=== PATIENT | male | born 1940 | race Caucasian/White ===

== ENCOUNTER 2019-11-14 09:11 | Outpatient (REF) | payer MEDICARE, SELFPAY ==
[2019-11-14 09:59] LABS: Alanine Aminotransferase 51 U/L (0-40); Alkaline Phosphatase 69 U/L (39-117); Aspartate Amino Transferase 39 U/L (5-37); Bilirubin Direct 0.5 mg/dL (0.0-0.5); Bilirubin Total 0.9 mg/dL (0.0-1.0); Total Protein 6.4 g/dL (6.5-8.0)
[2019-11-15 04:41] LABS: Triiodothyronine T3 Free 3.4 pg/mL (2.3-4.2)
== END 2019-11-14 09:12 | disposition home or self-care (01) ==
LOC: HO.LABO 09:11
PROVIDERS: Visit Provider Internal Medicine Endocrinology, Diabetes & Metabolism
DX: E05.90 Thyrotoxicosis, unspecified without thyrotoxic crisis or storm (principal)
CPT/HCPCS: 36415; 80076; 84439; 84443; 84481

== ENCOUNTER → 2019-11-22 10:47 | Outpatient (BNVA) | payer MEDICARE, SELFPAY | PROVIDERS: PCP Internal Medicine; Referring Provider Internal Medicine; Visit Provider Internal Medicine Endocrinology, Diabetes & Metabolism | DX: E05.90 Thyrotoxicosis, unspecified without thyrotoxic crisis or storm (principal); Z79.899 Other long term (current) drug therapy | CPT/HCPCS: 99213 ==

== ENCOUNTER 2019-11-22 12:07 | Outpatient (REF) | payer MEDICARE, SELFPAY ==
[2019-11-22 13:22] LABS: MANUAL DIFF FLAG NO
[2019-11-22 13:27] LABS: Basophils Percent Auto 0.3 % (0-2); Hematocrit 41.3 % (42-52); Hemoglobin 14.1 g/dl (14.0-18.0); Imm Gran Abs Auto 0.21 X10*3/uL (0.00-0.03); Imm Gran Pct Auto 2.1 % (0.0-0.4); Lymphocytes Absolute Auto 0.8 X10*3/uL (1.2-4.9); Lymphocytes Percent Auto 8.5 % (20-40); Mean Corpuscular HGB Conc 34.1 g/dl (31.0-36.0); Mean Corpuscular Hemoglobin 34.2 pg (27.0-33.0); Mean Corpuscular Volume 100.2 fL (80-98); Mean Platelet Volume 11.6 fL (9.4-12.4); Monocytes Absolute Auto 0.3 X10*3/uL (0.1-1.2); Monocytes Percent Auto 3.2 % (2-11); Neutrophils Absolute Auto 8.4 X10*3/uL (2.0-8.3); Neutrophils Percent Auto 85.9 % (45-73); Platelet Count 129 X10*3/uL (160-400); Red Blood Count 4.12 X10*6/uL (4.60-5.80); Red Cell Distribution Width 13.1 % (11.0-16.0); White Blood Count 9.8 X10*3/uL (4.8-10.8)
[2019-11-22 13:58] LABS: Alanine Aminotransferase 47 U/L (0-40); Albumin Level 4.1 g/dL (3.5-5.0); Alkaline Phosphatase 63 U/L (39-117); Anion Gap 15 (12-20); Aspartate Amino Transferase 35 U/L (5-37); Bilirubin Total 0.9 mg/dL (0.0-1.0); Blood Urea Nitrogen 11 mg/dL (9-16); Calcium 9.1 mg/dL (8.4-10.2); Carbon Dioxide 28 mmol/L (22-29); Chloride 100 mmol/L (96-108); Estimated Glomerular Filt Rate > 60; Glucose Random 127 mg/dL (60-115); Potassium 4.7 mmol/l (3.3-5.1); Sodium 138 mmol/L (135-145); Total Protein 6.4 g/dL (6.5-8.0)
[2019-11-22 14:11] LABS: Free T4 (Free Thyroxine) 1.22 ng/dL (0.71-1.85); Thyroid Stimulating Hormone 1.26 mIU/mL (0.32-4.0)
[2019-11-23 11:01] LABS: Triiodothyronine T3 Total 81 ng/dL (76-181)
== END 2019-11-22 12:08 | disposition home or self-care (01) ==
LOC: HO.10HDL 12:07
PROVIDERS: Visit Provider Internal Medicine Endocrinology, Diabetes & Metabolism
DX: E05.90 Thyrotoxicosis, unspecified without thyrotoxic crisis or storm (principal)
CPT/HCPCS: 36415; 80053; 84439; 84443; 84480; 85025

== ENCOUNTER → 2019-12-31 07:45 | Outpatient (BNV) | payer MEDICARE, SELFPAY | PROVIDERS: PCP Internal Medicine; Visit Provider Internal Medicine | DX: D69.6 Thrombocytopenia, unspecified (principal) | CPT/HCPCS: 99213 ==

== ENCOUNTER → 2020-05-06 11:30 | Outpatient (BNVA) | payer MEDICARE, SELFPAY | PROVIDERS: PCP Internal Medicine; Referring Provider Internal Medicine; Visit Provider Internal Medicine Endocrinology, Diabetes & Metabolism | DX: E05.90 Thyrotoxicosis, unspecified without thyrotoxic crisis or storm (principal) | CPT/HCPCS: 99212 ==

== ENCOUNTER 2020-05-06 12:31 | Outpatient (REF) | payer MEDICARE, SELFPAY ==
[2020-05-06 14:31] LABS: Free T4 (Free Thyroxine) 1.11 ng/dL (0.71-1.85); Thyroid Stimulating Hormone 0.83 uIU/mL (0.32-4.0)
[2020-05-07 04:11] LABS: Triiodothyronine T3 Total 90 ng/dL (76-181)
== END 2020-05-06 12:32 | disposition home or self-care (01) ==
LOC: HO.10HDL 12:31
PROVIDERS: Visit Provider Internal Medicine Endocrinology, Diabetes & Metabolism
DX: E05.90 Thyrotoxicosis, unspecified without thyrotoxic crisis or storm (principal)
CPT/HCPCS: 36415; 84439; 84443; 84480

== ENCOUNTER 2020-08-07 09:59 | Outpatient (REF) | payer MEDICARE, SELFPAY ==
[2020-08-07 12:28] LABS: Free T4 (Free Thyroxine) 1.14 ng/dL (0.71-1.85); Thyroid Stimulating Hormone 2.44 uIU/mL (0.32-4.0)
[2020-08-08 08:51] LABS: Triiodothyronine T3 Total 89 ng/dL (76-181)
== END 2020-08-07 10:00 | disposition home or self-care (01) ==
LOC: HO.LAB 09:59
PROVIDERS: PCP Internal Medicine; Visit Provider Internal Medicine Endocrinology, Diabetes & Metabolism
DX: E05.90 Thyrotoxicosis, unspecified without thyrotoxic crisis or storm (principal)
CPT/HCPCS: 36415; 84439; 84443; 84480; 99212

== ENCOUNTER 2020-10-21 09:41 | Outpatient (REF) | payer MEDICARE, SELFPAY ==
--- NOTE | 2020-10-21 11:23 | MHC.AU.AEV ---
Adult Audiological Evaluation Date of Visit: 10/21/20 Pre K Lead Teacher Used: Latvian- In Person Reason for Appointment: Patient has been experiencing significant hearing difficulties. His family reports that it has been gradually progressive, but has gotten much worse over the last year. In early 2019, patient was hospitalized for one week with COVID-like symptoms. His hospitalization was before COVID testing was readily available, and it is therefore uncertain whether or not his sickness was due to COVID. His family has noticed that since then, his hearing seems worse. 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, but has not had a full audiological evaluation Ear History: Ear Deformity: None Reported Recent Ear Drainage: None Reported Recent Ear Pain: None Reported Recent Ear Infections: None Reported Ear Infections in Childhood: None Reported History of Ear Wax Buildup: None Reported Previous Ear Surgery: None Reported Bothersome Tinnitus/Ringing/Noises in Ears: None Reported Ear used on the phone: None Reported Blocked/Full Sensation in Ear(s): None Reported 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 History: No Medical History: Medical History: Hypertension, Thrombocytopenia, A-Fib, Thyroid Problems Otoscopy: Right Ear: Unremarkable Left Ear: Tympanic membrane is retracted Tympanometry: Tympanometry performed due to: To assess integrity of the middle ear system Right Ear: Normal Middle Ear System (Type A) Left Ear: Negative Middle Ear Pressure (Type C) Hearing Evaluation: Transducer(s) Used: Insert Earphones Method: Conventional Audiometry Stimuli Used: Pure Tones Right Ear: Description of Hearing: Moderate to severe sensorineural hearing loss (slight conductive component at 250-500 Hz) Left Ear: Description of Hearing: 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 Even in an optimum setting (quiet room, one-on-one), he likely still has difficulty following along in conversation. In situations when people are further away or there is background noise, he unlikely to understand most of what is being said. Trial with hearing aids is highly recommended. It is also recommended that he follow up with his PCP to discuss the negative middle ear pressure/retracted tympanic membrane in his left ear. Recommendations: Audiological re-evaluation in one year. At this time, our clinic is not able to accept the patient's insurance for hearing aid services. It is recommended that his family contact his insurance provider to discuss any potential hearing aid benefits and which local clinics are able to accept them. Diagnosis: Primary Diagnosis: H90.A32 Mixed HL, Unilateral, Left Ear, W/Restricted Contralateral Signature: Provider: Neela Hamilton, CCC-A
== END 2020-10-21 09:42 | disposition home or self-care (01) ==
LOC: HO.SH 09:41
PROVIDERS: Visit Provider Internal Medicine
DX: H90.A32 Mixed conductive and sensorineural hearing loss, unilateral, left ear with restricted hearing on the contralateral side (principal)
CPT/HCPCS: 92557; 92567

== ENCOUNTER → 2020-12-01 11:32 | Outpatient (BNVA) | payer MEDICARE, SELFPAY | PROVIDERS: PCP Internal Medicine; Visit Provider Surgery Vascular Surgery | DX: I83.11 Varicose veins of right lower extremity with inflammation (principal) | CPT/HCPCS: 99202 ==

== ENCOUNTER → 2020-12-07 09:31 | Outpatient (BNVA) | payer MEDICARE, SELFPAY | PROVIDERS: PCP Internal Medicine; Visit Provider Internal Medicine | DX: E05.90 Thyrotoxicosis, unspecified without thyrotoxic crisis or storm (principal); I48.0 Paroxysmal atrial fibrillation; I10 Essential (primary) hypertension; N40.0 Benign prostatic hyperplasia without lower urinary tract symptoms; F10.10 Alcohol abuse, uncomplicated; Z79.899 Other long term (current) drug therapy | CPT/HCPCS: 99212 ==

== ENCOUNTER 2020-12-07 10:45 | Outpatient (REF) | payer MEDICARE, SELFPAY ==
[2020-12-07 14:47] LABS: Free T4 (Free Thyroxine) 1.01 ng/dL (0.71-1.85); Thyroid Stimulating Hormone 6.17 uIU/mL (0.32-4.0)
[2020-12-08 21:51] LABS: Triiodothyronine T3 Total 109 ng/dL (76-181)
[2020-12-09 17:30] LABS: Thyroglobulin Antibodies <1 IU/mL (< or = 1); Thyroid Peroxidase Antibodies 1 IU/mL (<9)
[2020-12-11 07:37] LABS: Thyrotropin Receptor Antibody <1.00 IU/L (<=2.00)
[2020-12-13 16:07] LABS: Thyroid Stimulating Immunoglob <89 % baseline (<140)
== END 2020-12-07 10:46 | disposition home or self-care (01) ==
LOC: HO.10HDL 10:45
PROVIDERS: Visit Provider Internal Medicine
DX: E05.90 Thyrotoxicosis, unspecified without thyrotoxic crisis or storm (principal)
CPT/HCPCS: 36415; 83520; 84439; 84443; 84445; 84480; 86376; 86800

== ENCOUNTER 2020-12-30 09:51 | Outpatient (REF) | payer MEDICARE, SELFPAY ==
--- NOTE | ~2020-12-30 | US_ITS ---
EXAMINATION: US THYROID CLINICAL INFORMATION: Thyrotoxicosis, unspecified without thyrotoxic crisis or storm. COMPARISON: None TECHNIQUE: Linear transducer grayscale and color Doppler examination with attention to the region of the thyroid. FINDINGS: SIZE: Measurements of the thyroid lobes and nodules are given in sagittal, anteroposterior and transverse dimensions respectively. Right Thyroid Lobe: 4.5 x 1.9 x 1.7 cm, volume 7.6 mL. Parenchyma: The gland echotexture is homogeneous. Thyroid vascularity is normal. Left Thyroid Lobe: 4.3 x 1.8 x 1.7 cm, volume 6.9 mL. Parenchyma: The gland echotexture is homogeneous. Thyroid vascularity is normal. Isthmus: 0.5 cm in maximum AP dimension. No focal thyroid nodule is seen. There are 2 small 1 mm calcifications in the right lobe and one small 1 mm calcification in the left lobe. NODES: No lymphadenopathy is seen in the tissue surrounding the thyroid gland. US/US thyroid IMPRESSION: Small bilateral calcifications in the thyroid gland. Otherwise unremarkable exam.
== END 2020-12-30 09:52 | disposition home or self-care (01) ==
LOC: HO.US 09:51
PROVIDERS: PCP Internal Medicine; Visit Provider Internal Medicine
DX: E05.90 Thyrotoxicosis, unspecified without thyrotoxic crisis or storm (principal)
CPT/HCPCS: 76536

== ENCOUNTER → 2021-01-13 09:05 | Outpatient (REF) | payer MEDICARE, SELFPAY ==
--- NOTE | ~2021-01-13 | NM_ITS ---
EXAMINATION: THYROID UPTAKE AND SCAN CLINICAL INFORMATION: Thyrotoxicosis. COMPARISON: No previous radionuclide thyroid scan is available for comparison. Thyroid ultrasound dated 12/30/2020 is available for comparison. TECHNIQUE: Following the oral administration of 292 microcuries of I-123 sodium iodide, thyroid uptake was performed and expressed as a percentage of the administrated dose. Gamma scintillation camera images of the thyroid in the anterior and right and left anterior oblique views were obtained using a pinhole collimator following the administration of 10 mCi Tc-99m pertechnetate. FINDINGS: The uptake is 7.1% at 4 hours and 22.0% at 24 hours (Normal radioiodine uptake at 24 hours is 10% to 30%). The radioiodine uptake is normal. The radiopertechnetate thyroid scintigram demonstrates the thyroid gland to be normal in size, shape, and position. There is homogeneous distribution of activity within the the gland with no focal abnormalities noted. The trapping function appears normal. NM/NM thyroid w uptake IMPRESSION: Normal radioiodine uptake. Normal thyroid scan.
[2021-01-13 11:08] LABS: Free T4 (Free Thyroxine) 1.11 ng/dL (0.71-1.85); Thyroid Stimulating Hormone 1.85 uIU/mL (0.32-4.0)
[2021-01-15 21:56] LABS: Triiodothyronine T3 Total 123 ng/dL (76-181)
== END ==
LOC: HO.NUCMED 09:05
PROVIDERS: Visit Provider Internal Medicine
DX: E05.90 Thyrotoxicosis, unspecified without thyrotoxic crisis or storm (principal)
CPT/HCPCS: 36415; 78014; 84439; 84443; 84480; A9512; A9516

== ENCOUNTER 2021-03-05 10:33 | Outpatient (REF) | payer MEDICARE, SELFPAY ==
[2021-03-05 12:10] LABS: Free T4 (Free Thyroxine) 1.06 ng/dL (0.71-1.85); Thyroid Stimulating Hormone 1.19 uIU/mL (0.32-4.0)
[2021-03-06 14:17] LABS: Triiodothyronine T3 Total 110 ng/dL (76-181)
== END 2021-03-05 10:34 | disposition home or self-care (01) ==
LOC: HO.LAB 10:33
PROVIDERS: Visit Provider Internal Medicine
DX: E05.90 Thyrotoxicosis, unspecified without thyrotoxic crisis or storm (principal)
CPT/HCPCS: 36415; 84439; 84443; 84480

== ENCOUNTER → 2021-03-08 11:28 | Outpatient (BNVA) | payer MEDICARE, SELFPAY | PROVIDERS: PCP Internal Medicine; Visit Provider Internal Medicine | DX: E05.90 Thyrotoxicosis, unspecified without thyrotoxic crisis or storm (principal) | CPT/HCPCS: Q3014 ==

== ENCOUNTER 2021-07-19 06:26 | Outpatient (REF) | payer MEDICARE, SELFPAY ==
[2021-07-19 08:01] LABS: Alanine Aminotransferase 33 U/L (0-40); Aspartate Amino Transferase 31 U/L (5-37); Cholesterol 170 mg/dL; HDL Cholesterol 104 mg/dL; LDL Cholesterol Calculated 56 mg/dl; Triglycerides 50 mg/dL
== END 2021-07-19 06:27 | disposition home or self-care (01) ==
LOC: HO.LAB 06:26
PROVIDERS: PCP Internal Medicine; Visit Provider Internal Medicine Cardiovascular Disease
DX: E78.5 Hyperlipidemia, unspecified (principal)
CPT/HCPCS: 36415; 80061; 84450; 84460

== ENCOUNTER 2021-09-06 10:49 | Outpatient (REF) | payer MEDICARE, SELFPAY ==
[2021-09-06 12:47] LABS: Free T4 (Free Thyroxine) 1.23 ng/dL (0.71-1.85); Thyroid Stimulating Hormone 1.31 uIU/mL (0.32-4.0)
[2021-09-07 06:46] LABS: Triiodothyronine T3 Total 94 ng/dL (76-181)
== END 2021-09-06 10:50 | disposition home or self-care (01) ==
LOC: HO.LAB 10:49
PROVIDERS: PCP Internal Medicine; Visit Provider Internal Medicine
DX: E05.90 Thyrotoxicosis, unspecified without thyrotoxic crisis or storm (principal)
CPT/HCPCS: 36415; 84439; 84443; 84480

== ENCOUNTER 2022-01-14 09:17 | Outpatient (REF) | payer MEDICARE, SELFPAY ==
[2022-01-14 10:49] LABS: Free T4 (Free Thyroxine) 1.23 ng/dL (0.71-1.85); Thyroid Stimulating Hormone 1.26 uIU/mL (0.32-4.0)
[2022-01-15 17:03] LABS: Triiodothyronine T3 Total 104 ng/dL (76-181)
== END 2022-01-14 09:18 | disposition home or self-care (01) ==
LOC: HO.LAB 09:17
PROVIDERS: PCP Internal Medicine; Visit Provider Internal Medicine
DX: E05.90 Thyrotoxicosis, unspecified without thyrotoxic crisis or storm (principal)
CPT/HCPCS: 36415; 84439; 84443; 84480

== ENCOUNTER → 2022-01-20 13:15 | Outpatient (BNVA) | payer MEDICARE, SELFPAY | PROVIDERS: PCP Internal Medicine; Visit Provider Internal Medicine | DX: E05.90 Thyrotoxicosis, unspecified without thyrotoxic crisis or storm (principal); I10 Essential (primary) hypertension; I48.0 Paroxysmal atrial fibrillation | CPT/HCPCS: Q3014 ==

== ENCOUNTER 2022-02-10 09:43 | Outpatient (REF) | payer MEDICARE, SELFPAY | END 2022-02-10 09:44 | disposition home or self-care (01) | LOC: HO.SH 09:43 | PROVIDERS: Visit Provider Internal Medicine | DX: Z01.118 Encounter for examination of ears and hearing with other abnormal findings (principal); H90.A32 Mixed conductive and sensorineural hearing loss, unilateral, left ear with restricted hearing on the contralateral side | CPT/HCPCS: 92557; 92567 ==

== ENCOUNTER 2022-03-21 12:43 | Outpatient (REF) | payer MEDICARE, SELFPAY ==
[2022-03-21 16:41] LABS: Urine Cytology See Pathology rpt
== END 2022-03-21 12:44 | disposition home or self-care (01) ==
LOC: HO.LAB 12:43
PROVIDERS: PCP Internal Medicine; Visit Provider Nurse Practitioner Family
DX: N40.0 Benign prostatic hyperplasia without lower urinary tract symptoms (principal); R35.1 Nocturia
CPT/HCPCS: 51798; 88112; 99202

== ENCOUNTER → 2022-05-05 09:29 | Outpatient (BNVA) | payer MEDICARE, SELFPAY | PROVIDERS: Visit Provider Nurse Practitioner Family | DX: N40.1 Benign prostatic hyperplasia with lower urinary tract symptoms (principal); R35.1 Nocturia | CPT/HCPCS: 51798; 99212 ==

== ENCOUNTER 2022-05-06 09:18 | Outpatient (REF) | payer MEDICARE, SELFPAY ==
[2022-05-06 11:37] LABS: PSA,Total (Free>4and<10) 1.23 ng/mL (0.00-4.00)
== END 2022-05-06 09:19 | disposition home or self-care (01) ==
LOC: HO.LAB 09:18
PROVIDERS: Visit Provider Nurse Practitioner Family
DX: Z12.5 Encounter for screening for malignant neoplasm of prostate (principal); N40.0 Benign prostatic hyperplasia without lower urinary tract symptoms
CPT/HCPCS: 36415; 84153

== ENCOUNTER 2022-06-10 09:41 | Outpatient (REF) | payer MEDICARE, SELFPAY ==
--- NOTE | ~2022-06-10 | US_ITS ---
EXAMINATION: US RETROPERITONEAL COMPLETE (RENAL) CLINICAL INFORMATION: Benign prostatic hyperplasia without lower urinary tract symptoms. COMPARISON: CT abdomen and pelvis 03/26/2019. Ultrasound abdomen complete 11/01/2016. TECHNIQUE: Real-time imaging of the kidneys and bladder. FINDINGS: RIGHT KIDNEY: 10.2 x 5.9 x 4.8 cm (SAG x AP x TRV). The kidney is normal in size, contour, and echogenicity. Renal cortical thickness is normal. No calculi or focal parenchymal lesions. No hydronephrosis. LEFT KIDNEY: 12.3 x 6.0 x 5.8 cm (SAG x AP x TRV). The kidney is normal in size, contour, and echogenicity. Renal cortical thickness is normal. No calculi or focal parenchymal lesions. No hydronephrosis. BLADDER: Well distended and normal. Bilateral ureteral jets are demonstrated. Prevoid bladder volume is 168 mL. Postvoid bladder volume is 14 mL. ADDITIONAL FINDINGS: Prostate dimensions are 4.4 x 3.8 x 3.9 cm (volume 34.1 mL). US/US retroperitoneal comp IMPRESSION: 1. Unremarkable ultrasound examination the kidneys. 2. There is mild prostatomegaly.
== END 2022-06-10 09:42 | disposition home or self-care (01) ==
LOC: HO.US 09:41
PROVIDERS: Visit Provider Nurse Practitioner Family
DX: N40.0 Benign prostatic hyperplasia without lower urinary tract symptoms (principal); R35.1 Nocturia
CPT/HCPCS: 76770

== ENCOUNTER → 2022-06-16 09:52 | Outpatient (BNVA) | payer MEDICARE, SELFPAY | PROVIDERS: PCP Internal Medicine; Visit Provider Nurse Practitioner Family | DX: N40.1 Benign prostatic hyperplasia with lower urinary tract symptoms (principal); R35.1 Nocturia | CPT/HCPCS: 51798; 99212 ==

== ENCOUNTER 2022-12-19 11:50 | Outpatient (AMB) | payer MEDICARE, SELFPAY ==
--- NOTE | 2022-12-19 11:51 | A.OFFVIS_ITS ---
Intake Intake Visit Reasons: 6m/PVR Intake Note: Patient is present for follow up BPH/PVR Urology Medications: terazosin (patient daughter stated not working and patient is getting up 5-6 times a night) Blood Thinner: none PVR: 0ml's [place] Required: Yes Accompanied by: Daughter Allergies Seasonal Allergies Allergy (Intermediate, Verified 12/19/22 13:13) Itchy Eyes Medication List - Last Reconciled 12/19/22 by PATRICIA Arroyo-ANGI atorvastatin 20 mg PO BEDTIME diltiazem HCl ER (Tiadylt ER) 180 mg PO DAILY furosemide 20 mg PO DAILY loratadine-pseudoephedrine 10-240 mg ER (Claritin-D 24 Hour) 1 tab PO DAILY metoprolol tartrate 50 mg PO BID omeprazole 20 mg PO DAILY terazosin 10 mg PO BEDTIME 90 days HPI HPI Comments History of Present Illness Details Grzegorz is a pleasant Tongan-speaking 82-year-old male patient of who is accompanied by his daughter Shakira at today's office visit. He has a past medical history of constipation, alcohol abuse, GERD, paroxysmal AFib, hypertension, and hyper thyroidism. He presents to the office today for a follow up of his urinary frequency and nocturia. When asked patient reports to be doing and feeling well. In discussion with the patient today reports compliance with terazosin 10 mg at bedtime. However, he continues to report increased episodes of nocturia up to 5 times per night. He otherwise denies any bothersome urinary issues or concerns. He does report intermittent episodes of urinary frequency throughout the day however does not find this bothersome. He discusses noting increased episodes of urinary frequency when drinking beer. Discussed at length affects of alcohol on the bladder as well as overall health and well-being. Previous workup has included a retroperitoneal ultrasound and PSA. Imaging showing bilateral kidneys with no calculi, lesions, or hydr onephrosis noted. Unremarkable ultrasound examination the kidneys.There is mild prostatomegaly. Prevoid bladder volume 170ml's post void bladder volume 13.5ml's. Prostate measures 34ml's. PSA 05/05--1.2. Patient reports initially feeling improvement in urinary symptoms on increase of terazosin 10 mg daily however feels since his last office visit here approximately 6 months ago he continues with increased episodes of nocturia. In office urinalysis results reviewed with the patient is daughter today. PVR 0 mL. Discussed at length importance of limiting fluids 2-3 hours prior to bed to assist with decreasing episodes of nocturia. Discuss trial of other medications however patient declines at this time. He otherwise denies hematuria, dysuria, foul smelling urine, changes to urinary stream, flank pain, fever, and or chills. PFSH Medical History Constipation BPH (benign prostatic hyperplasia) Alcohol abuse GERD (gastroesophageal reflux disease) Paroxysmal A-fib Hypertension Hyperthyroidism Surgical History Back pain with history of spinal surgery Hx of hemorrhoids Hx of colonoscopy Family History Father No problems noted. Mother Heart disease Social History Household Members: None Housing: Apartment Are you a primary career resource technician to a significant other at home: No Do you presently have visiting nurse or other home services: No Alcohol intake: former Patient Tobacco Use Status: Never used Tobacco Advance Directives Date on File: 11/22/19 service: No Current occupational status: retired Review of Systems Eyes Reports no additional complaints ENT Reports no additional complaints Card Reports as per HPI Resp Reports no additional complaints GI Reports as per HPI Reports as per HPI Musc Reports no additional complaints Neuro Reports no additional complaints Psych Reports as per HPI Endo Reports as per HPI Surinder/Lymph Reports no additional complaints Aller/Immun Reports no additional complaints Physical Exam Const General: cooperative, healthy appearing, comfortable, no acute distress, well developed, alert and awake Orientation/consciousness: patient oriented x3 Limitations: no limitations HEENT Head: Yes normal to inspection, Yes normocephalic and Yes atraumatic Eyes General: appearance normal, both eyes and all related structures Neck Neck: Yes normal visual inspection and Yes trachea midline Chest Chest palpation & inspection: normal inspection of the chest Resp Effort & Inspection: normal respiratory effort and able to speak in complete sentences Cardio Rate: regular rate GI Inspection: Yes normal to inspection Rectal Exam - Male: Yes deferred General: Yes no CVA tenderness Back/Spine/Pelvis Back: no CVA tenderness Skin General skin exam: no rashes or lesions noted Neuro General: patient oriented x3 Extrem General: Yes normal to inspection Psych Appearance: grossly normal and well kempt Mental Status: mental status grossly normal Speech and movement: Normal speech and movement present and Clear speech present Affect: normal affect Attitude: cooperative Thought process: Normal thought process present Thought content: Normal thought content present Insight: Fair insight present (Psych) Judgement: Fair judgement present (Psych) Office Procedures Post Void Residual Post Residual Void Post Void Residual (PVR): 0 06204-[id number] Void Residual by ultrasound Results AMB Urinalysis, Automated UA Leukoctes 0 Theodore/uL Last Edit by New Body MD on 12/19/22 12:12 UA Nitrite Negative Last Edit by New Body MD on 12/19/22 12:12 UA Urobilinogen 0.2 mg/dL Last Edit by New Body MD on 12/19/22 12:12 UA Protein 0 mg/dL Last Edit by New Body MD on 12/19/22 12:12 UA pH 6.0 Last Edit by New Body MD on 12/19/22 12:12 UA Blood 0 Gelacio/uL Last Edit by New Body MD on 12/19/22 12:12 UA Specific [place] 1.005 Last Edit by New Body MD on 12/19/22 12:12 UA Ketone Negative Last Edit by New Body MD on 12/19/22 12:12 UA Bilirubin 0 mg/dL Last Edit by New Body MD on 12/19/22 12:12 UA Glucose 0 mg/dL Last Edit by New Body MD on 12/19/22 12:12 Results Reviewed Results Reviewed: Laboratory Last Values Urine pH (Auto) 6.0 12/19/22 11:53 Specific [place] (Auto) 1.005 12/19/22 11:53 Urine Protein (Auto) 0 mg/dL 12/19/22 11:53 Glucose (UA)(Auto) 0 mg/dL 12/19/22 11:53 Urine Ketones (Auto) Negative 12/19/22 11:53 Urine Blood (Auto) 0 Gelacio/uL 12/19/22 11:53 Urine Nitrite (Auto) Negative 12/19/22 11:53 Urine Bilirubin (Auto) 0 mg/dL 12/19/22 11:53 Urine Urobilinogen (Auto) 0.2 mg/dL 12/19/22 11:53 Leukocyte Esterase (Auto) 0 Theodore/uL 12/19/22 11:53 Assessment & Plan Assessment & Plan (1) Nocturia: Code(s): R35.1 - Nocturia (2) Lower urinary tract symptoms: Code(s): R39.9 - Unspecified symptoms and signs involving the genitourinary system Plan In office urinalysis results reviewed with the patient today; as noted above. PVR 0 mL. Discussed trial of other medication to assist with nocturia and intermittent episodes of urinary frequency; patient declines Continue 10 mg of terazosin at bedtime Discussed at length affects of alcohol on the bladder as well as overall health and well-being. Discussed and stressed the importance of limiting fluids 2-3 hours prior to bed to assist with decreasing episodes of nocturia. Discussed bladder triggers/irritants. Follow-up in office cystoscopy for further assessment evaluation; or sooner with any issues, concerns, and or questions. Orders: Orders AMB Urinalysis Automated Today Z13.9 - Encounter for screening, unspecified AMB Post Void Residual by ultrasound Today R35.1 - Nocturia Patient Instructions: The patient had an opportunity to ask questions regarding the treatment plan. All questions were answered. Physical exam, labs, and imaging were discussed and reviewed in detail. As well as risks, benefits, and discussion of treatment choices. No major barriers to understanding were identified. The patient expressed understanding and agreement with the above treatment plan. The patient was made aware they should contact our office by phone for worsening of their current condition, the appearance of new symptoms, or with any questions or concerns. Compliance is encouraged with any medications and follow up testing that is ordered. It is a privilege to be allowed the opportunity to participate in? your urological care.? Again, if you have any questions or concerns If you have any questions or concerns please do not hesitate to contact me. The office is [phone]. This note is constructed using voice recognition software. While every effort has been made to ensure accuracy sieve grader tender errors may have been included. Yours sincerely, KELLEE Arroyo Coding Level of Care Code Est Pt Level 3 (43123) Diagnoses Nocturia R35.1 Lower urinary tract symptoms R39.9 CPT Codes Post Residual Void - PVR CPT Code: 72800-[id number] Void Residual by ultrasound ([id number])
== END 2022-12-19 12:31 | disposition home or self-care (01) ==
LOC: HO.HUSH 11:50
PROVIDERS: PCP Internal Medicine; Visit Provider Nurse Practitioner Family
DX: R35.1 Nocturia (principal); R39.9 Unspecified symptoms and signs involving the genitourinary system; Z13.9 Encounter for screening, unspecified
CPT/HCPCS: 99213

== ENCOUNTER → 2022-12-19 11:50 | Outpatient (BNVA) | payer MEDICARE, SELFPAY | PROVIDERS: PCP Internal Medicine; Visit Provider Nurse Practitioner Family | DX: R35.1 Nocturia (principal); R39.9 Unspecified symptoms and signs involving the genitourinary system; Z79.899 Other long term (current) drug therapy | CPT/HCPCS: 51798; 81003; 99212 ==

== ENCOUNTER 2023-03-23 10:04 | Outpatient (AMB) | payer MEDICARE, SELFPAY ==
--- NOTE | 2023-03-23 10:10 | MHC.OFFVIS ---
Intake Intake Visit Reasons: 3M CYSTO(BPH) Intake Note: Patient is Present for Cystoscopy Urology Med: Terazosin Antibiotic Allergy: None Blood Thinner: None Patient is refusing Cystoscopy today. Patient is claiming that this was not dicussed at last appt. PER Morena Waters OBSTETRICAL ANESTHESIOLOGIST Last note does indicate that cystoscopy was part of his treatment plan. Patient does not want this done because it was not mentioned and that he had this done previously before at another office. Explained to patient that this has been explained to Provider and will come in to review medication that was prescribed and other treatment. Reviewed Allergies patient confirmed no allergies to medication and Antibiotics Reviewed patient confirmed that he is not taking any new medications Allergies Seasonal Allergies Allergy (Intermediate, Verified 03/23/23 10:11) Itchy Eyes HPI HPI Comments History of Present Illness Details Grzegorz is a pleasant Setswana-speaking male. He is a patient of Dr. Strange. He seen for the following urologic conditions - lower urinary tract symptoms Completed by his daughter translates Had presented today for follow-up after starting medications and plan for cystoscopy Significant improvement in nocturia and urination while stone terazosin 10 mg PVR improving Main issues that he drinks lots of water prior to going to bed and this causes nocturia Stress need to decrease fluid intake They would prefer to follow-up in 6 months Lower urinary tract symptoms Initial presentation progressive with nocturia x5 Weakness of stream Urinary hesitancy Initial therapy terazosin 10 mg Imaging - bladder ultrasound with mild prostatomegaly 35 cc, postvoid 20 cc PSA 05/05 1.2 PFSH Medical History Constipation BPH (benign prostatic hyperplasia) Alcohol abuse GERD (gastroesophageal reflux disease) Paroxysmal A-fib Hypertension Hyperthyroidism Surgical History Back pain with history of spinal surgery Hx of hemorrhoids Hx of colonoscopy Family History Father No problems noted. Mother Heart disease Social History Household Members: None Housing: Apartment Are you a primary urgent care physician to a significant other at home: No Do you presently have visiting nurse or other home services: No Alcohol intake: former Patient Tobacco Use Status: Never used Tobacco Advance Directives Date on File: 11/22/19 service: No Current occupational status: retired Review of Systems Const Denies chills and Denies fever(s) Card Reports no additional complaints and Denies syncope Resp Denies cough GI Denies abdominal pain and Denies heartburn Reports as per HPI and Denies change in libido Neuro Denies syncope Psych Denies change in libido Endo Denies change in libido Physical Exam Const General: cooperative, healthy appearing, comfortable and no acute distress Orientation/consciousness: patient oriented x3 HEENT Face and sinus: Yes normal facial exam Mouth: moist mucous membranes Neck Neck: Yes normal visual inspection, Yes full ROM and Yes trachea midline Chest Chest palpation & inspection: normal inspection of the chest Resp Effort & Inspection: normal respiratory effort, able to speak in complete sentences and no respiratory distress GI Inspection: Yes normal to inspection Back/Spine/Pelvis Cervical Spine: normal cervical lordosis Thoracic/Lumbar Spine: thoracic and lumbar spine normal to inspection Skin General skin exam: no rashes or lesions noted Neuro General: patient oriented x3, gait normal, tone normal and moves all extremities Extrem General: Yes normal to inspection and Yes capillary refill normal Office Procedures Cystoscopy Consent Discussed risk and benefit or proposed procedure with the patient. Information consent for procedure given to the patient. Discussed technical aspects, risks, benefits and alternatives in full. Addressed all of the patient's questions and concerns regarding the procedure. The patient demonstrated knowledge and understanding. They wish to proceed with this procedure. Preparation The patient was prepped in the usual manner. A internal control analyst was present and in the room. Genitalia was prepped with betadine solution in a sterile manner. Lidocaine Jelly 2% was placed into the urethra and 16Fr flexible Olympus cystoscope was inserted into the meatus after adequate lubrication. Results AMB Urinalysis, Automated UA Leukoctes 0 Theodore/uL Last Edit by BRIANDA Vitale on 03/23/23 10:27 UA Nitrite Negative Last Edit by BRIANDA Vitale on 03/23/23 10:27 UA Urobilinogen 0.2 mg/dL Last Edit by BRIANDA Vitale on 03/23/23 10:27 UA Protein 0 mg/dL Last Edit by BRIANDA Vitale on 03/23/23 10:27 UA pH 6.0 Last Edit by BRIANDA Vitale on 03/23/23 10:27 UA Blood 10 Gelacio/uL Last Edit by PRIYANK VitaleA on 03/23/23 10:27 UA Specific [place] 1.010 Last Edit by Chelle Murray RMA on 03/23/23 10:27 UA Ketone Negative Last Edit by Chelle Murray A on 03/23/23 10:27 UA Bilirubin 0 mg/dL Last Edit by Chelle Murray RMA on 03/23/23 10:27 UA Glucose 0 mg/dL Last Edit by Chelle Murray A on 03/23/23 10:27 Results Reviewed Results Reviewed: Laboratory Last Values Urine pH (Auto) 6.0 03/23/23 10:13 Specific [place] (Auto) 1.010 03/23/23 10:13 Urine Protein (Auto) 0 mg/dL 03/23/23 10:13 Glucose (UA)(Auto) 0 mg/dL 03/23/23 10:13 Urine Ketones (Auto) Negative 03/23/23 10:13 Urine Blood (Auto) 10 Gelacio/uL 03/23/23 10:13 Urine Nitrite (Auto) Negative 03/23/23 10:13 Urine Bilirubin (Auto) 0 mg/dL 03/23/23 10:13 Urine Urobilinogen (Auto) 0.2 mg/dL 03/23/23 10:13 Leukocyte Esterase (Auto) 0 Theodore/uL 03/23/23 10:13 Assessment & Plan Assessment & Plan (1) Lower urinary tract symptoms: Code(s): R39.9 - Unspecified symptoms and signs involving the genitourinary system (2) Nocturia: Code(s): R35.1 - Nocturia Plan Continue current therapy Six month follow-up nurse practitioner Orders: Orders AMB Urinalysis Automated 03/23/23 Z13.9 - Encounter for screening, unspecified AMB Cystoscopy 03/23/23 N40.0 - Benign prostatic hyperplasia without lower urinary tract symptoms Medications: New nitrofurantoin monohyd/m-cryst 100 mg 100 mg PO ONCE 1 cap 0RF N40.0 - Benign prostatic hyperplasia without lower urinary tract symptoms naproxen 500 mg PO ONCE 1 tab 0RF N40.0 - Benign prostatic hyperplasia without lower urinary tract symptoms lidocaine HCl 2% 10 mL intra-urethral ONCE 10 mL 0RF N40.0 - Benign prostatic hyperplasia without lower urinary tract symptoms Patient Instructions: Imaging studies, laboratory and physical exam results were discussed and reviewed in detail. No major barriers to patient understanding were identified. An opportunity to ask questions regarding the treatment plan was provided. All questions were answered. The patient expressed understanding and agreement with the above treatment plan. The patient is aware they should contact our office by phone for worsening of their current condition or the appearance of new urologic symptoms. Compliance is encouraged with any medications and followup testing that is ordered. It is a privilege to participate in the urologic care of your patient. If you have any questions or concerns regarding treatment for the above conditions, or other urologic issues, please do not hesitate to contact me. The office telephone contact is [phone]. This note is constructed using voice recognition software. While every effort has been made to ensure accuracy community relations officer errors may have been included. Yours sincerely, Dr Mat Gates MD, MARCE[facility] - Urology Providers of Expert, Compassionate Care for the Genitourinary System Coding Level of Care Code Est Pt Level 3 (92283) Diagnoses Lower urinary tract symptoms R39.9 Nocturia R35.1
== END 2023-03-23 11:03 | disposition home or self-care (01) ==
PROVIDERS: PCP Internal Medicine; Visit Provider Urology
DX: R39.9 Unspecified symptoms and signs involving the genitourinary system (principal); R35.1 Nocturia
CPT/HCPCS: 99213

== ENCOUNTER → 2023-03-23 10:04 | Outpatient (BNVA) | payer MEDICARE, SELFPAY | PROVIDERS: PCP Internal Medicine; Visit Provider Urology | DX: R39.9 Unspecified symptoms and signs involving the genitourinary system (principal); R35.1 Nocturia | CPT/HCPCS: 81003; 99212 ==

== ENCOUNTER 2023-05-05 10:50 | Outpatient (REF) | payer MEDICARE, SELFPAY ==
[2023-05-05 12:33] LABS: Alanine Aminotransferase 22 U/L (0-40); Albumin Level 3.4 g/dL (3.5-5.0); Alkaline Phosphatase 80 U/L (39-117); Aspartate Amino Transferase 20 U/L (5-37); Bilirubin Direct 0.2 mg/dL (0.0-0.5); Bilirubin Total 0.5 mg/dL (0.0-1.0)
== END 2023-05-05 10:51 | disposition home or self-care (01) ==
LOC: HO.HHCL 10:50
PROVIDERS: Visit Provider Internal Medicine
DX: B35.1 Tinea unguium (principal); B35.3 Tinea pedis
CPT/HCPCS: 36415; 80076

== ENCOUNTER 2023-05-31 10:31 | Outpatient (AMB) | payer MEDICARE, SELFPAY ==
--- NOTE | 2023-05-31 10:43 | A.OFFVIS_ITS ---
Vital Signs 05/31/23 10:44 05/31/23 11:29 Height 5 ft 4 in Weight 145 lb BMI 24.9 BP 107/52 L Blood Pressure Location Lt brachial Position Sitting Pulse 52 60 Pulse Source Auscultation Intake Visit Reasons: Gastroesophageal reflux disease (GERD) Intake Note: Patient new consult for GERD. Patient cc: abdominal pain/bloating on and off, gassy, acid reflex with burning sensation, and hard stool. Reinsurance Claim Analyst Required: No Accompanied by: Daughter Allergies Seasonal Allergies Allergy (Intermediate, Verified 05/31/23 10:42) Itchy Eyes Medication List - Last Reconciled 05/31/23 by Chyna Adhikari PA-C atorvastatin 20 mg PO BEDTIME diltiazem HCl ER (DILT-XR) 180 mg PO DAILY furosemide 20 mg PO DAILY loratadine-pseudoephedrine 10-240 mg ER (Claritin-D 24 Hour) 1 tab PO DAILY metoprolol tartrate 50 mg PO BID omeprazole 20 mg PO DAILY terazosin 10 mg PO BEDTIME 90 days HPI Comments Details: 82-year-old male here with his daughter interprets-, nausea and regurg-- intermittently for the past year- seems to be more often- he gets a lot of acid- omeprazole 20 mg- taken only prn-he takes on a full stomach he has epigastric discomfort -after eating-depending on what he eats- He has constipation- He has an constipation for years- he does not eat fiber- no supplements- or bowel regimen He had colonoscopy, at some point he has not recall when He is awaiting a cardiac consult for AFIB on- 07/12/23- he seen in greater than a year- 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 Mother Heart disease Social History Household Members: None Housing: Apartment Are you a primary resident care assistant to a significant other at home: No Do you presently have visiting nurse or other home services: No Alcohol intake: former Patient Tobacco Use Status: Never used Tobacco Advance Directives Date on File: 11/22/19 service: No Current occupational status: retired Review of Systems Const All systems reviewed & are unremarkable except as noted in HPI and below Card Denies chest pain, Denies chest pain at rest, Denies chest pain with activity, Denies diaphoresis, Denies syncope, Denies rapid heart rate, Denies irregular heart rhythm, Denies palpitations, Denies dyspnea and Denies dyspnea on exertion Resp Denies dyspnea and Denies dyspnea on exertion GI Reports abdominal pain, Reports bloating, Denies hematochezia, Reports constipation, Reports heartburn, Reports nausea and Denies hematemesis Neuro Denies syncope Endo Denies palpitations Physical Exam Vital Signs: Last Vital Signs Pulse 60 05/31/23 11:29 BP 107/52 L 05/31/23 10:44 BMI result Body Mass Index 24.9 Const General: cooperative, healthy appearing, comfortable and no acute distress Orientation/consciousness: patient oriented x3 Limitations: language barrier and ambulation with cane Eyes Sclerae: sclerae normal Resp Effort & Inspection: normal respiratory effort and able to speak in complete sentences Auscultation: clear to auscultation bilaterally, no rales, no rhonchi and no wheezes Cardio Other: Rate: regular rate () Rhythm: abnormal rhythm regularly irregular GI Palpation (GI): Soft to palpation and nontender Auscultation: normal bowel sounds Skin General skin exam: no rashes or lesions noted Neuro General: patient oriented x3 Extrem Other: gout Psych Appearance: grossly normal and well kempt Mental Status: mental status grossly normal Speech and movement: Normal speech and movement present Affect: normal affect Attitude: cooperative Thought process: Normal thought process present Thought content: Normal thought content present Results Reviewed Results Reviewed: US/US retroperitoneal comp IMPRESSION: 1. Unremarkable ultrasound examination the kidneys. 2. There is mild prostatomegaly. Colonoscopy- Dr. Khan- 2013- adenoma- Assessment & Plan Assessment & Plan (1) GERD (gastroesophageal reflux disease): Code(s): K21.9 - Gastro-esophageal reflux disease without esophagitis Category: Medical Plan: omeprazole-20 mg reflux precautions (2) Paroxysmal A-fib: Code(s): I48.0 - Paroxysmal atrial fibrillation Category: Medical Plan: seeing cardiology- 06/12 (3) Chronic constipation: Code(s): K59.09 - Other constipation Category: Medical Plan: bowel regimen (4) Tubular adenoma: Comment: Review of records shows call colonoscopy with polypectomy 2012-pathology reveals tubular adenoma Code(s): D36.9 - Benign neoplasm, unspecified site Category: Medical Plan: Recommend polyp surveillance colonoscopy Plan Recommend EGD and colonoscopy However will await cardiology consult-his daughter is well aware of plan Daughter will call us Update labs Bowel regimen PPI Reflux precautions Cardiology follow through Orders: Orders Complete Blood Count Auto Diff 05/31/23 I48.0 - Paroxysmal atrial fibrillation, K21.9 - Gastro-esophageal reflux disease without esophagitis Thyroid Stimulating Hormone 05/31/23 R19.8 - Other specified symptoms and signs involving the digestive system and abdomen Medications: New docusate sodium (Colace) 200 mg (2 x 100 mg) PO BEDTIME 30 days 60 caps 5RF polyethylene glycol 3350 (Miralax) 17 grams PO DAILY 30 days 510 grams 6RF Patient Instructions: Reflux-precautions do not recline 2-3 hrs after dinner ppi- empty stomach-30 min colace 200mg QHS miralax QHS HFD cbc
[2023-05-31 10:44] VITALS: BP 107/52; PULSE 52; BMI 24.9
[2023-05-31 11:29] VITALS: PULSE 60
== END 2023-05-31 11:49 | disposition home or self-care (01) ==
PROVIDERS: PCP Internal Medicine; Visit Provider Physician Assistant
DX: K21.9 Gastro-esophageal reflux disease without esophagitis (principal); I48.0 Paroxysmal atrial fibrillation; K59.09 Other constipation; D36.9 Benign neoplasm, unspecified site
CPT/HCPCS: 99204; 99214

== ENCOUNTER 2023-05-31 10:31 | Outpatient (REF) | payer MEDICARE, SELFPAY ==
[2023-05-31 12:11] LABS: MANUAL DIFF FLAG NO
[2023-05-31 13:30] LABS: Basophils Absolute Auto 0.1 X10*3/uL (0.0-0.2); Basophils Percent Auto 0.7 % (0-2); Eosinophils Absolute Auto 0.2 X10*3/uL (0.0-0.4); Eosinophils Percent Auto 2.7 % (0-4); Hematocrit 41.1 % (42.0-52.0); Hemoglobin 13.9 g/dl (14.0-18.0); Imm Gran Abs Auto 0.06 X10*3/uL (0.00-0.03); Imm Gran Pct Auto 0.8 % (0.0-0.4); Lymphocytes Absolute Auto 1.6 X10*3/uL (1.2-4.9); Mean Corpuscular HGB Conc 33.8 g/dl (31.0-36.0); Mean Corpuscular Hemoglobin 32.6 pg (27.0-33.0); Mean Corpuscular Volume 96.3 fL (80.0-98.0); Mean Platelet Volume 12.1 fL (9.4-12.4); Monocytes Percent Auto 13.6 % (2-11); Neutrophils Absolute Auto 4.4 x10*3/uL (2.0-8.3); Neutrophils Percent Auto 60.2 % (45-73); Platelet Count 124 X10*3/uL (160-400); Red Blood Count 4.27 X10*6/uL (4.60-5.80); Red Cell Distribution Width 13.1 % (11.0-16.0); White Blood Count 7.4 X10*3/uL (4.8-10.8)
[2023-05-31 14:34] LABS: Thyroid Stimulating Hormone 1.38 uIU/mL (0.32-4.0)
== END 2023-05-31 10:32 | disposition home or self-care (01) ==
LOC: HO.LAB 10:31
PROVIDERS: PCP Internal Medicine; Visit Provider Physician Assistant
DX: K21.9 Gastro-esophageal reflux disease without esophagitis (principal); I48.0 Paroxysmal atrial fibrillation; R19.8 Other specified symptoms and signs involving the digestive system and abdomen
CPT/HCPCS: 36415; 84443; 85025; 99202

== ENCOUNTER 2023-07-12 12:39 | Outpatient (AMB) | payer MEDICARE, SELFPAY ==
[2023-07-12 13:10] VITALS: BP 110/60; PULSE 54; BMI 26.1
--- NOTE | 2023-07-12 13:10 | MHC.OFFVIS ---
Vital Signs 07/12/23 13:10 Height 5 ft 4 in Weight 152 lb 1.903 oz BMI 26.1 BP 110/60 Blood Pressure Location Lt brachial Position Sitting Pulse 54 Pulse Source Monitor Intake Visit Reasons: [employer]/Dr. Christensen/Bradycardia Weight Guesser Name: [id number] Allergies Seasonal Allergies Allergy (Intermediate, Verified 06/26/23 09:42) Itchy Eyes Medication List - Last Reconciled 07/12/23 by Zachery Bean MD atorvastatin 20 mg PO BEDTIME diltiazem HCl ER (DILT-XR) 180 mg PO DAILY furosemide 20 mg PO DAILY metoprolol tartrate 25 mg PO BID omeprazole 20 mg PO DAILY terazosin 10 mg PO BEDTIME 90 days HPI Comments Details: Grzegorz has been referred for evaluation of sinus bradycardia. It seems that he used to see [facility] in the past but not recently. Per PCP notes, there is mention of atrial fibrillation that was apparently diagnosed in 2019. Around that time, it seems that he also got diagnosed with hyperthyroidism. Additionally, there is mention of thrombocytopenia. No clear history of any coronary disease myocardial infarction. Patient is here with a daughter. They state that he does not have any symptoms whatsoever. No chest pains or shortness of breath or palpitations or in fact anything along those lines. The referral was placed for bradycardia but he clearly takes metoprolol and diltiazem which could be leading to the bradycardia. Additionally, with regard to the atrial fibrillation history, not on any anticoagulation. Apparently this is by his own choice. [facility] Medical History Constipation BPH (benign prostatic hyperplasia) Alcohol abuse GERD (gastroesophageal reflux disease) Paroxysmal A-fib Hypertension Hyperthyroidism Surgical History Back pain with history of spinal surgery Hx of hemorrhoids Hx of colonoscopy Family History Father No problems noted. Mother Heart disease Social History Household Members: None Housing: Apartment Are you a primary hospice patient care secretary to a significant other at home: No Do you presently have visiting nurse or other home services: No Alcohol intake: former Patient Tobacco Use Status: Never used Tobacco Advance Directives Date on File: 11/22/19 service: No Current occupational status: retired Review of Systems Const Denies weakness ENT Denies dizziness Card Denies chest pain, Denies chest pain with activity, Denies syncope, Denies rapid heart rate, Denies pedal edema, Denies edema, Denies leg edema, Denies lightheadedness, Denies palpitations, Denies dyspnea, Denies dyspnea on exertion and Denies orthopnea Resp Denies cough, Denies dyspnea and Denies dyspnea on exertion GI Denies hematochezia and Denies change in stool character Musc Denies abnormal gait, Denies muscle cramps, Denies muscle weakness, Denies numbness, Denies radiating pain into limb and Denies tingling Neuro Denies abnormal gait, Denies dizziness, Denies syncope, Denies numbness, Denies tingling and Denies weakness Endo Denies palpitations Physical Exam Vital Signs: Last Vital Signs Pulse 54 07/12/23 13:10 BP 110/60 07/12/23 13:10 BMI result Body Mass Index 26.1 Const General: comfortable and no acute distress Orientation/consciousness: patient oriented x3 HEENT Other: Unremarkable Head: Yes normal to inspection Neck Neck: Yes normal visual inspection Chest Chest palpation & inspection: normal inspection of the chest Resp Auscultation: clear to auscultation bilaterally Cardio Palpation: normal PMI Heart sounds: S1 normal heart sound present, S2 normal heart sound present, no gallops, no murmurs and no rubs GI Palpation (GI): Soft to palpation Back/Spine/Pelvis Other: unremarkable Skin General skin exam: no rashes or lesions noted Neuro General: patient oriented x3 Extrem General: Yes normal to inspection Psych Mental Status: mental status grossly normal Office Procedures EKG Details: EKG with sinus bradycardia at 54/Min; anterolateral T inversion; normal RI and corrected QT; noticed in prior [id number], Complete Assessment & Plan Assessment & Plan (1) Paroxysmal A-fib: Code(s): I48.0 - Paroxysmal atrial fibrillation Category: Medical (2) Bradycardia: Code(s): R00.1 - Bradycardia, unspecified Category: Medical Plan Atrial fibrillation by documentation but no other information available. Apparently, refused anticoagulation. We discussed about doing a Holter but he adamantly refuses. He does not want anything else done either. We can at least review the prior documentation from Cardiology including notes, echocardiogram, stress test extra. Otherwise, no med changes for now. Discussed with daughter who came for appointment. Total time spent including review of health Center records, discussion with patient's daughter, counseling, documentation, coordination of care-45 minutes. Coding Level of Care Code New Pt Level 4 (39452) Diagnoses Paroxysmal A-fib I48.0 Bradycardia R00.1 CPT Codes EKG - CPT: 73739-Qwuxketyuivtbaclb, Complete ([id number])
== END 2023-07-12 14:06 | disposition home or self-care (01) ==
PROVIDERS: PCP Internal Medicine; Visit Provider Internal Medicine
DX: I48.0 Paroxysmal atrial fibrillation (principal); R00.1 Bradycardia, unspecified
CPT/HCPCS: 93010; 99204

== ENCOUNTER → 2023-07-12 12:39 | Outpatient (BNVA) | payer MEDICARE, SELFPAY | PROVIDERS: PCP Internal Medicine; Visit Provider Internal Medicine | DX: R00.1 Bradycardia, unspecified (principal); I48.0 Paroxysmal atrial fibrillation | CPT/HCPCS: 93005; 99202 ==

== ENCOUNTER 2023-09-22 09:28 | Outpatient (AMB) | payer MEDICARE, SELFPAY ==
--- NOTE | 2023-09-22 09:29 | A.OFFVIS_ITS ---
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 He has a past medical history of constipation, alcohol abuse, GERD, paroxysmal AFib, hypertension, and hyper thyroidism. He presents to the office today for a follow up of his urinary frequency and nocturia. In discussion with the patient today reports to be doing and feeling well. He reports compliance with 10 mg of terazosin as prescribed. He discusses feeling this has been helpful however he does continue with episodes of nocturia. During last office visit patient was undergo an office cystoscopy however declined at that time and continues to decline further workup at this time. In office urinalysis results reviewed with the patient today. PVR 29 mL. He otherwise denies any bothersome urinary issues or concerns. Previous workup has included a retroperitoneal ultrasound and PSA. Imaging showing bilateral kidneys with no calculi, lesions, or hydronephrosis noted. Unremarkable ultrasound examination the kidneys. There is mild prostatomegaly. Prevoid bladder volume 170ml's post void bladder volume 13.5ml's. Prostate measures 34ml's. PSA 05/05--1.2. Discussed at length importance of limiting fluids 2-3 hours prior to bed to assist with decreasing episodes of nocturia. Discuss trial of other medications however patient declines at this time. He otherwise denies hematuria, dysuria, foul smelling urine, changes to urinary stream, flank pain, fever, and or chills. [facility] Medical History Constipation BPH (benign prostatic hyperplasia) Alcohol abuse GERD (gastroesophageal reflux disease) Paroxysmal A-fib Hypertension Hyperthyroidism Surgical History Back pain with history of spinal surgery Hx of hemorrhoids Hx of colonoscopy Family History Father No problems noted. Mother Heart disease Social History Household Members: None Housing: Apartment Are you a primary rental boats caretaker to a significant other at home: No Do you presently have visiting nurse or other home services: No Alcohol intake: former Patient Tobacco Use Status: Never used Tobacco Advance Directives Date on File: 11/22/19 service: No Current occupational status: retired Review of Systems Eyes Reports no additional complaints ENT Reports no additional complaints Card Reports as per HPI Resp Reports no additional complaints GI Reports as per HPI Reports as per HPI Musc Reports no additional complaints Neuro Reports no additional complaints Psych Reports as per HPI Endo Reports as per HPI Surinder/Lymph Reports no additional complaints Aller/Immun Reports no additional complaints Physical Exam Const General: cooperative, healthy appearing, comfortable, no acute distress, well developed, alert and awake Orientation/consciousness: patient oriented x3 Limitations: no limitations HEENT Head: Yes normal to inspection, Yes normocephalic and Yes atraumatic Eyes General: appearance normal, both eyes and all related structures Neck Neck: Yes normal visual inspection and Yes trachea midline Chest Chest palpation & inspection: normal inspection of the chest Resp Effort & Inspection: normal respiratory effort and able to speak in complete sentences Cardio Rate: regular rate GI Inspection: Yes normal to inspection Rectal Exam - Male: Yes deferred General: Yes no CVA tenderness Back/Spine/Pelvis Back: no CVA tenderness Skin General skin exam: no rashes or lesions noted Neuro General: patient oriented x3 Extrem General: Yes normal to inspection Psych Appearance: grossly normal and well kempt Mental Status: mental status grossly normal Speech and movement: Normal speech and movement present and Clear speech present Affect: normal affect Attitude: cooperative Thought process: Normal thought process present Thought content: Normal thought content present Insight: Fair insight present (Psych) Judgement: Fair judgement present (Psych) Office Procedures Post Void Residual Post Residual Void Post Void Residual (PVR): 29 [id number] Void Residual by ultrasound Results AMB Urinalysis, Automated UA Leukoctes 0 Theodore/uL Last Edit by Miltonconchafam Tranphani on 09/22/23 09:47 UA Nitrite Last Edit by Mukesh Franco on 09/22/23 09:47 UA Urobilinogen 0.2 mg/dL Last Edit by Mukesh Franco on 09/22/23 09:47 UA Protein 0 mg/dL Last Edit by Mukesh Franco on 09/22/23 09:47 UA pH 6.0 Last Edit by Mukesh Chelseaphani on 09/22/23 09:47 UA Blood 0 Gelacio/uL Last Edit by Mukesh Chelseaphani on 09/22/23 09:47 UA Specific Acra 1.015 Last Edit by Mukesh Franco on 09/22/23 09:47 UA Ketone Last Edit by Mukesh Franco on 09/22/23 09:47 UA Bilirubin 0 mg/dL Last Edit by Mukesh Franco on 09/22/23 09:47 UA Glucose 0 mg/dL Last Edit by Mukesh Franco on 09/22/23 09:47 Results Reviewed Results Reviewed: Laboratory Last Values Urine pH (Auto) 6.0 09/22/23 09:35 Specific Acra (Auto) 1.015 09/22/23 09:35 Urine Protein (Auto) 0 mg/dL 09/22/23 09:35 Glucose (UA)(Auto) 0 mg/dL 09/22/23 09:35 Urine Blood (Auto) 0 Gelacio/uL 09/22/23 09:35 Urine Bilirubin (Auto) 0 mg/dL 09/22/23 09:35 Urine Urobilinogen (Auto) 0.2 mg/dL 09/22/23 09:35 Leukocyte Esterase (Auto) 0 Theodore/uL 09/22/23 09:35 Assessment & Plan Assessment & Plan (1) BPH (benign prostatic hyperplasia): Code(s): N40.0 - Benign prostatic hyperplasia without lower urinary tract symptoms Category: Medical (2) Nocturia: Code(s): R35.1 - Nocturia Category: Medical (3) Lower urinary tract symptoms: Code(s): R39.9 - Unspecified symptoms and signs involving the genitourinary system Category: Medical Plan In office urinalysis results reviewed with the patient today; as noted above. PVR 29 mL. Discussed trial of other medication to assist with nocturia and intermittent episodes of urinary frequency; patient declines at this time. Continue 10 mg of terazosin at bedtime; refill provided. Discussed and stressed the importance of limiting fluids 2-3 hours prior to bed to assist with decreasing episodes of nocturia. Discussed bladder triggers/irritants. Will obtain PSA in 6 months. Follow-up in 6 months with lab to be completed prior and PVR at next office visit; or sooner with any issues, concerns, and or questions. Orders: Orders AMB Urinalysis Automated Today Z13.9 - Encounter for screening, unspecified AMB Post Void Residual by ultrasound Today R39.9 - Unspecified symptoms and signs involving the genitourinary system Prostate Specific Antigen 6 Months N40.0 - Benign prostatic hyperplasia without lower urinary tract symptoms Medications: Refilled terazosin 10 mg PO BEDTIME 90 days 90 caps 2RF N13.8 - Other obstructive and reflux uropathy, N40.0 - Benign prostatic hyperplasia without lower urinary tract symptoms, N40.1 - Benign prostatic hyperplasia with lower urinary tract symptoms Patient Instructions: The patient had an opportunity to ask questions regarding the treatment plan. A ll questions were answered. Physical exam, labs, and imaging were discussed and reviewed in detail. As well as risks, benefits, and discussion of treatment choices. No major barriers to understanding were identified. The patient expressed understanding and agreement with the above treatment plan. The patient was made aware they should contact our office by phone for worsening of their current condition, the appearance of new symptoms, or with any questions or concerns. Compliance is encouraged with any medications and follow up testing that is ordered. It is a privilege to be allowed the opportunity to participate in? your urological care.? Again, if you have any questions or concerns If you have any questions or concerns please do not hesitate to contact me. The office is [phone]. This note is constructed using voice recognition software. While every effort has been made to ensure accuracy urban designer errors may have been included. Yours sincerely, KELLEE Arroyo Coding Level of Care Code Est Pt Level 3 (33330) Diagnoses BPH (benign prostatic hyperplasia) N40.0 Nocturia R35.1 Lower urinary tract symptoms R39.9 CPT Codes Post Residual Void - PVR CPT Code: 33312-Giwu Void Residual by ultrasound ([id number])
== END 2023-09-22 09:54 | disposition home or self-care (01) ==
PROVIDERS: PCP Internal Medicine; Visit Provider Nurse Practitioner Family
DX: N40.0 Benign prostatic hyperplasia without lower urinary tract symptoms (principal); R35.1 Nocturia; R39.9 Unspecified symptoms and signs involving the genitourinary system; Z13.9 Encounter for screening, unspecified
CPT/HCPCS: 99213

== ENCOUNTER → 2023-09-22 09:28 | Outpatient (BNVA) | payer MEDICARE, SELFPAY | PROVIDERS: PCP Internal Medicine; Visit Provider Nurse Practitioner Family | DX: N40.1 Benign prostatic hyperplasia with lower urinary tract symptoms (principal); R35.1 Nocturia; R35.0 Frequency of micturition | CPT/HCPCS: 51798; 81003; 99212 ==

== ENCOUNTER 2023-10-19 10:41 | Outpatient (REF) | payer MEDICARE, SELFPAY ==
--- NOTE | ~2023-10-19 | XR_ITS ---
EXAMINATION: XR KNEE, RIGHT XR KNEE, LEFT XR TIBIA-FIBULA, LEFT XR TIBIA-FIBULA, RIGHT CLINICAL INFORMATION: Worsening knee and b/l lower leg pain in bones. COMPARISON: None available. TECHNIQUE: Four views of each knee. AP and lateral views of each tibia and fibula. FINDINGS: RIGHT KNEE AND TIBIA-FIBULA: Joint spaces appear relatively well preserved. No fracture or joint effusion. Alignment is anatomic. Atherosclerotic calcifications are present in the popliteal and runoff arteries. The tibia and fibula are intact. Imaged portion of the ankle is unremarkable. No periostitis. No acute soft tissue findings. LEFT KNEE AND TIBIA-FIBULA: Joint spaces appear relatively well preserved. No fracture or joint effusion. Alignment is anatomic. Atherosclerotic calcifications are present in the popliteal and runoff arteries. The tibia and fibula are intact. Talocrural joint appears relatively well preserved. No periostitis. No acute soft tissue findings. XR/XR tibia fibula LT 2V IMPRESSION: 1. No acute osseous findings in the bilateral knees and tibias and fibulas. Joints appear relatively well preserved. 2. Atherosclerotic calcifications in the popliteal and runoff arteries. Electronically signed by: Teofilo Nair MD 11/06/2023 11:09 PM EDT
--- NOTE | ~2023-10-19 | XR_ITS ---
EXAMINATION: XR KNEE, RIGHT XR KNEE, LEFT XR TIBIA-FIBULA, LEFT XR TIBIA-FIBULA, RIGHT CLINICAL INFORMATION: Worsening knee and b/l lower leg pain in bones. COMPARISON: None available. TECHNIQUE: Four views of each knee. AP and lateral views of each tibia and fibula. FINDINGS: RIGHT KNEE AND TIBIA-FIBULA: Joint spaces appear relatively well preserved. No fracture or joint effusion. Alignment is anatomic. Atherosclerotic calcifications are present in the popliteal and runoff arteries. The tibia and fibula are intact. Imaged portion of the ankle is unremarkable. No periostitis. No acute soft tissue findings. LEFT KNEE AND TIBIA-FIBULA: Joint spaces appear relatively well preserved. No fracture or joint effusion. Alignment is anatomic. Atherosclerotic calcifications are present in the popliteal and runoff arteries. The tibia and fibula are intact. Talocrural joint appears relatively well preserved. No periostitis. No acute soft tissue findings. XR/XR knee LT 4V IMPRESSION: 1. No acute osseous findings in the bilateral knees and tibias and fibulas. Joints appear relatively well preserved. 2. Atherosclerotic calcifications in the popliteal and runoff arteries. Electronically signed by: Teofilo Nair MD 11/06/2023 11:09 PM EDT RP
--- NOTE | ~2023-10-19 | XR_ITS ---
EXAMINATION: XR KNEE, RIGHT XR KNEE, LEFT XR TIBIA-FIBULA, LEFT XR TIBIA-FIBULA, RIGHT CLINICAL INFORMATION: Worsening knee and b/l lower leg pain in bones. COMPARISON: None available. TECHNIQUE: Four views of each knee. AP and lateral views of each tibia and fibula. FINDINGS: RIGHT KNEE AND TIBIA-FIBULA: Joint spaces appear relatively well preserved. No fracture or joint effusion. Alignment is anatomic. Atherosclerotic calcifications are present in the popliteal and runoff arteries. The tibia and fibula are intact. Imaged portion of the ankle is unremarkable. No periostitis. No acute soft tissue findings. LEFT KNEE AND TIBIA-FIBULA: Joint spaces appear relatively well preserved. No fracture or joint effusion. Alignment is anatomic. Atherosclerotic calcifications are present in the popliteal and runoff arteries. The tibia and fibula are intact. Talocrural joint appears relatively well preserved. No periostitis. No acute soft tissue findings. XR/XR tibia fibula RT 2V IMPRESSION: 1. No acute osseous findings in the bilateral knees and tibias and fibulas. Joints appear relatively well preserved. 2. Atherosclerotic calcifications in the popliteal and runoff arteries. Electronically signed by: Teofilo Nair MD 11/06/2023 11:09 PM EDT
--- NOTE | ~2023-10-19 | XR_ITS ---
EXAMINATION: XR KNEE, RIGHT XR KNEE, LEFT XR TIBIA-FIBULA, LEFT XR TIBIA-FIBULA, RIGHT CLINICAL INFORMATION: Worsening knee and b/l lower leg pain in bones. COMPARISON: None available. TECHNIQUE: Four views of each knee. AP and lateral views of each tibia and fibula. FINDINGS: RIGHT KNEE AND TIBIA-FIBULA: Joint spaces appear relatively well preserved. No fracture or joint effusion. Alignment is anatomic. Atherosclerotic calcifications are present in the popliteal and runoff arteries. The tibia and fibula are intact. Imaged portion of the ankle is unremarkable. No periostitis. No acute soft tissue findings. LEFT KNEE AND TIBIA-FIBULA: Joint spaces appear relatively well preserved. No fracture or joint effusion. Alignment is anatomic. Atherosclerotic calcifications are present in the popliteal and runoff arteries. The tibia and fibula are intact. Talocrural joint appears relatively well preserved. No periostitis. No acute soft tissue findings. XR/XR knee RT 4V IMPRESSION: 1. No acute osseous findings in the bilateral knees and tibias and fibulas. Joints appear relatively well preserved. 2. Atherosclerotic calcifications in the popliteal and runoff arteries. Electronically signed by: Teofilo Nair MD 11/06/2023 11:09 PM EDT RP
== END 2023-10-19 10:42 | disposition home or self-care (01) ==
LOC: HO.HHCX 10:41
PROVIDERS: Visit Provider Family Medicine
DX: M79.604 Pain in right leg (principal); M79.605 Pain in left leg; M25.561 Pain in right knee; M25.562 Pain in left knee
CPT/HCPCS: 73564; 73590

== ENCOUNTER 2023-10-24 09:14 | Outpatient (REF) | payer MEDICARE, SELFPAY ==
[2023-10-24 11:36] LABS: Anion Gap 12 (12-20); Blood Urea Nitrogen 8 mg/dL (9-16); Calcium 9.3 mg/dL (8.4-10.2); Carbon Dioxide 29 mmol/L (22-29); Chloride 107 mmol/L (96-108); Cholesterol 128 mg/dL (<200); Estimated Glomerular Filt Rate > 60; Glucose Random 107 mg/dL (60-115); HDL Cholesterol 70 mg/dL (>40); LDL Cholesterol Calculated 48 mg/dL (<100); Potassium 4.4 mmol/L (3.3-5.1); Sodium 144 mmol/L (135-145); Triglycerides 53 mg/dL (<150)
[2023-10-24 11:54] LABS: Prostate Specific Antigen 1.25 ng/mL (<0.05-4.0)
== END 2023-10-24 09:15 | disposition home or self-care (01) ==
LOC: HO.HHCL 09:14
PROVIDERS: Nurse Practitioner Family; Visit Provider Internal Medicine
DX: R73.03 Prediabetes (principal); I10 Essential (primary) hypertension; N40.0 Benign prostatic hyperplasia without lower urinary tract symptoms; Z12.5 Encounter for screening for malignant neoplasm of prostate
CPT/HCPCS: 36415; 80048; 80061; 84153

== ENCOUNTER 2023-10-25 09:46 | Outpatient (AMB) | payer MEDICARE, SELFPAY ==
[2023-10-25 09:58] VITALS: BP 90/50; PULSE 70; BMI 25.6
--- NOTE | 2023-10-25 09:58 | MHC.OFFVIS ---
Vital Signs 10/25/23 09:58 Height 5 ft 4 in Weight 149 lb 6 oz BMI 25.6 BP 90/50 L Blood Pressure Location Rt brachial Position Sitting Pulse 70 Pulse Source Pulse Oximeter Intake Visit Reasons: 3 mth f/up s/p [facility] records Road Supervisor Of Engines Required: Yes Road Supervisor Of Engines Services: Road Supervisor Of Engines Offered & Declined Road Supervisor Of Engines Name: Shakira daughter Accompanied by: Daughter Allergies Seasonal Allergies Allergy (Intermediate, Verified 09/22/23 09:51) Itchy Eyes Medication List - Last Reconciled 10/25/23 by Zachery Bean MD amlodipine 5 mg PO DAILY apixaban (Eliquis) 5 mg PO BID atorvastatin 20 mg PO BEDTIME metoprolol tartrate 50 mg PO BID omeprazole 20 mg PO DAILY terazosin 10 mg PO BEDTIME 90 days HPI Comments Details: Grzegorz returns for follow-up. It seems that he used to see [facility] in the past but not recently. He has had atrial fibrillation for the last few years but not on anticoagulation. It seems it could be from patient preference. Otherwise, he was seen mainly regarding bradycardia. At that time, he is on both diltiazem and metoprolol. Then it seems that diltiazem was stopped by his PCP and then he developed atrial fibrillation with rapid rate. That led to hospitalization at [facility]. During that time, it seems his beta-avinash dose was increased. He was started on Eliquis. Otherwise, he states he is doing good. Family is with him during this appointment. No new concerns otherwise. [facility] Medical History Constipation BPH (benign prostatic hyperplasia) Alcohol abuse GERD (gastroesophageal reflux disease) Paroxysmal A-fib Hypertension Hyperthyroidism Surgical History Back pain with history of spinal surgery Hx of hemorrhoids Hx of colonoscopy Family History Father No problems noted. Mother Heart disease Social History Household Members: None Housing: Apartment Are you a primary senior care assistant to a significant other at home: No Do you presently have visiting nurse or other home services: No Alcohol intake: former Patient Tobacco Use Status: Never used Tobacco Advance Directives Date on File: 11/22/19 service: No Current occupational status: retired Review of Systems Const Denies chills, Denies fatigue, Denies fever(s), Denies weight gain and Denies weight loss ENT Denies dizziness Card Denies chest pain, Reports leg edema, Denies lightheadedness, Denies palpitations, Denies dyspnea on exertion, Denies orthopnea and Denies other Resp Denies cough and Denies dyspnea on exertion GI Denies hematochezia and Denies change in stool character Musc Denies abnormal gait, Denies muscle weakness, Denies numbness, Denies radiating pain into limb and Denies tingling Neuro Denies abnormal gait, Denies dizziness, Denies numbness and Denies tingling Endo Denies fatigue and Denies palpitations Physical Exam Vital Signs: Last Vital Signs Pulse 70 10/25/23 09:58 BP 90/50 L 10/25/23 09:58 BMI result Body Mass Index 25.6 Const General: comfortable and no acute distress Orientation/consciousness: patient oriented x3 HEENT Other: Unremarkable Head: Yes normal to inspection Neck Neck: Yes normal visual inspection Chest Chest palpation & inspection: normal inspection of the chest Resp Auscultation: clear to auscultation bilaterally Cardio Palpation: normal PMI Heart sounds: S1 normal heart sound present, S2 normal heart sound present, no gallops, no murmurs and no rubs GI Palpation (GI): Soft to palpation Back/Spine/Pelvis Other: unremarkable Skin General skin exam: no rashes or lesions noted Neuro General: patient oriented x3 Extrem General: Yes normal to inspection Psych Mental Status: mental status grossly normal Assessment & Plan Assessment & Plan (1) Paroxysmal A-fib: Code(s): I48.0 - Paroxysmal atrial fibrillation Category: Medical (2) Bradycardia: Code(s): R00.1 - Bradycardia, unspecified Category: Medical Plan By the EKG brought by patient's daughter, he had atrial fibrillation with rapid ventricular rate which likely prompted the [facility] admission. Will get those records. In an older echocardiogram from 2019 at [facility]-LVEF 55%. He was in atrial fibrillation during that study. Otherwise no significant findings. Overall, paroxysmal atrial fibrillation, previously not on anticoagulation but more recently started on Eliquis. Continue without changes. With regard to medications, he had bradycardia when he was on both diltiazem/metoprolol but asymptomatic. Currently, he is only on metoprolol but a slightly higher dose. May continue this without changes. In the past, but refusing Holter but today he is agreeable. We can schedule that. Will obtain the discharge summary from [facility] and any other cardiac information. Discussed with family who came for appointment. Total time spent including review of data, counseling, documentation, coordination of care-31 minutes. Orders: Orders ECG 7 day holter monitor Today I48.0 - Paroxysmal atrial fibrillation, R00.2 - Palpitations Coding Level of Care Code Est Pt Level 4 (25110) Diagnoses Paroxysmal A-fib I48.0 Bradycardia R00.1
== END 2023-10-25 10:35 | disposition home or self-care (01) ==
PROVIDERS: PCP Internal Medicine; Visit Provider Internal Medicine
DX: I48.0 Paroxysmal atrial fibrillation (principal); R00.1 Bradycardia, unspecified
CPT/HCPCS: 99214

== ENCOUNTER → 2023-10-25 09:46 | Outpatient (BNVA) | payer MEDICARE, SELFPAY | PROVIDERS: PCP Internal Medicine; Visit Provider Internal Medicine | DX: I48.0 Paroxysmal atrial fibrillation (principal); R00.1 Bradycardia, unspecified | CPT/HCPCS: 99212 ==

== ENCOUNTER 2023-11-06 11:01 | Outpatient (REF) | payer MEDICARE, SELFPAY ==
--- NOTE | ~2023-11-06 | XR_ITS ---
EXAMINATION: XR CHEST 2 VIEWS CLINICAL INFORMATION: Chronic cough. COMPARISON: Prior chest radiographs, most recently 10/08/2019. TECHNIQUE: Frontal and lateral views of the chest were obtained. FINDINGS: The heart, great vessels, pulmonary vasculature and mediastinum are normal. The lungs show no focal infiltrate, effusion or pneumothorax. There is mild elevation of the right hemidiaphragm. There is no acute osseous abnormality. There are gastroesophageal surgical brad. XR/XR chest 2V IMPRESSION: No active cardiopulmonary disease. Electronically signed by: Yordan Rehman MD 11/06/2023 04:07 PM EDT
== END 2023-11-06 11:02 | disposition home or self-care (01) ==
LOC: HO.XRAY 11:01
PROVIDERS: PCP Internal Medicine; Visit Provider Internal Medicine
DX: R05.3 Chronic cough (principal)
CPT/HCPCS: 71046

== ENCOUNTER 2023-12-19 15:20 | Outpatient (REF) | payer MEDICARE, SELFPAY ==
--- NOTE | ~2023-12-19 | XR_ITS ---
EXAMINATION: XR CHEST CLINICAL INFORMATION: Chronic cough. COMPARISON: November 06, 2023. TECHNIQUE: PA and lateral views of the chest were obtained. FINDINGS: No focal infiltrate, effusion, or pneumothorax is identified. Mild chronic interstitial fibrotic changes. The heart appears normal in size. Aorta is mildly atherosclerotic and uncoiled, suggesting hypertension. I will degenerative changes of the spine. Surgical clips project over the region of the GE junction. XR/XR chest 2V IMPRESSION: 1. No acute finding. 2. Mild chronic interstitial fibrotic changes. No acute finding. Electronically signed by: Jeff Collado MD 12/20/2023 08:13 AM EST
== END 2023-12-19 15:21 | disposition home or self-care (01) ==
LOC: HO.HHCX 15:20
PROVIDERS: Visit Provider Family Medicine
DX: R05.9 Cough, unspecified (principal)
CPT/HCPCS: 71046

== ENCOUNTER 2024-02-08 08:58 | Outpatient (AMB) | payer MEDICARE, SELFPAY ==
[2024-02-08 09:01] VITALS: BP 100/60; PULSE 73; BMI 26.3
--- NOTE | 2024-02-08 09:01 | MHC.OFFVIS ---
Vital Signs 02/08/24 09:01 Height 5 ft 4 in Weight 153 lb 0.013 oz BMI 26.3 BP 100/60 Blood Pressure Location Lt brachial Position Sitting Pulse 73 Pulse Source Monitor Intake Visit Reasons: 3mth f/up-holter Display Fabricator Required: No Display Fabricator Services: Display Fabricator Offered & Declined Display Fabricator Name: duong/daughter Accompanied by: Daughter Allergies Seasonal Allergies Allergy (Intermediate, Verified 09/22/23 09:51) Itchy Eyes Medication List - Last Reconciled 02/08/24 by Zachery Bean MD amiodarone 200 mg PO DAILY apixaban (Eliquis) 5 mg PO BID atorvastatin 20 mg PO BEDTIME diltiazem HCl CD (Cartia XT) 120 mg PO DAILY furosemide 20 mg PO DAILY terazosin 10 mg PO BEDTIME 90 days HPI Comments Details: Grzegorz returns for follow-up. It seems that he used to see [facility] in the past but not recently. Various medication changes at different times. In the past, there was bradycardia. He was on both diltiazem and metoprolol. Then diltiazem was stopped by PCP and then he developed atrial fibrillation with rapid rate. That led to hospitalization at [facility]. Then beta-avinash dose was increased. Then put on Eliquis. He was doing okay but it seems that he had another hospitalization recently with atrial fibrillation and rapid rate/CHF. Then he was put on amiodarone. Currently he is on a combination of diltiazem/amiodarone. With this regimen, he states that he is stable. No specific complaints like angina or shortness of breath or palpitations. Currently taking anticoagulation. No other specific concerns. Daughter is with him for the appointment. [facility] Medical History Constipation BPH (benign prostatic hyperplasia) Alcohol abuse GERD (gastroesophageal reflux disease) Paroxysmal A-fib Hypertension Hyperthyroidism Surgical History Back pain with history of spinal surgery Hx of hemorrhoids Hx of colonoscopy Family History Father No problems noted. Mother Heart disease Social History Household Members: None Housing: Apartment Are you a primary technical healthcare consultant to a significant other at home: No Do you presently have visiting nurse or other home services: No Alcohol intake: former Patient Tobacco Use Status: Never used Tobacco Advance Directives Date on File: 11/22/19 service: No Current occupational status: retired Review of Systems Const Denies chills, Denies fatigue, Denies fever(s), Denies frequent falls, Denies weakness, Denies weight gain and Denies weight loss ENT Denies dizziness Card Denies chest pain, Denies leg edema, Denies lightheadedness, Denies palpitations, Denies dyspnea and Denies dyspnea on exertion Resp Denies cough, Denies dyspnea and Denies dyspnea on exertion GI Denies hematochezia Musc Denies abnormal gait, Denies muscle weakness, Denies numbness, Denies radiating pain into limb and Denies tingling Neuro Denies abnormal gait, Denies dizziness, Denies frequent falls, Denies numbness, Denies tingling and Denies weakness Endo Denies fatigue and Denies palpitations Physical Exam Vital Signs: Last Vital Signs Pulse 73 02/08/24 09:01 BP 100/60 02/08/24 09:01 BMI result Body Mass Index 26.3 Const General: comfortable and no acute distress Orientation/consciousness: patient oriented x3 HEENT Other: Unremarkable Head: Yes normal to inspection Neck Neck: Yes normal visual inspection Chest Chest palpation & inspection: normal inspection of the chest Resp Auscultation: clear to auscultation bilaterally Cardio Palpation: normal PMI Heart sounds: S1 normal heart sound present, S2 normal heart sound present, no gallops, no murmurs and no rubs GI Palpation (GI): Soft to palpation Back/Spine/Pelvis Other: unremarkable Skin General skin exam: no rashes or lesions noted Neuro General: patient oriented x3 Extrem General: Yes normal to inspection Psych Mental Status: mental status grossly normal Office Procedures EKG Details: EKG with underlying sinus rhythm at 73/Min; nonspecific ST-T changes; [place] [id number], Complete Assessment & Plan Assessment & Plan (1) Paroxysmal A-fib: Code(s): I48.0 - Paroxysmal atrial fibrillation Category: Medical (2) Bradycardia: Code(s): R00.1 - Bradycardia, unspecified Category: Medical Plan [facility] records were reviewed. Essentially, recurring atrial fibrillation with rapid rate as well as issues with bradycardia. Now stable on Amiodarone. May continue this. Continue Eliquis. With regard to the question of bradycardia, he has had some bradycardia when he was on both diltiazem and metoprolol but asymptomatic. No specific concerns from that end. We can check a Holter before next appointment. It was ordered previously but he was hospitalized to [facility] and hence not performed. Otherwise, there was a concern for demand related troponin leak during a previous hospitalization and hence he is also awaiting a stress test. That can be again completed before follow-up appointments. Per [facility] records, echocardiogram-10/03/2023-normal LVEF, mild diastolic dysfunction, normal RV size/function. No significant valve findings. Discussed with daughter who came for appointment. Total time spent including review of data, counseling, documentation, coordination of care-32 minutes. Coding Level of Care Code Est Pt Level 4 (23640) Diagnoses Paroxysmal A-fib I48.0 Bradycardia R00.1 CPT Codes EKG - CPT: 35272-[id number], Complete ([id number])
== END 2024-02-08 09:31 | disposition home or self-care (01) ==
PROVIDERS: PCP Internal Medicine; Visit Provider Internal Medicine
DX: I48.0 Paroxysmal atrial fibrillation (principal); R00.1 Bradycardia, unspecified
CPT/HCPCS: 93010; 99214

== ENCOUNTER → 2024-02-08 08:58 | Outpatient (BNVA) | payer MEDICARE, SELFPAY | PROVIDERS: PCP Internal Medicine; Visit Provider Internal Medicine | DX: I48.0 Paroxysmal atrial fibrillation (principal); R00.1 Bradycardia, unspecified; Z79.01 Long term (current) use of anticoagulants | CPT/HCPCS: 93005; 99212 ==

== ENCOUNTER 2024-03-20 10:31 | Outpatient (REF) | payer MEDICARE, SELFPAY ==
--- OUTSIDE RECORDS SUMMARY | 2024-03-20 11:31 | XMS_ITS | Clinical Summary ---
Author Organization [employer] Address [address] [facility] [address] [place] [address] Care Team Providers Care Vp Marketing Name Role Phone Shawna Styles MD Primary Care Provide r Allergies No known active allergies Medications FREESTYLE LITE test stripIndications: Prediabetes Use to test blood sugar 2 times daily 100 each 12 4 04/17/19 25 Active Lancets miscIndications:P rediabetes Use to test blood sugar 2 times daily 100 each 2 4 Active Alcohol Swabs 70 % padsIndications:P rediabetes Use to test blood sugar 2 times daily 100 each 4 Active Blood Glucose Monitoring Suppl (FreeStyle Morovis Lite) w/Device kitIndications:Pr ediabetes Use to test blood sugar 2 times daily 1 kit 4 Active furosemide (Lasix) 20 MG tabletIndications :Benign hypertension TAKE 1 TABLET BY MOUTH EVERY MORNING 90 tablet 3 4 Active atorvastatin (Lipitor) 20 MG tabletIndications :Benign hypertension TAKE 1 TABLET BY MOUTH EVERY MORNING 90 tablet 3 4 Active terazosin (Hytrin) 10 MG capsule Take 1 capsule by mouth at bedtime. 4 Active Eliquis 5 MG tablet Take 1 tablet (5 mg) by mouth every 12 (twelve) hours. 180 tablet 3 4 10/19/19 25 Active Multiple Vitamin (multivitamin) tablet Take 1 tablet by mouth Once per day. OTC Active omeprazole (PriLOSEC) [address] capsuleIndication s:Gastroesophagea l reflux disease, unspecified whether esophagitis present Take 1 capsule (20 mg) by mouth if needed each day (abdominla pain/heartbu rn/GERD symptoms). Do not crush or chew. 90 capsule 4 11/06/19 Active metoprolol tartrate (Lopressor) 25 MG tabletIndications :Paroxysmal atrial fibrillation (CMS/HCC) Take 1 tablet (25 mg) by mouth 2 times daily. 60 tablet 11 4 12/19/19 Active Active Problems Problem Noted Date Diagnosed Date Multiple episodes of hypoglycemia 12/19/2023 Assessment & Plan (12/19/2023 3:03 PM EST): Pt reports episodes of hypoglycemia at home. BGL today WNL. Not on any medication. 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 -ordered CXR 12/19/23 -outside of the window of abx, and given age would be risky to give azithromycin. -ER precautions discussed. Symptomatic hypotension 12/19/2023 Assessment & Plan (12/19/2023 4:15 PM EST): Daughter repots unable to tolerate Metoprolol 50 mg bid and she has been cutting in half which he can tolerate. I wrote for decreased dose and she will let med box know. Chronic cough 11/06/2023 Primary hypertension 11/06/2023 Assessment & Plan (02/01/2024 9:45 AM EST): Medications changed as above: - Aerobic exercise to reduce BP. Initial goal of 30 min walk 3-5x/week. Increase as tolerated. - low-sodium diet (goal: <2g/day) and heart healthy diet such as DASH to reduce BP and prevent ASCVD. - Home BP monitoring 1-2 x day with goal of <140/90. - Seek immediate medical attention for chest pain, palpitations, SOB, syncope, or sudden changes in mental status. - Do not change or discontinue current prescriptions without first consulting health care provider Assessment & Plan (11/06/2023 1:10 PM EDT): I decrease his amlodipine to 2.5mg C/w rest of meds monitor BP at home and bring log Atrial fibrillation 10/19/2023 Assessment & Plan (02/01/2024 9:44 AM EST): Neville is now on: diltiazem XL 12mg daily elequis 5mg BID Amiodarone 200mg daily F/u with cardiology Assessment & Plan (12/19/2023 3:38 PM EST): Initial pulse was 120 and repeat was WNL. -Will be dropping the metoprolol back to 25 mg, as he was feeling better with the 25 mg. -ER precautions discussed. Assessment & Plan (11/06/2023 1:08 PM EDT): C/w metoprolol 50mg BID and elequis 5mg BID Continue to follow with cardiology Allergic rhinitis 04/17/2023 Bradycardia with 41-50 beats per minute 03/21/19 24 Assessment & Plan (03/21/2023 7:47 PM EST): EKG with sinus bradycardia at 44 bpm. Cut back metoprolol to 25 mg bid and fu with PCP in 4w Continue Diltiazem XR 180 mg/d for HTN, monitor HR Weakness 03/21/2023 Assessment & Plan (03/21/2023 7:45 PM EST): Most likely related to bradycardia, see above. Today it is probably exacerbated by hypoglycemia, overall poor dietary rx of IFG. Refer to Nutrition Fu with PCP. Asymptomatic microscopic hematuria 03/21/2023 Assessment & Plan (03/21/2023 7:38 PM EST): Patient has BPH, fu with PCP He doesn't have UTI sxs, anemia. Hypoglycemia 03/21/2023 Skin rash 01/26/2023 Nail abnormality 01/26/2023 Pruritus 01/26/2023 Chronic diarrhea 01/26/2023 Decreased hearing of left ear 07/25/2022 Assessment & Plan (07/25/2022 2:48 PM EDT): Hearing aid not approve by insurance, patient will try to apply for better coverage and get back to me for a new referral Seasonal allergies 06/29/2022 Venous insufficiency of both lower extremities 0 06/29/2022 Assessment & Plan (06/29/2022 10:42 AM EDT): Compression stockings to be prescribed for him Prediabetes 07/30/2018 Assessment & Plan (02/01/2024 9:45 AM EST): Today extensive discussion was done about life style modifications I advise healthy diet (low calorie) and cardiovascular exercise Assessment & Plan (01/27/2023 11:52 AM EST): Today extensive discussion was done about life style modifications I advise healthy diet (low calorie) and cardiovascular exercise Assessment & Plan (07/25/2022 2:48 PM EDT): Today extensive discussion was done about life style modifications I advise healthy diet (low calorie) and cardiovascular exercise Assessment & Plan (06/29/2022 10:42 AM EDT): Today extensive discussion was done about life style modifications I advise healthy diet (low calorie) and cardiovascular exercise Abdominal aortic aneurysm 03/08/2018 Hyperlipidemia 03/08/2018 Assessment & Plan (02/01/2024 9:46 AM EST): C/w atorvastatin 20mg daily Arthritis of knee 06/13/2017 BPH associated with nocturia 06/13/2017 Tubular adenoma of colon 01/16/2017 Impaired glucose tolerance 09/25/2012 Assessment & Plan (03/21/2023 7:44 PM EST): Patient had light breakfast this am, hasn't had lunch yet. He received a boxed juice at the visit. Currently patient with hypoglycemia that can add to feeling weak. Counseeld to have small and fractioned meals,refer to Nutrition Benign hypertension 08/22/2011 Assessment & Plan (07/26/2023 2:37 PM EDT): -BP is in the low side and HR is also is the low side for some time now, I will discontinue his diltiazem and start him instead on lisinopril 5mg daily - Aerobic exercise to reduce BP. Initial goal of 30 min walk 3-5x/week. Increase as tolerated. - low-sodium diet (goal: <2g/day) and heart healthy diet such as DASH to reduce BP and prevent ASCVD. - Home BP monitoring 1-2 x day with goal of <140/90. - Seek immediate medical attention for chest pain, palpitations, SOB, syncope, or sudden changes in mental status. - Do not change or discontinue current prescriptions without first consulting health care provider Assessment & Plan (01/27/2023 11:50 AM EST): - Aerobic exercise to reduce BP. Initial goal of 30 min walk 3-5x/week. Increase as tolerated. - low-sodium diet (goal: <2g/day) and heart healthy diet such as DASH to reduce BP and prevent ASCVD. - Home BP monitoring 1-2 x day with goal of <140/90. - Seek immediate medical attention for chest pain, palpitations, SOB, syncope, or sudden changes in mental status. - Do not change or discontinue current prescriptions without first consulting health care provider Assessment & Plan (07/25/2022 2:48 PM EDT): - Aerobic exercise to reduce BP. Initial goal of 30 min walk 3-5x/week. Increase as tolerated. - low-sodium diet (goal: <2g/day) and heart healthy diet such as DASH to reduce BP and prevent ASCVD. - Home BP monitoring 1-2 x day with goal of <140/90. - Seek immediate medical attention for chest pain, palpitations, SOB, syncope, or sudden changes in mental status. - Do not change or discontinue current prescriptions without first consulting health care provider Assessment & Plan (06/29/2022 10:42 AM EDT): - Aerobic exercise to reduce BP. Initial goal of 30 min walk 3-5x/week. Increase as tolerated. - low-sodium diet (goal: <2g/day) and heart healthy diet such as DASH to reduce BP and prevent ASCVD. - Home BP monitoring 1-2 x day with goal of <140/90. - Seek immediate medical attention for chest pain, palpitations, SOB, syncope, or sudden changes in mental status. - Do not change or discontinue current prescriptions without first consulting health care provider External hemorrhoids 08/22/2011 Gastroesophageal reflux disease 08/22/2011 Assessment & Plan (11/06/2023 1:08 PM EDT): I advise patient to avoid NSAIDs, spicy and acid food, I advise to eat at the same time every day, I advise to elevate the head of the bed and take medications as prescribe Resolved Problems Problem Noted Date Diagnosed Date Resolved Date Gastroesophageal reflux dise ase without esophagitis 04/17/2023 10/19/2023 Assessment & Plan (04/17/2023 5:04 PM EST): I advise patient to avoid NSAIDs, spicy and acid food, I advise to eat at the same time every day, I advise to elevate the head of the bed and take medications as prescribe Genital pruritus 01/26/2023 01/26/2023 Encounters Date Type Department Care Team Description 03/12/2024 Telephone [facility] [address] [place] [phone] Shawna Styles MD ER Follow-up 03/08/[address] [phone] Shawna Styles MD Nurse Triage 02/01/2024 9:00 AM EST Office Visit [address] [address] Shawna Styles MD Atrial fibrillation, unspecified type (CMS/HCC) (Primary Dx); Prediabetes; Hyperlipidemia, unspecified hyperlipidemia type; Primary hypertension; Encounter for immunization 02/01/2024 Travel 01/23/2024 Patient Outreach [facility] [address] [place] [phone] Shawna Styels MD Pre-visit Planning ([facility] screening completed on 07/26/2023) 01/04/2024 Refill [facility] [address] [place] [phone] Shawna Styles MD Essential hypertension 12/26/[address] [phone] Aiyana Ortega, RN NTTS 12/20/[address] [phone] Shawna Styles MD Results 12/19/2023 3:00 PM EST Office Visit [facility] [address] [place] [phone] MD Symptomatic hypotension (Primary Dx); Paroxysmal atrial fibrillation (CMS/HCC); Prediabetes; Pertussis-like syndrome; Cough in adult 12/19/2023 Telephone [facility] [address] [place] [phone] MD Nurse Triage 12/19/[address] [phone] Shawna Styles MD Nurse Triage from Last 3 Months Immunizations Name Administration Dates Next Due Influenza High-dose Quadriva lent Preservative Free 11/05/2021 Influenza injectable quadriv alent preservative free 04/01/2019,01/18/2018 Influenza, High Dose Seasona l, Preservative Free 02/01/2024,11/14/2016 Influenza, IIV3, injectable 11/17/2010 Influenza, Split (incl. mary grace fied surface antigen) 02/24/2012 Moderna Covid-19 Vaccine 12+ 02/04/2021,05/13/19 21,04/14/2020 Pneumococcal Conjugate PCV 13 01/08/2019 Pneumococcal Polysaccharide PPSV23 12/04/2008 TD (adult), 2 Lf tetanus tox oid, preservative free, adsorbed 11/30/2021,07/23/2001 Tdap 06/18/2010 Zoster, Recombinant 04/20/2022,02/16/2022 Zoster, live 03/25/2009 Social History Tobacco Use Types Packs/Day Years Used Date Smoking Tobacco: Former Cigarettes Passive Smoke Exposure: Past Smokeless Tobacco: Never Alcohol Use Standard Drinks/Week Comments Never 0 (1 standard drink = 0.6 oz pur e alcohol) Depression Answer Date Recorded Patient Health Questionnaire-9 Score 0 07/26/2023 Patient Health Questionnaire-9 Score 0 07/26/2023 Last PHQ-9: Questionnaire Data Not on file 0 07/26/2023 Housing Stability Answer Date Recorded What is your housing situation today? I have mitchell gallegos 07/26/[address] you li ve. Do you have problems with any of the following? None of the above 07/26/2023 Food Insecurity Answer Date Recorded Within the past 12 months, y ou worried that your food would run out before you got money to buy more: Never True 07/26/2023 Within the past 12 months,th e food you bought just didn't last and you didn't have enough money to get more: Never True 01/2024 Transportation Answer Date Recorded In the past 12 months, has l ack of transportation kept you from medical appts, meetings, work or from getting things needed for daily living? No 07/26/2023 Utilities Answer Date Recorded In the past 12 months, has t he electric, gas, oil or water company threatened to shut off services in your home? No 07/26/2023 Depression Answer Date Recorded Patient Health Questionnaire-2 Score 0 07/26/2023 Sex and Gender Information Value Date Recorded Sex Assigned at Male 12/13/2021 10:16 AM EDT Legal Sex Male 10:16 AM EDT Gender Identity Male 12/13/2021 10:16 AM EDT Sexual Orientation Straight 12/13/2021 10 :16 AM EDT Last Filed Vital Signs Vital Sign Reading Time Taken Comments Blood Pressure 120/70 02/01/2024 9:11 AM EST Pulse 73 02/01/2024 9:11 AM EST Temperature 36.3 ??C (97.3 ??F) 02/01/2024 9:11 AM ES T Respiratory Rate 18 02/01/2024 9:11 AM EST Oxygen Saturation 97% 02/01/2024 9:11 AM EST Inhaled Oxygen Concentration - - Weight 68.9 kg (151 lb 12.8 oz) 02/01/2024 9:11 AM EST Height 162.6 cm (5' 4 ) 02/01/2024 9:11 AM EST Body Mass Index 26.06 02/01/2024 9:11 AM EST Plan of Treatment Upcoming Encounters Date Type Department Care Team (Late st Contact Info) Description 05/09/2024 9:00 AM EDT Office Visit [facility] [address] [place] [address] Shawna Styles MD [address] [place] [address] Health Maintenance Due Date Last Done Comments RSV Patients and Patients Aged 60 years or older (1 - 1-dose 75+ series) 2017 COVID-19 Vaccine ( season) 2023 02/04/2021, 05/12/2020, 04/14/2020 Alcohol/Substance Use Screening 07/25/2024 07/26/2023 Depression Screening 07/25/2024 07/26/2023, 07/26/19 24 SDOH Screening 07/25/2024 07/26/2023 Diabetes: Hemoglobin A1C 01/31/2025 024, 01/26/2023, 06/29/2022, Additional history exists Tobacco Screening 01/31/2025 02/01/2024 Lipid Panel 10/23/2028 10/24/2023, 07/01/2020 DTaP/Tdap/Td Vaccines (3 - Td or Tdap) 12/01/2031 11/30/2021, 06/18/2010, 07/23/2001 Pneumococcal Vaccine: 50+ Years Completed 01/08/2019, 12/04/2008 Zoster Vaccines Completed 04/20/2022, 05/2022, 03/25/2009 Influenza Vaccine Completed 02/01/2024, , 04/01/2019, Additional history exists HIB Vaccines Aged Out No longer eligi ble based on patient's age to complete this topic HPV Vaccines Aged Out No longer eligi ble based on patient's age to complete this topic Hepatitis A Vaccines Aged Out No long er eligible based on patient's age to complete this topic Hepatitis B Vaccines Aged Out No long er eligible based on patient's age to complete this topic IPV Vaccines Aged Out No longer eligi ble based on patient's age to complete this topic Meningococcal Vaccine Aged Out No duran aga eligible based on patient's age to complete this topic RSV under 20 months Aged Out No longe r eligible based on patient's age to complete this topic Rotavirus Vaccines Aged Out No longer eligible based on patient's age to complete this topic Procedures Procedure Name Priority Date/Time Associated Diagnosis Comments POCT GLUCOSE Routine 02/01/2024 9:10 AM EST Prediabetes POCT GLYCATED HEMOGLOBIN, TOTAL Routine 02/01/2024 9:10 AM EST Prediabetes XR CHEST 2 VIEWS Routine 12/19/2023 3:20 PM EST Cough in adult POCT INFLUENZA B (ID NOW RAPID MOLECULAR) Routine 12/19/2023 2:49 PM EST Cough in adult POCT INFLUENZA A (ID NOW RAPID MOLECULAR) Routine 12/19/2023 2:49 PM EST Cough in adult POCT RAPID COVID ANTIGEN Routine 12/19/2023 2:48 PM EST Cough in adult POCT GLUCOSE Routine 12/19/2023 2:25 PM EST Prediabetes LIPID PANEL, STANDARD Routine 10/24/2023 9:20 AM EDT Prediabetes from Last 3 Months or Most Recently Relevant to Health Maintenance Results * POCT HGB A1C (02/01/2024 9:10 AM EST) Hemoglobin A1C 5.9 4.0 - 6.0 % QC Media Lot # [id number] Lot# Expiration Date [id number] Blood 02/01/2024 9:10 AM EST Shawna Zamarripa MD POINT OF CARE TEST EN TER/EDIT ORDERABLES Final Result * (ABNORMAL) POCT Glucose (02/01/2024 9:10 AM EST) Only the most recent of2 resultswithin the time period is included. Glucose Blood, POC 232(A) 60 - 200 mg/dL QC Media Lot # [id number] Lot# Expiration Date ,025 Blood Capillary blood specimen / Unknown 02/01/2024 9:10 AM EST us Shawna Zamarripa MD POINT OF CARE TEST EN TER/EDIT ORDERABLES Final Result * XR Chest 2 Views (12/19/2023 3:20 PM EST) Anatomical Region Laterality Modality Chest Radiographic Larisa ging 12/19/2023 3:20 PM EST Narrative 12/20/2023 8:16 AM EST ?[facility] ?[address] ?[place] [address] ?XRay Report ? Signed ? Patient: Grzegorz Arenas ?MR#: [id number] ?? 6 ? : 1940 ?Acct:[id number] ? Age/Sex: 83 / M ?ADM Date: 12/19/23 ? Loc: HO.HHCX ? Attending Dr: Danielle Street MD ? Ordering Physician: Danielle Street MD ?? Date of Service: 12/19/23 ?? Procedure(s): XR chest 2V ?? Accession Number(s): [id number] ? cc: Danielle Street MD ? EXAMINATION: ?? XR CHEST ? CLINICAL INFORMATION: ?? Chronic cough. ? COMPARISON: ?? November 06, 2023. ? TECHNIQUE: ?? PA and lateral views of the chest were obtained. ? FINDINGS: ?? No focal infiltrate, effusion, or pneumothorax is identified. Mild ?? chronic interstitial fibrotic changes. ? The heart appears normal in size. Aorta is mildly atherosclerotic and ?? uncoiled, suggesting hypertension. I will degenerative changes of the ?? spine. Surgical clips project over the region of the GE junction. ? XR/XR chest 2V ?? IMPRESSION: ?? 1. ??No acute finding. ?? 2. ??Mild chronic interstitial fibrotic changes. No acute finding. ? Electronically signed by: ??Jeff Collado MD ??12/20/2023 08:13 AM EST RP ? Dictated By: ?Jeff Collado ? Signed By: ?<Electronically signed by Jeff Collado in OV> ?12/20/23812 ? DD/ 1520 ? TD/TT: 12/19/23 1536 ? Building Equipment Operator: ? Procedure Note Donloriter, Image - 12/20/[address] [address] XRay Report Signed Patient: Nixon Arenas#: [id number] 6 : 3Acct:[id number] Age/Sex: 83 / MADM Date: 12/19/23 Loc: HO.HHCX Attending Dr: Danielle Street MD Ordering Physician: Danielle Street MD Date of Service: 12/19/23 Procedure(s): XR chest 2V Accession Number(s): [id number] cc: Danielle Street MD EXAMINATION: XR CHEST CLINICAL INFORMATION: Chronic cough. COMPARISON: November 06, 2023. TECHNIQUE: PA and lateral views of the chest were obtained. FINDINGS: No focal infiltrate, effusion, or pneumothorax is identified. Mild chronic interstitial fibrotic changes. The heart appears normal in size. Aorta is mildly atherosclerotic and uncoiled, suggesting hypertension. I will degenerative changes of the spine. Surgical clips project over the region of the GE junction. XR/XR chest 2V IMPRESSION: 1. No acute finding. 2. Mild chronic interstitial fibrotic changes. No acute finding. Electronically signed by: Jeff Collado MD 12/20/2023 08:13 AM EST Dictated By: Jeff Collado Signed By: <Electronically signed by Jeff Collado in OV> 12/20/23 0813 DD/ 1520 TD/TT: 12/19/23 1536 Building Equipment Operator: Danielle Street MD IMG XR PROCEDURES Edited R esult - Final * POCT Rapid Influenza B RODRIGES ID NOW (12/19/2023 2:49 PM EST) Influenza B Negative Negative, Indeterminate [facility] QC Media Lot # [id number] [facility] Lot# Expiration Date 32 [facility] Swab 12/19/2023 2:[address] MD POINT OF CARE TEST ENTER/E DIT ORDERABLES Final Result Performing Organization Address [facility]/ZIP Co de Phone Number [facility] [address] [place] [phone] * POCT Rapid Influenza A RODRIGES ID NOW (12/19/2023 2:49 PM EST) [facility] Influenza A Negative Negative, Indeterminate [facility] QC Media Lot # [id number] [facility] Lot# Expiration Date 32 [facility] Swab 12/19/2023 2:[address] MD POINT OF CARE TEST ENTER/E DIT ORDERABLES Final Result Performing Organization Address [facility] Co de Phone Number [facility] [address] [place] [phone] * POCT Rapid Covid-19 BinaxNOW (12/19/2023 2:48 PM EST) [facility] Rapid COVID Ag Negative QC Media Lot # [id number] Lot# Expiration Date 126 Swab 12/19/2023 2:[address] MD POINT OF CARE TEST ENTER/E DIT ORDERABLES Final Result * Lipid Panel, Standard (10/24/2023 9:20 AM EDT) [facility] Triglycerides 53 <150 mg/dL [facility] Comment:Desirable Triglyceri de: less than 150 mg/dLBorderline High Triglyceride 150-199 mg/dLHigh Triglyceride: 200-499 mg/dLVery High Triglyceride: greater than or equal to 5OO mg/dL Cholesterol 128 <200 mg/dL [facility] Comment:Desirable Cholestero l: less than 200 mg/dLBorderline High Cholesterol: 200-239 mg/dLHigh Cholesterol: greater than 239 mg/dL LDL Cholesterol Calculated 48 <100 mg/dL [facility] Comment:Desirable LDL: less than 100 mg/dLNear Optimal/Above Optimal LDL: 110- 129 mg/dLBorderline High LDL: 130-159 mg/dLHigh LDL: 160-189 mg/dLVery High LDL: greater than or equal to 190 mg/dL HDL Cholesterol 70 >40 mg/dL [facility] Comment:Desirable HDL: great er than 40 mg/dL Note: This HDL assay may give artificially low results in patients with liver disease. Blood Venous blood specimen / Unknown 10/24/2023 9:20 AM EDT 10/24/2023 11:03 AM EDT Shawna Zamarripa MD LAB BLOOD ORDERABLES Final Result Performing Organization Address City/State/[facility] Co de Phone Number [facility] [address] [place] [address] [phone] from Last 3 Months or Most Recently Relevant to Health Maintenance Insurance [facility] [employer] HMO * Guarantor: Grzegorz Arenas Account Type Relation to Patient Date of Phone Billing Address Personal/Family Self [address] [place] [address] Care Teams Vp Marketing Relationship Specialty Start Date End Date Shawna Styles MD [address] [place] [address] PCP - General Internal Medicine 04/12/22
--- OUTSIDE RECORDS SUMMARY | 2024-03-20 11:31 | XMS_ITS | Encounter Summary ---
Author Organization [employer] Address [address] [place] [address] Care Team Providers Care Blower Room Attendant Name Role Phone Shawna Styles MD Primary Care Provide r Reason for Visit * Reason Comments Med Refill Encounter Details Date Type Department Care Team ([facility] Contact Info) Description 10/02/2023 Refill [facility] [address] [place], [place] [phone] Shawna Styles MD [address] [place], [place] [phone] Benign hypertension Social History Tobacco Use Types Packs/Day Years Used Date Smoking Tobacco: Never Passive Smoke Exposure: Never Smokeless Tobacco: Never Alcohol Use Standard Drinks/Week [...] Orientation Straight 12/13/2021 10 :16 AM EDT documented as of this encounter Plan of Treatment Upcoming Encounters Date Type Department Care Team (Late st Contact Info) Description 05/09/2024 9:00 AM EDT Office Visit [facility] [address] [place] [phone] Shawna Styles MD [address] [place] [phone] documented as of this encounter Visit Diagnoses Diagnosis Benign hypertension Essential hypertension, benign documented in this encounter Additional Health Concerns Assessment Noted Time PHQ-9 Depression Total Score: 0 07/26/19 24 11:48 AM EDT documented as of this encounter Care Teams Blower Room Attendant Relationship Specialty Start Date End Date Shawna Styles MD [address] [place] [phone] PCP - General Internal Medicine 04/12/22 documented as of this encounter
--- OUTSIDE RECORDS SUMMARY | 2024-03-20 11:31 | XMS_ITS | Encounter Summary ---
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 Name Role Phone Shawna Styles MD Primary Care Provide r Reason for Visit * Reason Comments Chest Pain Encounter Details Date Type Department Care Team (Late st Contact Info) Description 03/08/2024 10:21 AM EST - 03/08/2024 4:06 PM EST Emergency [facility] [address] [place] [id number] Isaías Boateng MD [address] [address] Other chest pain (Primary Dx) Discharge Disposition: Home or Self Care Social History Tobacco Use Types Packs/Day Years Used Date Smoking Tobacco: Never Smokeless Tobacco: Never Alcohol Use Standard Drinks/Week Comments Never 0 (1 standard drink = 0.6 oz pur e alcohol) Interpersonal Safety Answer Date Record ed Physical Abuse 12/24/2023 Verbal Abuse 12/24/2023 Sex and Gender Information Value Date Recorded Sex Assigned at Male 12/24/2023 10:24 PM EST Gender Identity Male 12/24/2023 10:24 PM EST Sexual Orientation Straight 12/24/2023 10 :24 PM EST Job Start Date Occupation Industry Not on file Not on file Not on file documented as of this encounter Last Filed Vital Signs Vital Sign Reading Time Taken Comments Blood Pressure 132/73 03/08/2024 3:57 PM EST Pulse 61 03/08/2024 3:57 PM EST Temperature 36.8 ??C (98.2 ??F) 03/08/2024 3:57 PM ES T Respiratory Rate 17 03/08/2024 3:57 PM EST Oxygen Saturation 99% 03/08/2024 3:57 PM EST Inhaled Oxygen Concentration - - Weight 68 kg (150 lb) 03/08/2024 9:57 AM EST Height 162.6 cm (5' 4 ) 03/08/2024 9:57 AM EST Body Mass Index 25.75 03/08/2024 9:57 AM EST documented in this encounter Functional Status Functional Status Response Date of Assess ment Are you deaf or do you have serious difficulty h earing? No 12/23/2023 Are you blind or do you have serious difficulty seeing, even when wearing glasses? No 12/23/2023 Do you have serious difficul ty walking or climbing stairs? No 12/23/2023 Do you have serious difficulty dressing or bathi ng? No 12/23/2023 Because of a physical, menta l, or emotional condition, do you have serious difficulty doing errands alone such as visiting the doctor? No 12/23/2023 Cognitive Status Response Date of Assessm ent Because of a physical, menta l, or emotional condition, do you have serious difficulty concentrating, remembering, or making decisions? (5 years old or older) No 12/23/2023 documented as of this encounter Discharge Instructions * Discharge Instructions* RISHI Dias - 03/08/2024 3:40 PM EST We spoke with your outpatient finish inspector team, contact them for follow-up as soon as possible They will continue further testing Initial workup performed here in the hospital is otherwise reassuring Get plenty of rest Drink plenty clear fluids Follow-up with primary care provider Return for new or worsening symptoms Hope you feel better Thank you for coming to the [facility] Emergency Department today. Our entire team works together to provide you with the best care possible. Examination and treatment you received in the emergency department has been rendered on an EMERGENCY basis only. It is not intended to be a substitute for, or an effort to provide, complete medical care. You should follow-up with your primary care provider. Please report to your physician any new or remaining problems, because it is impossible to recognize and treat all elements of injury or illness in a single emergency department visit. If you do not have a primary care provider or require a referral, a follow-up doctor irrigation technician for the emergency department will be provided in your discharge packet. In the event that you're unable to obtain a followup appointment in a timely fashion, OR you are not getting any better, OR you are getting worse, OR you develop any symptoms of concern, please return here immediately for further evaluation. The emergency department is open 24 hours a day, 7 days aweek. Your discharge report is based on information that was available when you were in the emergency department. The x-ray readings are preliminary and will be reviewed by a radiologist in the next 24 hours. If there is a discrepancy you will be notified by phone. If you do not have a primary care provider, please contact one of the following to make arrangements to follow up. [facility] [place] Marry Isauro documented in this encounter Medications at Time of Discharge Medication Sig Dispensed Refills Start Date End Date amiodarone (PACERONE) 200 mg tablet Take 1 tablet (200 mg total) by mouth 1 (one) time each day. 90 each 01/02/2024 04/01/2024 apixaban (ELIQUIS) 5 mg tablet Take 1 tablet (5 mg total) by mouth 2 (two) times a day. atorvastatin (LIPITOR) 20 mg tablet Take 1 tablet (20 mg total) by mouth at bedtime. dilTIAZem CD (CARDIZEM CD) 120 mg 24 hr capsule Take 1 capsule (120 mg total) by mouth 1 (one) time each day. 30 each 12/28/2023 12/27/2024 furosemide (LASIX) 20 mg tablet Take 1 tablet (20 mg total) by mouth 1 (one) time each day. terazosin (HYTRIN) 10 mg capsule Take 1 capsule (10 mg total) by mouth at bedtime. documented as of this encounter Discharge Disposition Disposition Code Departure Means Destination Comment s Home or Self Care documented in this encounter Progress Notes * Diane Abraham RN - 03/08/2024 9:58 AM EST Patient comes from [facility], reports he had been experiencing chest pain and has hx of afib, was told by clinic to come to ER due to symptoms. * RISHI Dias - 03/08/2024 9:37 AM EST Images from the original note were not included. [facility] Department Encounter Note Patient Name: Grzegorz Arenas Initial Evaluation: 03/08/2024 : 1940 Patient's PCP: Shawna Zamarripa MD Emergency Provider: RISHI Dias Chief Complaint Patient presents with Chest Pain History of Present Illness HPI: Grzegorz is a pleasant 83-year-old male primarily speaks Georgian accompanied by his daughter who is bilingual and acts as formal debit agent at the family's request with a past medical history to include paroxysmal A-fib, BPH, GERD, hypertension among others presenting today for evaluation of chest pain. Reports intermittent in nature over the last almost 5 days for starting on 03/03/2024. He has had shortness of breath with exertion which was chronic in nature due to his underlying diagnosis of A-fib according to family. The pain associated with symptoms however is unusual. Family reported cough but patient has denied this. Family is noted nausea any significant weight gain or lower leg swelling. ROS: Review of Systems Constitutional: Negative for chills and fever. Respiratory: Positive for cough. Negative for shortness of breath. Cardiovascular: Positive for chest pain and palpitations. Gastrointestinal: Negative for constipation, diarrhea, nausea and vomiting. Genitourinary: Negative for frequency and urgency. Musculoskeletal: Negative for gait problem. Skin: Negative for rash. Neurological: Negative for syncope, weakness and headaches. Psychiatric/Behavioral: Negative for suicidal ideas. All other systems reviewed and are negative. Remaining ROS are as documented in HPI. Previous History Past Medical History: Past Medical History: Diagnosis Date BPH (benign prostatic hyperplasia) GERD (gastroesophageal reflux disease) Hypercholesteremia Hypertension Paroxysmal atrial fibrillation (CMS/HCC) S/P partial gastrectomy Past Surgical History: Past Surgical History: Procedure Laterality Date HIP SURGERY Left LUMBAR SPINE SURGERY Medications: Patient's Medications New Prescriptions No medications on file Previous Medications AMIODARONE (PACERONE) 200 MG TABLET Take 1 tablet (200 mg total) by mouth 1 (one) time each day. AMIODARONE (PACERONE) 400 MG TABLET Take 1 tablet (400 mg total) by mouth 2 (two) times a day for 7days. Take 400mg twice daily for 7 days then switch to 200mg daily after that APIXABAN (ELIQUIS) 5 MG TABLET Take 1 tablet (5 mg total) by mouth 2 (two) times a day. ATORVASTATIN (LIPITOR) 20 MG TABLET Take 1 tablet (20 mg total) by mouth at bedtime. DILTIAZEM CD (CARDIZEM CD) 120 MG 24 HR CAPSULE Take 1 capsule (120 mg total) by mouth 1 (one) timeeach day. FUROSEMIDE (LASIX) 20 MG TABLET Take 1 tablet (20 mg total) by mouth 1 (one) time each day. TERAZOSIN (HYTRIN) 10 MG CAPSULE Take 1 capsule (10 mg total) by mouth at bedtime. Modified Medications No medications on file Discontinued Medications No medications on file Allergies: Patient has no known allergies. Social and Family History: Social History Tobacco Use Smoking status: Never Smokeless tobacco: Never Substance Use Topics Alcohol use: Never Family History Problem Relation Name Age of Onset No Known Problems Mother No Known Problems Father No Known Problems Sister No Known Problems Brother No Known Problems Maternal Grandmother No Known Problems Maternal Grandfather No Known Problems Paternal Grandmother No Known Problems Paternal Grandfather No Known Problems Other Physical Exam ED Triage Vitals [03/08/24 0957] Temp Heart Rate Resp BP 36.5 ??C (97.7 ??F) 68 16 126/77 SpO2 Temp Source Heart Rate Source Patient Position 99 % Oral -- -- BP Location FiO2 (%) -- -- Physical Exam Vitals reviewed. Constitutional: General: He is not in acute distress. Appearance: He is not toxic-appearing. HENT: Head: Normocephalic and atraumatic. Eyes: Extraocular Movements: Extraocular movements intact. Pupils: Pupils are equal, round, and reactive to light. Cardiovascular: Rate and Rhythm: Normal rate and regular rhythm. Heart sounds: No murmur heard. No friction rub. No gallop. Pulmonary: Effort: Pulmonary effort is normal. No respiratory distress. Breath sounds: Normal breath sounds. Abdominal: General: There is no distension. Palpations: Abdomen is soft. Tenderness: There is no abdominal tenderness. There is no guarding or rebound. Musculoskeletal: General: Normal range of motion. Cervical back: Normal range of motion and neck supple. No rigidity. Right lower leg: Edema present. Left lower leg: Edema present. Comments: 1+ pitting edema to the lower extremities bilaterally Skin: General: Skin is warm and dry. Capillary Refill: Capillary refill takes less than 2 seconds. Findings: No rash. Neurological: Mental Status: He is alert and oriented to person, place, and time. ED Results: ED Labs: Labs Reviewed COMPREHENSIVE METABOLIC PANEL - Abnormal Result Value Sodium 140 Potassium 4.9 Chloride 107 CO2 29 Anion Gap 4 Glucose 154 (*) BUN 11 Creatinine 1.07 eGFR 70 BUN/Creatinine Ratio 10.3 Calcium 8.8 AST (SGOT) 22 ALT (SGPT) 35 Alkaline Phosphatase 79 Total Protein 6.4 Albumin 3.3 Total Bilirubin 0.5 CBC WITH AUTO DIFFERENTIAL - Abnormal WBC 6.6 RBC 4.40 (*) Hemoglobin 14.2 Hematocrit 42.8 MCV 97.3 MCH 32.3 (*) MCHC 33.2 RDW 13.2 Platelets 120 (*) MPV 12.1 (*) NRBC 0.0 NRBC Absolute 0.00 Neutrophils Relative 74.1 Lymphocytes Relative 14.5 Monocytes Relative 8.6 Eosinophils Relative 1.5 Basophils Relative 0.5 Immature Granulocytes Relative 0.8 Neutrophils Absolute 4.93 Lymphocytes Absolute 0.96 (*) Monocytes Absolute 0.57 Eosinophils Absolute 0.10 Basophils Absolute 0.03 Immature Granulocytes Absolute 0.05 (*) RESPIRATORY VIRUS PANEL MOLECULAR STUDY - Normal Adenovirus Detection by PCR Not Detected Influenza A PCR Not Detected Influenza B PCR Not Detected Coronavirus 229E Not Detected Coronavirus HKU1 Not Detected Coronavirus OC43 Not Detected Coronavirus NL63 Not Detected Parainfluenza Virus 1 Not Detected Parainfluenza Virus 2 Not Detected Parainfluenza Virus 3 Not Detected Parainfluenza Virus 4 Not Detected RSV PCR Not Detected Human Metapneumovirus A and B Not Detected Rhinovirus/Enterovirus Not Detected Bordetella pertussis Not Detected Bordetella parapertussis Not Detected Mycoplasma pneumo by PCR Not Detected Chlamydia pneumoniae Not Detected SARS COV-2 Not Detected Narrative: Testing was performed using the Expert TA Respiratory Pathogen PCR Assay. All results must be correlated with the clinical findings. Results should not be used as the sole basis for diagnosis. False Negative results may occur from the presence of sequence variants in the region targeted by the assay or the presence of inhibitors. Results may be affected by concurrent antiviral/antimicrobial therapy or levels of organisms that are below the limit of detection. TROPONIN I HIGH SENSITIVITY - Normal High Sensitivity Troponin I 8 Narrative: High levels of biotin in samples may falsely decrease hsTroponin values. Use caution when interpreting hsTroponin results in patients taking biotin who exhibit renal impairment (eGFR <60) or in patients taking more than 20 mg/day of biotin. TROPONIN I HIGH SENSITIVITY - Normal High Sensitivity Troponin I 7 Narrative: High levels of biotin in samples may falsely decrease hsTroponin values. Use caution when interpreting hsTroponin results in patients taking biotin who exhibit renal impairment (eGFR <60) or in patients taking more than 20 mg/day of biotin. LIPASE - Normal Lipase 23 MAGNESIUM - Normal Magnesium 2.0 B-TYPE NATRIURETIC PEPTIDE - Normal BNP 66 CBC AND DIFFERENTIAL Narrative: The following orders were created for panel order CBC and differential. Procedure Abnormality Status --------- ------ CBC auto differential[[id number]] Abnormal Final result Please view results for these tests on the individual orders. ED Radiology: XR Chest 2 Views Final Result FINDINGS/IMPRESSION: Lungs are clear. No pleural effusion or pneumothorax. Cardiac silhouette is normal in size. Degenerative changes seen throughout the bones. Surgical clips noted at the GE junction. -------- FINAL REPORT -------- Dictated By: STEPHEN HARDWICK Dictated Date: 03/08/2024 11:10 ET Assigned Physician: STEPHEN HARDWICK Reviewed and Electronically Signed By: STEPHEN HARDWICK Signed Date: 03/08/2024 11:22 ET Workstation ID: [id number] Transcribed By: Self Edit Transcribed Date: 03/08/2024 11:10 ET The laboratory results, imaging results and other diagnostic exam results related to this ED encounter were reviewed in the EMR. ED Procedures: Procedures ED Administered Mediations: Medications - No data to display ED Pre-Disposition Vitals: Vitals: 03/08/24 1409 BP: 123/73 Pulse: 65 Resp: 16 Temp: 37.1 ??C (98.8 ??F) SpO2: 99% Differential Diagnosis Viral syndrome URI Pharyngitis SARS 2 COVID-19 Influenza Pneumonia ACS PE A-fib with RVR Medical Decision Making, ED Course MDM: Medical Decision Making Grzegorz is a pleasant 83-year-old male with past medical history as previously listed presenting today for evaluation of chest discomfort. Described to be intermittent in nature over the last several days. Underlying diagnosis of A-fib and family ties most of these together however I think importantly workup the chest pain despite diagnosed with A-fib and their assumption that these are connected.Will review labs, EKG, chest x-ray. Will place on the engine monitor. Given the cough, will swab for respiratory viral illnesses. Please see ED Course below for updates regarding ED results and course of the ED visit. ED Course: ED Course as of 03/08/24 1541 MonMar 08, 2024 1120 Initial EKG showing normal sinus rhythm at 67 bpm, no significant ST segment changes, no obvious T wave inversions, some artifact limiting interpretation V4, no significant change reverted to prior EKG from 12/26/2023. [CC] 1120 Repeat EKG this morning again showing normal sinus rhythm at 64 bpm, no obvious ST segment changes, no obvious T wave inversions, essentially unchanged compared to EKG from this morning at 949 [CC] 1205 High-sensitivity troponin resulted 8 with 1 hour repeat resulted at 7. BNP is 66, trended downsince the last admission. Magnesium and lipase are within normal limits. No significant leukocytosis or anemia. Electrolytes renal function liver function studies are essentially unremarkable. [CC] 1206 Chest x-ray without acute infiltrate. [CC] 1516 Discussed with Cardiologists Vikas's [employer]FUELING [employer]PERVIS[employer] office for Stress, Holter monitor as soon as possible will see sooner. [JL] 1539 Medicine has declined admission at this time. Patient was reevaluated by their team as well asmy attending, case discussed with outpatient cardiology's office who is aware of patient presentation and will have close outpatient follow-up. Patient and family agreeable with discharge home. [CC] ED Course User Index [CC] RISHI Dias [JL] Isaías Boateng MD Clinical Impressions as of 03/08/24 1541 Other chest pain ED Prescriptions: ED Prescriptions None Disposition: Discharge Condition: Stable Diagnosis / Impression: Final diagnoses: [R07.89] Other chest pain Provider Attestation Electronically signed by ALVA Dias PA 03/08/24 1034 This is a split/shared visit with Isaías Boateng MD. I personally performed the medical decision making (MDM) for the care of this patient on 03/08/24 as documented below Seen and examined by myself history is somewhat discordant with his history the family tells me that he has had intermittent chest pain which wakes him up at night he also has a decreased exercise tolerance where he becomes fatigued and has to stop. He was supposed to have had a stress test on his last admission which was somewhat similar to this but never did have a stress test he cannot tolerate walking. 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 They feel might be his A- fib acting up. He takes hisEliquis faithfully. Will admit for cardiac consultation rule out acute coronary syndrome versus arrhythmia RISHI Dias 03/08/24 3:41 PM EST RISHI Dias MD 03/08/24 1221 RISHI Dias 03/08/24 1541 documented in this encounter Plan of Treatment Not on file documented as of this encounter Procedures Procedure Name Priority Date/Time Associated Diagnosis Comments RESPIRATORY VIRUS PANEL MOLECULAR STUDY STAT 03/08/2024 12:48 PM EST ECG 12-LEAD STAT 03/08/2024 11:20 AM EST TROPONIN I HIGH SENSITIVITY STAT 03/08/2024 11:17 AM EST XR CHEST 2 VIEWS STAT 03/08/2024 11:0 3 AM EST TROPONIN I HIGH SENSITIVITY STAT 03/08/2024 10:14 AM EST CBC WITH AUTO DIFFERENTIAL STAT 03/08/2024 10:14 AM EST CBC AND DIFFERENTIAL STAT 03/08/2024 10:14 AM EST B-TYPE NATRIURETIC PEPTIDE STAT 03/08/2024 10:14 AM EST MAGNESIUM STAT 03/08/2024 10:14 AM EST LIPASE STAT 03/08/2024 10:14 AM EST COMPREHENSIVE METABOLIC PANEL STAT 03/08/2024 10:14 AM EST ECG 12-LEAD STAT 03/08/2024 9:49 AM EST ECG ANNOTATED 03/08/2024 documented in this encounter Results * Respiratory virus panel molecular study (03/08/2024 12:48 PM EST) Pathologist [facility] Adenovirus Detection by PCR Not Detected Not Detected LAB MICROBIOLOGY METHOD 03/08/2024 2:20 PM [facility] Influenza A PCR Not Detected Not Detected LAB MICROBIOLOGY METHOD 03/08/2024 2:20 PM [facility] Influenza B PCR Not Detected Not Detected LAB MICROBIOLOGY METHOD 03/08/2024 2:20 PM [facility] Coronavirus 229E Not Detected Not Detected LAB MICROBIOLOGY METHOD 03/08/2024 2:20 PM [facility] Coronavirus HKU1 Not Detected Not Detected LAB MICROBIOLOGY METHOD 03/08/2024 2:20 PM EST [facility] Coronavirus OC43 Not Detected Not Detected LAB MICROBIOLOGY METHOD 03/08/2024 2:20 PM [facility] Coronavirus NL63 Not Detected Not Detected LAB MICROBIOLOGY METHOD 03/08/2024 2:20 PM [facility] Parainfluenza Virus 1 Not Detected Not Detected LAB MICROBIOLOGY METHOD 03/08/2024 2:20 PM [facility] Parainfluenza Virus 2 Not Detected Not Detected LAB MICROBIOLOGY METHOD 03/08/2024 2:20 PM EST [facility] Parainfluenza Virus 3 Not Detected Not Detected LAB MICROBIOLOGY METHOD 03/08/2024 2:20 PM EST [facility] Parainfluenza Virus 4 Not Detected Not Detected LAB MICROBIOLOGY METHOD 03/08/2024 2:20 PM [facility] RSV PCR Not Detected Not Detected LAB MICROBIOLOGY METHOD 03/08/2024 2:20 PM EST [facility] Human Metapneumovirus A and B Not Detected Not Detected LAB MICROBIOLOGY METHOD 03/08/2024 2:20 PM EST [facility] Rhinovirus/Entero virus Not Detected Not Detected LAB MICROBIOLOGY METHOD 03/08/2024 2:20 PM [facility] Bordetella pertussis Not Detected Not Detected LAB MICROBIOLOGY METHOD 03/08/2024 2:20 PM [facility] Bordetella parapertussis Not Detected Not Detected LAB MICROBIOLOGY METHOD 03/08/2024 2:20 PM [facility] Mycoplasma pneumo by PCR Not Detected Not Detected LAB MICROBIOLOGY METHOD 03/08/2024 2:20 PM [facility] Chlamydia pneumoniae Not Detected Not Detected LAB MICROBIOLOGY METHOD 03/08/2024 2:20 PM [facility] SARS COV-2 Not Detected Not Detected LAB MICROBIOLOGY METHOD 03/08/2024 2:20 PM [facility] Swab Both anterior nares / Unknown Non-blood Collection / Unknown 03/08/2024 12:48 PM EST 03/08/2024 1:[address] [facility] - 03/08/2024 2:20 PM EST Testing was performed using the [employer] Respiratory Pathogen PCR Assay. All results must be correlated with the clinical findings. Results should not be used as the sole basis for diagnosis. False Negative results may occur from the presence of sequence variants in the region targeted by the assay or the presence of inhibitors. Results may be affected by concurrent antiviral/antimicrobial therapy or levels of organisms that are below the limit of detection. Deepak BLACKWE[facility] LAB MICROBIOLOGY - GENERAL ORDERABLES [facility] [address] [place] [address], * ECG 12 lead (03/08/2024 11:20 AM EST) Pathologist [facility] Ventricular Rate ECG 64 BPM GEMUSE Atrial Rate 64 BPM GEMUSE P-R Interval 170 ms GEMUSE QRS Duration 80 ms GEMUSE Q-T Interval 398 ms GEMUSE QTc 410 ms GEMUSE P Wave [place] -17 degrees GEMUSE R [place] -31 degrees GEMUSE T [place] 85 degrees GEMUSE ECG Interpretation Normal sinus rhythm Left axis deviation Nonspecific T wave abnormality Abnormal ECG When compared with ECG of 08-MAR-2024 09:49, (unconfirmed) No significant change was found Confirmed by HALEY GOMES ([id number]) on 03/09/2024 4:39:37 PM GEMUSE 03/08/2024 11:2 0 AM EST 03/09/2024 4:39 PM EST Isaías Boateng MD ECG ORDERABLES Performing Organization Address [facility] Co de Phone Number GEMUSE * Troponin I high sensitivity (03/08/2024 11:17 AM EST) [facility] High Sensitivity Troponin I 7 <=79 ng/L LAB CHEMISTRY METHOD 03/08/2024 12:01 PM EST [facility] Blood Venous blood specimen / Unknown Venipuncture / Unknown 03/08/2024 11:17 AM EST 03/08/2024 11:31 AM EST Narrative [facility] - 03/08/2024 12:01 PM EST High levels of biotin in samples may falsely decrease hsTroponin values. ??Use caution when interpreting hsTroponin results in patients taking biotin who exhibit renal impairment (eGFR <60) or in patients taking more than 20 mg/day of biotin. Isaías Boateng MD LAB BLOOD ORDERABLE [facility] [address] [place] [address], * XR Chest 2 Views (03/08/2024 11:03 AM EST) Anatomical Region Laterality Modality Body Radiographic Larisa ging 03/08/2024 11:1 0 AM EST Impressions 03/08/2024 11:22 AM EST FINDINGS/IMPRESSION: Lungs are clear. ??No pleural effusion or pneumothorax. ??Cardiac silhouette is normal in size. ??Degenerative changes seen throughout the bones. ??Surgical clips noted at the GE junction. -------- FINAL REPORT -------- Dictated By: STEPHEN HARDWICK Dictated Date: 03/08/2024 11:10 ET Assigned Physician: STEPHEN HARDWICK Reviewed and Electronically Signed By: STEPHEN HARDWICK Signed Date: 03/08/2024 11:22 ET Workstation ID: [id number] Transcribed By: Self Edit Transcribed Date: 03/08/2024 11:10 ET Narrative 03/08/2024 11:22 AM EST XR CHEST 2 VIEWS INDICATION: ??Pain TECHNIQUE: XR CHEST 2 VIEWS COMPARISON: 12/26/2023 Procedure Note Stephen Hardwick MD - 03/08/2024 XR CHEST 2 VIEWS INDICATION: Pain TECHNIQUE: XR CHEST 2 VIEWS COMPARISON: 12/26/2023 IMPRESSION: FINDINGS/IMPRESSION: Lungs are clear. No pleural effusion orpneumothorax. Cardiac silhouette is normal in size. Degenerative changesseen throughout the bones. Surgical clips noted at the GE junction. -------- FINAL REPORT -------- Dictated By: STEPHEN HARDWICK Dictated Date: 03/08/2024 11:10 ET Assigned Physician: STEPHEN HARDWICK Reviewed and Electronically Signed By: STEPHEN HARDWICK Signed Date: 03/08/2024 11:22 ET Workstation ID: [id number] Transcribed By: Self Edit Transcribed Date: 03/08/2024 11:10 ET Isaías Boateng MD IMG XR PROCEDURES * (ABNORMAL) CBC auto differential (03/08/2024 10:14 AM EST) WBC 6.6 4.8 - 10.8 K/mcL LAB HEMETOLOGY METHOD 03/08/2024 10:30 AM [facility] RBC 4.40(L) 4.50 - 5.50 M/mcL LAB HEMETOLOGY METHOD 03/08/2024 10:30 AM [facility] Hemoglobin 14.2 13.5 - 17.5 g/dL LAB HEMETOLOGY METHOD 03/08/2024 10:30 AM [facility] Hematocrit 42.8 42.0 - 54.0 % LAB HEMETOLOGY METHOD 03/08/2024 10:30 AM [facility] MCV 97.3 79.0 - 98.0 FL LAB HEMETOLOGY METHOD 03/08/2024 10:30 AM [facility] MCH 32.3(H) 27.0 - 32.0 pcg LAB HEMETOLOGY METHOD 03/08/2024 10:30 AM [facility] MCHC 33.2 32.0 - 37.0 g/dL LAB HEMETOLOGY METHOD 03/08/2024 10:30 AM [facility] RDW 13.2 11.0 - 15.0 % LAB HEMETOLOGY METHOD 03/08/2024 10:30 AM [facility] Platelets 120(L) 130 - 400 K/mcL LAB HEMETOLOGY METHOD 03/08/2024 10:30 AM [facility] MPV 12.1(H) 7.0 - 11.0 FL LAB HEMETOLOGY METHOD 03/08/2024 10:30 AM [facility] NRBC 0.0 <1.0 % LAB HEMETOLOGY METHOD 03/08/2024 10:30 AM [facility] NRBC Absolute 0.00 <0.10 K/mcL LAB HEMETOLOGY METHOD 03/08/2024 10:30 AM [facility] Neutrophils Relative 74.1 % LAB HEMETOLOGY METHOD 03/08/2024 10:30 AM [facility] Lymphocytes Relative 14.5 % LAB HEMETOLOGY METHOD 03/08/2024 10:30 AM [facility] Monocytes Relative 8.6 % LAB HEMETOLOGY METHOD 03/08/2024 10:30 AM [facility] Eosinophils Relative 1.5 % LAB HEMETOLOGY METHOD 03/08/2024 10:30 AM [facility] Basophils Relative 0.5 % LAB HEMETOLOGY METHOD 03/08/2024 10:30 AM [facility] Immature Granulocytes Relative 0.8 % LAB HEMETOLOGY METHOD 03/08/2024 10:30 AM [facility] Neutrophils Absolute 4.93 1.50 - 7.00 K/mcL LAB HEMETOLOGY METHOD 03/08/2024 10:30 AM [facility] Lymphocytes Absolute 0.96(L) 1.00 - 5.00 K/mcL LAB HEMETOLOGY METHOD 03/08/2024 10:30 AM [facility] Monocytes Absolute 0.57 0.20 - 1.00 K/mcL LAB HEMETOLOGY METHOD 03/08/2024 10:30 AM [facility] Eosinophils Absolute 0.10 0.00 - 0.50 K/mcL LAB HEMETOLOGY METHOD 03/08/2024 10:30 AM [facility] Basophils Absolute 0.03 0.00 - 0.20 K/mcL LAB HEMETOLOGY METHOD 03/08/2024 10:30 AM [facility] Immature Granulocytes Absolute 0.05(H) 0.00 - 0.03 K/mcL LAB HEMETOLOGY METHOD 03/08/2024 10:30 AM EST [facility] Blood Venous blood specimen / Unknown Venipuncture / Unknown 03/08/2024 10:14 AM EST 03/08/2024 10:22 AM EST Isaías Boateng MD LAB BLOOD ORDERABLE S [facility] [address] [place] [address], [place] [phone] * B-type natriuretic peptide (03/08/2024 10:14 AM EST) BNP 66 <=100 pcg/mL LAB CHEMISTRY METHOD 03/08/2024 10:57 AM EST [facility] Blood Venous blood specimen / Unknown Venipuncture / Unknown 03/08/2024 10:14 AM EST 03/08/2024 10:22 AM EST Isaías Boateng MD LAB BLOOD ORDERABLE S Performing Organization Address [facility]/ZIP Co de Phone Number [facility] [address] [place] [address], [place] [phone] * Magnesium (03/08/2024 10:14 AM EST) Magnesium 2.0 1.9 - 2.6 mg/dL LAB CHEMISTRY METHOD 03/08/2024 10:57 AM EST [facility] Blood Venous blood specimen / Unknown Venipuncture / Unknown 03/08/2024 10:14 AM EST 03/08/2024 10:22 AM EST Isaías Boateng MD LAB BLOOD ORDERABLE S Performing Organization Address City/[facility]/ZIP Co de Phone Number [facility] [address] [place] [address], [place] [phone] * Lipase (03/08/2024 10:14 AM EST) Lipase 23 13 - 75 unit/L LAB CHEMISTRY METHOD 03/08/2024 10:57 AM [facility] Blood Venous blood specimen / Unknown Venipuncture / Unknown 03/08/2024 10:14 AM EST 03/08/2024 10:22 AM EST Isaías Boateng MD LAB BLOOD ORDERABLE S [facility] [address] [place] [address], * (ABNORMAL) Comprehensive metabolic panel (03/08/2024 10:14 AM EST) Pathologist [facility] Sodium 140 133 - 145 mmol/L LAB CHEMISTRY METHOD 03/08/2024 10:57 AM [facility] Potassium 4.9 3.5 - 5.5 mmol/L LAB CHEMISTRY METHOD 03/08/2024 10:57 AM [facility] Chloride 107 96 - 110 mmol/L LAB CHEMISTRY METHOD 03/08/2024 10:57 AM [facility] CO2 29 21 - 32 mmol/L LAB CHEMISTRY METHOD 03/08/2024 10:57 AM [facility] Anion Gap 4 3 - 11 LAB CHEMISTRY METHOD 03/08/2024 10:57 AM [facility] Glucose 154(H) 70 - 100 mg/dL LAB CHEMISTRY METHOD 03/08/2024 10:57 AM [facility] BUN 11 5 - 25 mg/dL LAB CHEMISTRY METHOD 03/08/2024 10:57 AM [facility] Creatinine 1.07 0.70 - 1.30 mg/dL LAB CHEMISTRY METHOD 03/08/2024 10:57 AM [facility] eGFR 70 >=60 mL/min/1. 73m2 LAB CHEMISTRY METHOD 03/08/2024 10:57 AM [facility] Comment:Calculation based on the??Chronic Kidney Disease Epidemiology Collaboration (CKD-EPI) equation refit??without adjustment for race. BUN/Creatinine Ratio 10.3 LAB CHEMISTRY METHOD 03/08/2024 10:57 AM [facility] Calcium 8.8 8.5 - 10.5 mg/dL LAB CHEMISTRY METHOD 03/08/2024 10:57 AM [facility] AST (SGOT) 22 10 - 42 unit/L LAB CHEMISTRY METHOD 03/08/2024 10:57 AM [facility] ALT (SGPT) 35 10 - 60 unit/L LAB CHEMISTRY METHOD 03/08/2024 10:57 AM [facility] Alkaline Phosphatase 79 42 - 121 unit/L LAB CHEMISTRY METHOD 03/08/2024 10:57 AM [facility] Total Protein 6.4 6.0 - 8.0 g/dL LAB CHEMISTRY METHOD 03/08/2024 10:57 AM [facility] Albumin 3.3 3.2 - 5.0 g/dL LAB CHEMISTRY METHOD 03/08/2024 10:57 AM [facility] Total Bilirubin 0.5 0.0 - 1.4 mg/dL LAB CHEMISTRY METHOD 03/08/2024 10:57 AM [facility] Blood Venous blood specimen / Unknown Venipuncture / Unknown 03/08/2024 10:14 AM EST 03/08/2024 10:22 AM EST Isaías Boateng MD LAB BLOOD ORDERABLE S [facility] [address] [place] [address], * Troponin I high sensitivity (03/08/2024 10:14 AM EST) High Sensitivity Troponin I 8 <=79 ng/L LAB CHEMISTRY METHOD 03/08/2024 10:53 AM EST [facility] Blood Venous blood specimen / Unknown Venipuncture / Unknown 03/08/2024 10:14 AM EST 03/08/2024 10:22 AM EST Narrative [facility] - 03/08/2024 10:53 AM EST High levels of biotin in samples may falsely decrease hsTroponin values. ??Use caution when interpreting hsTroponin results in patients taking biotin who exhibit renal impairment (eGFR <60) or in patients taking more than 20 mg/day of biotin. Isaías Boateng MD LAB BLOOD ORDERABLE S Performing Organization Address City/[facility]/ZIP Co de Phone Number [facility] [address] [place] [address], * ECG 12 lead (03/08/2024 9:49 AM EST) Ventricular Rate ECG 67 BPM GEMUSE Atrial Rate 67 BPM GEMUSE P-R Interval 170 ms GEMUSE QRS Duration 82 ms GEMUSE Q-T Interval 380 ms GEMUSE QTc 401 ms GEMUSE P Wave [place] 63 degrees GEMUSE R [place] -37 degrees GEMUSE T [place] 92 degrees GEMUSE ECG Interpretation Normal sinus rhythm Left axis deviation Nonspecific ST and T wave abnormality Abnormal ECG When compared with ECG of 26-DEC-2023 14:28, No significant change was found Confirmed by HALEY GOMES ([id number]) on 03/09/2024 4:38:24 PM GEMUSE 03/08/2024 9:49 AM EST 03/09/2024 4:38 PM EST Isaías Boateng MD ECG ORDERABLES GEMUSE * ECG-Annotated (03/08/2024) Provider Beto MORA ECG ORDERABLES documented in this encounter Visit Diagnoses Diagnosis Other chest pain- Primary documented in this encounter Orders Transfer Count Last Ordered Date First Orde red Date ED TO FLOOR BED REQUEST 1 03/08/2024 documented in this encounter Additional Health Concerns Infection Onset Date Last Indicated Resolved Time Respiratory Rule-Out 03/08/2024 03/08/2024 025 2:20 PM EST COVID-19 Rule-Out 03/08/2024 03/08/2024 03/08/2024 2:20 PM EST documented as of this encounter Care Teams Bun Machine Operator Relationship Specialty Start Date End Date Shawna Styles MD [address] [place] [phone] PCP - General Internal Medicine 12/23/23 documented as of this encounter
--- OUTSIDE RECORDS SUMMARY | 2024-03-20 11:31 | XMS_ITS | Encounter Summary ---
Author Organization [employer] Address [address] [place] [address] Care Team Providers Care Radio Recorder Name Role Phone Shawna Styles MD Primary Care Provide r Reason for Visit * Reason Comments Med Refill Encounter Details Date Type Department Care Team ([facility] Contact Info) Description 08/01/2023 Refill [facility] [address] [place], [place] [phone] Shawna Styles MD [address] [place], [place] [phone] Benign hypertension Social History Tobacco Use Types [...] Description 05/09/2024 9:00 AM EDT Office Visit [facility] [address] [place] [phone] Shawna Styles MD [address] [place] [phone] documented as of this encounter Visit Diagnoses Diagnosis Benign hypertension Essential hypertension, benign documented in this encounter Additional Health Concerns Assessment Noted Time PHQ-9 Depression Total Score: 0 07/26/19 24 11:48 AM EDT documented as of this encounter Care Teams Radio Recorder Relationship Specialty Start Date End Date Shawna Styles MD [address] [place] [phone] PCP - General Internal Medicine 04/12/22 documented as of this encounter
--- OUTSIDE RECORDS SUMMARY | 2024-03-20 11:31 | XMS_ITS | Encounter Summary ---
Author Organization [employer] Address [address] [place] [address] Care Team Providers Care Supervisor Graphite Name Role Phone Shawna Styles MD Primary Care Provide r Reason for Visit * Reason Onset Date Comments Nurse Triage 12/19/2023 Encounter Details Date Type Department Care Team ([facility] Contact Info) Description 12/19/2023 Telephone [facility] [address] [place], [place] [phone] Shawna Styles MD [address] [place], [place] [phone] Nurse Triage Social History Tobacco Use Types Packs/Day Years [...] AM EDT documented as of this encounter Miscellaneous Notes * Telephone Encounter - Ludmila Bagley RN - 12/19/2023 1:40 PM EST Triage call , Pt daughter Shakira is with Pt. Daughter reports Pt is not doing well. Pt has a continual cough, yellow phlegm is produced. Pt is neg for fever. Pt reports dizziness so is staying in bed or lying down most of the day. Pt has had this cough for 3 months now. OTC cough syrup is not effective to slow down the cough. Pt reports difficulty breathing at times and is short of breath often.Covid tests were done but not conclusive. Pt is pre diabetic and has not been checking BS. The person who can check BS is not present and daughter and Pt don't know how to check BS. Pt is drinking adequate liquids mainly water and orange juice. Pt is not eating well, neg for vomiting but, reports weakness much of the time. Pt is advised to come to the [facility] today for provider to evaluate Pt . Daughter and Pt agree with this disposition . Unable to check insurance verification computer error. Protocol Used: Dizziness (Adult) Protocol-Based Disposition: See in Office or Video Visit Today Video visit not offered Positive Triage Questions: * Moderate dizziness (e.g., interferes with normal activities) (Exception: Dizziness caused by heatexposure, sudden standing, or poor fluid intake.) * Patient wants to be seen * All higher-acuity triage questions were negative Care Advice Discussed: * Drink Fluids * Reasons To Call Back - After 2 hours of rest and fluids and you are still feeling dizzy - You pass out (faint) or are too weak to stand - You become worse * Telephone Encounter - Sandra Ritchie - 12/19/2023 1:21 PM EST Symptoms: Cough, Lethargic (Tired), Weakness Outcome: Transfer to a nurse or provider NOW! Reason: Trouble walking- vomiting The caller accepted this outcome. Please contact at [phone] documented in this encounter Plan of Treatment Upcoming Encounters Date Type Department Care Team (Late st Contact Info) Description 05/09/2024 9:00 AM EDT Office Visit [facility] [address] [place] [phone] Shawna Styles MD [address] [place] [phone] documented as of this encounter Visit Diagnoses Not on filedocumented in this encounter Additional Health Concerns Assessment Noted Time PHQ-9 Depression Total Score: 0 07/26/19 24 11:48 AM EDT documented as of this encounter Care Teams Supervisor Graphite Relationship Specialty Start Date End Date Shawna Styles MD [address] [place] [phone] PCP - General Internal Medicine 04/12/22 documented as of this encounter
--- OUTSIDE RECORDS SUMMARY | 2024-03-20 11:31 | XMS_ITS | Clinical Summary ---
Author Organization [facility] Address [address] [place] [address] Phone Care Team Providers Care Charge Auditor Name Role Phone Shawna Styles MD Primary Care Provide r Allergies No known active allergies Medications Medication Sig Dispensed Refills Start Date End Date Status atorvastatin (LIPITOR) 20 mg tablet Take 1 tablet (20 mg total) by mouth at bedtime. Active apixaban (ELIQUIS) 5 mg tablet Take 1 tablet (5 mg total) by mouth 2 (two) times a day. Active furosemide (LASIX) 20 mg tablet Take 1 tablet (20 mg total) by mouth 1 (one) time each day. Active terazosin (HYTRIN) 10 mg capsule Take 1 capsule (10 mg total) by mouth at bedtime. Active amiodarone (PACERONE) 400 mg tablet Take 1 tablet (400 mg total) by mouth 2 (two) times a day for 7 days. Take 400mg twice daily for 7 days then switch to 200mg daily after that 14 each 12/27/2023 Active dilTIAZem CD (CARDIZEM CD) 120 mg 24 hr capsule Take 1 capsule (120 mg total) by mouth 1 (one) time each day. 30 each 12/28/2023 12/27/2024 Active amiodarone (PACERONE) 200 mg tablet Take 1 tablet (200 mg total) by mouth 1 (one) time each day. 90 each 01/02/2024 04/01/2024 Active Active Problems Problem Noted Date Diagnosed Date Acute on chronic diastolic CHF (congestive heart failure) 12/23/2023 Atrial fibrillation with rapid ventricular respo nse 12/23/2023 Gastroesophageal reflux disease 08/22/2011 Overview (12/27/2023): Last Assessment & Plan: I advise patient to avoid NSAIDs, spicy and acid food, I advise to eat at the same time every day, I advise to elevate the head of the bed and take medications as prescribe Encounters Date Type Department Care Team Description 03/08/2024 10:21 AM EST - 03/08/2024 4:06 PM EST Emergency [facility] Emergency [address] [place] [address] Isaías Boateng MD Other chest pain (Primary Dx) Discharge Disposition: Home or Self Care 12/23/2023 1:17 PM EST - 12/27/2023 2:07 PM EST Hospital Encounter [facility] Intermediate Care Unit [address] [place] [address] Edward Valladares MD Bell, Alistair A, MD Mohani, Priya, MD Shortness of breath at rest (Primary Dx); Longstanding persistent atrial fibrillation (CMS/HCC); Acute on chronic diastolic CHF (congestive heart failure) (CMS/HCC) Discharge Disposition: Home-Health Care c from Last 3 Months Immunizations Name Administration Dates Next Due Influenza trivalent, 0.5mL ( Fluad) 65yo and older 12/26/2023(Deferred: Patient Refused) Surgical History Surgery Date Site/Laterality Comments HIP SURGERY Left LUMBAR SPINE SURGERY Medical History Medical History Date Comments Paroxysmal atrial fibrillation (CMS/HCC) Hypertension Hypercholesteremia GERD (gastroesophageal reflux disease) BPH (benign prostatic hyperplasia) S/P partial gastrectomy Family History Medical History Relation Name Comments No Known Problems Brother No Known Problems Father No Known Problems Maternal Grandfather No Known Problems Maternal Grandmother No Known Problems Mother No Known Problems Other No Known Problems Paternal Grandfather No Known Problems Paternal Grandmother No Known Problems Sister Relation Name Status Comments Brother Father Maternal Grandfather Maternal Grandmother Mother Other Paternal Grandfather Paternal Grandmother Sister Social History Tobacco Use Types Packs/Day Years Used Date Smoking Tobacco: Never Smokeless Tobacco: Never Tobacco Cessation:Counseling Given: Not Answered Alcohol Use Standard Drinks/Week Comments Never 0 [...] file Not on file Not on file Obstetrics History Last Filed Vital Signs Vital Sign Reading [...] Mass Index 25.75 03/08/2024 9:57 AM EST Plan of Treatment Health Maintenance Due Date Last Done Comments RSV Immunization Patients 60+ Years Old (1 - 1-dose 75+ series) 2017 COVID-19 Vaccine ( season) 2023 02/04/2021, 05/12/2020, 04/14/2020 Medicare Annual Wellness Visit 11/23/2023 Social Influencers of Health Screening 11/23/2023 Depression Screening 07/25/2024 07/26/2023 Falls Risk Assessment 12/26/2024 12/27/2023 Hypertension/CHF/CAD Annual BMP Blood Test 03/08/2025 03/08/2024, 12/27/2023, 12/26/2023, Additional history exists Cholesterol Screening (Lipid Panel) 10/23/2028 10/24/2023 DTaP,Tdap,and Td Vaccines (4 - Td or Tdap) 12/01/2031 11/30/2021, 06/18/2010, 07/23/2001 Pneumococcal Vaccine: 65+ Years Completed 01/08/2019, 12/04/2008 Zoster Vaccines Completed [...] on patient's age to complete this topic MMR Vaccines Aged Out No longer eligi ble based on patient's age to complete this topic Meningococcal ACWY Vaccine Aged Out N o longer eligible based on patient's age to complete this topic RSV Immunization Patients Under 20 months Aged Out No longer eligible based on patient's age to complete this topic Varicella Vaccines Aged Out No longer eligible based on patient's age to complete this topic Procedures Procedure Name Priority Date/Time Associated Diagnosis Comments RESPIRATORY VIRUS PANEL MOLECULAR STUDY STAT 03/08/2024 12:48 PM EST ECG 12-LEAD STAT 03/08/2024 11:20 AM EST TROPONIN I HIGH SENSITIVITY STAT 03/08/2024 11:17 AM EST XR CHEST 2 VIEWS STAT 03/08/2024 11:0 3 AM EST CBC WITH AUTO DIFFERENTIAL STAT 03/08/2024 10:14 AM EST B-TYPE NATRIURETIC PEPTIDE STAT 03/08/2024 10:14 AM EST MAGNESIUM STAT 03/08/2024 10:14 AM EST LIPASE STAT 03/08/2024 10:14 AM EST COMPREHENSIVE METABOLIC PANEL STAT 03/08/2024 10:14 AM EST CBC AND DIFFERENTIAL STAT 03/08/2024 10:14 AM EST TROPONIN I HIGH SENSITIVITY STAT 03/08/2024 10:14 AM EST ECG 12-LEAD STAT 03/08/2024 9:49 AM EST ECG ANNOTATED 03/08/2024 POCT GLUCOSE BLOOD Routine 12/27/2023 12 :08 PM EST CBC WITH AUTO DIFFERENTIAL Routine 12/27/2023 5:42 AM EST CBC AND DIFFERENTIAL Routine 12/27/2023 5:42 AM EST MAGNESIUM Routine 12/27/2023 5:42 AM EST BASIC METABOLIC PANEL Routine 12/27/2023 5:42 AM EST ECG 12-LEAD STAT 12/26/2023 2:28 PM EST XR CHEST 1 VIEW Routine 12/26/2023 9:16 AM EST ECG 12-LEAD Routine 12/26/2023 9:09 AM EST THYROID STIMULATING HORMONE Add-On 12/26/2023 5:37 AM EST CBC WITH AUTO DIFFERENTIAL Routine 12/26/2023 5:37 AM EST CBC AND DIFFERENTIAL Routine 12/26/2023 5:37 AM EST MAGNESIUM Routine 12/26/2023 5:37 AM EST BASIC METABOLIC PANEL Routine 12/26/2023 5:37 AM EST ECG 12-LEAD STAT 12/25/2023 8:05 PM EST ECG 12-LEAD STAT 12/25/2023 8:04 PM EST MAGNESIUM Routine 12/25/2023 5:44 AM EST BASIC METABOLIC PANEL Routine 12/25/2023 5:44 AM EST COMPLETE BLOOD COUNT Routine 12/25/2023 5:44 AM EST ECG 12-LEAD STAT 12/24/2023 2:09 PM EST COMPLETE BLOOD COUNT Routine 12/24/2023 4:42 AM EST MAGNESIUM Routine 12/24/2023 4:42 AM EST COMPREHENSIVE METABOLIC PANEL Routine 12/24/2023 4:42 AM EST TROPONIN I HIGH SENSITIVITY STAT 12/23/2023 2:57 PM EST RESPIRATORY VIRUS PANEL MOLECULAR STUDY STAT 12/23/2023 2:[address] ANGIO CHEST WO AND/OR W CONTRAST STAT 12/23/2023 2:49 PM EST Shortness of breath at rest B-TYPE NATRIURETIC PEPTIDE STAT 12/23/2023 2:02 PM EST LACTATE, WITH REFLEX STAT 12/23/2023 2:02 PM EST CBC WITH AUTO DIFFERENTIAL STAT 12/23/2023 1:32 PM EST MAGNESIUM STAT 12/23/2023 1:32 PM EST LIPASE STAT 12/23/2023 1:32 PM EST COMPREHENSIVE METABOLIC PANEL STAT 12/23/2023 1:32 PM EST CBC AND DIFFERENTIAL STAT 12/23/2023 1:32 PM EST TROPONIN I HIGH SENSITIVITY STAT 12/23/2023 1:32 PM EST ECG 12-LEAD STAT 12/23/2023 1:26 PM EST ECG ANNOTATED 12/23/2023 ECG ANNOTATED 12/23/2023 from Last 3 Months Results * Respiratory virus panel molecular study (03/08/2024 12:48 PM EST) Only the most recent of2 resultswithin the time period is included. Adenovirus Detection by PCR Not Detected Not Detected LAB MICROBIOLOGY METHOD 03/08/2024 2:20 PM EST [facility] Influenza A PCR Not Detected Not Detected LAB MICROBIOLOGY METHOD 03/08/2024 2:20 PM EST [facility] Influenza B PCR Not Detected Not Detected LAB MICROBIOLOGY METHOD 03/08/2024 2:20 PM EST [facility] Coronavirus 229E Not Detected Not Detected LAB MICROBIOLOGY METHOD 03/08/2024 2:20 PM [facility] Coronavirus HKU1 Not Detected Not Detected LAB MICROBIOLOGY METHOD 03/08/2024 2:20 PM EST [facility] Coronavirus OC43 Not Detected Not Detected LAB MICROBIOLOGY METHOD 03/08/2024 2:20 PM EST [facility] Coronavirus NL63 Not Detected Not Detected LAB MICROBIOLOGY METHOD 03/08/2024 2:20 PM EST [facility] Parainfluenza Virus 1 Not Detected Not Detected LAB MICROBIOLOGY METHOD 03/08/2024 2:20 PM EST [facility] Parainfluenza Virus 2 Not Detected Not Detected LAB MICROBIOLOGY METHOD 03/08/2024 2:20 PM EST [facility] Parainfluenza Virus 3 Not Detected Not Detected LAB MICROBIOLOGY METHOD 03/08/2024 2:20 PM EST [facility] Parainfluenza Virus 4 Not Detected Not Detected LAB MICROBIOLOGY METHOD 03/08/2024 2:20 PM EST [facility] RSV PCR Not Detected Not Detected LAB MICROBIOLOGY METHOD 03/08/2024 2:20 PM EST [facility] Human Metapneumovirus A and B Not Detected Not Detected LAB MICROBIOLOGY METHOD 03/08/2024 2:20 PM EST [facility] Rhinovirus/Entero virus Not Detected Not Detected LAB MICROBIOLOGY METHOD 03/08/2024 2:20 PM EST [facility] Bordetella pertussis Not Detected Not Detected LAB MICROBIOLOGY METHOD 03/08/2024 2:20 PM EST [facility] Bordetella parapertussis Not Detected Not Detected LAB MICROBIOLOGY METHOD 03/08/2024 2:20 PM EST [facility] Mycoplasma pneumo by PCR Not Detected Not Detected LAB MICROBIOLOGY METHOD 03/08/2024 2:20 PM EST [facility] Chlamydia pneumoniae Not Detected Not Detected LAB MICROBIOLOGY METHOD 03/08/2024 2:20 PM EST [facility] SARS COV-2 Not Detected Not Detected LAB MICROBIOLOGY METHOD 03/08/2024 2:20 PM [facility] Swab Both anterior nares / Unknown Non-blood Collection / Unknown 03/08/2024 12:48 PM EST 03/08/2024 1:24 PM EST [facility] - 03/08/2024 2:20 PM EST Testing was performed using the Brighter[employer] Respiratory Pathogen PCR Assay. All results must [...] Deepak BLACKWELL LAB MICROBIOLOGY - GENERAL ORDERABLES [facility] [address] [place] [address], * ECG 12 lead (03/08/2024 11:20 AM EST) Only the most recent of8 resultswithin the time period is included. Ventricular Rate ECG 64 BPM GEMUSE Atrial Rate 64 BPM GEMUSE P-R Interval 170 ms GEMUSE QRS Duration 80 ms GEMUSE Q-T Interval 398 ms GEMUSE QTc 410 ms GEMUSE P Wave [place] -17 degrees GEMUSE R [place] -31 degrees GEMUSE T [place] 85 degrees GEMUSE ECG Interpretation Normal sinus rhythm Left axis deviation Nonspecific T wave abnormality Abnormal ECG When compared with ECG of 08-MAR-2024 09:49, (unconfirmed) No significant change was found Confirmed by HALEY GOMES ([id number]) on 03/09/2024 4:39:37 PM GEMUSE 03/08/2024 11:2 0 AM EST 03/09/2024 4:39 PM EST Isaías Boateng MD ECG ORDERABLES Performing Organization Address [facility] Co de Phone Number GEMUSE * Troponin I high sensitivity (03/08/2024 11:17 AM EST) Only the most recent of4 resultswithin the time period is included. Pathologist [facility] High Sensitivity Troponin I 7 <=79 ng/L LAB CHEMISTRY METHOD 03/08/2024 12:01 PM EST [facility] Blood Venous blood specimen / Unknown Venipuncture / Unknown 03/08/2024 11:17 AM EST 03/08/2024 11:31 AM EST Narrative [facility] - 03/08/2024 12:01 PM EST High levels of biotin in samples may falsely decrease hsTroponin values. ??Use caution when interpreting hsTroponin results in patients taking biotin who exhibit renal impairment (eGFR <60) or in patients taking more than 20 mg/day of biotin. Isaías Boateng MD LAB BLOOD ORDERABLE S Performing Organization Address City/[facility]/ZIP Co de Phone Number [facility] [address] [place] [address], * XR Chest 2 Views (03/08/2024 11:03 AM EST) Anatomical Region Laterality Modality Body Radiographic Larisa ging 03/08/2024 11:1 0 AM EST Impressions 03/08/2024 11:22 AM EST FINDINGS/IMPRESSION: Lungs are clear. ??No pleural effusion or pneumothorax. ??Cardiac silhouette is normal in size. ??Degenerative changes seen throughout the bones. ??Surgical clips noted at the GE junction. -------- FINAL REPORT -------- Dictated By: STEPHEN PATRICK Dictated Date: 03/08/2024 11:10 ET Assigned Physician: STEPHEN PATRICK Reviewed and Electronically Signed By: STEPHEN PATRICK Signed Date: 03/08/2024 11:22 ET Workstation ID: [id number] Transcribed By: Self Edit Transcribed Date: 03/08/2024 11:10 ET Narrative 03/08/2024 11:22 AM EST XR CHEST 2 VIEWS INDICATION: ??Pain TECHNIQUE: XR CHEST 2 VIEWS COMPARISON: 12/26/2023 Procedure Note Stephen Patrick MD - 03/08/2024 XR CHEST 2 VIEWS INDICATION: Pain TECHNIQUE: XR CHEST 2 VIEWS COMPARISON: 12/26/2023 IMPRESSION: FINDINGS/IMPRESSION: Lungs are clear. No pleural effusion orpneumothorax. Cardiac silhouette is normal in size. Degenerative changesseen throughout the bones. Surgical clips noted at the GE junction. -------- FINAL REPORT -------- Dictated By: STEPHEN PATRICK Dictated Date: 03/08/2024 11:10 ET Assigned Physician: STEPHEN PATRICK Reviewed and Electronically Signed By: STEPHEN PATRICK Signed Date: 03/08/2024 11:22 ET Workstation ID: [id number] Transcribed By: Self Edit Transcribed Date: 03/08/2024 11:10 ET Isaías Botaeng MD IMG XR PROCEDURES * (ABNORMAL) CBC auto differential (03/08/2024 10:14 AM EST) Only the most recent of4 resultswithin the time period is included. WBC 6.6 4.8 - 10.8 K/mcL LAB HEMETOLOGY METHOD 03/08/2024 10:30 AM [facility] RBC 4.40(L) 4.50 - 5.50 M/mcL LAB HEMETOLOGY METHOD 03/08/2024 10:30 AM [facility] Hemoglobin 14.2 13.5 - 17.5 g/dL LAB HEMETOLOGY METHOD 03/08/2024 10:30 AM [facility] Hematocrit 42.8 42.0 - 54.0 % LAB HEMETOLOGY METHOD 03/08/2024 10:30 AM [facility] MCV 97.3 79.0 - 98.0 FL LAB HEMETOLOGY METHOD 03/08/2024 10:30 AM [facility] MCH 32.3(H) 27.0 - 32.0 pcg LAB HEMETOLOGY METHOD 03/08/2024 10:30 AM [facility] MCHC 33.2 32.0 - 37.0 g/dL LAB HEMETOLOGY METHOD 03/08/2024 10:30 AM [facility] RDW 13.2 11.0 - 15.0 % LAB HEMETOLOGY METHOD 03/08/2024 10:30 AM [facility] Platelets 120(L) 130 - 400 K/mcL LAB HEMETOLOGY METHOD 03/08/2024 10:30 AM [facility] MPV 12.1(H) 7.0 - 11.0 FL LAB HEMETOLOGY METHOD 03/08/2024 10:30 AM [facility] NRBC 0.0 <1.0 % LAB HEMETOLOGY METHOD 03/08/2024 10:30 AM [facility] NRBC Absolute 0.00 <0.10 K/mcL LAB HEMETOLOGY METHOD 03/08/2024 10:30 AM [facility] Neutrophils Relative 74.1 % LAB HEMETOLOGY METHOD 03/08/2024 10:30 AM EST [facility] Lymphocytes Relative 14.5 % LAB HEMETOLOGY METHOD 03/08/2024 10:30 AM [facility] Monocytes Relative 8.6 % LAB HEMETOLOGY METHOD 03/08/2024 10:30 AM [facility] Eosinophils Relative 1.5 % LAB HEMETOLOGY METHOD 03/08/2024 10:30 AM [facility] Basophils Relative 0.5 % LAB HEMETOLOGY METHOD 03/08/2024 10:30 AM [facility] Immature Granulocytes Relative 0.8 % LAB HEMETOLOGY METHOD 03/08/2024 10:30 AM [facility] Neutrophils Absolute 4.93 1.50 - 7.00 K/mcL LAB HEMETOLOGY METHOD 03/08/2024 10:30 AM [facility] Lymphocytes Absolute 0.96(L) 1.00 - 5.00 K/mcL LAB HEMETOLOGY METHOD 03/08/2024 10:30 AM [facility] Monocytes Absolute 0.57 0.20 - 1.00 K/mcL LAB HEMETOLOGY METHOD 03/08/2024 10:30 AM [facility] Eosinophils Absolute 0.10 0.00 - 0.50 K/mcL LAB HEMETOLOGY METHOD 03/08/2024 10:30 AM [facility] Basophils Absolute 0.03 0.00 - 0.20 K/mcL LAB HEMETOLOGY METHOD 03/08/2024 10:30 AM [facility] Immature Granulocytes Absolute 0.05(H) 0.00 - 0.03 K/mcL LAB HEMETOLOGY METHOD 03/08/2024 10:30 AM [facility] Blood Venous blood specimen / Unknown Venipuncture / Unknown 03/08/2024 10:14 AM EST 03/08/2024 10:22 AM EST Isaías Boateng MD LAB BLOOD ORDERABLE S Performing Organization Address [facility]/ZIP Co de Phone Number [facility] [address] [place] [address], * B-type natriuretic peptide (03/08/2024 10:14 AM EST) Only the most recent of2 resultswithin the time period is included. BNP 66 <=100 pcg/mL LAB CHEMISTRY METHOD 03/08/2024 10:57 AM EST [facility] Blood Venous blood specimen / Unknown Venipuncture / Unknown 03/08/2024 10:14 AM EST 03/08/2024 10:22 AM EST Isaías Boateng MD LAB BLOOD ORDERABLE S Performing Organization Address [facility] Co de Phone Number [facility] [address] [place] [address], * Magnesium (03/08/2024 10:14 AM EST) Only the most recent of6 resultswithin the time period is included. Magnesium 2.0 1.9 - 2.6 mg/dL LAB CHEMISTRY METHOD 03/08/2024 10:57 AM EST [facility] Blood Venous blood specimen / Unknown Venipuncture / Unknown 03/08/2024 10:14 AM EST 03/08/2024 10:22 AM EST Isaías Boateng MD LAB BLOOD ORDERABLE S Performing Organization Address City/[facility]/ZIP Co de Phone Number [facility] [address] [place] [address], * Lipase (03/08/2024 10:14 AM EST) Only the most recent of2 resultswithin the time period is included. Lipase 23 13 - 75 unit/L LAB CHEMISTRY METHOD 03/08/2024 10:57 AM [facility] Blood Venous blood specimen / Unknown Venipuncture / Unknown 03/08/2024 10:14 AM EST 03/08/2024 10:22 AM EST Isaías Boateng MD LAB BLOOD ORDERABLE S [facility] [address] [place] [address], * (ABNORMAL) Comprehensive metabolic panel (03/08/2024 10:14 AM EST) Only the most recent of3 resultswithin the time period is included. Sodium 140 133 - 145 mmol/L LAB CHEMISTRY METHOD 03/08/2024 10:57 AM [facility] Potassium 4.9 3.5 - 5.5 mmol/L LAB CHEMISTRY METHOD 03/08/2024 10:57 AM [facility] Chloride 107 96 - 110 mmol/L LAB CHEMISTRY METHOD 03/08/2024 10:57 AM [facility] CO2 29 21 - 32 mmol/L LAB CHEMISTRY METHOD 03/08/2024 10:57 AM [facility] Anion Gap 4 3 - 11 LAB CHEMISTRY METHOD 03/08/2024 10:57 AM [facility] Glucose 154(H) 70 - 100 mg/dL LAB CHEMISTRY METHOD 03/08/2024 10:57 AM [facility] BUN 11 5 - 25 mg/dL LAB CHEMISTRY METHOD 03/08/2024 10:57 AM [facility] Creatinine 1.07 0.70 - 1.30 mg/dL LAB CHEMISTRY METHOD 03/08/2024 10:57 AM [facility] eGFR 70 >=60 mL/min/1. 73m2 LAB CHEMISTRY METHOD 03/08/2024 10:57 AM [facility] Comment:Calculation based on the??Chronic Kidney Disease Epidemiology Collaboration (CKD-EPI) equation refit??without adjustment for race. BUN/Creatinine Ratio 10.3 LAB CHEMISTRY METHOD 03/08/2024 10:57 AM [facility] Calcium 8.8 8.5 - 10.5 mg/dL LAB CHEMISTRY METHOD 03/08/2024 10:57 AM [facility] AST (SGOT) 22 10 - 42 unit/L LAB CHEMISTRY METHOD 03/08/2024 10:57 AM [facility] ALT (SGPT) 35 10 - 60 unit/L LAB CHEMISTRY METHOD 03/08/2024 10:57 AM [facility] Alkaline Phosphatase 79 42 - 121 unit/L LAB CHEMISTRY METHOD 03/08/2024 10:57 AM [facility] Total Protein 6.4 6.0 - 8.0 g/dL LAB CHEMISTRY METHOD 03/08/2024 10:57 AM [facility] Albumin 3.3 3.2 - 5.0 g/dL LAB CHEMISTRY METHOD 03/08/2024 10:57 AM [facility] Total Bilirubin 0.5 0.0 - 1.4 mg/dL LAB CHEMISTRY METHOD 03/08/2024 10:57 AM [facility] Blood Venous blood specimen / Unknown Venipuncture / Unknown 03/08/2024 10:14 AM EST 03/08/2024 10:22 AM EST Isaías Boateng MD LAB BLOOD ORDERABLE S [facility] [address] [place] [address], * ECG-Annotated (03/08/2024) Only the most recent of3 resultswithin the time period is included. Provider Onbase ECG ORDERABLES * POCT Glucose, blood (12/27/2023 12:08 PM EST) [facility] Signature Glucose POCT 95 70 - 100 mg/dL 12/27/2023 12:09 PM [facility] Blood Capillary blood specimen / Unknown 12/27/2023 12:08 PM EST 12/27/2023 12:10 PM EST Rubi Bird MD LAB POINT OF CARE TE ST DOCKED DEVICE UNSOLICITED RESULTS [facility] [address] [place] [address], * (ABNORMAL) Basic metabolic panel (12/27/2023 5:42 AM EST) Only the most recent of3 resultswithin the time period is included. [facility] Sodium 134 133 - 145 mmol/L LAB CHEMISTRY METHOD 12/27/2023 7:57 AM [facility] Potassium 3.8 3.5 - 5.5 mmol/L LAB CHEMISTRY METHOD 12/27/2023 7:57 AM [facility] Chloride 97 96 - 110 mmol/L LAB CHEMISTRY METHOD 12/27/2023 7:57 AM [facility] CO2 30 21 - 32 mmol/L LAB CHEMISTRY METHOD 12/27/2023 7:57 AM [facility] Anion Gap 7 3 - 11 LAB CHEMISTRY METHOD 12/27/2023 7:57 AM [facility] Glucose 94 70 - 100 mg/dL LAB CHEMISTRY METHOD 12/27/2023 7:57 AM [facility] BUN 12 5 - 25 mg/dL LAB CHEMISTRY METHOD 12/27/2023 7:57 AM [facility] Creatinine 0.75 0.70 - 1.30 mg/dL LAB CHEMISTRY METHOD 12/27/2023 7:57 AM [facility] eGFR 91 >=60 mL/min/1. 73m2 LAB CHEMISTRY METHOD 12/27/2023 7:57 AM [facility] Comment:Calculation based on the??Chronic Kidney Disease Epidemiology Collaboration (CKD-EPI) equation refit??without adjustment for race. BUN/Creatinine Ratio 16.0 LAB CHEMISTRY METHOD 12/27/2023 7:57 AM EST [facility] Calcium 8.4(L) 8.5 - 10.5 mg/dL LAB CHEMISTRY METHOD 12/27/2023 7:57 AM EST [facility] Blood Venous blood specimen / Unknown Venipuncture / Unknown 12/27/2023 5:42 AM EST 12/27/2023 6:49 AM EST Eugenio Max MD LAB BLOOD ORDERABLES [facility] [address] [place] [address], * XR Chest 1 View (12/26/2023 9:16 AM EST) Anatomical Region Laterality Modality Body Radiographic Larisa ging 12/27/2023 7:35 AM EST Impressions 12/27/2023 7:37 AM EST Mild pulmonary vascular congestion, new since 10/06/2023. Code 93089 CT Teleradiology -------- FINAL REPORT -------- Dictated By: Simba Green Dictated Date: 12/27/2023 07:35 ET Assigned Physician: Simba Grene Reviewed and Electronically Signed By: Simba Green Signed Date: 12/27/2023 07:37 ET Workstation ID: [id number] Transcribed By: Self Edit Transcribed Date: 12/27/2023 07:35 ET Narrative 12/27/2023 7:37 AM EST HISTORY: The patient is an 83-year-old male with dyspnea. FINDINGS: Sitting AP portable radiograph of the chest demonstrates normal appearance of the visualized bony structures. ??The cardiac and mediastinal contours are within normal limits. ??Mild pulmonary vascular congestion has developed since the prior study performed 10/06/2023. ??There is no consolidation, mass, or pleural effusion. Procedure Note Simba Green MD - 12/27/2023 HISTORY: The patient is an 83-year-old male with dyspnea. FINDINGS: Sitting AP portable radiograph of the chest demonstrates normalappearance of the visualized bony structures. The cardiac and mediastinalcontours are within normal limits. Mild pulmonary vascular congestion hasdeveloped since the prior study performed 10/06/2023. There is noconsolidation, mass, or pleural effusion. IMPRESSION: Mild pulmonary vascular congestion, new since 10/06/2023. Code 68046 CT Teleradiology -------- FINAL REPORT -------- Dictated By: Simba Green Dictated Date: 12/27/2023 07:35 ET Assigned Physician: Simba Green Reviewed and Electronically Signed By: Simba Green Signed Date: 12/27/2023 07:37 ET Workstation ID: [id number] Transcribed By: Self Edit Transcribed Date: 12/27/2023 07:35 ET Rubi Bird MD IMG XR PROCEDURES * Thyroid stimulating hormone (12/26/2023 5:37 AM EST) TSH 0.97 0.40 - 4.00 mcIU/mL LAB CHEMISTRY METHOD 12/26/2023 3:51 PM EST [facility] Blood Venous blood specimen / Unknown Venipuncture / Unknown 12/26/2023 5:37 AM EST 12/26/2023 6:55 AM EST Rubi Bird MD LAB BLOOD ORDERABLES [facility] [address] [place] [address], * (ABNORMAL) Complete blood count (12/25/2023 5:44 AM EST) Only the most recent of2 resultswithin the time period is included. WBC 8.7 4.8 - 10.8 K/mcL LAB HEMETOLOGY METHOD 12/25/2023 7:00 AM EST [facility] RBC 3.70(L) 4.50 - 5.50 M/mcL LAB HEMETOLOGY METHOD 12/25/2023 7:00 AM [facility] Hemoglobin 11.8(L) 13.5 - 17.5 g/dL LAB HEMETOLOGY METHOD 12/25/2023 7:00 AM [facility] Hematocrit 35.6(L) 42.0 - 54.0 % LAB HEMETOLOGY METHOD 12/25/2023 7:00 AM [facility] MCV 96.5 79.0 - 98.0 FL LAB HEMETOLOGY METHOD 12/25/2023 7:00 AM [facility] MCH 32.0 27.0 - 32.0 pcg LAB HEMETOLOGY METHOD 12/25/2023 7:00 AM [facility] MCHC 33.1 32.0 - 37.0 g/dL LAB HEMETOLOGY METHOD 12/25/2023 7:00 AM [facility] RDW 12.6 11.0 - 15.0 % LAB HEMETOLOGY METHOD 12/25/2023 7:00 AM [facility] Platelets 130 130 - 400 K/mcL LAB HEMETOLOGY METHOD 12/25/2023 7:00 AM [facility] MPV 12.1(H) 7.0 - 11.0 FL LAB HEMETOLOGY METHOD 12/25/2023 7:00 AM [facility] NRBC 0.0 <1.0 % LAB HEMETOLOGY METHOD 12/25/2023 7:00 AM [facility] NRBC Absolute 0.00 <0.10 K/mcL LAB HEMETOLOGY METHOD 12/25/2023 7:00 AM [facility] Blood Venous blood specimen / Unknown Venipuncture / Unknown 12/25/2023 5:44 AM EST 12/25/2023 6:21 AM EST Eugenio Max MD LAB BLOOD ORDERABLES [facility] [address] [place] [address], * CT Angio Chest wo and/or w Contrast (12/23/2023 2:49 PM EST) Anatomical Region Laterality Modality Body Computed Tomogra phy 12/23/2023 2:59 PM EST Impressions 12/23/2023 3:05 PM EST 1. ??No pulmonary embolism. 2. ??Minimal bilateral pleural effusions with associated atelectasis. ??No consolidation. -------- FINAL REPORT -------- Dictated By: Deepak Floyd Dictated Date: 12/23/2023 14:59 ET Assigned Physician: Deepak Floyd Reviewed and Electronically Signed By: Deepak Floyd Signed Date: 12/23/2023 15:05 ET Workstation ID: [id number] Transcribed By: Self Edit Transcribed Date: 12/23/2023 14:59 ET Narrative 12/23/2023 3:05 PM EST PROCEDURE: CT angiogram of the chest INDICATION: Chest pain TECHNIQUE: Chest CTA with intravenous administration of 89cc ISOVUE-370. Multi planar reformats were created and interpreted. The examination was performed utilizing dose reduction techniques.3-D or MIP images were produced with postprocessing on an independent computer workstation. ?? DOSE: CTDIvol: 14.1/11.3mGy. ??Total exam DLP: 386.2mGy-cm COMPARISON: ??CT angiogram of the chest June 2019. ??CT chest March 2019 FINDINGS: VASCULATURE: No pulmonary embolism LUNGS/PLEURA: Small bilateral pleural effusions with minimal associated atelectasis. ??Minimal bronchial thickening is noted that could represent a component of minimal interstitial fluid. ??No consolidation. MEDIASTINUM: Small, nonspecific mediastinal lymph nodes are noted. CHEST WALL: No axillary lymphadenopathy. UPPER ABDOMEN:The visualized portions of the upper abdomen are unremarkable. BONES: Bones appear within normal limits. Procedure Note Deepak Floyd MD - 12/23/2023 PROCEDURE: CT angiogram of the chest INDICATION: Chest pain TECHNIQUE: Chest CTA with intravenous administration of 89cc ISOVUE-370.Multi planar reformats were created and interpreted. The examination wasperformed utilizing dose reduction techniques.3-D or MIP images wereproduced with postprocessing on an independent computer workstation. DOSE: CTDIvol: 14.1/11.3mGy. Total exam DLP: 386.2mGy-cm COMPARISON: CT angiogram of the chest June 2019. CT chest March 2019 FINDINGS: VASCULATURE: No pulmonary embolism LUNGS/PLEURA: Small bilateral pleural effusions with minimal associatedatelectasis. Minimal bronchial thickening is noted that could represent acomponent of minimal interstitial fluid. No consolidation. MEDIASTINUM: Small, nonspecific mediastinal lymph nodes are noted. CHEST WALL: No axillary lymphadenopathy. UPPER ABDOMEN:The visualized portions of the upper abdomen areunremarkable. BONES: Bones appear within normal limits. IMPRESSION: 1. No pulmonary embolism. 2. Minimal bilateral pleural effusions with associated atelectasis. Noconsolidation. -------- FINAL REPORT -------- Dictated By: Deepak Floyd Dictated Date: 12/23/2023 14:59 ET Assigned Physician: Deepak Floyd Reviewed and Electronically Signed By: Deepak Floyd Signed Date: 12/23/2023 15:05 ET Workstation ID: [id number] Transcribed By: Self Edit Transcribed Date: 12/23/2023 14:59 ET [facility] [place] PROCEDURES * Lactate, with reflex (12/23/2023 2:02 PM EST) LACTIC ACID 1.9 0.4 - 2.0 mmol/L LAB CHEMISTRY METHOD 12/23/2023 2:45 PM EST [facility] Blood Venous blood specimen / Unknown Venipuncture / Unknown 12/23/2023 2:02 PM EST 12/23/2023 2:03 PM EST [facility] LAB BLOOD ORDERABLES [facility] [address] [place] [address], from Last 3 Months Advance Directives Documents on File Type Date Recorded 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 Expl anation Advance Directives and Living Will 12/28/2023 11:45 AM Health Care Decision (hx) 04/02/2019 ADVANCE DIRECTIVE Health Care Decision (hx) 04/02/2019 ADVANCE DIRECTIVE Health Care Decision (hx) 04/02/2019 ADVANCE DIRECTIVE Health Care Decision (hx) 04/02/2019 ADVANCE DIRECTIVE * Full Code - Default (Latest Code Status on File) Date Activated Date Inactivated Comments 12/23/2023 5:07 PM 12/27/2023 4:19 PM This is ord er is used when code status has not been discussed with the patient, or code status is otherwise unknown/unconfirmed To update the patient's code status, place a code status order. Do not modify or discontinue any currently active code status orders. Care Teams Charge Auditor Relationship Specialty Start Date End Date Shawna Styles MD [address] [place] [phone] PCP - General Internal Medicine 12/23/23
--- OUTSIDE RECORDS SUMMARY | 2024-03-20 11:31 | XMS_ITS | Encounter Summary ---
Author Organization [employer] Address [address] [place] [address] Care Team Providers Care Surgical Services Director Name Role Phone Shawna Styles MD Primary Care Provide r Reason for Visit * Reason Onset Date Comments Nurse Triage 03/08/2024 Encounter Details Date Type Department Care Team ([facility] Contact Info) Description 03/08/2024 Telephone [facility] MEDICINE [address] [place], [place] [phone] Shawna Styles MD [address] [place], [place] [phone] Nurse Triage Social History Tobacco Use Types [...] encounter Miscellaneous Notes * Telephone Encounter - Megan Marie RN - 03/08/2024 9:19 AM EST Sent to team for ER status check PRN. * Telephone Encounter - Megan Marie RN - 03/08/2024 9:10 AM EST Per chart review pt has hx of afib , htn, bradycardia. Call returned to Grzegorz Arenas to triage below. Call to daughter. Reports pt having chest pain since last night. Per pt feeling palpitations. Daughter not with patient , unable to provide much for information regarding other sx. Advised to have pt taken by EMS to ER . States will have pt taken to [facility] ER. Expect called into ER. Faxed over face sheet Protocol Used: Chest Pain (Adult) Protocol-Based Disposition: Go to ED Now Positive Triage Question: * Severe chest pain * All higher-acuity triage questions were negative Care Advice Discussed: * Reasons To Call Back - Chest pain increases in frequency, duration or severity - You become worse * Telephone Encounter - Sylvie Kumar - 03/08/2024 9:01 AM EST Symptom: Chest Pain - Adult Outcome: Transfer to a nurse or provider NOW! Reason: Severe pain now The caller accepted this outcome. documented in this encounter Plan of Treatment Upcoming Encounters Date Type Department Care Team (Late st Contact Info) Description 05/09/2024 9:00 AM EDT Office Visit [facility] MEDICINE [address] [place] [address] Shawna Styles MD [address] [place] [address] documented as of this encounter Visit Diagnoses Not on filedocumented in this encounter Additional Health Concerns Assessment Noted Time PHQ-9 Depression Total Score: 0 07/26/19 24 11:48 AM EDT documented as of this encounter Care Teams Surgical Services Director Relationship Specialty Start Date End Date Shawna Styles MD [address] [place] [phone] PCP - General Internal Medicine 04/12/22 documented as of this encounter
--- OUTSIDE RECORDS SUMMARY | 2024-03-20 11:31 | XMS_ITS | Encounter Summary ---
Author Organization [employer] Address [address] [facility] 7t [place] [address] Care Team Providers Care Production Technologist Name Role Phone Mckenzie Dawkins ALARM MECHANISM ADJUSTER Primary Care Provider Shawna Nix MD Primary Care Provide r Reason for Visit * Reason Comments Med Refill Encounter Details Date Type Department Care Team (Late Contact Info) Description 03/08/2022 Refill [facility] MEDICINE [address] [place], [place] [phone] Dwayne Chong MD [address] [place] [phone] Benign hypertension Social History Tobacco Use Types Packs/Day Years Used Date Smoking Tobacco: Never Assessed Sex and Gender Information Value Date Recorded Sex Assigned at Male 12/13/2021 10:16 AM EDT Legal Sex Male 10:16 AM EDT Gender Identity Male 12/13/2021 10:16 AM EDT Sexual Orientation Straight 12/13/2021 10 :16 AM EDT COVID-19 Exposure Response Date Recorded In the last 10 days, have yo u been in contact with someone who was confirmed or suspected to have Coronavirus/COVID-19? No / Unsure 02/16/2022 9:57 AM EST documented as of this encounter Plan of Treatment Upcoming Encounters Date Type Department Care Team (Late Contact Info) Description 05/09/2024 9:00 AM EDT Office Visit [facility] MEDICINE [address] [place], [place] [phone] Shawna Styles MD [address] [place] [address] documented as of this encounter Visit Diagnoses Diagnosis Benign hypertension Essential hypertension, benign documented in this encounter Care Teams Production Technologist Relationship Specialty Start Date End Date Mckenzie Dawkins FNP PCP - General Family Medicine 01/21/22 04/11/22 Shawna Styles MD [address] [place] [address] [place] [address] PCP - General Internal Medicine 04/12/22 documented as of this encounter
--- OUTSIDE RECORDS SUMMARY | 2024-03-20 11:31 | XMS_ITS | Encounter Summary ---
Author Organization [employer] Address [address] 7[address] [place] [address] Care Team Providers Care Mineralogy Professor Name Role Phone Mckenzie Dawkins Primary Care Provider Shawna Nix MD Primary Care Provide r Reason for Visit * Reason Onset Date Comments Appointment Request 04/05/2022 Encounter Details Date Type Department Care Team (Late Contact Info) Description 04/05/2022 Telephone [facility] MEDICINE [address] [place] [address] Mckenzie Dawkins FNP Appointment Request Social History Tobacco Use Types Packs/Day Years Used Date Smoking Tobacco: Never Assessed Sex and Gender Information Value Date Recorded Sex Assigned at Male 12/13/2021 10:16 AM EDT Legal Sex Male 10:16 AM EDT Gender Identity Male 12/13/2021 10:16 AM EDT Sexual Orientation Straight 12/13/2021 10 :16 AM EDT documented as of this encounter Miscellaneous Notes * Telephone Encounter - Tawanda Knutson - 04/05/2022 3:55 PM EST Tc from Daughter requesting to r/s Follow up appt (F/U HTN). Wire Puller tried booking appt but no appt was available Pt daughter is stating that she only wants appt with provider. Please contact pt at [phone] documented in this encounter Plan of Treatment Upcoming Encounters Date Type Department Care Team (Late Contact Info) Description 05/09/2024 9:00 AM EDT Office Visit [facility] MEDICINE [address] [place] [address] Shawna Styles MD [address] [place] [address] documented as of this encounter Visit Diagnoses Not on filedocumented in this encounter Care Teams Mineralogy Professor Relationship Specialty Start Date End Date Mckenzie Dawkins FNP PCP - General Family Medicine 01/21/22 04/11/22 Shawna Styles MD [address] [place], [place] [phone] PCP - General Internal Medicine 04/12/22 documented as of this encounter
--- OUTSIDE RECORDS SUMMARY | 2024-03-20 11:31 | XMS_ITS | Encounter Summary ---
Author Organization [employer] Address [address] [place] [address] Care Team Providers Care Plywood Stock Grader Name Role Phone Shawna Styles MD Primary Care Provide r Encounter Details Date Type Department Care Team (Late st Contact Info) Description 11/22/2022 Orders Only [facility] [address] [place], [place] [phone] Chelle Cruz LPN Social History Tobacco Use Types Packs/Day Years Used Date Smoking Tobacco: Never Passive Smoke Exposure: Never Smokeless Tobacco: Never Alcohol Use Standard Drinks/Week Comments Never 0 (1 standard drink = 0.6 oz pur e alcohol) Depression Answer Date Recorded Patient Health Questionnaire-9 Score 0 06/29/2022 Housing Stability Answer Date Recorded What is your housing situation today? I have mitchelldillon gallegos 11/20/[address] you li ve. Do you have problems with any of the following? None of the above 11/20/2022 Food Insecurity Answer Date Recorded Within the past 12 months, y ou worried that your food would run out before you got money to buy more: Never True 11/20/2022 Within the past 12 months,th e food you bought just didn't last and you didn't have enough money to get more: Never True 09/2022 Transportation Answer Date Recorded In the past 12 months, has l ack of transportation kept you from medical appts, meetings, work or from getting things needed for daily living? No 11/20/2022 Utilities Answer Date Recorded In the past 12 months, has t he electric, gas, oil or water company threatened to shut off services in your home? No 11/20/2022 Depression Answer Date Recorded Patient Health Questionnaire-2 Score 0 06/29/2022 Sex and Gender Information Value Date Recorded Sex Assigned at Male 12/13/2021 10:16 AM EDT Legal Sex Male 10:16 AM EDT Gender Identity Male 12/13/2021 10:16 AM EDT Sexual Orientation Straight 12/13/2021 10 :16 AM EDT documented as of this encounter Plan of Treatment Upcoming Encounters Date Type Department Care Team (Late st Contact Info) Description 05/09/2024 9:00 AM EDT Office Visit [facility] MEDICINE [address] [place] [address] Shawna Sytles MD [address] [place], [place] [phone] documented as of this encounter Procedures Procedure Name Priority Date/Time Associated Diagnosis Comments PSA, TOTAL Routine 10/24/2023 9:20 AM EDT CBC WITH AUTO DIFFERENTIAL Routine 05/31/2023 12:10 PM EDT TSH Routine 05/31/2023 12:10 PM EDT documented in this encounter Results * PSA,Total (10/24/2023 9:20 AM EDT) Prostate Specific Antigen 1.25 <0.05 - 4.0 ng/mL [facility] Comment:PSA methodology: Suzanne Walsh i ChemiluminescentMicroparticle Immunoassay (CMIA) 10/24/2023 9:20 AM EDT 10/24/2023 11:03 AM EDT us Generic External Data Provider LAB BLOOD ORDERAB LES Final Result [facility] [address] [place] [address] [phone] * TSH (05/31/2023 12:10 PM EDT) Thyroid Stimulating Hormone 1.38 0.32 - 4.0 uIU/mL [facility] Comment:TSH 3rd Generation ( [facility]) 05/31/2023 12:1 0 PM EDT 05/31/2023 12:10 PM EDT us Generic External Data Provider LAB BLOOD ORDERAB LES Final Result [facility] [address] [place], [place] [phone] * (ABNORMAL) CBC auto differential (05/31/2023 12:10 PM EDT) White Blood Count 7.4 4.8 - 10.8 X10*3/uL [facility] Red Blood Count 4.27(L) 4.60 - 5.80 X10*6/uL [facility] Hemoglobin 13.9(L) 14.0 - 18.0 g/dl [facility] Hematocrit 41.1(L) 42.0 - 52.0 % [facility] Mean Corpuscular Volume 96.3 80.0 - 98.0 fL [facility] Mean Corpuscular Hemoglobin 32.6 27.0 - 33.0 pg [facility] Mean Corpuscular HGB Conc 33.8 31.0 - 36.0 g/dl [facility] Red Cell Distribution Width 13.1 11.0 - 16.0 % [facility] Platelet Count 124(L) 160 - 400 X10*3/uL [facility] Mean Platelet Volume 12.1 9.4 - 12.4 fL [facility] Neutrophils Percent Auto 60.2 45 - 73 % [facility] Imm Gran Pct Auto 0.8(H) 0.0 - 0.4 % [facility] Lymphocytes Percent Auto 22.0 20 - 40 % [facility] Monocytes Percent Auto 13.6(H) 2 - 11 % [facility] Eosinophils Percent Auto 2.7 0 - 4 % [facility] Basophils Percent Auto 0.7 0 - 2 % [facility] NRBC Pct Auto 0.0 0.0 - 0.2 /100WBC [facility] Neutrophils Absolute Auto 4.4 2.0 - 8.3 x10*3/uL [facility] Imm Gran Abs Auto 0.06(H) 0.00 - 0.03 X10*3/uL [facility] Lymphocytes Absolute Auto 1.6 1.2 - 4.9 X10*3/uL [facility] Monocytes Absolute Auto 1.0 0.1 - 1.2 X10*3/uL [facility] Eosinophils Absolute Auto 0.2 0.0 - 0.4 X10*3/uL [facility] Basophils Absolute Auto 0.1 0.0 - 0.2 X10*3/uL [facility] NRBC Abs Auto 0.000 0.0 - 0.012 X10*3/uL [facility] 05/31/2023 12:1 0 PM EDT 05/31/2023 12:10 PM EDT us Generic External Data Provider LAB BLOOD ORDERAB LES Final Result [facility] [address] [place] [address] [phone] documented in this encounter Visit Diagnoses Not on filedocumented in this encounter Additional Health Concerns Assessment Noted Time PHQ-9 Depression Total Score: 0 06/30/19 23 10:15 AM EDT documented as of this encounter Care Teams Plywood Stock Grader Relationship Specialty Start Date End Date Shawna Styles MD [address] [place] [phone] PCP - General Internal Medicine 04/12/22 documented as of this encounter
--- OUTSIDE RECORDS SUMMARY | 2024-03-20 11:31 | XMS_ITS | Encounter Summary ---
Author Organization [employer] Address [address] [place] [address] Care Team Providers Care Tilt Tray Driver Name Role Phone Shawna Styles MD Primary Care Provide r Reason for Visit * Reason Onset Date Comments Error 05/18/2023 Encounter Details Date Type Department Care Team ([facility] st Contact Info) Description 05/18/2023 Telephone [facility] MEDICINE [address] [place], [place] [phone] hSawna Styles MD [address] [place], [place] [phone] Error Social History Tobacco Use Types Packs/Day Years Used Date Smoking Tobacco: Never Passive Smoke Exposure: Never Smokeless Tobacco: Never Alcohol Use Standard Drinks/Week Comments Never 0 (1 standard drink = 0.6 oz pur e alcohol) Depression Answer Date Recorded Patient Health Questionnaire-9 Score 0 06/29/2022 Housing Stability Answer Date Recorded What is your housing situation today? I have mitchell gallegos 12/13/[address] you li ve. Do you have problems with any of the following? None of the above 12/13/2022 Food Insecurity Answer Date Recorded Within the past 12 months, y ou worried that your food would run out before you got money to buy more: Never True 12/13/2022 Within the past 12 months,th e food you bought just didn't last and you didn't have enough money to get more: Never True Transportation Answer Date Recorded In the past 12 months, has l ack of transportation kept you from medical appts, meetings, work or from getting things needed for daily living? No 12/13/2022 Utilities Answer Date Recorded In the past 12 months, has t he electric, gas, oil or water company threatened to shut off services in your home? No 12/13/2022 Depression Answer Date Recorded Patient Health Questionnaire-2 [...] Description 05/09/2024 9:00 AM EDT Office Visit [facility] MEDICINE [address] [place] [phone] Shawna Styles MD [address] [place], [place] [phone] documented as of this encounter Visit Diagnoses Not on filedocumented in this encounter Additional Health Concerns Assessment Noted Time PHQ-9 Depression Total Score: 0 06/30/19 10:15 AM EDT documented as of this encounter Care Teams Tilt Tray Driver Relationship Specialty Start Date End Date Shawna Styles MD [address] [place] [address] [phone] PCP - General Internal Medicine 04/12/22 documented as of this encounter
--- OUTSIDE RECORDS SUMMARY | 2024-03-20 11:31 | XMS_ITS | Encounter Summary ---
Author Organization [employer] Address [address] [facility] 7t [place] [address] Care Team Providers Care Furniture Removalist Name Role Phone Shawna Styles MD Primary Care Provide r Reason for Visit * Reason Comments Med Refill Encounter Details Date Type Department Care Team ([facility] Contact Info) Description 05/04/2022 Refill [facility] MEDICINE [address] [place], [place] [phone] Dwayne Chong MD [address] [place] [phone] Benign hypertension Social History Tobacco Use Types [...] suspected to have Coronavirus/COVID-19? No / Unsure 04/20/2022 11:49 AM EST documented as of this encounter Plan of Treatment Upcoming Encounters Date Type Department Care Team ([facility] Contact Info) Description 05/09/2024 9:00 AM EDT Office Visit [facility] MEDICINE [address] [place], [place] [phone] Shawna Styles MD [address] [place], [place] [phone] documented as of this encounter Visit Diagnoses Diagnosis Benign hypertension Essential hypertension, benign documented in this encounter Care Teams Furniture Removalist Relationship Specialty Start Date End Date Shawna Styles MD [address] [place] [phone] PCP - General Internal Medicine 04/12/22 documented as of this encounter
--- OUTSIDE RECORDS SUMMARY | 2024-03-20 11:31 | XMS_ITS | Encounter Summary ---
Author Organization [employer] Address [address] [place] [address] Care Team Providers Care Clay Hoister Name Role Phone Shawna Styles MD Primary Care Provide r Reason for Visit * Reason Onset Date Comments Hospital Follow-up 10/09/2023 Encounter Details Date Type Department Care Team ([facility] st Contact Info) Description 10/09/2023 Telephone [facility] [address] [place] [address] Shawna Styles MD [address] [place], [place] [phone] Hospital Follow-up Social History Tobacco Use Types Packs/Day Years [...] encounter Miscellaneous Notes * Telephone Encounter - Stevo Davenport - 10/09/2023 9:40 AM EDT Tc from pt requesting a HDF appt. Hospital: [facility] Date of admission: 10/05 Discharge date: 10/07 Diagnosed: Mild Heart attack documented in this encounter Plan of Treatment Upcoming Encounters Date Type Department Care Team (Late st Contact Info) Description 05/09/2024 9:00 AM EDT Office Visit [facility] [address] [place] [address] Shawna Styles MD [address] [place] [address] documented as of this encounter Visit Diagnoses Not on filedocumented in this encounter Additional Health Concerns Assessment Noted Time PHQ-9 Depression Total Score: 0 07/26/19 24 11:48 AM EDT documented as of this encounter Care Teams Clay Hoister Relationship Specialty Start Date End Date Shawna Styles MD [address] [place] [address] PCP - General Internal Medicine 04/12/22 documented as of this encounter
--- OUTSIDE RECORDS SUMMARY | 2024-03-20 11:31 | XMS_ITS | Encounter Summary ---
Author Organization [employer] Address [address] [place] [address] Care Team Providers Care Soybean Specialties Cook Name Role Phone Shawna Styles MD Primary Care Provide r Reason for Visit * Reason Onset Date Comments ER Follow-up 03/12/2024 Encounter Details Date Type Department Care Team ([facility] st Contact Info) Description 03/12/2024 Telephone [facility] [address] [place], [place] [phone] Shawna Styles MD [address] [place], [place] [phone] ER Follow-up Social History Tobacco Use Types Packs/Day [...] encounter Miscellaneous Notes * Telephone Encounter - Joanne Matthew RN - 03/12/2024 11:14 AM EST TC placed via [employer] bow maker gift wrapping (NeedFeed ID#[id number]) to do a status check following ED visit on 03/08/24dx other chest pain - primary. No answer, LVM to call office back and ask to speak to the red team nurses. * Telephone Encounter - Adriana Neal - 03/12/2024 10:49 AM EST Patient calling to report ED visit on : Date: 03/08 Hospital: [facility] Seen for: Chest Pain Symptomatic No *if yes message should go to Triage Patient advised will forward to team nurse for follow up documented in this encounter Plan of Treatment Upcoming Encounters Date Type Department Care Team (Late st Contact Info) Description 05/09/2024 9:00 AM EDT Office Visit [facility] MED[facility]INE [address] [place], [place] [phone] Shawna Styles MD [address] [place], [place] [phone] documented as of this encounter Visit Diagnoses Not on filedocumented in this encounter Additional Health Concerns Assessment Noted Time PHQ-9 Depression Total Score: 0 07/26/19 24 11:48 AM EDT documented as of this encounter Care Teams Soybean Specialties Cook Relationship Specialty Start Date End Date Shawna Styles MD [address] [place] [address] PCP - General Internal Medicine 04/12/22 documented as of this encounter
[2024-03-20 11:56] LABS: Prostate Specific Antigen 1.18 ng/mL (<0.05-4.0)
== END 2024-03-20 10:32 | disposition home or self-care (01) ==
LOC: HO.LAB 10:31
PROVIDERS: PCP Internal Medicine; Visit Provider Nurse Practitioner Family
DX: R35.1 Nocturia (principal); N40.0 Benign prostatic hyperplasia without lower urinary tract symptoms; Z12.5 Encounter for screening for malignant neoplasm of prostate
CPT/HCPCS: 36415; 84153

== ENCOUNTER 2024-03-25 09:13 | Outpatient (AMB) | payer MEDICARE, SELFPAY ==
--- NOTE | 2024-03-25 09:23 | MHC.OFFVIS ---
Intake Visit Reasons: 6m/PSA/PVR(psa pending) Intake Note: Patient is present for follow up BPH, Nocturia, and PSA lab results PSA: 1.18 Urology Medications: terazosin Blood Thinner: none PVR: 16ml's Candy Cutter Machine Required: Yes Accompanied by: Unknown Allergies Seasonal Allergies Allergy (Intermediate, Verified 03/25/24 10:02) Itchy Eyes Medication List - Last Reconciled 03/25/24 by COLEEN ArroyoP- amiodarone 200 mg PO DAILY apixaban (Eliquis) 5 mg PO BID atorvastatin 20 mg PO BEDTIME diltiazem HCl CD (Cartia XT) 120 mg PO DAILY furosemide 20 mg PO DAILY terazosin 10 mg PO BEDTIME 90 days HPI Comments Details: Grzegorz is a pleasant Italian-speaking 83-year-old male patient of who is accompanied by his son-in-law at today's office visit. He has a past medical history of constipation, alcohol abuse, GERD, paroxysmal AFib, hypertension, and hyper thyroidism. He presents to the office today for a follow up of his urinary frequency and nocturia. In discussion with the patient today reports to be doing and feeling well. He reports compliance with 10 mg of terazosin as prescribed. He currently denies any bothersome urinary issues or concerns. He reports be happy with current voiding parameters. He discusses his happiness in the [employer] winning the [employer] last night. In office urinalysis results reviewed with the patient today. PVR 29 mL. Recent PSA results reviewed with the patient today as noted and trended below: PSA 11/06 1.3, 04/09 1.2 Previous workup has included a retroperitoneal ultrasound 06/05 noting bilateral kidneys with no calculi, lesions, or hydronephrosis noted. Unremarkable ultrasound examination the kidneys. There is mild prostatomegaly. Prevoid bladder volume 170ml's post void bladder volume 13.5ml's. Prostate measures 34ml's. He denies denies urinary urgency, urinary frequency, incontinence, nocturia, hematuria, dysuria, foul smelling urine, changes to urinary stream, flank pain, fever, and or chills. He discusses having seeked emergency room care a few weeks ago for chest pain he had been experiencing however workup was within normal limits any has since followed up with cardiology outpatient. He denies having had any other issues or concerns. FOR[facility]LY [facility], [facility] Medical History Constipation BPH (benign prostatic hyperplasia) Alcohol abuse GERD (gastroesophageal reflux disease) Paroxysmal A-fib Hypertension Hyperthyroidism Surgical History Back pain with history of spinal surgery Hx of hemorrhoids Hx of colonoscopy Family History Father No problems noted. Mother Heart disease Social History Household Members: None Housing: Apartment Are you a primary care asst to a significant other at home: No Do you presently have visiting nurse or other home services: No Alcohol intake: former Patient Tobacco Use Status: Never used Tobacco Advance Directives Date on File: 11/22/19 service: No Current occupational status: retired Review of Systems Eyes Reports no additional complaints ENT Reports no additional complaints Card Reports as per HPI Resp Reports no additional complaints GI Reports as per HPI Reports as per HPI Musc Reports no additional complaints Neuro Reports no additional complaints Psych Reports as per HPI Endo Reports as per HPI Surinder/Lymph Reports no additional complaints Aller/Immun Reports no additional complaints Physical Exam Const General: cooperative, healthy appearing, comfortable, no acute distress, well developed, alert and awake Orientation/consciousness: patient oriented x3 Limitations: no limitations HEENT Head: Yes normal to inspection, Yes normocephalic and Yes atraumatic Eyes General: appearance normal, both eyes and all related structures Neck Neck: Yes normal visual inspection and Yes trachea midline Chest Chest palpation & inspection: normal inspection of the chest Resp Effort & Inspection: normal respiratory effort and able to speak in complete sentences Cardio Rate: regular rate GI Inspection: Yes normal to inspection Rectal Exam - Male: Yes deferred General: Yes no CVA tenderness Back/Spine/Pelvis Back: no CVA tenderness Skin General skin exam: no rashes or lesions noted Neuro General: patient oriented x3 Extrem General: Yes normal to inspection Psych Appearance: grossly normal and well kempt Mental Status: mental status grossly normal Speech and movement: Normal speech and movement present and Clear speech present Affect: normal affect Attitude: cooperative Thought process: Normal thought process present Thought content: Normal thought content present Insight: Fair insight present (Psych) Judgement: Fair judgement present (Psych) Office Procedures Post Void Residual Post Residual Void Post Void Residual (PVR): 16 [id number] Void Residual by ultrasound Results AMB Urinalysis, Automated UA Leukoctes 0 Theodore/uL Last Edit by Mukesh Franco on 03/25/24 10:07 UA Nitrite Last Edit by Mukesh Franco on 03/25/24 10:07 UA Urobilinogen 0.2 mg/dL Last Edit by Mukesh Franco on 03/25/24 10:07 UA Protein 0 mg/dL Last Edit by Mukesh Franco on 03/25/24 10:07 UA pH 5.5 Last Edit by Mukesh Franco on 03/25/24 10:07 UA Blood 25 Gelacio/uL Last Edit by Mukesh Franco on 03/25/24 10:07 UA Specific [place] 1.015 Last Edit by Mukesh Franco on 03/25/24 10:07 UA Ketone Last Edit by Mukesh Franco on 03/25/24 10:07 UA Bilirubin 0 mg/dL Last Edit by Mukesh Franco on 03/25/24 10:07 UA Glucose 0 mg/dL Last Edit by Mukesh Franco on 03/25/24 10:07 Results Reviewed Results Reviewed: Laboratory Last Values Urine pH (Auto) 5.5 03/25/24 10:02 Specific [place] (Auto) 1.015 03/25/24 10:02 Urine Protein (Auto) 0 mg/dL 03/25/24 10:02 Glucose (UA)(Auto) 0 mg/dL 03/25/24 10:02 Urine Blood (Auto) 25 Gelacio/uL 03/25/24 10:02 Urine Bilirubin (Auto) 0 mg/dL 03/25/24 10:02 Urine Urobilinogen (Auto) 0.2 mg/dL 03/25/24 10:02 Leukocyte Esterase (Auto) 0 Theodore/uL 03/25/24 10:02 Assessment & Plan Assessment & Plan (1) Lower urinary tract symptoms: Code(s): R39.9 - Unspecified symptoms and signs involving the genitourinary system Category: Medical (2) BPH (benign prostatic hyperplasia): Code(s): N40.0 - Benign prostatic hyperplasia without lower urinary tract symptoms Category: Medical (3) Nocturia: Code(s): R35.1 - Nocturia Category: Medical Plan In office urinalysis results reviewed with the patient today; as noted above. PVR 29 mL. Continue 10 mg of terazosin as discussed and prescribed; refill provided. Recent PSA results reviewed with the patient today; as noted above. Patient currently denies any bothersome urinary issues or concerns. He reports be happy with current voiding parameters. Will obtain PSA in 1 year. Follow-up in 1 year with PSA and PVR; or sooner with any issues, concerns, and or questions. Orders: Orders Prostate Specific Antigen 1 Year N40.0 - Benign prostatic hyperplasia without lower urinary tract symptoms AMB Urinalysis Automated Today Z13.9 - Encounter for screening, unspecified AMB Post Void Residual by ultrasound Today R39.9 - Unspecified symptoms and signs involving the genitourinary system Medications: Refilled terazosin 10 mg PO BEDTIME 90 caps 4RF 90 days N13.8 - Other obstructive and reflux uropathy, N40.0 - Benign prostatic hyperplasia without lower urinary tract symptoms, N40.1 - Benign prostatic hyperplasia with lower urinary tract symptoms Patient Instructions: The patient had an opportunity to ask questions regarding the treatment plan. All questions were answered. Physical exam, labs, and imaging were discussed and reviewed in detail. As well as risks, benefits, and discussion of treatment choices. No major barriers to understanding were identified. The patient expressed understanding and agreement with the above treatment plan. The patient was made aware they should contact our office by phone for worsening of their current condition, the appearance of new symptoms, or with any questions or concerns. Compliance is encouraged with any medications and follow up testing that is ordered. It is a privilege to be allowed the opportunity to participate in? your urological care.? Again, if you have any questions or concerns If you have any questions or concerns please do not hesitate to contact me. The office is [phone]. This note is constructed using voice recognition software. While every effort has been made to ensure accuracy biomass power plant manager errors may have been included. Yours sincerely, KELLEE Arroyo Coding Level of Care Code Est Pt Level 3 (31901) Complex EM visit Add On G2211 Diagnoses Lower urinary tract symptoms R39.9 BPH (benign prostatic hyperplasia) N40.0 Nocturia R35.1 CPT Codes Post Residual Void - PVR CPT Code: 29486-[id number] Void Residual by ultrasound ([id number])
== END 2024-03-25 09:58 | disposition home or self-care (01) ==
PROVIDERS: PCP Internal Medicine; Visit Provider Nurse Practitioner Family
DX: R39.9 Unspecified symptoms and signs involving the genitourinary system (principal); N40.0 Benign prostatic hyperplasia without lower urinary tract symptoms; R35.1 Nocturia; Z13.9 Encounter for screening, unspecified
CPT/HCPCS: 99213; G2211

== ENCOUNTER → 2024-03-25 09:13 | Outpatient (BNVA) | payer MEDICARE, SELFPAY | PROVIDERS: PCP Internal Medicine; Visit Provider Nurse Practitioner Family | DX: N40.1 Benign prostatic hyperplasia with lower urinary tract symptoms (principal); R35.1 Nocturia; N13.8 Other obstructive and reflux uropathy | CPT/HCPCS: 51798; 81003; 99212 ==

== ENCOUNTER 2024-06-19 10:05 | Outpatient (REF) | payer MEDICARE, MEDICAID, SELFPAY ==
--- NOTE | 2024-06-19 10:08 | PFT_ITS ---
Indication: Cough Spirometry [FEV1 to FVC 61%; FEV1 1.96 L; FVC 3.24 L. No significant response to bronchodilators noted.] Lung Volumes [Total lung capacity 100% predicted] Diffusion Capacity [Diffusing capacity 82% predicted] Comparisons [none] Interpretation [There is a obstructive ventilatory defect consistent with mild COPD. No significant response to bronchodilators noted. Significant small airways disease. Lung volumes are within normal limits. His diffusing capacity is low normal. Clinical correlation warranted.] MTDD
[2024-06-19 10:50] VITALS: PULSE 73; O2SAT 97
--- OUTSIDE RECORDS SUMMARY | 2024-06-19 11:19 | XMS_ITS | Encounter Summary ---
Author Organization [employer] Address [address] [place] [address] Care Team Providers Care Feed Research Aide Name Role Phone Shawna Styles MD Primary Care Provide r Encounter Details Date Type Department Care Team ([facility] st Contact Info) Description 11/22/2022 Orders Only [facility] [address] [place], [place] [phone] Chelle Cruz LPN Social History Tobacco Use Types Packs/Day Years Used Date Smoking Tobacco: Never Passive Smoke Exposure: Never Smokeless Tobacco: Never Alcohol Use Standard Drinks/Week Comments Never 0 (1 standard drink = 0.6 oz pur e alcohol) Depression Answer Date Recorded Patient Health Questionnaire-9 Score 0 06/29/2022 Housing Stability Answer Date Recorded What is your housing situation today? I have mitchell gallegos 11/20/[address] you [...] Care Team (Late st Contact Info) Description 08/06/2024 9:15 AM EDT Office Visit [facility] [address] [place] [address] Shawna Styles MD [address] [place], [place] [phone] documented as of this encounter Procedures Procedure Name Priority Date/Time Associated Diagnosis Comments PSA, TOTAL Routine 10/24/2023 9:20 AM EDT CBC WITH AUTO DIFFERENTIAL Routine 05/31/2023 12:10 PM EDT TSH Routine 05/31/2023 12:10 PM EDT documented in this encounter Results * PSA,Total (10/24/2023 9:20 AM EDT) Prostate Specific Antigen 1.25 <0.05 - 4.0 ng/mL [facility] Comment:PSA methodology: Suzanne Walsh i ChemiluminescentMicroparticle Immunoassay (CMIA) 10/24/2023 9:20 AM EDT 10/24/2023 11:03 AM EDT us Generic External Data Provider LAB BLOOD ORDERAB LES Final Result [facility] [address] [place] [address] [phone] * TSH (05/31/2023 12:10 PM EDT) Thyroid Stimulating Hormone 1.38 0.32 - 4.0 uIU/mL [facility] Comment:TSH 3rd Generation ( [facility]) 05/31/2023 12:1 0 PM EDT 05/31/2023 12:10 PM EDT us Generic External Data Provider LAB BLOOD ORDERAB LES Final Result [facility] [address] [place] [address] [phone] * (ABNORMAL) CBC auto differential (05/31/2023 12:10 PM EDT) White Blood Count 7.4 4.8 - 10.8 X10*3/uL [facility] Red Blood Count 4.27(L) 4.60 - 5.80 X10*6/uL [facility] Hemoglobin 13.9(L) 14.0 - 18.0 g/dl [facility] Hematocrit 41.1(L) 42.0 - 52.0 % [facility] Mean Corpuscular Volume 96.3 80.0 - 98.0 fL [facility] Mean Corpuscular Hemoglobin 32.6 27.0 - 33.0 pg [facility] Mean Corpuscular HGB Conc 33.8 31.0 - 36.0 g/dl [facility] Red Cell Distribution Width 13.1 11.0 - 16.0 % [facility] Platelet Count 124(L) 160 - 400 X10*3/uL [facility] Mean Platelet Volume 12.1 9.4 - 12.4 fL [facility] Neutrophils Percent Auto 60.2 45 - 73 % [facility] Imm Gran Pct Auto 0.8(H) 0.0 - 0.4 % [facility] Lymphocytes Percent Auto 22.0 20 - 40 % [facility] Monocytes Percent Auto 13.6(H) 2 - 11 % [facility] Eosinophils Percent Auto 2.7 0 - 4 % [facility] Basophils Percent Auto 0.7 0 - 2 % [facility] NRBC Pct Auto 0.0 0.0 - 0.2 /100WBC [facility] Neutrophils Absolute Auto 4.4 2.0 - 8.3 x10*3/uL [facility] Imm Gran Abs Auto 0.06(H) 0.00 - 0.03 X10*3/uL [facility] Lymphocytes Absolute Auto 1.6 1.2 - 4.9 X10*3/uL [facility] Monocytes Absolute Auto 1.0 0.1 - 1.2 X10*3/uL [facility] Eosinophils Absolute Auto 0.2 0.0 - 0.4 X10*3/uL [facility] Basophils Absolute Auto 0.1 0.0 - 0.2 X10*3/uL [facility] NRBC Abs Auto 0.000 0.0 - 0.012 X10*3/uL [facility] 05/31/2023 12:1 0 PM EDT 05/31/2023 12:10 PM EDT us Generic External Data Provider LAB BLOOD ORDERAB LES Final Result [facility] [address] [place] [address] [phone] documented in this encounter Visit Diagnoses Not on filedocumented in this encounter Additional Health Concerns Assessment Noted Time PHQ-9 Depression Total Score: 0 06/30/19 23 10:15 AM EDT documented as of this encounter Care Teams Feed Research Aide Relationship Specialty Start Date End Date Shawna Styles MD [address] [place] [phone] PCP - General Internal Medicine 04/12/22 documented as of this encounter
--- OUTSIDE RECORDS SUMMARY | 2024-06-19 11:19 | XMS_ITS | Encounter Summary ---
Author Organization [employer] Address [address] [facility] [address] [facility] [address] [place] [address] Care Team Providers Care Spindle Carver Name Role Phone Shawna Styles MD Primary Care Provide r Reason for Visit * Reason Onset Date Comments Error 05/18/2023 Encounter Details Date Type Department Care Team ([facility] st Contact Info) Description 05/18/[address] [facility] MED[facility]INE [address] [place] [address] Shawna Styles MD [address] [place] [address] Error Social History Tobacco Use Types Packs/Day [...] Description 08/06/2024 9:15 AM EDT Office Visit [facility] [address] [place] [phone] Shawna Styles MD [address] [place] [phone] documented as of this encounter Visit Diagnoses Not on filedocumented in this encounter Additional Health Concerns Assessment Noted Time PHQ-9 Depression Total Score: 0 06/30/19 10:15 AM EDT documented as of this encounter Care Teams Spindle Carver Relationship Specialty Start Date End Date Shawna Styles MD [address] [place] [phone] PCP - General Internal Medicine 04/12/22 documented as of this encounter
--- OUTSIDE RECORDS SUMMARY | 2024-06-19 11:19 | XMS_ITS | Clinical Summary ---
Author Organization [employer] Address [address] [facility] 7t [place] [address] Care Team Providers Care Forest Aide Name Role Phone Shawna Styles MD Primary Care Provide r Allergies No known active allergies Medications Lancets miscIndications:P rediabetes Use to test blood sugar 2 times daily 100 each 2 4 Active Alcohol Swabs 70 % padsIndications:P rediabetes Use to test blood sugar 2 times daily 100 each 4 Active Blood Glucose Monitoring Suppl ([employer] Glasco Lite) w/Device kitIndications:Pr ediabetes Use to test [...] crush or chew. 90 capsule 4 11/06/19 25 Active metoprolol tartrate (Lopressor) 25 MG tabletIndications :Paroxysmal atrial fibrillation (CMS/HCC) Take 1 tablet (25 mg) by mouth 2 times daily. 60 tablet 11 4 12/19/19 25 Active albuterol 108 (90 Base) MCG/ACT inhalerIndication s:Chronic cough Inhale 2 puffs every 6 (six) hours if needed for wheezing. 18 g 11 5 05/10/19 26 Active Active Problems Problem Noted Date Diagnosed Date Decreased hearing of both ears 05/09/2024 Multiple episodes of hypoglycemia 12/19/2023 Assessment & [...] let med box know. Chronic cough 11/06/2023 Assessment & Plan (05/09/2024 10:45 AM EDT): I will order pulmonary function test I will refer patient to pulmonology Trial of albuterol inhaler will be prescribed I will follow-up with patient Primary hypertension 11/06/2023 Assessment & Plan (05/09/2024 10:46 AM EDT): I advised: - Aerobic exercise to reduce BP. Initial [...] consulting health care provider Assessment & Plan (02/01/2024 9:45 AM EST): [...] log Atrial fibrillation 10/19/2023 Assessment & Plan (05/09/2024 10:45 AM EDT): Continue with same medication regimen Follow-up with cardiology Assessment & Plan (02/01/2024 9:44 AM EST): [...] Encounters Date Type Department Care Team Description 05/09/2024 9:00 AM EDT Office Visit [facility] [address] [place] [address] Shawna Styles MD Chronic cough; Atrial fibrillation, unspecified type (CMS/HCC); Primary hypertension; Hyperlipidemia, unspecified hyperlipidemia type; Decreased hearing of both ears 05/09/2024 Travel 04/30/2024 Patient Outreach [facility] [address] [place] [address] Shawna Styles MD from Last 3 Months Immunizations Name Administration [...] Passive Smoke Exposure: Past Smokeless Tobacco: Never Tobacco Cessation:Counseling Given: Not [...] Recorded Patient Health Questionnaire-2 Score 0 07/26/2023 Internet Access Answer Date Recorded Internet Access Q1 No 04/30/2024 Internet Access Q2 I cannot afford it 04/30/2024 Sex and Gender Information Value Date Recorded Sex Assigned at Male 12/13/2021 10:16 AM EDT Legal Sex Male 10:16 AM EDT Gender Identity Male 12/13/2021 10:16 AM EDT Sexual Orientation Straight 12/13/2021 10 :16 AM EDT Last Filed Vital Signs Vital Sign Reading Time Taken Comments Blood Pressure 127/71 05/09/2024 9:19 AM EDT Pulse 67 05/09/2024 9:19 AM EDT Temperature 36.3 ??C (97.3 ??F) 02/01/2024 9:11 AM ES T Respiratory Rate 14 05/09/2024 9:19 AM EDT Oxygen Saturation 98% 05/09/2024 9:19 AM EDT Inhaled Oxygen Concentration - - Weight 71.9 kg (158 lb 9.6 oz) 05/09/2024 9:19 A M EDT Height 162.6 cm (5' 4 ) 05/09/2024 9:19 AM EDT Body Mass Index 27.22 05/09/2024 9:19 AM EDT Plan of Treatment Upcoming Encounters Date Type Department Care Team (Late st Contact Info) Description 08/06/2024 9:15 AM EDT Office Visit [facility] [address] [facility] [place] [address] Shawna Styles MD [address] [facility] [place] [address] Health Maintenance Due Date Last Done Comments RSV Patients and Patients Aged 60 years or older (1 - 1-dose 75+ series) 2017 COVID-19 Vaccine ( season) 2023 02/04/2021, 05/12/2020, 04/14/2020 Alcohol/Substance Use Screening 07/25/2024 07/26/2023 Depression Screening 07/25/2024 07/26/2023, 07/26/19 24 Diabetes: Hemoglobin A1C 01/31/2025 024, 01/26/2023, 06/29/2022, Additional history exists SDOH Screening 04/30/2025 04/30/2024 Tobacco Screening 05/09/2025 05/09/2024 Lipid Panel 10/23/2028 10/24/2023, 07/01/2020 DTaP/Tdap/Td Vaccines [...] Name Priority Date/Time Associated Diagnosis Comments POCT GLYCATED HEMOGLOBIN, TOTAL Routine 02/01/2024 9:10 AM EST Prediabetes LIPID PANEL, STANDARD Routine 10/24/2023 9:20 AM EDT Prediabetes from Last 3 Months or Most Recently Relevant to Health Maintenance Results * POCT HGB A1C (02/01/2024 9:10 AM EST) Hemoglobin A1C 5.9 4.0 - 6.0 % QC Media Lot # [id number] Lot# Expiration Date [id number] Blood 02/01/2024 9:10 AM EST Shawna Zamarripa MD POINT OF CARE TEST EN TER/EDIT ORDERABLES Final Result * Lipid Panel, Standard (10/24/2023 9:20 AM EDT) Triglycerides 53 <150 mg/dL [facility] Comment:Desirable Triglyceri de: less than 150 mg/dLBorderline High Triglyceride 150-199 mg/dLHigh Triglyceride: 200-499 mg/dLVery High Triglyceride: greater than or equal to 5OO mg/dL Cholesterol 128 <200 mg/dL [facility] Comment:Desirable Cholestero l: less than 200 mg/dLBorderline High Cholesterol: 200-239 mg/dLHigh Cholesterol: greater than 239 mg/dL LDL Cholesterol Calculated 48 <100 mg/dL [facility] Comment:Desirable LDL: less than 100 mg/dLNear Optimal/Above Optimal LDL: 110- 129 mg/dLBorderline High LDL: 130-159 mg/dLHigh LDL: 160-189 mg/dLVery High LDL: greater than or equal to 190 mg/dL HDL Cholesterol 70 >40 mg/dL [facility] Comment:Desirable HDL: great er than 40 mg/dL Note: This HDL assay may give artificially low results in patients with liver disease. Blood Venous blood specimen / Unknown 10/24/2023 9:20 AM EDT 10/24/2023 11:03 AM EDT Shawna Zamarripa MD LAB BLOOD ORDERABLES Final Result [facility] [address] [place] [address] [phone] from Last 3 Months or Most Recently Relevant to Health Maintenance Insurance Care Teams Forest Aide Relationship Specialty Start Date End Date Shawna Styles MD [address] [place] [phone] PCP - General Internal Medicine 04/12/22
--- OUTSIDE RECORDS SUMMARY | 2024-06-19 11:19 | XMS_ITS | Encounter Summary ---
Author Organization [employer] Address [address] [facility] [address] [place] [address] Care Team Providers Care Bran Mixer Name Role Phone Shawna Styles MD Primary Care Provide r Reason for Visit * Reason Comments Med Refill Encounter Details Date Type Department Care Team ([facility] Contact Info) Description 05/04/2022 Refill [facility] [address] [place] [phone] Dwayne Chong MD [address] [place] [address] [phone] Benign hypertension Social History Tobacco Use Types [...] Upcoming Encounters Date Type Department Care Team ([facility] Contact Info) Description 08/06/2024 9:15 AM EDT Office Visit [facility] [address] [place] [address] Shawna Styles MD [address] [place] [address] documented as of this encounter Visit Diagnoses Diagnosis Benign hypertension Essential hypertension, benign documented in this encounter Care Teams Bran Mixer Relationship Specialty Start Date End Date Shawna Styles MD [address] [place] [address] PCP - General Internal Medicine 04/12/22 documented as of this encounter
--- OUTSIDE RECORDS SUMMARY | 2024-06-19 11:19 | XMS_ITS | Encounter Summary ---
Author Organization [employer] Address 75 [facility] 7t [place] [address] Care Team Providers Care Television Newscast Director Name Role Phone Mckenzie Dawkins Primary Care Provider Shawna Nix MD Primary Care Provide r Reason for Visit * Reason Onset Date Comments Appointment Request 04/05/2022 Encounter Details Date Type Department Care Team (Late Contact Info) Description 04/05/2022 Telephone [facility] [address] [place] [address] Mckenzie Dawkins FNP Appointment Request Social History [...] to r/s Follow up appt (F/U HTN). Security System Engineer tried booking appt but no appt was available Pt daughter is stating that she only wants appt with provider. Please contact pt at [phone] documented in this encounter Plan of Treatment Upcoming Encounters Date Type Department Care Team (Late Contact Info) Description 08/06/2024 9:15 AM EDT Office Visit [facility] [address] [place] [address] Shawna Styles MD [address] [place] [address] documented as of this encounter Visit Diagnoses Not on filedocumented in this encounter Care Teams Television Newscast Director Relationship Specialty Start Date End Date Mckenzie Dawkins FNP PCP - General Family Medicine 01/21/22 04/11/22 Shawna Styles MD [address] [place], [place] [phone] PCP - General Internal Medicine 04/12/22 documented as of this encounter
--- OUTSIDE RECORDS SUMMARY | 2024-06-19 11:19 | XMS_ITS | Encounter Summary ---
Author Organization [employer] Address [address] [place] [address] 7 [place] [address] Care Team Providers Care Deckhand Sponge Boat Name Role Phone Mckenzie Dawkins MANAGER HI Primary Care Provider Shawna Nix MD Primary Care Provide r Reason for Visit * Reason Comments Med Refill Encounter Details Date Type Department Care Team (Late Contact Info) Description 03/08/2022 Refill [facility] [address] [place], [place] [phone] Dwayne Chong MD [address] [place] [phone] Benign hypertension Social History Tobacco Use Types [...] Upcoming Encounters Date Type Department Care Team ([facility] Contact Info) Description 08/06/2024 9:15 AM EDT Office Visit [facility] [address] [place], [place] [phone] Shawna Styles MD [address] [place] [address] documented as of this encounter Visit Diagnoses Diagnosis Benign hypertension Essential hypertension, benign documented in this encounter Care Teams Deckhand Sponge Boat Relationship Specialty Start Date End Date Mckenzie Dawkins FNP PCP - General Family Medicine 01/21/22 04/11/22 Shawna Styles MD [address] [place] [address] PCP - General Internal Medicine 04/12/22 documented as of this encounter
--- OUTSIDE RECORDS SUMMARY | 2024-06-19 11:19 | XMS_ITS | Encounter Summary ---
Author Organization [employer] Address 75 [facility] 7t [place] [address] Care Team Providers Care Cyber Instructor Name Role Phone Shawna Styles MD Primary Care Provide r Reason for Visit * Reason Comments Med Refill Encounter Details Date Type Department Care Team ([facility] st Contact Info) Description 10/02/2023 Refill [facility] [address] [place], [place] [phone] Shawna Styles MD [address] [place], [place] [phone] Benign hypertension Social History Tobacco Use Types [...] Description 08/06/2024 9:15 AM EDT Office Visit [facility] [address] [place] [address] Shawna Styles MD [address] [place] [address] documented as of this encounter Visit Diagnoses Diagnosis Benign hypertension Essential hypertension, benign documented in this encounter Additional Health Concerns Assessment Noted Time PHQ-9 Depression Total Score: 0 07/26/19 24 11:48 AM EDT documented as of this encounter Care Teams Cyber Instructor Relationship Specialty Start Date End Date Shawna Styles MD [address] [place] [phone] PCP - General Internal Medicine 04/12/22 documented as of this encounter
--- OUTSIDE RECORDS SUMMARY | 2024-06-19 11:19 | XMS_ITS | Encounter Summary ---
Author Organization [employer] Address [address] [facility] 7t [place] [address] Care Team Providers Care Cyber Transport Systems Specialist Name Role Phone Shawna Styles MD Primary Care Provide r Reason for Visit * Reason Comments Med Refill Encounter Details Date Type Department Care Team ([facility] st Contact Info) Description 08/01/2023 Refill [facility] [address] [place], [place] [phone] Shawna Styles MD [address] [place], [place] [phone] Benign hypertension Social History Tobacco Use Types [...] Description 08/06/2024 9:15 AM EDT Office Visit [facility] [address] [place] [address] Shawna Styles MD [address] [place] [address] documented as of this encounter Visit Diagnoses Diagnosis Benign hypertension Essential hypertension, benign documented in this encounter Additional Health Concerns Assessment Noted Time PHQ-9 Depression Total Score: 0 07/26/19 24 11:48 AM EDT documented as of this encounter Care Teams Cyber Transport Systems Specialist Relationship Specialty Start Date End Date Shawna Styles MD [address] [place] [phone] PCP - General Internal Medicine 04/12/22 documented as of this encounter
--- OUTSIDE RECORDS SUMMARY | 2024-06-19 11:19 | XMS_ITS | Encounter Summary ---
Author Organization [employer] Address [address] [facility] [address]t [place] [address] Care Team Providers Care Residential Door Installer Name Role Phone Shawna Styles MD Primary Care Provide r Reason for Visit * Reason Onset Date Comments Hospital Follow-up 10/09/2023 Encounter Details Date Type Department Care Team ([facility] st Contact Info) Description 10/09/[address] [facility] [address] [place] [address] Shawna Styles MD [address] [place] [address] Hospital Follow-up Social History Tobacco Use Types [...] from pt requesting a HDF appt. Hospital: [facility] Date of admission: 10/05 Discharge date: 10/07 Diagnosed: Mild Heart attack documented in this encounter Plan of Treatment Upcoming Encounters Date Type Department Care Team (Late st Contact Info) Description 08/06/2024 9:15 AM EDT Office Visit [facility] [address] [place] [address] Shawna Styles MD [address] [place] [address] documented as of this encounter Visit Diagnoses Not on filedocumented in this encounter Additional Health Concerns Assessment Noted Time PHQ-9 Depression Total Score: 0 07/26/19 11:48 AM EDT documented as of this encounter Care Teams Residential Door Installer Relationship Specialty Start Date End Date Shawna Styles MD [address] [place] [phone] PCP - General Internal Medicine 04/12/22 documented as of this encounter
== END 2024-06-19 10:06 | disposition home or self-care (01) ==
LOC: HO.RESP 10:05
PROVIDERS: PCP Internal Medicine; Visit Provider Internal Medicine
DX: R05.3 Chronic cough (principal)
CPT/HCPCS: 94010; 94640; 94727; 94729

== ENCOUNTER → 2024-06-19 10:08 | Outpatient (BNV) | payer MEDICARE, MEDICAID, SELFPAY | PROVIDERS: PCP Internal Medicine; Visit Provider Hospitalist | DX: R05.3 Chronic cough (principal) | CPT/HCPCS: 94060; 94727; 94729 ==

== ENCOUNTER 2024-07-04 12:41 | Outpatient (AMB) | payer MEDICARE, SELFPAY ==
--- OUTSIDE RECORDS SUMMARY | 2024-07-04 12:43 | XMS_ITS | Clinical Summary ---
Author Organization [facility] Address [address] [place] [address] Phone Care Team Providers Care General Science Teacher Name Role Phone Shawna Styles MD Primary Care Provide r Allergies No known active allergies Medications atorvastatin (LIPITOR) 20 mg tablet Take 1 [...] (one) time each day. 30 each 12/28/2023 Active amiodarone (PACERONE) 200 mg tablet Take 1 tablet (200 mg total) by mouth 1 (one) time each day. 90 each 01/02/2024 Active Active Problems Problem Noted Date Diagnosed Date Acute on chronic diastolic C HF (congestive heart failure) ([facility] V24, [facility] V28) 12/23/2023 Atrial fibrillation with rap id ventricular response ([facility] V24, [facility] V28) 12/23/2023 Gastroesophageal reflux disease 08/22/2011 Overview (12/27/2023): Last Assessment & Plan: I advise patient to avoid NSAIDs, spicy and acid food, I advise to eat at the same time every day, I advise to elevate the head of the bed and take medications as prescribe Immunizations Name Administration Dates Next Due Influenza trivalent, 0.5mL ( Fluad) 65yo and older 12/26/2023(Deferred: Patient Refused) Surgical History Surgery Date Site/Laterality Comments HIP SURGERY Left LUMBAR SPINE SURGERY Medical History Medical History Date Comments Paroxysmal atrial fibrillation ([facility] V24, [facility] V28) Hypertension Hypercholesteremia GERD (gastroesophageal reflux disease) BPH [...] Assigned at Male 12/24/2023 10:24 PM EST Legal Sex Male 4:38 AM EST Gender Identity Male 12/24/2023 10:24 PM EST Sexual Orientation Straight 12/24/2023 10 :24 PM EST Obstetrics History Last Filed Vital Signs Vital [...] Due Date Last Done Comments RSV Immunization Adult Patients (1 - 1-dose 75+ series) 2017 COVID-19 Vaccine ( - season) 2023 02/04/2021, 05/12/2020, 04/14/2020 Medicare Annual [...] patient's age to complete this topic Meningococcal B Vaccine Aged Out No l onger eligible based on patient's age to complete this topic RSV Immunization Patients Under 20 months Aged Out No longer eligible based on patient's age to complete this topic Varicella Vaccines Aged Out No longer eligible based on patient's age to complete this topic Procedures Procedure Name Priority Date/Time Associated Diagnosis Comments COMPREHENSIVE METABOLIC PANEL STAT 03/08/2024 10:14 AM EST from Last 3 Months or Most Recently Relevant to Health Maintenance Results * (ABNORMAL) Comprehensive metabolic panel (03/08/2024 10:14 AM EST) Sodium 140 133 - 145 mmol/L LAB CHEMISTRY METHOD 03/08/2024 10:57 AM [facility] Potassium 4.9 3.5 - 5.5 mmol/L LAB CHEMISTRY METHOD 03/08/2024 10:57 AM [facility] Chloride 107 96 - 110 mmol/L LAB CHEMISTRY METHOD 03/08/2024 10:57 AM [facility] CO2 29 21 - 32 mmol/L LAB CHEMISTRY METHOD 03/08/2024 10:57 AM [facility] Anion Gap 4 3 - 11 LAB CHEMISTRY METHOD 03/08/2024 10:57 AM [facility] Glucose 154(H) 70 - 100 mg/dL LAB CHEMISTRY METHOD 03/08/2024 10:57 AM [facility] BUN 11 5 - 25 mg/dL LAB CHEMISTRY METHOD 03/08/2024 10:57 AM [facility] Creatinine 1.07 0.70 - 1.30 mg/dL LAB CHEMISTRY METHOD 03/08/2024 10:57 AM [facility] eGFR 70 >=60 mL/min/1. 73m2 LAB CHEMISTRY METHOD 03/08/2024 10:57 AM [facility] Comment:Calculation based on the??Chronic Kidney Disease Epidemiology Collaboration (CKD-EPI) equation refit??without adjustment for race. BUN/Creatinine Ratio 10.3 LAB CHEMISTRY METHOD 03/08/2024 10:57 AM [facility] Calcium 8.8 8.5 - 10.5 mg/dL LAB CHEMISTRY METHOD 03/08/2024 10:57 AM [facility] AST (SGOT) 22 10 - 42 unit/L LAB CHEMISTRY METHOD 03/08/2024 10:57 AM [facility] ALT (SGPT) 35 10 - 60 unit/L LAB CHEMISTRY METHOD 03/08/2024 10:57 AM [facility] Alkaline Phosphatase 79 42 - 121 unit/L LAB CHEMISTRY METHOD 03/08/2024 10:57 AM [facility] Total Protein 6.4 6.0 - 8.0 g/dL LAB CHEMISTRY METHOD 03/08/2024 10:57 AM [facility] Albumin 3.3 3.2 - 5.0 g/dL LAB CHEMISTRY METHOD 03/08/2024 10:57 AM [facility] Total Bilirubin 0.5 0.0 - 1.4 mg/dL LAB CHEMISTRY METHOD 03/08/2024 10:57 AM [facility] Blood Venous blood specimen / Unknown Venipuncture / Unknown 03/08/2024 10:14 AM EST 03/08/2024 10:22 AM EST us Isaías Boateng MD LAB BLOOD ORDERABLES Final Result [facility] [address] [place] [address], from Last 3 Months or Most Recently Relevant to Health Maintenance Insurance [employer] MEDICARE Advance Directives Documents on File Type Date Recorded Patient Inspection Manager Expl anation Advance Directives and Living Will [...] currently active code status orders. Care Teams General Science Teacher Relationship Specialty Start Date End Date Shawna Styles MD [address] [place] [phone] PCP - General Internal Medicine 12/23/23
--- NOTE | 2024-07-04 12:52 | MHC.OFFVIS ---
Vital Signs 07/04/24 13:01 Height 5 ft 4 in Weight 150 lb BMI 25.7 BP 118/60 Blood Pressure Location Rt brachial Position Sitting Pulse 61 Pulse Source Pulse Oximeter Pulse Oximetry (%) 96 Oxygen Delivery Method Room Air Intake Visit Reasons: chronic cough Allergies Seasonal Allergies Allergy (Intermediate, Verified 03/25/24 10:02) Itchy Eyes HPI HPI chronic cough: Details: 84-year-old gentleman with no underlying pulmonary history referred for evaluation of chronic cough ongoing for several years. Patient did have recent pulmonary function testing that showed mild obstructive ventilatory defect. He was a remote smoker for about 20 years, quit smoking over 30 years prior. He is currently on amiodarone for underlying AFib. He denies family history of lung disease. [facility] Medical History Constipation BPH (benign prostatic hyperplasia) Alcohol abuse GERD (gastroesophageal reflux disease) Paroxysmal A-fib Hypertension Hyperthyroidism Surgical History Back pain with history of spinal surgery Hx of hemorrhoids Hx of colonoscopy Family History Father No problems noted. Mother Heart disease Social History (Updated 07/04/24 @ 13:11 by Chelle Nichols [facility]) Household Members: None Housing: Apartment Are you a primary personal care aide to a significant other at home: No Do you presently have visiting nurse or other home services: No Alcohol intake: former Patient Tobacco Use Status: Former Tobacco user Years Smoked: started at 26, 1PPD, quit more than 15 years ago Advance Directives Date on File: 11/22/19 service: No Current occupational status: retired Review of Systems Const Denies daytime sleepiness, Denies excessive sweating, Denies fatigue, Denies fever(s), Denies lethargy, Denies malaise, Denies night sweats, Denies snoring and Denies weight loss Eyes Denies blurry vision and Denies itchy eyes ENT Denies nasal congestion, Denies post nasal drip, Denies sinus pain, Denies sinus pressure and Denies other ( Thrush) Card Denies chest pain, Denies pedal edema, Denies dyspnea, Denies orthopnea and Denies paroxysmal nocturnal dyspnea Resp Reports cough, Denies hemoptysis, Denies excessive phlegm production, Denies dyspnea, Denies snoring and Denies wheezing GI Denies abdominal pain and Denies heartburn Musc Denies myalgias, Denies arthralgias and Denies joint swelling Skin/Breast Denies rash Neuro Denies memory loss and Denies seizure-like activity Psych Denies abnormal sleep pattern, Denies anxiety and Denies memory loss Endo Denies excessive sweating, Denies fatigue and Denies heat intolerance Surinder/Lymph Denies easy bruising Aller/Immun Denies itchy eyes, Denies seasonal rhinorrhea and Denies wheezing Physical Exam Vital Signs: Last Vital Signs Pulse 61 07/04/24 13:01 BP 118/60 07/04/24 13:01 Pulse Ox 96 07/04/24 13:01 Oxygen Delivery Method Room Air 07/04/24 13:01 BMI result Body Mass Index 25.7 Const General: no acute distress and alert Nutritional Appearance: not obese Orientation/consciousness: Other orientation findings ( oriented) HEENT Head: Yes atraumatic Eyes General: appearance normal, both eyes and all related structures Sclerae: sclerae normal EOM: EOMs intact bilaterally Neck Neck: Yes supple Lymphatic: no lymphadenopathy noted Resp Effort & Inspection: normal respiratory effort and no use of accessory muscles Auscultation: clear to auscultation bilaterally Cardio Rate: regular rate Rhythm: regular rhythm Heart sounds: no gallops, no murmurs and no rubs Skin General skin exam: other ( warm) Extrem General: No clubbing, No cyanosis and No edema Assessment & Plan Assessment & Plan (1) Cough: Code(s): R05.9 - Cough, unspecified Category: Medical (2) COPD (chronic obstructive pulmonary disease): Code(s): J44.9 - Chronic obstructive pulmonary disease, unspecified Category: Medical Plan Results of pulmonary function test reviewed, underlying mild COPD. Now with chronic cough of unclear etiology. Will start on empiric Anoro and reassess symptoms. Medications: New umeclidinium-vilanterol 62.5-25 mcg/actuation (Anoro Ellipta) 1 inh inhalation DAILY 1 ea 6RF Coding Level of Care Code New Pt Level 4 (05316) Diagnoses Cough R05.9 COPD (chronic obstructive pulmonary disease) J44.9
[2024-07-04 13:01] VITALS: BP 118/60; PULSE 61; O2SAT 96; BMI 25.7
== END 2024-07-04 13:43 | disposition home or self-care (01) ==
LOC: HO.HPS 12:41
PROVIDERS: PCP Internal Medicine; Referring Provider Internal Medicine; Visit Provider Internal Medicine Pulmonary Disease
DX: R05.9 Cough, unspecified (principal); J44.9 Chronic obstructive pulmonary disease, unspecified
CPT/HCPCS: 99204

== ENCOUNTER → 2024-07-04 12:41 | Outpatient (BNVA) | payer MEDICARE, SELFPAY | PROVIDERS: PCP Internal Medicine; Referring Provider Internal Medicine; Visit Provider Internal Medicine Pulmonary Disease | DX: J44.9 Chronic obstructive pulmonary disease, unspecified (principal); R05.9 Cough, unspecified | CPT/HCPCS: 99202 ==

== ENCOUNTER 2024-07-25 10:00 | Outpatient (REF) | payer MEDICARE, SELFPAY ==
--- OUTSIDE RECORDS SUMMARY | 2024-07-25 11:19 | XMS_ITS | Encounter Summary ---
Author Organization [employer] Address [address] [facility] 7 [place] [address] Care Team Providers Care Paper Sales Manager Name Role Phone Shawna Styles MD Primary Care Provide r Reason for Visit * Reason Onset Date Comments Error 05/18/2023 Encounter Details Date Type Department Care Team ([facility] st Contact Info) Description 05/18/2023 Telephone [facility] MED[facility]INE [address] [place] [address] Shawna Styles MD [address] [place] [address] Error Social History Tobacco Use Types Packs/Day [...] Description 08/06/2024 9:15 AM EDT Office Visit [facility] [address] [place] [phone] Shawna Styles MD [address] [place] [phone] documented as of this encounter Visit Diagnoses Not on filedocumented in this encounter Additional Health Concerns Assessment Noted Time PHQ-9 Depression Total Score: 0 06/30/19 23 10:15 AM EDT documented as of this encounter Care Teams Paper Sales Manager Relationship Specialty Start Date End Date Shawna Styles MD [address] [place] [phone] PCP - General Internal Medicine 04/12/22 documented as of this encounter
== END 2024-07-25 10:01 | disposition home or self-care (01) ==
LOC: HO.SH 10:00
PROVIDERS: Visit Provider Internal Medicine
DX: Z01.118 Encounter for examination of ears and hearing with other abnormal findings (principal); H90.3 Sensorineural hearing loss, bilateral; H69.92 Unspecified Eustachian tube disorder, left ear
CPT/HCPCS: 92557; 92567

== ENCOUNTER 2024-09-06 13:03 | Outpatient (AMB) | payer MEDICARE, MEDICAID, SELFPAY ==
--- OUTSIDE RECORDS SUMMARY | 2024-09-06 13:05 | XMS_ITS | Encounter Summary ---
Author Organization [employer] Address [address] [facility] 7 [place] [address] Care Team Providers Care Date Pitter Name Role Phone Shawna Styles MD Primary Care Provide r Reason for Visit * Reason Onset Date Comments Error 05/18/2023 Encounter Details Date Type Department Care Team ([facility] st Contact Info) Description 05/18/2023 Telephone [facility] MEDICINE [address] [place] [address] Shawna Styles MD [address] [place] [address] Error Social History Tobacco Use Types Packs/Day [...] Care Team (Late st Contact Info) Description 11/08/2024 9:30 AM EDT Office Visit [facility]INE [address] [place] [phone] Shawna Sytles MD [address] [place] [phone] documented as of this encounter Visit Diagnoses Not on filedocumented in this encounter Additional Health Concerns Assessment Noted Time PHQ-9 Depression Total Score: 0 06/30/19 23 10:15 AM EDT documented as of this encounter Care Teams Date Pitter Relationship Specialty Start Date End Date Shawna Styles MD [address] [place] [phone] PCP - General Internal Medicine 04/12/22 documented as of this encounter
--- OUTSIDE RECORDS SUMMARY | 2024-09-06 13:05 | XMS_ITS | Clinical Summary ---
Author Organization [facility] Address [address] [place] [address] Phone Care Team Providers Care Oxygen System Tester Name Role Phone Shawna Styles MD Primary [...] chronic diastolic C HF (congestive heart failure) ([facility] V24, [facility] V28) 12/23/2023 Atrial fibrillation with rap id ventricular response ([facility] V24, [facility] V28) 12/23/2023 Gastroesophageal reflux disease 08/22/2011 Overview [...] Medical History Date Comments Paroxysmal atrial fibrillation ([facility] V24, [facility] V28) Hypertension Hypercholesteremia GERD (gastroesophageal reflux [...] 61 03/08/2024 3:57 PM EST Temperature 36.8 C (98.2 F) 03/08/2024 3:57 PM EST Respiratory Rate 17 03/08/2024 3:57 PM EST [...] 75+ series) 2017 COVID-19 Vaccine ( - 2023- season) 2023 02/04/2021, 05/12/2020, 04/14/2020 Medicare Annual Wellness Visit 11/23/2023 Social Influencers of Health Screening 11/23/2023 Depression Screening 02/14/2024 Influenza Vaccine (#1) 2024 , 11/05/2021, 04/01/2019, Additional history exists Falls Risk Assessment 12/26/2024 12/27/2023 Hypertension/CHF/CAD Annual BMP Blood Test 03/08/2025 03/08/2024, 12/27/2023, 12/26/2023, Additional history exists Cholesterol Screening (Lipid Panel) 10/23/2028 10/24/2023 DTaP,Tdap,and Td Vaccines (4 - Td or Tdap) 12/01/2031 11/30/2021, 06/18/2010, 07/23/2001 Pneumococcal Vaccine: 50+ Years Completed 01/08/2019, 12/04/2008 Zoster Vaccines Completed 04/20/2022, 05/2022, 03/25/2009 HIB Vaccines Aged Out No longer eligi [...] mmol/L LAB CHEMISTRY METHOD 03/08/2024 10:57 AM [facility] Potassium 4.9 3.5 - 5.5 mmol/L LAB CHEMISTRY METHOD 03/08/2024 10:57 AM [facility] Chloride 107 96 - 110 mmol/L LAB CHEMISTRY METHOD 03/08/2024 10:57 AM [facility] CO2 29 21 - 32 mmol/L LAB CHEMISTRY METHOD 03/08/2024 10:57 AM [facility] Anion Gap 4 3 - 11 LAB CHEMISTRY METHOD 03/08/2024 10:57 AM [facility] Glucose 154(H) 70 - 100 mg/dL LAB CHEMISTRY METHOD 03/08/2024 10:57 AM [facility] BUN 11 5 - 25 mg/dL LAB CHEMISTRY METHOD 03/08/2024 10:57 AM [facility] Creatinine 1.07 0.70 - 1.30 mg/dL LAB CHEMISTRY METHOD 03/08/2024 10:57 AM [facility] eGFR 70 >=60 mL/min/1. 73m2 LAB CHEMISTRY METHOD 03/08/2024 10:57 AM [facility] Comment:Calculation based on the Chronic Kidney Disease Epidemiology Collaboration (CKD-EPI) equation refit without adjustment for race. BUN/Creatinine Ratio 10.3 LAB CHEMISTRY METHOD 03/08/2024 10:57 AM [facility] Calcium 8.8 8.5 - 10.5 mg/dL LAB CHEMISTRY METHOD 03/08/2024 10:57 AM [facility] AST (SGOT) 22 10 - 42 unit/L LAB CHEMISTRY METHOD 03/08/2024 10:57 AM [facility] ALT (SGPT) 35 10 - 60 unit/L LAB CHEMISTRY METHOD 03/08/2024 10:57 AM [facility] Alkaline Phosphatase 79 42 - 121 unit/L LAB CHEMISTRY METHOD 03/08/2024 10:57 AM [facility] Total Protein 6.4 6.0 - 8.0 g/dL LAB CHEMISTRY METHOD 03/08/2024 10:57 AM [facility] Albumin 3.3 3.2 - 5.0 g/dL LAB CHEMISTRY METHOD 03/08/2024 10:57 AM [facility] Total Bilirubin 0.5 0.0 - 1.4 mg/dL LAB CHEMISTRY METHOD 03/08/2024 10:57 AM [facility] Blood Venous blood specimen / Unknown Venipuncture / Unknown 03/08/2024 10:14 AM EST 03/08/2024 10:22 AM EST us Isaías Boateng MD LAB BLOOD ORDERABLES Final Result [facility] [address] [place] [address], from Last 3 Months or Most Recently Relevant to Health Maintenance Insurance [employer] MEDICARE Advance Directives Documents on File Type Date Recorded Patient Sports Marketing Specialist Expl anation Advance Directives and Living Will [...] currently active code status orders. Care Teams Oxygen System Tester Relationship Specialty Start Date End Date Shawna Styles MD [address] [place] [phone] PCP - General Internal Medicine 12/23/23
[2024-09-06 13:07] VITALS: BP 128/70; PULSE 62; O2SAT 95; BMI 26.6
--- NOTE | 2024-09-06 13:07 | MHC.OFFVIS ---
Vital Signs 09/06/24 13:07 Height 5 ft 4 in Weight 155 lb BMI 26.6 BP 128/70 Blood Pressure Location Lt brachial Pulse 62 Pulse Source Pulse Oximeter Pulse Oximetry (%) 95 Oxygen Delivery Method Room Air Intake Visit Reasons: Cough Allergies Seasonal Allergies Allergy (Intermediate, Verified 09/06/24 13:13) Itchy Eyes HPI HPI Cough: Details: 84-year-old gentleman with no underlying pulmonary history referred for evaluation of chronic cough ongoing for several years. Patient did have recent pulmonary function testing that showed mild obstructive ventilatory defect. He was a remote smoker for about 20 years, quit smoking over 30 years prior. He is currently on amiodarone for underlying AFib. He denies family history of lung disease. After the last office visit patient was started on Anoro with significant improvement in his symptoms. He denies acute exacerbations. [facility] Medical History Constipation BPH (benign prostatic hyperplasia) Alcohol abuse GERD (gastroesophageal reflux disease) Paroxysmal A-fib Hypertension Hyperthyroidism Surgical History Back pain with history of spinal surgery Hx of hemorrhoids Hx of colonoscopy Family History Father No problems noted. Mother Heart disease Social History (Updated 07/04/24 @ 13:11 by Chelle Nichols [facility]) Household Members: None Housing: Apartment Are you a primary veterinarian laboratory animal care to a significant other at home: No Do you presently have visiting nurse or other home services: No Alcohol intake: former Patient Tobacco Use Status: Former Tobacco user Years Smoked: started at 26, 1PPD, quit more than 15 years ago Advance Directives Date on File: 11/22/19 service: No Current occupational status: retired Review of Systems Const Denies daytime sleepiness, Denies excessive sweating, Denies fatigue, Denies fever(s), Denies lethargy, Denies malaise, Denies night sweats, Denies snoring and Denies weight loss Eyes Denies blurry vision and Denies itchy eyes ENT Denies nasal congestion, Denies post nasal drip, Denies sinus pain, Denies sinus pressure and Denies other ( Thrush) Card Denies chest pain, Denies pedal edema, Denies dyspnea, Denies orthopnea and Denies paroxysmal nocturnal dyspnea Resp Denies cough, Denies hemoptysis, Denies excessive phlegm production, Denies dyspnea, Denies snoring and Denies wheezing GI Denies abdominal pain and Denies heartburn Musc Denies myalgias, Denies arthralgias and Denies joint swelling Skin/Breast Denies rash Neuro Denies memory loss and Denies seizure-like activity Psych Denies abnormal sleep pattern, Denies anxiety and Denies memory loss Endo Denies excessive sweating, Denies fatigue and Denies heat intolerance Surinder/Lymph Denies easy bruising Aller/Immun Denies itchy eyes, Denies seasonal rhinorrhea and Denies wheezing Physical Exam Vital Signs: Last Vital Signs Pulse 62 09/06/24 13:07 BP 128/70 09/06/24 13:07 Pulse Ox 95 09/06/24 13:07 Oxygen Delivery Method Room Air 09/06/24 13:07 BMI result Body Mass Index 26.6 Const General: no acute distress and alert Nutritional Appearance: not obese Orientation/consciousness: Other orientation findings ( oriented) HEENT Head: Yes atraumatic Eyes General: appearance normal, both eyes and all related structures Sclerae: sclerae normal EOM: EOMs intact bilaterally Neck Neck: Yes supple Lymphatic: no lymphadenopathy noted Resp Effort & Inspection: normal respiratory effort and no use of accessory muscles Auscultation: clear to auscultation bilaterally Cardio Rate: regular rate Rhythm: regular rhythm Heart sounds: no gallops, no murmurs and no rubs Skin General skin exam: other ( warm) Extrem General: No clubbing, No cyanosis and No edema Assessment & Plan Assessment & Plan (1) COPD (chronic obstructive pulmonary disease): Code(s): J44.9 - Chronic obstructive pulmonary disease, unspecified Category: Medical Plan: Well controlled on current regimen of Anoro and albuterol MDI. Continue current regimen. (2) Cough: Code(s): R05.9 - Cough, unspecified Category: Medical Plan: Resolved. Coding Level of Care Code Est Pt Level 3 (41378) Diagnoses COPD (chronic obstructive pulmonary disease) J44.9 Cough R05.9
== END 2024-09-06 13:22 | disposition home or self-care (01) ==
LOC: HO.HPS 13:04
PROVIDERS: PCP Internal Medicine; Visit Provider Internal Medicine Pulmonary Disease
DX: J44.9 Chronic obstructive pulmonary disease, unspecified (principal); R05.9 Cough, unspecified
CPT/HCPCS: 99213

== ENCOUNTER → 2024-09-06 13:03 | Outpatient (BNVA) | payer MEDICARE, MEDICAID, SELFPAY | PROVIDERS: PCP Internal Medicine; Visit Provider Internal Medicine Pulmonary Disease | DX: J44.9 Chronic obstructive pulmonary disease, unspecified (principal); R05.9 Cough, unspecified | CPT/HCPCS: 99212 ==

== ENCOUNTER 2024-10-03 12:09 | Emergency (ER) | payer MEDICARE, MEDICAID, SELFPAY ==
[2024-10-03 12:12] VITALS: BP 139/84; PULSE 63; RESP 18; TEMP 36.2; O2SAT 95; BMI 38.8
--- NOTE | 2024-10-03 12:15 | ED.GENADULT ---
HPI - General Adult General Chief complaint: Wound/Laceration Stated complaint: laceration l index finger Time Seen by Provider: 10/03/24 12:29 Source: patient and academic vice president Limitations: no limitations and language barrier History of Present Illness ED Provider: HPI narrative: 84-year-old male on Eliquis presenting with superficial laceration to right index finger without any other injury, unsure of tetanus status. Related Data Home Medications ?Medication ?Instructions ?Recorded ?Confirmed atorvastatin 20 mg tablet 20 mg PO BEDTIME 11/22/19 03/25/24 apixaban 5 mg tablet (Eliquis) 5 mg PO BID 10/25/23 03/25/24 diltiazem HCl 120 mg 120 mg PO DAILY 02/08/24 03/25/24 capsule,extended release 24 hr (Cartia XT) furosemide 20 mg tablet 20 mg PO DAILY 02/08/24 03/25/24 Previous Rx's ?Medication ?Instructions ?Recorded terazosin 10 mg capsule 10 mg PO BEDTIME 90 days #90 caps 03/25/24 umeclidinium 62.5 mcg-vilanterol 1 inh inhalation DAILY #1 ea 07/04/24 25 mcg/actuation powdr for inhalation (Anoro Ellipta) amiodarone 200 mg tablet 200 mg PO DAILY #30 tabs 09/10/24 Allergies Allergy/AdvReac Type Severity Reaction Status Date / Time Seasonal Allergies Allergy Intermediate Itchy Eyes Verified 10/03/24 12:14 Review of Systems Constitutional: Constitutional: Reports as per [facility] Past Medical History Medical History Constipation BPH (benign prostatic hyperplasia) Alcohol abuse GERD (gastroesophageal reflux disease) Paroxysmal A-fib Hypertension Hyperthyroidism Surgical History Back pain with history of spinal surgery Hx of hemorrhoids Hx of colonoscopy Family History Family History Father No problems noted. Mother Heart disease Social History Social History (Updated 07/04/24 @ 13:11 by BRIANDA Pierce) Household Members: None Housing: Apartment Are you a primary skin care specialist to a significant other at home: No Do you presently have visiting nurse or other home services: No Alcohol intake: former Patient Tobacco Use Status: Former Tobacco user Years Smoked: started at 26, 1PPD, quit more than 15 years ago Advance Directives Date on File: 11/22/19 Do you have a plan to hurt others: No Plan service: No Current occupational status: retired Physical Exam ED Vital Signs: Vital Signs - 24 hr 10/03/24 12:12 Temperature 97.2 F Pulse Rate 63 Respiratory Rate 18 Blood Pressure 139/84 Pulse Oximetry 95 Oxygen Delivery Method Room Air BMI result Body Mass Index 38.8 Const Other: Superficial laceration to the tip of the right index finger without nail involvement, FDS FDP intact, bleeding is controlled Course Course Course Narrative: This is a rapid medical exam performed by Aldo Aguilar NP: Additional HPI, ROS, PE not included below will be deferred to primary provider. Patient is an 84-year-old male with history of COPD, AFib on Eliquis, HTN presenting to the emergency department with laceration to distal tip of left index finger. Cut accidentally while slicing a ana. Bleeding has been difficult to control due to his being on Eliquis. Unsure last Tdap. Plan: Will likely require few sutures to control bleeding, meds ordered Medications Administered Discontinued Medications Generic Name Dose Route Start Last Admin Trade Name Freq PRN Reason Stop Dose Admin Bacitracin 1 appl 10/03/24 12:15 10/03/24 12:28 Bacitracin Oint 0.9 Gm Packet TOPICAL 10/03/24 12:16 1 appl ONCE ONE Administration Protocol Diphtheria/Tetanus/Acell Pertussis 0.5 ml 10/03/24 12:15 10/03/24 12:27 Diphth,Pertus(Acell),Tet Adult 0.5 Ml Syringe IM 10/03/24 12:16 0.5 ml .ONCE ONE Administration Lidocaine HCl 5 ml 10/03/24 12:15 10/03/24 12:28 Lidocaine Hcl 1 % Mpf 5 Ml Vial INFILTRATI 10/03/24 12:16 5 ml ONCE ONE Administration Procedures Laceration Right index finger: Side (If applicable): right (index) Size (cm): 0.5 Description: linear and clean Technique: other (skin glue) Medical Decision Making Medical Decision Making MDM Narrative: Superficial laceration of the finger tetanus updated, repaired with Dermabond and Steri-Strips Differential Diagnosis Differential Diagnoses: The differential diagnosis associated with the presentation includes (FDS/FDP laceration, nail bed injury, open fracture) Discharge Plan Discharge Clinical Impression: Superficial laceration of finger Patient Disposition: Home, Self-Care Instructions: Laceration (ED) Additional Instructions: Keep dressing in place for the next 12 hours and did not get wet for the next 24 hours, fixed with Dermabond and Steri-Strips, Steri-Strips will peel off and you can just cut off the edges as they peel did not rip them off, tetanus updated, unlikely it is going to be an infection but if there is any drainage or redness traveling up the finger come back to the ER Prescriptions: No Action amiodarone 200 mg tablet 200 mg PO DAILY Qty: 30 0RF Rx Instructions: MUST SEE MD FOR MORE MEDICATION. PLEASE CALL OFFICE,[phone]. atorvastatin 20 mg tablet 20 mg PO BEDTIME Eliquis 5 mg tablet 5 mg PO BID furosemide 20 mg tablet 20 mg PO DAILY diltiazem HCl [Cartia XT] 120 mg capsule,extended release 24hr 120 mg PO DAILY Anoro Ellipta 62.5-25 mcg/actuation blister with device 1 inh inhalation DAILY Qty: 1 6RF lidocaine HCl 2 % jelly in applicator 10 ml intra-urethral ONCE Qty: 10 0RF terazosin 10 mg capsule 10 mg PO BEDTIME 90 Days Qty: 90 4RF Print Language: Macanese
[2024-10-03] MEDS: Diphth,Pertus(ACell),Tet Adult 0.5 ML SYRINGE IM (12:27)
[2024-10-03] MEDS: Lidocaine HCl 1 % MPF 5 ML VIAL INFILTRATI (12:28)
--- OUTSIDE RECORDS SUMMARY | 2024-10-03 13:19 | XMS_ITS | Encounter Summary ---
Author Organization [employer] Address [address] [facility] 7 [place] [address] Care Team Providers Care Cisco Engineer Name Role Phone Shawna Styles MD Primary Care Provide r Reason for Visit * Reason Onset Date Comments Error 05/18/2023 Encounter Details Date Type Department Care Team ([facility] st Contact Info) Description 05/18/2023 Telephone [facility] MEDICINE [address] [place] [address] Shawna Styles MD [address] [place] [address] Error Social History Tobacco Use Types Packs/Day [...] Description 11/08/2024 9:30 AM EDT Office Visit [facility] MEDICINE [address] [place] [phone] Shawna Styles MD [address] [place] [phone] documented as of this encounter Visit Diagnoses Not on filedocumented in this encounter Additional Health Concerns Assessment Noted Time PHQ-9 Depression Total Score: 0 06/30/19 23 10:15 AM EDT documented as of this encounter Care Teams Cisco Engineer Relationship Specialty Start Date End Date Shawna Styles MD [address] [place] [phone] PCP - General Internal Medicine 04/12/22 documented as of this encounter
--- OUTSIDE RECORDS SUMMARY | 2024-10-03 13:19 | XMS_ITS | Clinical Summary ---
Author Organization [facility] Address [address] [place] [address] Phone Care Team Providers Care Lunchroom Attendant Name Role Phone Shawna Styles MD [...] chronic diastolic C HF (congestive heart failure) ([facility] V24, [facility] V28) 12/23/2023 Atrial fibrillation with rap id ventricular response ([facility] V24, [facility] V28) 12/23/2023 Gastroesophageal reflux disease 08/22/2011 Overview [...] Medical History Date Comments Paroxysmal atrial fibrillation ([facility] V24, [facility] V28) Hypertension Hypercholesteremia GERD (gastroesophageal reflux disease) [...] mmol/L LAB CHEMISTRY METHOD 03/08/2024 10:57 AM [facility] Potassium 4.9 3.5 - 5.5 mmol/L LAB CHEMISTRY METHOD 03/08/2024 10:57 AM [facility] Chloride 107 96 - 110 mmol/L LAB CHEMISTRY METHOD 03/08/2024 10:57 AM [facility] CO2 29 21 - 32 mmol/L LAB CHEMISTRY METHOD 03/08/2024 10:57 AM [facility] Anion Gap 4 3 - 11 LAB CHEMISTRY METHOD 03/08/2024 10:57 AM [facility] Glucose 154(H) 70 - 100 mg/dL LAB CHEMISTRY METHOD 03/08/2024 10:57 AM [facility] BUN 11 5 - 25 mg/dL LAB CHEMISTRY METHOD 03/08/2024 10:57 AM [facility] Creatinine 1.07 0.70 - 1.30 mg/dL LAB CHEMISTRY METHOD 03/08/2024 10:57 AM [facility] eGFR 70 >=60 mL/min/1. 73m2 LAB CHEMISTRY METHOD 03/08/2024 10:57 AM [facility] Comment:Calculation based on the Chronic Kidney Disease Epidemiology Collaboration (CKD-EPI) equation refit without adjustment for race. BUN/Creatinine Ratio 10.3 LAB CHEMISTRY METHOD 03/08/2024 10:57 AM [facility] Calcium 8.8 8.5 - 10.5 mg/dL LAB CHEMISTRY METHOD 03/08/2024 10:57 AM [facility] AST (SGOT) 22 10 - 42 unit/L LAB CHEMISTRY METHOD 03/08/2024 10:57 AM [facility] ALT (SGPT) 35 10 - 60 unit/L LAB CHEMISTRY METHOD 03/08/2024 10:57 AM [facility] Alkaline Phosphatase 79 42 - 121 unit/L LAB CHEMISTRY METHOD 03/08/2024 10:57 AM [facility] Total Protein 6.4 6.0 - 8.0 g/dL LAB CHEMISTRY METHOD 03/08/2024 10:57 AM [facility] Albumin 3.3 3.2 - 5.0 g/dL LAB CHEMISTRY METHOD 03/08/2024 10:57 AM [facility] Total Bilirubin 0.5 0.0 - 1.4 mg/dL LAB CHEMISTRY METHOD 03/08/2024 10:57 AM [facility] Blood Venous blood specimen / Unknown Venipuncture / Unknown 03/08/2024 10:14 AM EST 03/08/2024 10:22 AM EST us Isaías Boateng MD LAB BLOOD ORDERABLES Final Result [facility] [address] [place] [address], from Last 3 Months or Most Recently Relevant to Health Maintenance Insurance [employer] MEDICARE Advance Directives Documents on File Type Date Recorded Patient Bench Shear Operator Expl anation Advance Directives and Living Will [...] currently active code status orders. Care Teams Lunchroom Attendant Relationship Specialty Start Date End Date Shawna Styles MD [address] [place] [phone] PCP - General Internal Medicine 12/23/23
[2024-10-03 13:22] VITALS: BP 139/84; PULSE 63; RESP 18; TEMP 36.2; O2SAT 95
== END 2024-10-03 13:23 | disposition home or self-care (01) ==
PROVIDERS: Emergency Provider Emergency Medicine; PCP Internal Medicine
DX: S61.210A Laceration without foreign body of right index finger without damage to nail, initial encounter (principal); W26.0XXA Contact with knife, initial encounter; Y93.9 Activity, unspecified; Y92.009 Unspecified place in unspecified non-institutional (private) residence as the place of occurrence of the external cause; Y99.9 Unspecified external cause status; Z23 Encounter for immunization
CPT/HCPCS: 12001; 90471; 90715; 99282; 99284; J2003

== ENCOUNTER 2024-10-17 07:02 | Outpatient (REF) | payer MEDICARE, MEDICAID, SELFPAY ==
--- OUTSIDE RECORDS SUMMARY | 2024-10-17 07:07 | XMS_ITS | Encounter Summary ---
Author Organization [employer] Address [address] [facility] 7 [place] [address] Care Team Providers Care Safemaker Name Role Phone Shawna Styles MD Primary Care Provide r Reason for Visit * Reason Onset Date Comments Hospital Follow-up 10/09/2023 Encounter Details Date Type Department Care Team ([facility] st Contact Info) Description 10/09/2023 Telephone [facility] MEDICINE [address] [place] [address] Shawna Styles MD [address] [place], [place] [phone] Hospital Follow-up Social History Tobacco Use Types [...] Tc from pt requesting a HDF appt. [facility]: [facility] Date of admission: 10/05 Discharge date: 10/07 Diagnosed: Mild Heart attack documented in this encounter Plan of Treatment Upcoming Encounters Date Type Department Care Team (Late st Contact Info) Description 11/08/2024 9:30 AM EDT Office Visit [facility] [address] [place] [phone] Shawna Styles MD [address] [place] [address] documented as of this encounter Visit Diagnoses Not on filedocumented in this encounter Additional Health Concerns Assessment Noted Time PHQ-9 Depression Total Score: 0 07/26/19 24 11:48 AM EDT documented as of this encounter Care Teams Safemaker Relationship Specialty Start Date End Date Shawna Styles MD [address] [place] [phone] PCP - General Internal Medicine 04/12/22 documented as of this encounter
--- OUTSIDE RECORDS SUMMARY | 2024-10-17 07:07 | XMS_ITS | Clinical Summary ---
Author Organization [employer] Address [address] [facility] 7t [place] [address] Care Team Providers Care Agency Sales Director Name Role Phone Shawna Styles MD Primary Care Provide r Allergies No known active allergies Medications Lancets miscIndications: Prediabetes Use to test blood sugar 2 times daily 100 each 2 04/17/19 24 Active Alcohol Swabs 70 % padsIndications: Prediabetes Use to test blood sugar 2 times daily 100 each 04/17/19 24 Active Blood Glucose Monitoring Suppl (IROCKEStMobile Pulse Shady Side Lite) w/Device kitIndications:P rediabetes Use to test blood sugar 2 times daily 1 kit 04/17/19 24 Active terazosin (Hytrin) 10 MG capsule Take 1 capsule by mouth at bedtime. 08/01/19 24 Active Multiple Vitamin (multivitamin) tablet Take 1 tablet by mouth Once per day. OTC Active metoprolol tartrate (Lopressor) 25 MG tabletIndication s:Paroxysmal atrial fibrillation (CMS/HCC) Take 1 tablet (25 mg) by mouth 2 times daily. 60 tablet 11 12/19/19 24 025 Active furosemide (Lasix) 20 MG tabletIndication s:Benign hypertension TAKE 1 TABLET BY MOUTH EVERY MORNING 90 tablet 1 07/05/19 25 Active Lancets miscIndications: Prediabetes 1 each Once per day. 100 each 2 08/07/19 25 Active albuterol 108 (90 Base) MCG/ACT inhalerIndicatio ns:Chronic bronchitis, unspecified chronic bronchitis type (CMS/HCC) Inhale 2 puffs every 6 (six) hours if needed for wheezing. 18 g 11 08/07/19 25 026 Active Umeclidinium-Juan Carlos anterol (Anoro Ellipta) 62.5-25 MCG/ACT aerosol powderIndication s:Chronic bronchitis, unspecified chronic bronchitis type (CMS/HCC) Inhale 1 puff Once per day. 1 each 2 08/07/19 25 Active omeprazole (PriLOSEC) [address] capsuleIndicatio ns:Gastroesophag eal reflux disease, unspecified whether esophagitis present Take 1 capsule (20 mg) by mouth if needed each day (abdominla pain/heartbu rn/GERD symptoms). Do not crush or chew. 90 capsule 1 08/07/19 25 026 Active Blood Glucose Monitoring Suppl (FreeStyle Lite) w/Device kit 1 each Use as directed. Use to check blood sugar 1 kit 08/08/19 25 Active FREESTYLE LITE test strip Use to check blood sugar as directed 100 each 12 08/08/19 25 026 Active Blood Glucose Monitoring Suppl (Accu-Chek Guide Me) w/Device kit Use to check BS as directed 1 kit 08/09/19 25 Active glucose blood (Accu-Chek Guide Test) test strip Use to check BS as directed 100 each 08/09/19 25 026 Active atorvastatin (Lipitor) 20 MG tabletIndication s:Benign hypertension TAKE 1 TABLET BY MOUTH EVERY MORNING 90 tablet 2 09/03/19 25 Active Eliquis 5 MG tablet TAKE 1 TABLET BY MOUTH TWICE DAILY IN THE MORNING AND IN THE EVENING 180 tablet 3 10/03/19 25 Active Eliquis 5 MG tablet Take 1 tablet (5 mg) by mouth every 12 (twelve) hours. 180 tablet 3 10/19/19 24 025 Discontinued Active Problems Problem Noted Date Diagnosed Date Chronic bronchitis 08/06/2024 Assessment & Plan (08/06/2024 1:33 PM EDT): Continue with albuterol as needed I refilled for him today his Anora Ellipta inhaler to use once daily Decreased hearing of both ears 05/09/2024 Multiple [...] patient Primary hypertension 11/06/2023 Assessment & Plan (08/06/2024 1:32 PM EDT): Blood pressure seems to be under control we will continue with same medication regimen and low-sodium diet Assessment & Plan (05/09/2024 10:46 AM EDT): [...] Bradycardia with 41-50 beats per minute 03/21/19 Assessment & Plan (03/21/2023 7:47 PM EST): [...] for him Prediabetes 07/30/2018 Assessment & Plan (08/06/2024 1:33 PM EDT): Today extensive discussion was done about life style modifications I advise healthy diet (low calorie) and increase physical activity as tolerated Assessment & Plan (02/01/2024 9:45 AM EST): [...] Gastroesophageal reflux disease 08/22/2011 Assessment & Plan (08/06/2024 1:33 PM EDT): I advise patient to avoid NSAIDs, spicy and acid food, I advise to eat at the same time every day, I advise to elevate the head of the bed and take medications as prescribe I will prescribe today omeprazole 20 mg daily in the morning Assessment & Plan (11/06/2023 1:08 PM EDT): [...] Encounters Date Type Department Care Team Description 10/02/2024 Refill [facility] [address] [facility] [place] [address] Chelle Davey DO 09/01/2024 Refill [facility] [address] [place] [address] Shawna Styles MD Benign hypertension 08/08/2024 Refill [facility] [address] [facility] [place] [address] Shawna Styles MD 08/07/2024 Refill [facility] [address] [facility] [place] [address] Shawna Styles MD 08/06/2024 9:15 AM EDT Office Visit [facility] [place] [address] Shawna Styles MD Primary hypertension (Primary Dx); Prediabetes; Chronic bronchitis, unspecified chronic bronchitis type (CMS/HCC); Gastroesophageal reflux disease, unspecified whether esophagitis present 08/06/2024 Travel 08/05/2024 Telephone [facility] [place] [address] Shawna Styles MD Chart Prep 07/26/2024 Orders Only [facility] [place] [address] Shawna Styles MD Negative middle ear pressure of left ear (Primary Dx) 07/26/2024 Patient Outreach [facility] [place] [phone] Shawna Styles MD Pre-visit Planning ([facility] screening completed on 04/30/2024) 07/25/2024 Telephone [facility] [place] [address] Shawna Styles MD Referral from Last 3 Months Immunizations Immunization Administration Dates Next Due Influenza High-dose Quadriva [...] Answer Date Recorded Patient Health Questionnaire-9 Score 4 08/06/2024 Patient Health Questionnaire-9 Score 4 08/06/2024 Last PHQ-9: Questionnaire Data Not on file 0 08/06/2024 Housing Stability Answer Date Recorded What is [...] the past 12 months, has t he [employer], [employer], oil or water [employer] threatened to shut off services in your home? No 07/26/2023 Depression Answer Date Recorded Patient Health Questionnaire-2 Score 2 08/06/2024 Internet Access Answer Date Recorded Internet Access [...] Reading Time Taken Comments Blood Pressure 120/70 08/06/2024 9:13 AM EDT Pulse 61 08/06/2024 9:13 AM EDT Temperature 36.7 C (98 F) 08/06/2024 9:13 AM EDT Respiratory Rate 16 08/06/2024 9:13 AM EDT Oxygen Saturation 96% 08/06/2024 9:13 AM EDT Inhaled Oxygen Concentration - - Weight 70.1 kg (154 lb 9.6 oz) 08/06/2024 9:13 A M EDT Height 162.6 cm (5' 4 ) 08/06/2024 9:13 AM EDT Body Mass Index 26.54 08/06/2024 9:13 AM EDT Plan of Treatment Upcoming Encounters Date Type Department Care Team (Late st Contact Info) Description 11/08/2024 9:30 AM EDT Office Visit [facility] [address] [place] [address] Shawna Styles MD [address] [place] [address] Health Maintenance Due Date Last Done Comments Alcohol/Substance Use Screening 1952 RSV Patients and Patients Aged 60 years or older (1 - 1-dose 75+ series) 2017 COVID-19 Vaccine ( - season) 2024 02/04/2021, 05/12/2020, 04/14/2020 Influenza Vaccine (#1) 2024 , 11/05/2021, 04/01/2019, Additional history exists Diabetes: Hemoglobin A1C 01/31/2025 024, 01/26/2023, 06/29/2022, Additional history exists SDOH Screening 04/30/2025 04/30/2024 Depression Screening 08/06/2025 08/06/2024, 08/07/19 25 Tobacco Screening 08/06/2025 08/06/2024 Lipid Panel 10/23/2028 10/24/2023, 07/01/2020 DTaP/Tdap/Td Vaccines [...] Date/Time Associated Diagnosis Comments POCT GLUCOSE Routine 08/06/2024 9:15 AM EDT Prediabetes POCT GLYCATED HEMOGLOBIN, TOTAL Routine 02/01/2024 9:10 AM EST Prediabetes LIPID PANEL, STANDARD Routine 10/24/2023 9:20 AM EDT Prediabetes from Last 3 Months or Most Recently Relevant to Health Maintenance Results * POCT Glucose (08/06/2024 9:15 AM EDT) Glucose Blood, POC 129 60 - 200 mg/dL QC Media Lot # [id number] Lot# Expiration Date Blood Capillary blood specimen / Unknown 08/06/2024 9:15 AM EDT Shawna Zamarripa MD POINT OF CARE TEST EN TER/EDIT ORDERABLES Final Result * POCT HGB A1C (02/01/2024 9:10 AM EST) Hemoglobin A1C 5.9 4.0 - 6.0 % QC Media Lot # [id number] Lot# Expiration Date Blood 02/01/2024 9:10 AM EST Shawna Zamarripa MD POINT OF CARE TEST EN TER/EDIT ORDERABLES Final Result * Lipid Panel, Standard (10/24/2023 9:20 AM EDT) Triglycerides 53 <150 mg/dL [facility] Comment:Desirable Triglyceri de: less than 150 mg/dLBorderline High Triglyceride 150-199 mg/dLHigh Triglyceride: 200-499 mg/dLVery High Triglyceride: greater than or equal to 5OO mg/dL Cholesterol 128 <200 mg/dL [facility] Comment:Desirable Cholestero l: less than 200 mg/dLBorderline High Cholesterol: 200-239 mg/dLHigh Cholesterol: greater than 239 mg/dL LDL Cholesterol Calculated 48 <100 mg/dL [facility] Comment:Desirable LDL: less than 100 mg/dLNear Optimal/Above Optimal LDL: 110- 129 mg/dLBorderline High LDL: 130-159 mg/dLHigh LDL: 160-189 mg/dLVery High LDL: greater than or equal to 190 mg/dL HDL Cholesterol 70 >40 mg/dL [facility] Comment:Desirable HDL: great er than 40 mg/dL Note: This HDL assay may give artificially low results in patients with liver disease. Blood Venous blood specimen / Unknown 10/24/2023 9:20 AM EDT 10/24/2023 11:03 AM EDT Shawna Zamarripa MD LAB BLOOD ORDERABLES Final Result [facility] [address] [place] [address] [phone] from Last 3 Months or Most Recently Relevant to Health Maintenance Insurance [facility] MEDICARE ADVANTAGE HMO Care Teams Agency Sales Director Relationship Specialty Start Date End Date Shawna Styles MD [address] [place] [phone] PCP - General Internal Medicine 04/12/22
--- OUTSIDE RECORDS SUMMARY | 2024-10-17 07:07 | XMS_ITS | Encounter Summary ---
Author Organization [employer] Address [address] [facility] [address] [place] [address] Care Team Providers Care Surveying Or Spatial Science Technician Name Role Phone Shawna Styles MD Primary Care Provide r Encounter Details Date Type Department Care Team ([facility] st Contact Info) Description 11/22/2022 Orders Only [facility] [address] [place], [place] [phone] Chelle Cruz LPN Social History Tobacco Use [...] Description 11/08/2024 9:30 AM EDT Office Visit [facility] [address] [place] [address] Shawna Styles MD [address] [place], [place] [phone] documented as of this encounter Procedures Procedure Name Priority Date/Time Associated Diagnosis Comments PSA, TOTAL Routine 10/24/2023 9:20 AM EDT CBC WITH AUTO DIFFERENTIAL Routine 05/31/2023 12:10 PM EDT TSH Routine 05/31/2023 12:10 PM EDT documented in this encounter Results * PSA,Total (10/24/2023 9:20 AM EDT) Prostate Specific Antigen 1.25 <0.05 - 4.0 ng/mL [facility] Comment:PSA methodology: Abb karrie Alibrandtty i ChemiluminescentMicroparticle Immunoassay (CMIA) 10/24/2023 9:20 AM EDT 10/24/2023 11:03 AM EDT us Generic External Data Provider LAB BLOOD ORDERAB LES Final Result [facility] [address] [place] [address] [phone] * TSH (05/31/2023 12:10 PM EDT) Thyroid Stimulating Hormone 1.38 0.32 - 4.0 uIU/mL [facility] Comment:TSH 3rd Generation ( [facility]) 05/31/2023 12:1 0 PM EDT 05/31/2023 12:10 PM EDT us Generic External Data Provider LAB BLOOD ORDERAB LES Final Result [facility] [address] [place] [address] [phone] * (ABNORMAL) CBC auto differential (05/31/2023 12:10 PM EDT) Pathologist [facility] White Blood Count 7.4 4.8 - 10.8 X10*3/uL [facility] Red Blood Count 4.27(L) 4.60 - 5.80 X10*6/uL [facility] Hemoglobin 13.9(L) 14.0 - 18.0 g/dl [facility] Hematocrit 41.1(L) 42.0 - 52.0 % [facility] Mean Corpuscular Volume 96.3 80.0 - 98.0 fL [facility] Mean Corpuscular Hemoglobin 32.6 27.0 - 33.0 pg [facility] Mean Corpuscular HGB Conc 33.8 31.0 - 36.0 g/dl [facility] Red Cell Distribution Width 13.1 11.0 - 16.0 % [facility] Platelet Count 124(L) 160 - 400 X10*3/uL [facility] Mean Platelet Volume 12.1 9.4 - 12.4 fL [facility] Neutrophils Percent Auto 60.2 45 - 73 % [facility] Imm Gran Pct Auto 0.8(H) 0.0 - 0.4 % [facility] Lymphocytes Percent Auto 22.0 20 - 40 % [facility] Monocytes Percent Auto 13.6(H) 2 - 11 % [facility] Eosinophils Percent Auto 2.7 0 - 4 % [facility] Basophils Percent Auto 0.7 0 - 2 % [facility] NRBC Pct Auto 0.0 0.0 - 0.2 /100WBC [facility] Neutrophils Absolute Auto 4.4 2.0 - 8.3 x10*3/uL [facility] Imm Gran Abs Auto 0.06(H) 0.00 - 0.03 X10*3/uL [facility] Lymphocytes Absolute Auto 1.6 1.2 - 4.9 X10*3/uL [facility] Monocytes Absolute Auto 1.0 0.1 - 1.2 X10*3/uL [facility] Eosinophils Absolute Auto 0.2 0.0 - 0.4 X10*3/uL [facility] Basophils Absolute Auto 0.1 0.0 - 0.2 X10*3/uL [facility] NRBC Abs Auto 0.000 0.0 - 0.012 X10*3/uL [facility] 05/31/2023 12:1 0 PM EDT 05/31/2023 12:10 PM EDT us Generic External Data Provider LAB BLOOD ORDERAB LES Final Result [facility] [address] [place] [phone] [phone] documented in this encounter Visit Diagnoses Not on filedocumented in this encounter Additional Health Concerns Assessment Noted Time PHQ-9 Depression Total Score: 0 06/30/19 23 10:15 AM EDT documented as of this encounter Care Teams Surveying Or Spatial Science Technician Relationship Specialty Start Date End Date Shawna Styles MD [address] [place] [address] PCP - General Internal Medicine 04/12/22 documented as of this encounter
--- OUTSIDE RECORDS SUMMARY | 2024-10-17 07:07 | XMS_ITS | Encounter Summary ---
Author Organization [employer] Address [address] [place] [address] [place] [address] Care Team Providers Care Billet Worker Name Role Phone Mckenzie Dawkins MATERIALS RECYCLER Primary Care Provider Shawna Nix MD Primary Care Provide r Reason for Visit * Reason Comments Med Refill Encounter Details Date Type Department Care Team ([facility] Contact Info) Description 03/08/2022 Refill [facility] [address] [place] [address] Dwayne Chong MD [address] [place] [phone] Benign hypertension Social History Tobacco Use Types [...] Department Care Team (Late Contact Info) Description 11/08/2024 9:30 AM EDT Office Visit [facility] [address] [place], [place] [phone] Shawna Styles MD [address] [place] [address] documented as of this encounter Visit Diagnoses Diagnosis Benign hypertension Essential hypertension, benign documented in this encounter Care Teams Billet Worker Relationship Specialty Start Date End Date Mckenzie Dawkins FNP PCP - General Family Medicine 01/21/22 04/11/22 Shawna Styles MD [address] [place] [address] PCP - General Internal Medicine 04/12/22 documented as of this encounter
--- OUTSIDE RECORDS SUMMARY | 2024-10-17 07:07 | XMS_ITS | Encounter Summary ---
Author Organization [employer] Address [address] [facility] 7t [place] [address] Care Team Providers Care Surveillance Systems Analyst Name Role Phone Shawna Styles MD Primary Care Provide r Reason for Visit * Reason Comments Med Refill Encounter Details Date Type Department Care Team ([facility] st Contact Info) Description 10/02/2023 Refill [facility] [address] [place], [place] [phone] Shawna Styles MD [address] [place], [place] [phone] Benign hypertension Social History Tobacco Use Types [...] Description 11/08/2024 9:30 AM EDT Office Visit [facility] [address] [place] [address] Shawna Styles MD [address] [place] [address] documented as of this encounter Visit Diagnoses Diagnosis Benign hypertension Essential hypertension, benign documented in this encounter Additional Health Concerns Assessment Noted Time PHQ-9 Depression Total Score: 0 07/26/19 24 11:48 AM EDT documented as of this encounter Care Teams Surveillance Systems Analyst Relationship Specialty Start Date End Date Shawna Styles MD [address] [place] [address] PCP - General Internal Medicine 04/12/22 documented as of this encounter
--- OUTSIDE RECORDS SUMMARY | 2024-10-17 07:07 | XMS_ITS | Encounter Summary ---
Author Organization [employer] Address [address] [facility] 7t [place] [address] Care Team Providers Care Fur Blender Name Role Phone Shawna Styles MD Primary Care Provide r Reason for Visit * Reason Comments Med Refill Encounter Details Date Type Department Care Team ([facility] st Contact Info) Description 08/01/2023 Refill [facility] [address] [place], [place] [phone] Shawna Styles MD [address] [place], [place] [phone] Benign hypertension Social History Tobacco Use Types [...] Description 11/08/2024 9:30 AM EDT Office Visit [facility] [address] [place] [address] Shawna Styles MD [address] [place] [address] documented as of this encounter Visit Diagnoses Diagnosis Benign hypertension Essential hypertension, benign documented in this encounter Additional Health Concerns Assessment Noted Time PHQ-9 Depression Total Score: 0 07/26/19 24 11:48 AM EDT documented as of this encounter Care Teams Fur Blender Relationship Specialty Start Date End Date Shawna Styles MD [address] [place] [address] PCP - General Internal Medicine 04/12/22 documented as of this encounter
--- OUTSIDE RECORDS SUMMARY | 2024-10-17 07:07 | XMS_ITS | Encounter Summary ---
Author Organization [employer] Address [address] [facility] 7 [place] [address] Care Team Providers Care Rn Mental Health Name Role Phone Shawna Styles MD Primary Care Provide r Reason for Visit * Reason Onset Date Comments Error 05/18/2023 Encounter Details Date Type Department Care Team ([facility] st Contact Info) Description 05/18/2023 Telephone [facility] [address] [place] [address] Shawna Styles MD [address] [place] [address] Error Social History Tobacco Use Types Packs/Day [...] Description 11/08/2024 9:30 AM EDT Office Visit [facility] [address] [place] [phone] Shawna Styles MD [address] [place] [phone] documented as of this encounter Visit Diagnoses Not on filedocumented in this encounter Additional Health Concerns Assessment Noted Time PHQ-9 Depression Total Score: 0 06/30/19 23 10:15 AM EDT documented as of this encounter Care Teams Rn Mental Health Relationship Specialty Start Date End Date Shawna Stlyes MD [address] [place] [phone] PCP - General Internal Medicine 04/12/22 documented as of this encounter
--- OUTSIDE RECORDS SUMMARY | 2024-10-17 07:07 | XMS_ITS | Encounter Summary ---
Author Organization [employer] Address [address] [place] [address] [place] [address] Care Team Providers Care Molder Apprentice Name Role Phone Shawna Styles MD Primary Care Provide r Reason for Visit * Reason Comments Med Refill Encounter Details Date Type Department Care Team (Late Contact Info) Description 05/04/2022 Refill [facility] [address] [place] [phone] Dwayne Chong MD [address] [place] [phone] Benign hypertension Social History Tobacco Use Types [...] Description 11/08/2024 9:30 AM EDT Office Visit [facility] [address] [place], [place] [phone] Shawna Styles MD [address] [place], [place] [phone] documented as of this encounter Visit Diagnoses Diagnosis Benign hypertension Essential hypertension, benign documented in this encounter Care Teams Molder Apprentice Relationship Specialty Start Date End Date Shawna Styles MD [address] [place] [phone] PCP - General Internal Medicine 04/12/22 documented as of this encounter
--- OUTSIDE RECORDS SUMMARY | 2024-10-17 07:07 | XMS_ITS | Encounter Summary ---
Author Organization [employer] Address [address] [place] [address] 7t [place] [address] Care Team Providers Care Poultry Culler Name Role Phone Mckenzie Dawkins Primary Care Provider Shawna Nix MD Primary Care Provide r Reason for Visit * Reason Onset Date Comments Appointment Request 04/05/2022 Encounter Details Date Type Department Care Team (Late st Contact Info) Description 04/05/2022 Telephone [facility] [address] [place] [address] Mckenzie Dawkins FNP Appointment Request Social History [...] to r/s Follow up appt (F/U HTN). Operations Support Manager tried booking appt but no appt was available Pt daughter is stating that she only wants appt with provider. Please contact pt at [phone] documented in this encounter Plan of Treatment Upcoming Encounters Date Type Department Care Team (Late st Contact Info) Description 11/08/2024 9:30 AM EDT Office Visit [facility] [address] [place] [address] Shawna Styles MD [address] [place] [address] documented as of this encounter Visit Diagnoses Not on filedocumented in this encounter Care Teams Poultry Culler Relationship Specialty Start Date End Date Mckenzie Dawkins FNP PCP - General Family Medicine 01/21/22 04/11/22 Shawna Styles MD [address] [place], [place] [phone] PCP - General Internal Medicine 04/12/22 documented as of this encounter
--- OUTSIDE RECORDS SUMMARY | 2024-10-17 07:07 | XMS_ITS | Clinical Summary ---
Author Organization [facility] Address [address] [place] [address] Phone Care Team Providers Care Textiles And Clothing Teacher Name Role Phone Shawna Styles MD [...] chronic diastolic C HF (congestive heart failure) ([facility] [place], [facility] V28) 12/23/2023 Atrial fibrillation with rap id ventricular response ([facility], [facility] V28) 12/23/2023 Gastroesophageal reflux disease 08/22/2011 Overview [...] Medical History Date Comments Paroxysmal atrial fibrillation ([facility], [facility] V28) Hypertension Hypercholesteremia GERD (gastroesophageal [...] Patients (1 - 1-dose 75+ series) 2017 Medicare Annual Wellness Visit 11/23/2023 Social Influencers of Health Screening 11/23/2023 Depression Screening 02/14/2024 COVID-19 Vaccine ( season) 2024 02/04/2021, 05/12/2020, 04/14/2020 Influenza Vaccine [...] mmol/L LAB CHEMISTRY METHOD 03/08/2024 10:57 AM [facility] Potassium 4.9 3.5 - 5.5 mmol/L LAB CHEMISTRY METHOD 03/08/2024 10:57 AM [facility] Chloride 107 96 - 110 mmol/L LAB CHEMISTRY METHOD 03/08/2024 10:57 AM [facility] CO2 29 21 - 32 mmol/L LAB CHEMISTRY METHOD 03/08/2024 10:57 AM [facility] Anion Gap 4 3 - 11 LAB CHEMISTRY METHOD 03/08/2024 10:57 AM [facility] Glucose 154(H) 70 - 100 mg/dL LAB CHEMISTRY METHOD 03/08/2024 10:57 AM [facility] BUN 11 5 - 25 mg/dL LAB CHEMISTRY METHOD 03/08/2024 10:57 AM [facility] Creatinine 1.07 0.70 - 1.30 mg/dL LAB CHEMISTRY METHOD 03/08/2024 10:57 AM [facility] eGFR 70 >=60 mL/min/1. 73m2 LAB CHEMISTRY METHOD 03/08/2024 10:57 AM [facility] Comment:Calculation based on the Chronic Kidney Disease Epidemiology Collaboration (CKD-EPI) equation refit without adjustment for race. BUN/Creatinine Ratio 10.3 LAB CHEMISTRY METHOD 03/08/2024 10:57 AM [facility] Calcium 8.8 8.5 - 10.5 mg/dL LAB CHEMISTRY METHOD 03/08/2024 10:57 AM [facility] AST (SGOT) 22 10 - 42 unit/L LAB CHEMISTRY METHOD 03/08/2024 10:57 AM [facility] ALT (SGPT) 35 10 - 60 unit/L LAB CHEMISTRY METHOD 03/08/2024 10:57 AM [facility] Alkaline Phosphatase 79 42 - 121 unit/L LAB CHEMISTRY METHOD 03/08/2024 10:57 AM [facility] Total Protein 6.4 6.0 - 8.0 g/dL LAB CHEMISTRY METHOD 03/08/2024 10:57 AM [facility] Albumin 3.3 3.2 - 5.0 g/dL LAB CHEMISTRY METHOD 03/08/2024 10:57 AM [facility] Total Bilirubin 0.5 0.0 - 1.4 mg/dL LAB CHEMISTRY METHOD 03/08/2024 10:57 AM [facility] Blood Venous blood specimen / Unknown Venipuncture / Unknown 03/08/2024 10:14 AM EST 03/08/2024 10:22 AM EST us Isaías Boateng MD LAB BLOOD ORDERABLES Final Result [facility] [address] [place] [address], from Last 3 Months or Most Recently Relevant to Health Maintenance Insurance [employer] MEDICARE Advance Directives Documents on File Type Date Recorded Patient Manager Intensive Care Unit Expl anation Advance Directives and Living Will [...] currently active code status orders. Care Teams Textiles And Clothing Teacher Relationship Specialty Start Date End Date Shawna Styles MD [address] [place] [phone] PCP - General Internal Medicine 12/23/23
== END 2024-10-17 07:03 | disposition home or self-care (01) ==
LOC: HO.LAB 07:02
PROVIDERS: PCP Internal Medicine; Visit Provider Internal Medicine
DX: E05.90 Thyrotoxicosis, unspecified without thyrotoxic crisis or storm (principal); J44.9 Chronic obstructive pulmonary disease, unspecified
CPT/HCPCS: 36415; 84443

== ENCOUNTER → 2024-10-25 07:43 | Outpatient (REF) | payer MEDICARE, MEDICAID, SELFPAY ==
--- NOTE | ~2024-10-25 | NM_ITS ---
Lexiscan Myocardial perfusion study Indication: Atrial fibrillation Technique: The patient was brought in for a Lexiscan perfusion study on 10/25/2024 and was injected 0.4 mg of Lexiscan intravenously. Within a minute of this injection 25 mCi of sestamibi was given intravenously. Images were obtained using the SPECT gamma camera interlaced with the gating device. Images were obtained in supine position. Resting perfusion study was performed on 10/31/2024. Patient was administered 25 mCi of sestamibi intravenously at rest. Images were then obtained in supine position. Total DLP 101 mGy-cm. Images were processed with the software and compared side to side in short axis, horizontal long axis and vertical long axis views. Findings: Raw aquisition reviewed. Arms by the patient's side The stress perfusion study showed no significant perfusion abnormality. Both uncorrected as well as CT attenuation corrected images were reviewed. The gated study shows normal LV systolic function with calculated LVEF of 62%. LV cavity is normal in size. The gated study shows normal wall thickening and contraction of segments. Resting study shows no significant perfusion abnormality. Gating at rest reveals normal wall motion with ejection fraction at 67%. The findings are consistent with no clear reversible or fixed perfusion defects. NM/NM cardiolite stress test Impression: 1. Myocardial perfusion imaging study shows normal myocardial perfusion. 2. Gated LVEF is 62% during stress and 67% during rest. 3. Transient ischemic dilatation not present. EKG component of the test reported separately. Electronically signed by: Zachery Bean MD 11/03/2024 12:37 PM EDT
--- NOTE | 2024-10-25 07:45 | CA_ITS ---
Acquisition Time: 2024-10-25 08:08:03 Total Exercise Time: 00:02:00 Test Indications: AFIB, BRADYCARDIA Medications: SEE H&P Protocol: LEXISCAN Max HR: 68 BPM 49% of Pred: 138 BPM Max BP: 120/78 mmHG Max Work Load: 1.0 METS Pharmacological stress test with Lexiscan while pt swings his legs in chair, without any reported symptoms, with isolated PVCs, with normotensive response to injection. Nondiagnostic EKG for ischemia. In recovery, pt continued to feel well. Nuclear images pending. Test reviewed with Dr. Grant. Referred By: Zachery Bean Electronically Signed By: Devyn Laws
--- OUTSIDE RECORDS SUMMARY | 2024-10-25 07:46 | XMS_ITS | Encounter Summary ---
Author Organization [employer] Address [address] [facility] 7 [place] [address] Care Team Providers Care Poultry Farmer Meat Name Role Phone Shawna Styles MD Primary Care Provide r Reason for Visit * Reason Onset Date Comments Hospital Follow-up 10/09/2023 Encounter Details Date Type Department Care Team ([facility] st Contact Info) Description 10/09/2023 Telephone [facility] [address] [place] [address] Shawna Styles MD [address] [place], [place] [phone] Hospital Follow-up Social History Tobacco Use Types [...] Tc from pt requesting a HDF appt. [facility]: [facility] Date of admission: 10/05 Discharge date: 10/07 Diagnosed: Mild Heart attack documented in this encounter Plan of Treatment Upcoming Encounters Date Type Department Care Team (Late st Contact Info) Description 11/08/2024 9:30 AM EDT Office Visit [facility] [address] [place] [phone] Shawna Styles MD [address] [place] [phone] documented as of this encounter Visit Diagnoses Not on filedocumented in this encounter Additional Health Concerns Assessment Noted Time PHQ-9 Depression Total Score: 0 07/26/19 24 11:48 AM EDT documented as of this encounter Care Teams Poultry Farmer Meat Relationship Specialty Start Date End Date Shawna Styles MD [address] [place] [phone] PCP - General Internal Medicine 04/12/22 documented as of this encounter
--- OUTSIDE RECORDS SUMMARY | 2024-10-25 07:46 | XMS_ITS | Encounter Summary ---
Author Organization [employer] Address [address] [facility] [address] 7[address] [place] [address] Care Team Providers Care Supervisor Home Energy Consultant Name Role Phone Shawna Styles MD Primary Care Provide r Encounter Details Date Type Department Care Team ([facility] st Contact Info) Description 11/22/2022 Orders Only [facility] [address] [place], [place] [phone] Chelle Cruz LPN Social History Tobacco Use [...] Description 11/08/2024 9:30 AM EDT Office Visit [facility] [address] [place] [address] Shawna Styles MD [address] [place], [place] [phone] documented as of this encounter Procedures Procedure Name Priority Date/Time Associated Diagnosis Comments PSA, TOTAL Routine 10/24/2023 9:20 AM EDT CBC WITH AUTO DIFFERENTIAL Routine 05/31/2023 12:10 PM EDT TSH Routine 05/31/2023 12:10 PM EDT documented in this encounter Results * PSA,Total (10/24/2023 9:20 AM EDT) Prostate Specific Antigen 1.25 <0.05 - 4.0 ng/mL [facility] Comment:PSA methodology: Abb karrie Alibrandtty i ChemiluminescentMicroparticle Immunoassay (CMIA) 10/24/2023 9:20 AM EDT 10/24/2023 11:03 AM EDT us Generic External Data Provider LAB BLOOD ORDERAB LES Final Result [facility] [address] [place] [address] [phone] * TSH (05/31/2023 12:10 PM EDT) Thyroid Stimulating Hormone 1.38 0.32 - 4.0 uIU/mL [facility] Comment:TSH 3rd Generation ( [facility]) 05/31/2023 12:1 0 PM EDT 05/31/2023 12:10 PM EDT us Generic External Data Provider LAB BLOOD ORDERAB LES Final Result [facility] [address] [place] [address] [phone] * (ABNORMAL) CBC auto differential (05/31/2023 12:10 PM EDT) Pathologist [facility] White Blood Count 7.4 4.8 - 10.8 X10*3/uL [facility] Red Blood Count 4.27(L) 4.60 - 5.80 X10*6/uL [facility] Hemoglobin 13.9(L) 14.0 - 18.0 g/dl [facility] Hematocrit 41.1(L) 42.0 - 52.0 % [facility] Mean Corpuscular Volume 96.3 80.0 - 98.0 fL [facility] Mean Corpuscular Hemoglobin 32.6 27.0 - 33.0 pg [facility] Mean Corpuscular HGB Conc 33.8 31.0 - 36.0 g/dl [facility] Red Cell Distribution Width 13.1 11.0 - 16.0 % [facility] Platelet Count 124(L) 160 - 400 X10*3/uL [facility] Mean Platelet Volume 12.1 9.4 - 12.4 fL [facility] Neutrophils Percent Auto 60.2 45 - 73 % [facility] Imm Gran Pct Auto 0.8(H) 0.0 - 0.4 % [facility] Lymphocytes Percent Auto 22.0 20 - 40 % [facility] Monocytes Percent Auto 13.6(H) 2 - 11 % [facility] Eosinophils Percent Auto 2.7 0 - 4 % [facility] Basophils Percent Auto 0.7 0 - 2 % [facility] NRBC Pct Auto 0.0 0.0 - 0.2 /100WBC [facility] Neutrophils Absolute Auto 4.4 2.0 - 8.3 x10*3/uL [facility] Imm Gran Abs Auto 0.06(H) 0.00 - 0.03 X10*3/uL [facility] Lymphocytes Absolute Auto 1.6 1.2 - 4.9 X10*3/uL [facility] Monocytes Absolute Auto 1.0 0.1 - 1.2 X10*3/uL [facility] Eosinophils Absolute Auto 0.2 0.0 - 0.4 X10*3/uL [facility] Basophils Absolute Auto 0.1 0.0 - 0.2 X10*3/uL [facility] NRBC Abs Auto 0.000 0.0 - 0.012 X10*3/uL [facility] 05/31/2023 12:1 0 PM EDT 05/31/2023 12:10 PM EDT us Generic External Data Provider LAB BLOOD ORDERAB LES Final Result [facility] [address] [place] [address] [phone] documented in this encounter Visit Diagnoses Not on filedocumented in this encounter Additional Health Concerns Assessment Noted Time PHQ-9 Depression Total Score: 0 06/30/19 23 10:15 AM EDT documented as of this encounter Care Teams Supervisor Home Energy Consultant Relationship Specialty Start Date End Date Shawna Styles MD [address] [place] [phone] PCP - General Internal Medicine 04/12/22 documented as of this encounter
--- OUTSIDE RECORDS SUMMARY | 2024-10-25 07:46 | XMS_ITS | Clinical Summary ---
Author Organization [facility] Address [address] [place] [address] Phone Care Team Providers Care Digital Marketing Executive Name Role Phone Shawna Styles MD Primary [...] chronic diastolic C HF (congestive heart failure) ([facility] [place], [facility] V28) 12/23/2023 Atrial fibrillation with rap id ventricular response ([facility] [place], [facility]) 12/23/2023 Gastroesophageal reflux disease 08/22/2011 Overview [...] Medical History Date Comments Paroxysmal atrial fibrillation ([facility], [facility] V28) Hypertension Hypercholesteremia GERD (gastroesophageal reflux [...] mmol/L LAB CHEMISTRY METHOD 03/08/2024 10:57 AM [facility] Potassium 4.9 3.5 - 5.5 mmol/L LAB CHEMISTRY METHOD 03/08/2024 10:57 AM [facility] Chloride 107 96 - 110 mmol/L LAB CHEMISTRY METHOD 03/08/2024 10:57 AM [facility] CO2 29 21 - 32 mmol/L LAB CHEMISTRY METHOD 03/08/2024 10:57 AM [facility] Anion Gap 4 3 - 11 LAB CHEMISTRY METHOD 03/08/2024 10:57 AM [facility] Glucose 154(H) 70 - 100 mg/dL LAB CHEMISTRY METHOD 03/08/2024 10:57 AM [facility] BUN 11 5 - 25 mg/dL LAB CHEMISTRY METHOD 03/08/2024 10:57 AM [facility] Creatinine 1.07 0.70 - 1.30 mg/dL LAB CHEMISTRY METHOD 03/08/2024 10:57 AM [facility] eGFR 70 >=60 mL/min/1. 73m2 LAB CHEMISTRY METHOD 03/08/2024 10:57 AM [facility] Comment:Calculation based on the Chronic Kidney Disease Epidemiology Collaboration (CKD-EPI) equation refit without adjustment for race. BUN/Creatinine Ratio 10.3 LAB CHEMISTRY METHOD 03/08/2024 10:57 AM [facility] Calcium 8.8 8.5 - 10.5 mg/dL LAB CHEMISTRY METHOD 03/08/2024 10:57 AM [facility] AST (SGOT) 22 10 - 42 unit/L LAB CHEMISTRY METHOD 03/08/2024 10:57 AM [facility] ALT (SGPT) 35 10 - 60 unit/L LAB CHEMISTRY METHOD 03/08/2024 10:57 AM [facility] Alkaline Phosphatase 79 42 - 121 unit/L LAB CHEMISTRY METHOD 03/08/2024 10:57 AM [facility] Total Protein 6.4 6.0 - 8.0 g/dL LAB CHEMISTRY METHOD 03/08/2024 10:57 AM [facility] Albumin 3.3 3.2 - 5.0 g/dL LAB CHEMISTRY METHOD 03/08/2024 10:57 AM [facility] Total Bilirubin 0.5 0.0 - 1.4 mg/dL LAB CHEMISTRY METHOD 03/08/2024 10:57 AM [facility] Blood Venous blood specimen / Unknown Venipuncture / Unknown 03/08/2024 10:14 AM EST 03/08/2024 10:22 AM EST us Isaías Boateng MD LAB BLOOD ORDERABLES Final Result [facility] [address] [place] [address], from Last 3 Months or Most Recently Relevant to Health Maintenance Insurance [employer] MED[employer] Advance Directives Documents on File Type Date Recorded Patient Graduate Teacher Education Expl anation Advance Directives and Living Will [...] currently active code status orders. Care Teams Digital Marketing Executive Relationship Specialty Start Date End Date Shawna Styles MD [address] [place] [phone] PCP - General Internal Medicine 12/23/23
--- OUTSIDE RECORDS SUMMARY | 2024-10-25 07:46 | XMS_ITS | Encounter Summary ---
Author Organization [employer] Address [address] [place] [address] [place] [address] Care Team Providers Care Sql Analyst Name Role Phone Mckenzie Dawkins DRESSMAKER OR TAILOR Primary Care Provider Shawna Nix MD Primary Care Provide r Reason for Visit * Reason Comments Med Refill Encounter Details Date Type Department Care Team ([facility] Contact Info) Description 03/08/2022 Refill [facility] [address] [place] [address] Dwayne Chong MD [address] [place] [phone] Benign hypertension Social History Tobacco Use Types [...] Description 11/08/2024 9:30 AM EDT Office Visit [facility] [address] [place], [place] [phone] Shawna Styles MD [address] [place] [address] documented as of this encounter Visit Diagnoses Diagnosis Benign hypertension Essential hypertension, benign documented in this encounter Care Teams Sql Analyst Relationship Specialty Start Date End Date Mckenzie Dawkins FNP PCP - General Family Medicine 01/21/22 04/11/22 Shawna Styles MD [address] [place] [address] PCP - General Internal Medicine 04/12/22 documented as of this encounter
--- OUTSIDE RECORDS SUMMARY | 2024-10-25 07:46 | XMS_ITS | Encounter Summary ---
Author Organization [employer] Address [address] [facility] 7 [place] [address] Care Team Providers Care Manager Of Broadcast Content Name Role Phone Shawna Styles MD Primary Care Provide r Reason for Visit * Reason Onset Date Comments Error 05/18/2023 Encounter Details Date Type Department Care Team ([facility] st Contact Info) Description 05/18/2023 Telephone [facility] [address] [place] [address] Shawna Styles MD [address] [place] [address] Error Social History Tobacco Use Types Packs/Day [...] Description 11/08/2024 9:30 AM EDT Office Visit [facility] [address] [place] [phone] Shawna Styles MD [address] [place] [phone] documented as of this encounter Visit Diagnoses Not on filedocumented in this encounter Additional Health Concerns Assessment Noted Time PHQ-9 Depression Total Score: 0 06/30/19 23 10:15 AM EDT documented as of this encounter Care Teams Manager Of Broadcast Content Relationship Specialty Start Date End Date Shawna Styles MD [address] [place] [phone] PCP - General Internal Medicine 04/12/22 documented as of this encounter
--- OUTSIDE RECORDS SUMMARY | 2024-10-25 07:46 | XMS_ITS | Encounter Summary ---
Author Organization [employer] Address [address] [facility] 7t [place] [address] Care Team Providers Care Manager Energy Name Role Phone Shawna Styles MD Primary Care Provide r Reason for Visit * Reason Comments Med Refill Encounter Details Date Type Department Care Team ([facility] st Contact Info) Description 10/02/2023 Refill [facility] [address] [place], [place] [phone] Shawna Styles MD [address] [place], [place] [phone] Benign hypertension Social History Tobacco Use Types [...] Description 11/08/2024 9:30 AM EDT Office Visit [facility] [address] [place] [address] Shawna Styles MD [address] [place] [address] documented as of this encounter Visit Diagnoses Diagnosis Benign hypertension Essential hypertension, benign documented in this encounter Additional Health Concerns Assessment Noted Time PHQ-9 Depression Total Score: 0 07/26/19 24 11:48 AM EDT documented as of this encounter Care Teams Manager Energy Relationship Specialty Start Date End Date Shawna Styles MD [address] [place] [phone] PCP - General Internal Medicine 04/12/22 documented as of this encounter
--- OUTSIDE RECORDS SUMMARY | 2024-10-25 07:46 | XMS_ITS | Clinical Summary ---
Author Organization [employer] Address [address] [facility] 7t [place] [address] Care Team Providers Care Rod Piler Name Role Phone Shawna Styles MD Primary Care Provide r Allergies No known active allergies Medications Lancets miscIndications: Prediabetes Use to test blood sugar 2 times daily 100 each 2 04/17/19 24 Active Alcohol Swabs 70 % padsIndications: Prediabetes Use to test blood sugar 2 times daily 100 each 04/17/19 24 Active Blood Glucose Monitoring Suppl ([employer] [place] Lite) w/Device kitIndications:P rediabetes Use to test [...] Encounters Date Type Department Care Team Description 10/17/2024 Orders Only GENERIC EXTERNAL DATA DEPARTMENT Provider, Generic External Data 10/02/2024 Refill [facility] [address] [facility] [place] [address] Chelle Davey DO 09/01/2024 Refill [facility] [address] [place] [address] Shawna Styles MD Benign hypertension 08/08/2024 Refill [facility] [address] [place] [address] Shawna Styles MD 08/07/2024 Refill [facility] [address] [place] [address] Shawna Styles MD 08/06/2024 9:15 AM EDT Office Visit [facility] [place] [facility] [place] [address] Shawna Styles MD Primary hypertension (Primary Dx); Prediabetes; Chronic bronchitis, unspecified chronic bronchitis type (CMS/HCC); Gastroesophageal reflux disease, unspecified whether esophagitis present 08/06/2024 Travel 08/05/2024 Telephone [facility] [place] [address] Shawna Styles MD Chart Prep 07/26/2024 Orders Only [facility] [place] [facility] [place] [address] Shawna Styles MD Negative middle ear pressure of left ear (Primary Dx) 07/26/2024 Patient Outreach [facility] [place] [facility] [place] [address] Shawna Styles MD Pre-visit Planning (SDOH screening completed on 04/30/2024) 07/25/2024 Telephone [facility] [place] [facility] [place] [address] Shawna Styles MD Referral from Last 3 [...] Description 11/08/2024 9:30 AM EDT Office Visit [facility] [address] [place] [address] Shawna Styles MD [address] [place] [address] Health Maintenance Due Date Last Done Comments Alcohol/Substance Use Screening 1952 RSV Patients and Patients Aged 60 years or older (1 - 1-dose 75+ series) 2017 COVID-19 Vaccine ( season) 2024 02/04/2021, 05/12/2020, 04/14/2020 Influenza Vaccine (#1) 2024 4, 11/05/2021, 04/01/2019, Additional history exists Diabetes: Hemoglobin A1C 01/31/2025 024, 01/26/2023, 06/29/2022, Additional history exists SDOH Screening 04/30/2025 04/30/2024 Depression Screening 08/06/2025 08/06/2024, 08/07/19 Tobacco Screening 08/06/2025 08/06/2024 Lipid Panel 10/23/2028 [...] Procedure Name Priority Date/Time Associated Diagnosis Comments TSH W/REFLEX TO FT4 Routine 10/17/2024 7 :16 AM EDT POCT GLUCOSE Routine 08/06/2024 9:15 AM EDT Prediabetes POCT GLYCATED HEMOGLOBIN, TOTAL Routine 02/01/2024 9:10 AM EST Prediabetes LIPID PANEL, STANDARD Routine 10/24/2023 9:20 AM EDT Prediabetes from Last 3 Months or Most Recently Relevant to Health Maintenance Results * TSH with Reflex to Free T4 (10/17/2024 7:16 AM EDT) TSH reflex Free T4 2.01 0.32 - 4.0 uIU/mL [facility] 10/17/2024 7:16 AM EDT 10/17/2024 7:16 AM EDT Generic External Data Provider LAB BLOOD ORDERAB LES Final Result [facility] [address] [place] [phone] * POCT Glucose (08/06/2024 9:15 AM EDT) Glucose Blood, POC 129 60 - 200 mg/dL [employer] Media Lot # [id number] Lot# Expiration Date [id number] Blood Capillary blood specimen / Unknown 08/06/2024 9:15 AM EDT Shawna Zamarripa MD POINT OF CARE TEST EN TER/EDIT ORDERABLES Final Result * POCT HGB A1C (02/01/2024 9:10 AM EST) Hemoglobin A1C 5.9 4.0 - 6.0 % QC Media Lot # [id number] Lot# Expiration Date [id number] Blood 02/01/2024 9:10 AM EST Shawna Zamarripa MD POINT OF CARE TEST EN TER/EDIT ORDERABLES Final Result * Lipid Panel, Standard (10/24/2023 9:20 AM EDT) Triglycerides 53 <150 mg/dL [facility] Comment:Desirable Triglyceri de: less than 150 mg/dLBorderline High Triglyceride 150-199 mg/dLHigh Triglyceride: 200-499 mg/dLVery High Triglyceride: greater than or equal to 5OO mg/dL Cholesterol 128 <200 mg/dL [facility] Comment:Desirable Cholestero l: less than 200 mg/dLBorderline High Cholesterol: 200-239 mg/dLHigh Cholesterol: greater than 239 mg/dL LDL Cholesterol Calculated 48 <100 mg/dL [facility] Comment:Desirable LDL: less than 100 mg/dLNear Optimal/Above Optimal LDL: 110- 129 mg/dLBorderline High LDL: 130-159 mg/dLHigh LDL: 160-189 mg/dLVery High LDL: greater than or equal to 190 mg/dL HDL Cholesterol 70 >40 mg/dL [facility] Comment:Desirable HDL: great er than 40 mg/dL Note: This HDL assay may give artificially low results in patients with liver disease. Blood Venous blood specimen / Unknown 10/24/2023 9:20 AM EDT 10/24/2023 11:03 AM EDT Shawna Zamarripa MD LAB BLOOD ORDERABLES Final Result Performing Organization Address City/State/[facility] Co de Phone Number [facility] [address] [place] [phone] from Last 3 Months or Most Recently Relevant to Health Maintenance Insurance [facility] [employer] HMO Care Teams Rod Piler Relationship Specialty Start Date End Date Shawna Styles MD [address] [place] [phone] PCP - General Internal Medicine 04/12/22
--- OUTSIDE RECORDS SUMMARY | 2024-10-25 07:46 | XMS_ITS | Encounter Summary ---
Author Organization [employer] Address [address] [facility] 7t [place] [address] Care Team Providers Care Community Relations Officer Name Role Phone Shawna Styles MD Primary Care Provide r Reason for Visit * Reason Comments Med Refill Encounter Details Date Type Department Care Team ([facility] st Contact Info) Description 08/01/2023 Refill [facility] MEDICINE [address] [place], [place] [phone] Shawna Styles MD [address] [place], [place] [phone] Benign hypertension Social History Tobacco Use Types [...] Description 11/08/2024 9:30 AM EDT Office Visit [facility] MEDICINE [address] [place] [address] Shawna Styles MD [address] [place] [address] documented as of this encounter Visit Diagnoses Diagnosis Benign hypertension Essential hypertension, benign documented in this encounter Additional Health Concerns Assessment Noted Time PHQ-9 Depression Total Score: 0 07/26/19 24 11:48 AM EDT documented as of this encounter Care Teams Community Relations Officer Relationship Specialty Start Date End Date Shawna Styles MD [address] [place] [address] PCP - General Internal Medicine 04/12/22 documented as of this encounter
--- OUTSIDE RECORDS SUMMARY | 2024-10-25 07:46 | XMS_ITS | Encounter Summary ---
Author Organization [employer] Address [address] [place] [address] 7t [place] [address] Care Team Providers Care Net Mender Name Role Phone Mckenzie Dawkins Primary Care Provider Shawna Nix MD Primary Care Provide r Reason for Visit * Reason Onset Date Comments Appointment Request 04/05/2022 Encounter Details Date Type Department Care Team (Late st Contact Info) Description 04/05/[address] [facility] MEDICINE [address] [place] [address] Mckenzie Dawkins FNP Appointment Request Social History [...] encounter Miscellaneous Notes * Telephone Encounter - Tawnada Knutson - 04/05/2022 3:55 PM EST Tc from Daughter requesting to r/s Follow up appt (F/U HTN). Pr Internship tried booking appt but no appt was available Pt daughter is stating that she only wants appt with provider. Please contact pt at [phone] documented in this encounter Plan of Treatment Upcoming Encounters Date Type Department Care Team (Late st Contact Info) Description 11/08/2024 9:30 AM EDT Office Visit [facility] MEDICINE [address] [place] [address] Shawna Styles MD [address] [place] [address] documented as of this encounter Visit Diagnoses Not on filedocumented in this encounter Care Teams Net Mender Relationship Specialty Start Date End Date Mckenzie Dawkins FNP PCP - General Family Medicine 01/21/22 04/11/22 Shawna Styles MD [address] [place], [place] [phone] PCP - General Internal Medicine 04/12/22 documented as of this encounter
--- OUTSIDE RECORDS SUMMARY | 2024-10-25 07:46 | XMS_ITS | Encounter Summary ---
Author Organization [employer] Address [address] [place] [address] [place] [address] Care Team Providers Care Pan Devulcanizer Helper Name Role Phone Shawna Styles MD Primary Care Provide r Reason for Visit * Reason Comments Med Refill Encounter Details Date Type Department Care Team (Late Contact Info) Description 05/04/2022 Refill [facility] MEDICINE [address] [place] [phone] Dwayne Chong MD [address] [place] [address] [phone] Benign hypertension Social History Tobacco Use Types [...] Description 11/08/2024 9:30 AM EDT Office Visit [facility] MEDICINE [address] [place], [place] [phone] Shawna Styles MD [address] [place], [place] [phone] documented as of this encounter Visit Diagnoses Diagnosis Benign hypertension Essential hypertension, benign documented in this encounter Care Teams Pan Devulcanizer Helper Relationship Specialty Start Date End Date Shawna Styles MD [address] [place] [phone] PCP - General Internal Medicine 04/12/22 documented as of this encounter
== END ==
LOC: HO.CARD 07:43
PROVIDERS: PCP Internal Medicine; Visit Provider Internal Medicine
DX: R07.2 Precordial pain (principal); I20.9 Angina pectoris, unspecified
CPT/HCPCS: 78452; 93017; A9500; J0280; J2785

== ENCOUNTER → 2024-10-25 07:45 | Outpatient (BNV) | payer MEDICARE, MEDICAID, SELFPAY | PROVIDERS: PCP Internal Medicine | DX: I48.91 Unspecified atrial fibrillation (principal); R07.2 Precordial pain | CPT/HCPCS: 78452; 93016; 93018 ==

== ENCOUNTER 2024-11-06 10:36 | Outpatient (AMB) | payer MEDICARE, MEDICAID, SELFPAY ==
[2024-11-06 11:07] VITALS: BP 124/68; PULSE 60; BMI 26.9
--- NOTE | 2024-11-06 11:07 | A.OFFVIS_ITS ---
Vital Signs 11/06/24 11:07 Height 5 ft 4 in Weight 156 lb 8.451 oz BMI 26.9 BP 124/68 Blood Pressure Location Lt brachial Position Sitting Pulse 60 Pulse Source Monitor Intake Visit Reasons: 6 month f/up Rolled Seat Trimmer Required: Yes Rolled Seat Trimmer Services: Rolled Seat Trimmer Offered & Declined Accompanied by: Daughter Allergies Seasonal Allergies Allergy (Intermediate, Verified 10/03/24 12:14) Itchy Eyes Medication List - Last Reconciled 11/06/24 by Zachery Bean MD amiodarone 200 mg PO DAILY apixaban (Eliquis) 5 mg PO BID atorvastatin 20 mg PO BEDTIME diltiazem HCl CD (Cartia XT) 120 mg PO DAILY furosemide 20 mg PO DAILY terazosin 10 mg PO BEDTIME 90 days umeclidinium-vilanterol 62.5-25 mcg/actuation (Anoro Ellipta) 1 inh inhalation DAILY HPI Comments Details: Grzegorz returns for follow-up. It seems that he used to see [facility] in the past but not recently. Various medication changes at different times. In the past, there was bradycardia. He was on both diltiazem and metoprolol. Then diltiazem was stopped by PCP and then he developed atrial fibrillation with rapid rate. That led to hospitalization at [facility] [place] [facility]. Then beta- avinash dose was increased. Then put on Eliquis. Then one further hospitalization recently with atrial fibrillation and rapid rate/CHF. Then he was put on Amiodarone. Currently he is on a combination of diltiazem/amiodarone. Since last seen, he has been doing good. No complaints like angina or shortness of breath or palpitations or hospitalizations or in fact anything of concern. Daughter states he is actually doing very well. [facility] Medical History Constipation BPH (benign prostatic hyperplasia) Alcohol abuse GERD (gastroesophageal reflux disease) Paroxysmal A-fib Hypertension Hyperthyroidism Surgical History Back pain with history of spinal surgery Hx of hemorrhoids Hx of colonoscopy Family History Father No problems noted. Mother Heart disease Social History (Updated 07/04/24 @ 13:11 by BRIANDA Pierce) Household Members: None Housing: Apartment Are you a primary property caretaker to a significant other at home: No Do you presently have visiting nurse or other home services: No Alcohol intake: former Patient Tobacco Use Status: Former Tobacco user Years Smoked: started at 26, 1PPD, quit more than 15 years ago Advance Directives Date on File: 11/22/19 service: No Current occupational status: retired Review of Systems Const Denies weakness ENT Denies dizziness Card Denies chest pain, Denies chest pain with activity, Denies syncope, Denies rapid heart rate, Denies pedal edema, Denies edema, Denies leg edema, Denies lig htheadedness, Denies palpitations, Denies dyspnea, Denies dyspnea on exertion and Denies orthopnea Resp Denies cough, Denies dyspnea and Denies dyspnea on exertion GI Denies hematochezia and Denies change in stool character Musc Denies abnormal gait, Denies muscle cramps, Denies muscle weakness, Denies numbness, Denies radiating pain into limb and Denies tingling Neuro Denies abnormal gait, Denies dizziness, Denies syncope, Denies numbness, Denies tingling and Denies weakness Endo Denies palpitations Physical Exam Vital Signs: Last Vital Signs Pulse 60 11/06/24 11:07 BP 124/68 11/06/24 11:07 BMI result Body Mass Index 26.9 Const General: comfortable and no acute distress Orientation/consciousness: patient oriented x3 HEENT Other: Unremarkable Head: Yes normal to inspection Neck Neck: Yes normal visual inspection Chest Chest palpation & inspection: normal inspection of the chest Resp Auscultation: clear to auscultation bilaterally Cardio Palpation: normal PMI Heart sounds: S1 normal heart sound present, S2 normal heart sound present, no gallops, no murmurs and no rubs GI Palpation (GI): Soft to palpation Back/Spine/Pelvis Other: unremarkable Skin General skin exam: no rashes or lesions noted Neuro General: patient oriented x3 Extrem General: Yes normal to inspection Psych Mental Status: mental status grossly normal Office Procedures EKG Details: EKG with underlying sinus rhythm at 60/Min; nonspecific ST-T changes; [place]. [address]-[id number], Complete Assessment & Plan Assessment & Plan (1) Paroxysmal A-fib: Code(s): I48.0 - Paroxysmal atrial fibrillation Category: Medical (2) Bradycardia: Code(s): R00.1 - Bradycardia, unspecified Category: Medical (3) Encounter for monitoring amiodarone therapy: Code(s): Z51.81 - Encounter for therapeutic drug level monitoring; Z79.899 - Other retirement (current) drug therapy Category: Medical Plan [facility] [place] [facility] records were reviewed. Essentially, recurring atrial fibrillation with rapid rate as well as issues with bradycardia. Now stable on Amiodarone. May continue this. Continue Eliquis. With regard to the question of bradycardia, he has had some bradycardia when he was on both diltiazem and metoprolol but asymptomatic. No specific concerns from that end. Otherwise, there was a concern for demand related troponin leak during a previous hospitalization and hence underwent stress testing and that is unremarkable. Per [facility] [place] [facility] records, echocardiogram-10/03/2023-normal LVEF, mild diastolic dysfunction, normal RV size/function. No significant valve findings. We discussed about issues with long-term Amiodarone use. We then discussed about EP referral/ablation. After long discussion, daughter stated that she absolutely does not want any procedures done on patient. She would like to just continue the Amiodarone. To decrease the side effect profile, we can use a lower dose and hence decrease to Amiodarone 100 mg daily. Total time spent including review of data, counseling, documentation, coordination of care-32 minutes. Coding Level of Care Code Est Pt Level 4 (06402) Complex EM visit Add On G2211 Diagnoses Paroxysmal A-fib I48.0 Bradycardia R00.1 Encounter for monitoring amiodarone therapy Z51.81; Z79.899 CPT Codes EKG - CPT: 64411-[id number], Complete ([id number])
--- OUTSIDE RECORDS SUMMARY | 2024-11-06 13:14 | XMS_ITS | Encounter Summary ---
Author Organization [employer] Address [address] [facility] 7t [place] [address] Care Team Providers Care Bobbin Painter Name Role Phone Shawna Styles MD Primary Care Provide r Reason for Visit * Reason Comments Med Refill Encounter Details Date Type Department Care Team ([facility] st Contact Info) Description 10/02/2023 Refill [facility] MEDICINE [address] [place], [place] [phone] Shawna Styles MD [address] [place], [place] [phone] Benign hypertension Social History Tobacco Use Types [...] Description 11/08/2024 9:30 AM EDT Office Visit [facility] MEDICINE [address] [place] [address] Shawna Styles MD [address] [place] [address] documented as of this encounter Visit Diagnoses Diagnosis Benign hypertension Essential hypertension, benign documented in this encounter Additional Health Concerns Assessment Noted Time PHQ-9 Depression Total Score: 0 07/26/19 24 11:48 AM EDT documented as of this encounter Care Teams Bobbin Painter Relationship Specialty Start Date End Date Shawna Styles MD [address] [place] [address] PCP - General Internal Medicine 04/12/22 documented as of this encounter
--- OUTSIDE RECORDS SUMMARY | 2024-11-06 13:14 | XMS_ITS | Encounter Summary ---
Author Organization [employer] Address [address] [facility] 7 [place] [address] Care Team Providers Care Treasury Director Name Role Phone Shawna Styles MD Primary Care Provide r Reason for Visit * Reason Onset Date Comments Hospital Follow-up 10/09/2023 Encounter Details Date Type Department Care Team ([facility] st Contact Info) Description 10/09/2023 Telephone [facility] MEDICINE 230 [place] [address] Shawna Styles MD [address] [place], [place] [phone] Hospital Follow-up Social History Tobacco Use Types [...] Tc from pt requesting a HDF appt. [facility]: [facility] Date of admission: 10/05 Discharge date: 10/07 Diagnosed: Mild Heart attack documented in this encounter Plan of Treatment Upcoming Encounters Date Type Department Care Team (Late st Contact Info) Description 11/08/2024 9:30 AM EDT Office Visit [facility] MEDICINE [address] [place] [phone] Shawna Styles MD [address] [place] [address] documented as of this encounter Visit Diagnoses Not on filedocumented in this encounter Additional Health Concerns Assessment Noted Time PHQ-9 Depression Total Score: 0 07/26/19 24 11:48 AM EDT documented as of this encounter Care Teams Treasury Director Relationship Specialty Start Date End Date Shawna Styles MD [address] [place] [phone] PCP - General Internal Medicine 04/12/22 documented as of this encounter
--- OUTSIDE RECORDS SUMMARY | 2024-11-06 13:14 | XMS_ITS | Encounter Summary ---
Author Organization [employer] Address [address] [place] [address] [place] [address] Care Team Providers Care Yarn Mercerizer Operator Helper Name Role Phone Mckenzie Dawkins SUPERVISOR SAFETY DEPOSIT Primary Care Provider Shawna Nix MD Primary Care Provide r Reason for Visit * Reason Comments Med Refill Encounter Details Date Type Department Care Team ([facility] Contact Info) Description 03/08/2022 Refill [facility] MEDICINE [address] [place] [address] Dwayne Chong MD [address] [place] [phone] Benign hypertension Social History Tobacco Use Types [...] Description 11/08/2024 9:30 AM EDT Office Visit [facility] MEDICINE [address] [place], [place] [phone] Shawna Styles MD [address] [place] [address] documented as of this encounter Visit Diagnoses Diagnosis Benign hypertension Essential hypertension, benign documented in this encounter Care Teams Yarn Mercerizer Operator Helper Relationship Specialty Start Date End Date Mckenzie Dawkins FNP PCP - General Family Medicine 01/21/22 04/11/22 Shawna Styles MD [address] [place] [address] PCP - General Internal Medicine 04/12/22 documented as of this encounter
--- OUTSIDE RECORDS SUMMARY | 2024-11-06 13:14 | XMS_ITS | Encounter Summary ---
Author Organization [employer] Address [address] [place] [address] [place] [address] Care Team Providers Care Supervisor Sewer System Name Role Phone Shawna Styles MD Primary Care Provide r Reason for Visit * Reason Comments Med Refill Encounter Details Date Type Department Care Team (Late Contact Info) Description 05/04/2022 Refill [facility] MEDICINE [address] [place] [phone] Dwayne Chong MD [address] [place] [address] [phone] Benign hypertension Social History Tobacco Use Types [...] Description 11/08/2024 9:30 AM EDT Office Visit [facility] MEDICINE [address] [place], [place] [phone] Shawna Styles MD 230 [place], [place] [phone] documented as of this encounter Visit Diagnoses Diagnosis Benign hypertension Essential hypertension, benign documented in this encounter Care Teams Supervisor Sewer System Relationship Specialty Start Date End Date Shawna Styles MD [address] [place] [address] PCP - General Internal Medicine 04/12/22 documented as of this encounter
--- OUTSIDE RECORDS SUMMARY | 2024-11-06 13:14 | XMS_ITS | Encounter Summary ---
Author Organization [employer] Address [address] [facility] 7t [place] [address] Care Team Providers Care Geophysical Support Specialist Name Role Phone Shawna Styles MD Primary Care Provide r Reason for Visit * Reason Comments Med Refill Encounter Details Date Type Department Care Team ([facility] st Contact Info) Description 08/01/2023 Refill [facility] MEDICINE [address] [place], [place] [phone] Shawna Styles MD [address] [place], [place] [phone] Benign hypertension Social History Tobacco Use Types [...] Description 11/08/2024 9:30 AM EDT Office Visit [facility] MEDICINE [address] [place] [address] Shawna Styles MD [address] [place] [address] documented as of this encounter Visit Diagnoses Diagnosis Benign hypertension Essential hypertension, benign documented in this encounter Additional Health Concerns Assessment Noted Time PHQ-9 Depression Total Score: 0 07/26/19 24 11:48 AM EDT documented as of this encounter Care Teams Geophysical Support Specialist Relationship Specialty Start Date End Date Shawna Styles MD [address] [place] [address] PCP - General Internal Medicine 04/12/22 documented as of this encounter
--- OUTSIDE RECORDS SUMMARY | 2024-11-06 13:14 | XMS_ITS | Clinical Summary ---
Author Organization [facility] Address [address] [place] [address] Phone Care Team Providers Care Soot Blower Name Role Phone Shawna Styles MD Primary [...] chronic diastolic C HF (congestive heart failure) ([facility] V24, [facility] V28) 12/23/2023 Atrial fibrillation with rap id ventricular response ([facility] V24, [facility] V28) 12/23/2023 Gastroesophageal reflux disease 08/22/2011 Overview [...] Medical History Date Comments Paroxysmal atrial fibrillation ([facility] V24, [facility] V28) Hypertension Hypercholesteremia GERD (gastroesophageal reflux [...] [facility] Comment:Calculation based on the Chronic [...] Boateng MD LAB BLOOD ORDERABLES Final Result [facility] [address] [place] [address], from Last 3 Months or Most Recently Relevant to Health Maintenance Insurance [employer] MEDICARE Advance Directives Documents on File Type Date Recorded Patient Lens Cleaner Expl anation Advance Directives and Living Will [...] currently active code status orders. Care Teams Soot Blower Relationship Specialty Start Date End Date Shawna Styles MD [address] [place] [phone] PCP - General Internal Medicine 12/23/23
--- OUTSIDE RECORDS SUMMARY | 2024-11-06 13:14 | XMS_ITS | Clinical Summary ---
Author Organization [employer] Address [address] [facility] [address] [place] [address] Care Team Providers Care Unit Reactor Operator Name Role Phone Shawna Styles MD Primary Care Provide r Allergies No known active allergies Medications Lancets miscIndications: Prediabetes Use to test blood sugar 2 times daily 100 each 2 04/17/19 24 Active Alcohol Swabs 70 % padsIndications: Prediabetes Use to test blood sugar 2 times daily 100 each 04/17/19 24 Active Blood Glucose Monitoring Suppl (HulafrogStSkySpecs [place] Lite) w/Device kitIndications:P rediabetes Use to test [...] 18 g 11 08/07/19 25 026 Active omeprazole (PriLOSEC) [address] capsuleIndicatio [...] to check BS as directed 100 each 11 08/09/19 25 026 Active atorvastatin (Lipitor) 20 MG tabletIndication s:Benign hypertension TAKE 1 TABLET BY MOUTH EVERY MORNING 90 tablet 2 09/03/19 25 Active Eliquis 5 MG tablet TAKE 1 TABLET BY MOUTH TWICE DAILY IN THE MORNING AND IN THE EVENING 180 tablet 3 10/03/19 25 Active Anoro Ellipta 62.5-25 MCG/ACT aerosol powderIndication s:Chronic bronchitis, unspecified chronic bronchitis type (CMS/HCC) INHALE 1 PUFF EVERY DAY 60 each 2 10/29/19 25 Active Umeclidinium-Juan Carlos anterol (Anoro Ellipta) 62.5-25 MCG/ACT aerosol powderIndication s:Chronic bronchitis, unspecified chronic bronchitis type (CMS/HCC) Inhale 1 puff Once per day. 1 each 2 08/07/19 25 025 Discontinued Active Problems Problem Noted Date [...] Encounters Date Type Department Care Team Description 11/06/2024 Telephone [facility] [address] [place] [address] Shawna Styles MD chart prep 10/27/2024 Refill [facility] [address] [place] [address] Shawna Styles MD Chronic bronchitis, unspecified chronic bronchitis type (CMS/HCC) 10/17/2024 Orders Only GENERIC EXTERNAL DATA DEPARTMENT Provider, Generic External Data 10/02/2024 Refill [facility] [address] [place] [address] Chelle Davey DO 09/01/2024 Refill [facility] [address] [place] [address] Shawna Styles MD Benign hypertension 08/08/2024 Refill [facility] [address] [place] [address] Shawna Styles MD 08/07/2024 Refill [facility] [address] [place] [address] Shawna Styles MD 08/06/2024 9:15 AM EDT Office Visit [facility] [address] [place] [address] Shawna Styles MD Primary hypertension (Primary Dx); Prediabetes; Chronic bronchitis, unspecified chronic bronchitis type (CMS/HCC); Gastroesophageal reflux disease, unspecified whether esophagitis present 08/06/2024 Travel from Last 3 Months Immunizations Immunization Administration [...] Description 11/08/2024 9:30 AM EDT Office Visit [facility] [address] [place] [address] Shawna Styles MD [address] [place] [address] Health Maintenance Due Date Last Done Comments [...] Procedure Name Priority Date/Time Associated Diagnosis Comments STRESS TEST WITH MYOCARDIAL PERFUSION Routine 10/25/2024 9:36 AM EDT TSH W/REFLEX TO FT4 Routine 10/17/2024 7 :16 AM EDT POCT GLUCOSE Routine 08/06/2024 9:15 AM EDT Prediabetes POCT GLYCATED HEMOGLOBIN, TOTAL Routine 02/01/2024 9:10 AM EST Prediabetes LIPID PANEL, STANDARD Routine 10/24/2023 9:20 AM EDT Prediabetes from Last 3 Months or Most Recently Relevant to Health Maintenance Results * Stress test with myocardial perfusion (10/25/2024 9:36 AM EDT) 10/25/2024 9:36 AM EDT Narrative [facility] - 11/03/2024 12:40 PM EDT [address] [address] Nuclear Medicine Report Signed Patient: Grzegorz Arenas MR#: [id number] 6 : 1940 Acct:[id number] Age/Sex: 84 / M ADM Date: 10/25/24 Loc: .[facility] Attending Dr: Zachery Bean MD Ordering Physician: Zachery Bean MD Date of Service: 10/25/24 Procedure(s): NM cardiolite stress test Accession Number(s): [id number] cc: Shawna Styles MD; Zachery Bean MD Reason for Exam: R07.2 - Precordial pain // LEXISCAN Lexiscan Myocardial perfusion study Indication: Atrial fibrillation Technique: The patient was brought in for a Lexiscan perfusion study on 10/25/2024 and was injected 0.4 mg of Lexiscan intravenously. Within a minute of this injection 25 mCi of sestamibi was given intravenously. Images were obtained using the SPECT gamma camera interlaced with the gating device. Images were obtained in supine position. Resting perfusion study was performed on 10/31/2024. Patient was administered 25 mCi of sestamibi intravenously at rest. Images were then obtained in supine position. Total DLP 101 mGy-cm. Images were processed with the software and compared side to side in short axis, horizontal long axis and vertical long axis views. Findings: Raw aquisition reviewed. Arms by the patient's side The stress perfusion study showed no significant perfusion abnormality. Both uncorrected as well as CT attenuation corrected images were reviewed. The gated study shows normal LV systolic function with calculated LVEF of 62%. LV cavity is normal in size. The gated study shows normal wall thickening and contraction of segments. Resting study shows no significant perfusion abnormality. Gating at rest reveals normal wall motion with ejection fraction at 67%. The findings are consistent with no clear reversible or fixed perfusion defects. NM/NM cardiolite stress test Impression: 1. Myocardial perfusion imaging study shows normal myocardial perfusion. 2. Gated LVEF is 62% during stress and 67% during rest. 3. Transient ischemic dilatation not present. EKG component of the test reported separately. Electronically signed by: Zachery Bean MD 11/03/2024 12:37 PM EDT RP Dictated By: Zachery Bean MD Signed By: <Electronically signed by Zachery Bean MD in OV> 11/03/24 1237 DD/ 0936 TD/TT: 10/31/24 0830 Collar Tailor: Procedure Note Donotuseinterpreter, Image - 11/03/[address] [address] Nuclear Medicine Report Signed Patient: Nixon Arenas#: [id number] 6 : 3Acct:[id number] Age/Sex: 84 / MADM Date: 10/25/24 Loc: [facility] Attending Dr: Zachery Bean MD Ordering Physician: Zachery Bean MD Date of Service: 10/25/24 Procedure(s): NM cardiolite stress test Accession Number(s): [id number] cc: Shawna Styles MD; Zachery Bean MD Reason for Exam: R07.2 - Precordial pain // LEXISCAN Lexiscan Myocardial perfusion study Indication: Atrial fibrillation Technique: The patient was brought in for a Lexiscan perfusion study on 10/25/2024 and was injected 0.4 mg of Lexiscan intravenously. Within a minute of this injection 25 mCi of sestamibi was given intravenously. Images were obtained using the SPECT gamma camera interlaced with the gating device. Images were obtained in supine position. Resting perfusion study was performed on 10/31/2024. Patient was administered 25 mCi of sestamibi intravenously at rest. Images were then obtained in supine position. Total DLP 101 mGy-cm. Images were processed with the software and compared side to side in short axis, horizontal long axis and vertical long axis views. Findings: Raw aquisition reviewed. Arms by the patient's side The stress perfusion study showed no significant perfusion abnormality. Both uncorrected as well as CT attenuation corrected images were reviewed. The gated study shows normal LV systolic function with calculated LVEF of 62%. LV cavity is normal in size. The gated study shows normal wall thickening and contraction of segments. Resting study shows no significant perfusion abnormality. Gating at rest reveals normal wall motion with ejection fraction at 67%. The findings are consistent with no clear reversible or fixed perfusion defects. NM/NM cardiolite stress test Impression: 1. Myocardial perfusion imaging study shows normal myocardial perfusion. 2. Gated LVEF is 62% during stress and 67% during rest. 3. Transient ischemic dilatation not present. EKG component of the test reported separately. Electronically signed by: Zachery Bean MD 11/03/2024 12:37 PM EDT RP Workstation: [employer] Dictated By: Zachery Bean MD Signed By: <Electronically signed by Zachery Bean MD inOV> 11/03/24 1237 DD/ 0936 TD/TT: 10/31/24 0830 Collar Tailor: [facility] External Provider CV STRE SS PROCEDURES Edited Result - Final Performing Organization Address City/[facility]/ZIP Co de Phone Number [facility] [address] [place] [phone] * TSH with Reflex to Free T4 (10/17/2024 7:16 AM EDT) TSH reflex Free T4 2.01 0.32 - 4.0 uIU/mL [facility] 10/17/2024 7:16 AM EDT 10/17/2024 7:16 AM EDT Generic External Data Provider LAB BLOOD ORDERAB LES Final Result Performing Organization Address [facility] Co de Phone Number [facility] [address] [place] [phone] * POCT Glucose (08/06/2024 9:15 AM [...] Expiration Date Blood 02/01/2024 9:10 AM EST us Shawna Zamarripa MD POINT OF CARE TEST EN TER/EDIT ORDERABLES Final Result * Lipid Panel, Standard (10/24/2023 9:20 AM EDT) Triglycerides 53 <150 mg/dL [facility] Comment:Desirable Triglyceri de: less than 150 mg/dLBorderline High Triglyceride 150-199 mg/dLHigh Triglyceride: 200-499 mg/dLVery High Triglyceride: greater than or equal to 5OO mg/dL Cholesterol 128 <200 mg/dL [facility] Comment:Desirable Cholestero l: less than 200 mg/dLBorderline High Cholesterol: 200-239 mg/dLHigh Cholesterol: greater than 239 mg/dL LDL Cholesterol Calculated 48 <100 mg/dL [facility] Comment:Desirable LDL: less than 100 mg/dLNear Optimal/Above Optimal LDL: 110- 129 mg/dLBorderline High LDL: 130-159 mg/dLHigh LDL: 160-189 mg/dLVery High LDL: greater than or equal to 190 mg/dL HDL Cholesterol 70 >40 mg/dL [facility] Comment:Desirable HDL: great er than 40 mg/dL Note: This HDL assay may give artificially low results in patients with liver disease. Blood Venous blood specimen / Unknown 10/24/2023 9:20 AM EDT 10/24/2023 11:03 AM EDT Shawna Zamarripa MD LAB BLOOD ORDERABLES Final Result [facility] [address] [place] [phone] [phone] from Last 3 Months or Most Recently Relevant to Health Maintenance Insurance [facility] MEDICARE ADVANTAGE HMO Care Teams Unit Reactor Operator Relationship Specialty Start Date End Date Shawna Styles MD [address] [place] [phone] PCP - General Internal Medicine 04/12/22
--- OUTSIDE RECORDS SUMMARY | 2024-11-06 13:14 | XMS_ITS | Encounter Summary ---
Author Organization [employer] Address [address] [place] [address] 7t [place] [address] Care Team Providers Care Interactive Media Marketing Strategist Name Role Phone Mckenzie Dawkins Primary Care Provider Shawna Nix MD Primary Care Provide r Reason for Visit * Reason Onset Date Comments Appointment Request 04/05/2022 Encounter Details Date Type Department Care Team (Late st Contact Info) Description 04/05/2022 Telephone [facility] [address] [place] [address] Mckenzie Dawkins FNP Appointment Request Social History [...] to r/s Follow up appt (F/U HTN). Social Work Nurse tried booking appt but no appt was available Pt daughter is stating that she only wants appt with provider. Please contact pt at [phone] documented in this encounter Plan of Treatment Upcoming Encounters Date Type Department Care Team (Late st Contact Info) Description 11/08/2024 9:30 AM EDT Office Visit [facility] [address] [place] [address] Shawna Styles MD [address] [place] [address] documented as of this encounter Visit Diagnoses Not on filedocumented in this encounter Care Teams Interactive Media Marketing Strategist Relationship Specialty Start Date End Date Mckenzie Dawkins FNP PCP - General Family Medicine 01/21/22 04/11/22 Shawna Styles MD [address] [place], [place] [phone] PCP - General Internal Medicine 04/12/22 documented as of this encounter
--- OUTSIDE RECORDS SUMMARY | 2024-11-06 13:14 | XMS_ITS | Encounter Summary ---
Author Organization [employer] Address [address] [facility] 7 [place] [address] Care Team Providers Care Rivet Machine Operator Name Role Phone Shawna Styles MD Primary Care Provide r Reason for Visit * Reason Onset Date Comments Error 05/18/2023 Encounter Details Date Type Department Care Team ([facility] st Contact Info) Description 05/18/2023 Telephone [facility] [address] [place] [address] Shawna Styles MD [address] [place] [address] Error Social History Tobacco Use Types Packs/Day [...] 11/08/2024 9:30 AM EDT Office Visit [facility] [address] [place] [address] Shawna Styles MD [address] [place] [phone] documented as of this encounter Visit Diagnoses Not on filedocumented in this encounter Additional Health Concerns Assessment Noted Time PHQ-9 Depression Total Score: 0 06/30/19 23 10:15 AM EDT documented as of this encounter Care Teams Rivet Machine Operator Relationship Specialty Start Date End Date Shawna Styles MD [address] [place] [phone] PCP - General Internal Medicine 04/12/22 documented as of this encounter
--- OUTSIDE RECORDS SUMMARY | 2024-11-06 13:14 | XMS_ITS | Encounter Summary ---
Author Organization [employer] Address [address] [place] [address] Care Team Providers Care Silverware Cleaner Name Role Phone Shawna Styles MD Primary Care Provide r Encounter Details Date Type Department Care Team ([facility] st Contact Info) Description 11/22/2022 Orders Only [facility] [address] [place], [place] [phone] Chelle Cruz LPN Social History Tobacco Use [...] Description 11/08/2024 9:30 AM EDT Office Visit [facility] [address] [place] [address] Shawna Styles MD [address] [place], [place] [phone] documented as of this encounter Procedures Procedure Name Priority Date/Time Associated Diagnosis Comments PSA, TOTAL Routine 10/24/2023 9:20 AM EDT CBC WITH AUTO DIFFERENTIAL Routine 05/31/2023 12:10 PM EDT TSH Routine 05/31/2023 12:10 PM EDT documented in this encounter Results * PSA,Total (10/24/2023 9:20 AM EDT) Prostate Specific Antigen 1.25 <0.05 - 4.0 ng/mL [facility] Comment:PSA methodology: Abb karrie Alibrandtty i ChemiluminescentMicroparticle Immunoassay (CMIA) 10/24/2023 9:20 AM EDT 10/24/2023 11:03 AM EDT us Generic External Data Provider LAB BLOOD ORDERAB LES Final Result [facility] [address] [place] [address] [phone] * TSH (05/31/2023 12:10 PM EDT) Thyroid Stimulating Hormone 1.38 0.32 - 4.0 uIU/mL [facility] Comment:TSH 3rd Generation ( [facility]) 05/31/2023 12:1 0 PM EDT 05/31/2023 12:10 PM EDT us Generic External Data Provider LAB BLOOD ORDERAB LES Final Result [facility] [address] [place] [address] [phone] * (ABNORMAL) CBC auto differential (05/31/2023 12:10 PM EDT) Pathologist [facility] White Blood Count 7.4 4.8 - 10.8 X10*3/uL [facility] Red Blood Count 4.27(L) 4.60 - 5.80 X10*6/uL [facility] Hemoglobin 13.9(L) 14.0 - 18.0 g/dl [facility] Hematocrit 41.1(L) 42.0 - 52.0 % [facility] Mean Corpuscular Volume 96.3 80.0 - 98.0 fL [facility] Mean Corpuscular Hemoglobin 32.6 27.0 - 33.0 pg [facility] Mean Corpuscular HGB Conc 33.8 31.0 - 36.0 g/dl [facility] Red Cell Distribution Width 13.1 11.0 - 16.0 % [facility] Platelet Count 124(L) 160 - 400 X10*3/uL [facility] Mean Platelet Volume 12.1 9.4 - 12.4 fL [facility] Neutrophils Percent Auto 60.2 45 - 73 % [facility] Imm Gran Pct Auto 0.8(H) 0.0 - 0.4 % [facility] Lymphocytes Percent Auto 22.0 20 - 40 % [facility] Monocytes Percent Auto 13.6(H) 2 - 11 % [facility] Eosinophils Percent Auto 2.7 0 - 4 % [facility] Basophils Percent Auto 0.7 0 - 2 % [facility] NRBC Pct Auto 0.0 0.0 - 0.2 /100WBC [facility] Neutrophils Absolute Auto 4.4 2.0 - 8.3 x10*3/uL [facility] Imm Gran Abs Auto 0.06(H) 0.00 - 0.03 X10*3/uL [facility] Lymphocytes Absolute Auto 1.6 1.2 - 4.9 X10*3/uL [facility] Monocytes Absolute Auto 1.0 0.1 - 1.2 X10*3/uL [facility] Eosinophils Absolute Auto 0.2 0.0 - 0.4 X10*3/uL [facility] Basophils Absolute Auto 0.1 0.0 - 0.2 X10*3/uL [facility] NRBC Abs Auto 0.000 0.0 - 0.012 X10*3/uL [facility] 05/31/2023 12:1 0 PM EDT 05/31/2023 12:10 PM EDT us Generic External Data Provider LAB BLOOD ORDERAB LES Final Result [facility] [address] [place] [phone] [phone] documented in this encounter Visit Diagnoses Not on filedocumented in this encounter Additional Health Concerns Assessment Noted Time PHQ-9 Depression Total Score: 0 06/30/19 23 10:15 AM EDT documented as of this encounter Care Teams Silverware Cleaner Relationship Specialty Start Date End Date Shawna Styles MD [address] [place] [address] PCP - General Internal Medicine 04/12/22 documented as of this encounter
--- OUTSIDE RECORDS SUMMARY | 2024-11-06 13:14 | XMS_ITS | Encounter Summary ---
Author Organization [employer] Address [address] [facility] [address] [place] [address] Care Team Providers Care Chief Development Officer Name Role Phone Shawna Styles MD Primary Care Provide r Reason for Visit * Reason Onset Date Comments chart prep 11/06/2024 Encounter Details Date Type Department Care Team ([facility] st Contact Info) Description 11/06/2024 Telephone [facility] [address] [place] [address] Shawna Styles MD [address] [place] [address] chart prep Social History Tobacco Use Types Packs/Day Years [...] encounter Miscellaneous Notes * Telephone Encounter - David Garcia [place] - 11/06/2024 10:31 AM EDT Chart Prep Labs: done Images: done Referrals: complete Vaccines due: Covid, Flu, and RSV Screenings: not applicable Overdue care gaps: Glucose, SBIRT, PHQ-9, and LIAN-7 documented in this encounter Plan of Treatment Upcoming Encounters Date Type Department Care Team (Late st Contact Info) Description 11/08/2024 9:30 AM EDT Office Visit [facility] [address] [place] [address] Shawna Styles MD [address] [place] [address] documented as of this encounter Visit Diagnoses Not on filedocumented in this encounter Additional Health Concerns Assessment Noted Time PHQ-9 Depression Total Score: 4 08/07/19 25 10:13 AM EDT documented as of this encounter Care Teams Chief Development Officer Relationship Specialty Start Date End Date Shawna Styles MD [address] [place] [address] PCP - General Internal Medicine 04/12/22 documented as of this encounter
== END 2024-11-06 11:42 | disposition home or self-care (01) ==
LOC: HO.HCS 10:37
PROVIDERS: PCP Internal Medicine; Visit Provider Internal Medicine
DX: I48.0 Paroxysmal atrial fibrillation (principal); R00.1 Bradycardia, unspecified; Z51.81 Encounter for therapeutic drug level monitoring; Z79.899 Other long term (current) drug therapy
CPT/HCPCS: 93010; 99214; G2211

== ENCOUNTER → 2024-11-06 10:36 | Outpatient (BNVA) | payer MEDICARE, MEDICAID, SELFPAY | PROVIDERS: PCP Internal Medicine; Visit Provider Internal Medicine | DX: I48.0 Paroxysmal atrial fibrillation (principal); R00.1 Bradycardia, unspecified; Z51.81 Encounter for therapeutic drug level monitoring; Z79.899 Other long term (current) drug therapy; Z79.01 Long term (current) use of anticoagulants | CPT/HCPCS: 93005; 99212 ==

== ENCOUNTER 2025-02-11 12:22 | Emergency (ER) | payer MEDICARE, MEDICAID, SELFPAY ==
--- NOTE | ~2025-02-11 | XR_ITS ---
CLINICAL HISTORY: pelvic pain 2 views right hip with AP pelvis Comparison: None Findings: No fractures or dislocations. No significant hip arthritic change. No radiopaque foreign body. Impression: 1. Unremarkable right hip This document has been electronically signed by: Tarik Ornelas MD on 02/11/2025 18:07:03
--- NOTE | ~2025-02-11 | CT_ITS ---
EXAMINATION: CT CERVICAL SPINE WITHOUT CONTRAST CLINICAL INFORMATION: Fall, injury COMPARISON: None available. TECHNIQUE: Spiral CT imaging of the cervical spine performed in axial plane without contrast. Multiplanar reformatted images were constructed from the axial data set. This CT examination was performed using dose optimization techniques as appropriate, variously including the following: *Automated exposure control *Adjustment of mA and/or kV according to patient size (this includes techniques or standardized protocols for targeted exams where dose is matched to indication/reason for exam; i.e. extremities or head) *Use of iterative reconstruction technique FINDINGS: CORONAL ALIGNMENT: -Normal. SAGITTAL ALIGNMENT: -Normal lordosis. -2 mm degenerative retrolisthesis of C3 on C4. Alignment is otherwise normal. There is no traumatic subluxation is evident. C1-C2 AND CRANIOCERVICAL JUNCTION: -Intact and normally aligned. There are mild to moderate degenerative changes in the anterior atlantoaxial joint. VERTEBRAL BODIES AND FACETS: -There is no fracture, compression deformity, or suspicious bone lesion. There is no evidence of traumatic malalignment. -There is normal facet alignment bilaterally. There are multilevel bilateral hypertrophic degenerative facet changes, mild in severity. DISCS: -Multilevel severe disc degeneration present with mild sclerotic and irregular endplate changes, with relative sparing of C2-3. CENTRAL CANAL: -No evidence of high-grade central canal narrowing or large disc herniation allowing for modality limitations. PREVERTEBRAL AND PARAVERTEBRAL SOFT TISSUES: -There is no prevertebral soft tissue swelling or edema. No abnormal fluid collection. -Mild right carotid bulb calcification. -Normal thyroid without definite lesion. LUNG APICES: -No pneumothorax. Clear bilaterally. CT/CT cervical spine wo IV con IMPRESSION: 1. No CT evidence of acute cervical spine fracture or injury. 2. Moderate degenerative spondylosis present. Electronically signed by: Teofilo Brice MD 02/11/2025 02:17 PM [facility]
--- NOTE | ~2025-02-11 | CT_ITS ---
EXAMINATION: CT LUMBAR SPINE WITHOUT CONTRAST CLINICAL INFORMATION: Low back pain after fall. COMPARISON: None available. TECHNIQUE: 2 mm thin axial and reformatted 2 mm thin sagittal and coronal images of lumbar spine were obtained without contrast. DLP [address] examination was performed using dose optimization techniques as appropriate, variously including the following: *Automated exposure control *Adjustment of mA and/or kV according to patient size (this includes techniques or standardized protocols for targeted exams where dose is matched to indication/reason for exam; i.e. extremities or head) *Use of iterative reconstruction technique FINDINGS: On sagittal reconstructed images is maintained lumbar lordosis. There is grade 1 anterolisthesis L5 over S1. Rest of the vertebral alignment is normal. The vertebral heights and disc heights are maintained normal. Mild disc desiccation changes are visualized at the L3-4 disc level. At L1-2, L2-3 disc levels there is no significant disc bulge, herniation or spinal canal stenosis. The neural foramina are patent bilaterally. At L3-4 disc level there is diffuse disc bulge with mild to moderate AP canal stenosis. The neural foramina are bilaterally narrowed. At L4-5 disc level there is mild diffuse bulge with facet degenerative hypertrophy resulting in circumferential moderate canal stenosis. The neural foramina are mildly narrowed bilaterally. At L5-S1 disc level is anterolisthesis with thick capacious thecal sac and a diffuse pseudodisc bulge the neural foramina patent bilaterally. There is bilateral L5 laminectomy noted. The prevertebral and paravertebral soft tissues are normal. No lytic or sclerotic process seen. CT/CT lumbar spine wo IV con IMPRESSION: Grade 1 anterolisthesis and L5 over S1 with diffuse disc bulge but no spinal canal stenosis seen. Circumferential moderate canal stenosis L4-5 and ghmy-wl-fhffyidc canal stenosis at L3-4 secondary to underlying disc bulge. Electronically signed by: Espinoza Irving MD 02/11/2025 02:24 PM EST
--- NOTE | ~2025-02-11 | CT_ITS ---
EXAMINATION: CT HEAD WITHOUT CONTRAST CLINICAL INFORMATION: Fall, injury. COMPARISON: None available. TECHNIQUE: Contiguous axial imaging was performed from the skull base to vertex without intravenous administration of contrast. This CT examination was performed using dose optimization techniques as appropriate, variously including the following: *Automated exposure control *Adjustment of mA and/or kV according to patient size (this includes techniques or standardized protocols for targeted exams where dose is matched to indication/reason for exam; i.e. extremities or head) *Use of iterative reconstruction technique FINDINGS: There is no evidence of intracranial hemorrhage or extra-axial fluid collection. There is no mass effect, or edema. No CT evidence of acute territorial infarct. Ventricles, sulci, and cisterns are normal in size and configuration for patient age. No hydrocephalus. No midline shift. Negative hyperdense MCA sign. Negative insular ribbon sign. Patchy periventricular and deep white matter hypoattenuation is consistent with mild small vessel ischemic changes. Partial empty sella present. 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 Mild atheromatous calcification of the bilateral carotid siphons and V4 segments vertebral arteries bilaterally. Globes and orbital contents image normally. No extracranial soft tissue abnormalities. The paranasal sinuses, mastoid air cells, and tympanic cavities are normally aerated. No suspicious bony abnormalities. There are no acute fractures evident. CT/CT head/brain wo IV con IMPRESSION: No acute intracranial abnormality. No fracture evident. Electronically signed by: Teofilo Brice MD 02/11/2025 02:10 PM [facility]
[2025-02-11 12:49] VITALS: BP 116/90; PULSE 81; O2SAT 95
[2025-02-11 12:52] VITALS: BMI 25.9
[2025-02-11 12:53] VITALS: BP 139/68; PULSE 71; RESP 16; TEMP 36.8; O2SAT 97
[2025-02-11 12:58] VITALS: BMI 25.9
--- NOTE | 2025-02-11 13:01 | ED.FALL ---
HPI - Fall General Chief Complaint: Fall Stated Complaint: UNWIT SIP/FALL ON ICE,R HIP/L SHOULDER/LOW BACK PN Time Seen by Provider: 02/11/25 12:47 Source: patient and sign language interpreter Mode of arrival: EMS Limitations: language barrier History of Present Illness ED Provider: HPI Narrative: 84-year-old male presenting with low back pain after fall, he reports slip and fall he walks with a cane, has a history of back pain, he is on blood thinners for paroxysmal AFib, he is Pashto-speaking information was obtained with the help with the interpreter and I have discussed patient's care with his daughter who was at bedside as well. Related Data Home Medications ?Medication ?Instructions ?Recorded ?Confirmed atorvastatin 20 mg tablet 20 mg PO BEDTIME 11/22/19 11/06/24 apixaban 5 mg tablet (Eliquis) 5 mg PO BID 10/25/23 11/06/24 diltiazem HCl 120 mg 120 mg PO DAILY 02/08/24 11/06/24 capsule,extended release 24 hr (Cartia XT) furosemide 20 mg tablet 20 mg PO DAILY 02/08/24 11/06/24 Previous Rx's ?Medication ?Instructions ?Recorded umeclidinium 62.5 mcg-vilanterol 1 inh inhalation DAILY #1 ea 07/04/24 25 mcg/actuation powdr for inhalation (Anoro Ellipta) terazosin 10 mg capsule 10 mg PO BEDTIME 90 days #90 caps 10/29/24 amiodarone 100 mg tablet 100 mg PO DAILY #90 tabs 01/29/25 acetaminophen 500 mg tablet 1,000 mg (2 x 500 mg) PO Q8H 10 02/11/25 days #60 tabs cyclobenzaprine 5 mg tablet 5 mg PO TID PRN muscle spasm #20 02/11/25 tabs lidocaine 5 % topical patch 1 patch topical DAILY #15 ea 02/11/25 Allergies Allergy/AdvReac Type Severity Reaction Status Date / Time Seasonal Allergies Allergy Intermediate Itchy Eyes Verified 02/11/25 13:01 Review of Systems Constitutional: Constitutional: Reports as per HPI [facility] Past Medical History Medical History Constipation BPH (benign prostatic hyperplasia) Alcohol abuse GERD (gastroesophageal reflux disease) Paroxysmal A-fib Hypertension Hyperthyroidism Surgical History Back pain with history of spinal surgery Hx of hemorrhoids Hx of colonoscopy Family History Family History Father No problems noted. Mother Heart disease Social History Social History (Updated 07/04/24 @ 13:11 by BRIANDA Pierce) Household Members: None Housing: Apartment Are you a primary summer child caregiver to a significant other at home: No Do you presently have visiting nurse or other home services: No Alcohol intake: former Patient Tobacco Use Status: Former Tobacco user Years Smoked: started at 26, 1PPD, quit more than 15 years ago Advance Directives: Yes Advance Directives on File: Yes Advance Directives Date on File: 11/22/19 Do you have a plan to hurt others: No Plan service: No Current occupational status: retired Physical Exam Exam: Exam: ?General: ?No facial trauma, no head trauma noted No tenderness along the benjamin Neck: Supple, no LAD ?CV: S1-S2 ?Resp: ?No wheezing rales rhonchi no stridor moving air well Abd: ?Bowel sounds are present, no tenderness no rebound no rigidity MSK: Pelvis is stable, passively full range of motion of both hips both knees both ankles as well as upper extremities without deformities, right paraspinal tenderness L to to L4 area Skin: Warm, dry, intact, no bruising noted ?Neuro: ?Alert and oriented x3, moving upper and lower extremities symmetrically, no obvious facial asymmetry noted, cranial nerves 2-12 intact Vital Signs: Vital Signs: Last Vital Signs Temp 98.2 F 02/11/25 16:05 Pulse 58 02/11/25 16:05 Resp 12 02/11/25 16:05 BP 121/68 02/11/25 16:05 Pulse Ox 96 02/11/25 16:05 O2 Del Method Room Air 02/11/25 16:05 BMI result Body Mass Index 25.9 Course Course Course Narrative: 2:13 PM 02/11/2025 (Colette Fair DO): Patient is signed out to me pending CT imaging after a fall on ice. Patient's is anticoagulated on Eliquis. 6:14 PM 02/11/2025 (Colette Fair DO): Patient's CT imaging is negative for any signs of acute injury. X-ray of the hip did not show any signs of acute fracture. Patient is able to ambulate with nursing staff. We will plan to discharge patient with some Tylenol, lidocaine patch and Flexeril to take for his pain. Encouraged him to follow up with his primary care doctor. Patient's daughter agrees and understands this plan all questions were addressed. Medications Administered Discontinued Medications Generic Name Dose Route Start Last Admin Trade Name Freq PRN Reason Stop Dose Admin Acetaminophen 975 mg 02/11/25 13:01 02/11/25 13:14 Acetaminophen 325 Mg Tablet PO 02/11/25 13:02 975 mg ONCE ONE Administration Oxycodone HCl 5 mg 02/11/25 13:01 02/11/25 13:15 Oxycodone Hcl Immed Release 5 Mg Tablet PO 02/11/25 13:02 5 mg ONCE ONE Administration Medical Decision Making Medical Decision Making MDM Narrative: 1:09 PM 02/11/2025 (Dr. Caleb Harris): Presented after nonsyncopal fall, he is on blood thinners we will obtain imaging of the head and neck as well as his back as that seems to be the biggest area that is bothering him, we will medicate him for pain, we will determine disposition, if he is not able to ambulate may need to go to SNF Differential Diagnosis Differential Diagnoses: The differential diagnosis associated with the presentation includes (Head injury, neck injury, back injury, syncope, nonsyncopal fall) Admission/Observation Consideration of admission/observation: Escalation of care including admission/observation considered Discharge Plan Discharge Clinical Impression: Fall due to ice or snow, Acute low back pain due to trauma Patient Disposition: Home, Self-Care Additional Instructions: Follow up with his primary care doctor. Prescriptions: New lidocaine 5 % adhesive patch,medicated 1 patch topical DAILY Qty: 15 0RF Rx Instructions: leave on most painful area for up to 12 hrs acetaminophen 500 mg tablet 1,000 mg PO Q8H 10 Days Qty: 60 0RF cyclobenzaprine 5 mg tablet 5 mg PO TID PRN (Reason: muscle spasm) Qty: 20 0RF No Action terazosin 10 mg capsule 10 mg PO BEDTIME 90 Days Qty: 90 4RF amiodarone 100 mg tablet 100 mg PO DAILY Qty: 90 3RF atorvastatin 20 mg tablet 20 mg PO BEDTIME Eliquis 5 mg tablet 5 mg PO BID furosemide 20 mg tablet 20 mg PO DAILY diltiazem HCl [Cartia XT] 120 mg capsule,extended release 24hr 120 mg PO DAILY Anoro Ellipta 62.5-25 mcg/actuation blister with device 1 inh inhalation DAILY Qty: 1 6RF lidocaine HCl 2 % jelly in applicator 10 ml intra-urethral ONCE Qty: 10 0RF Print Language: Latvian
[2025-02-11] MEDS: oxyCODONE HCl Immed Release 5 MG TABLET PO (13:15)
[2025-02-11 16:05] VITALS: BP 121/68; PULSE 58; RESP 12; TEMP 36.8; O2SAT 96
--- OUTSIDE RECORDS SUMMARY | 2025-02-11 17:38 | XMS_ITS | Encounter Summary ---
Author Organization [employer] Address [address] [place] [address] [address] [place] [address] Care Team Providers Care Can Technician Name Role Phone Mckenzie Dawkins Primary Care Provider Shawna Nix MD Primary Care Provide r Reason for Visit * Reason Onset Date Comments Appointment Request 04/05/2022 Encounter Details Date Type Department Care Team (Late st Contact Info) Description 04/05/2022 Telephone [facility] MEDICINE [address] [place] [phone] Mckenzie Dawkins FNP Appointment Request Social History [...] to r/s Follow up appt (F/U HTN). 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 Please contact pt at [phone] documented in this encounter Plan of Treatment Not on file documented as of this encounter Visit Diagnoses Not on filedocumented in this encounter Care Teams Can Technician Relationship Specialty Start Date End Date Mckenzie Dawkins FNP PCP - General Family Medicine 01/21/22 04/11/22 Shawna Styles MD [address] [place] [phone] PCP - General Internal Medicine 04/12/22 documented as of this encounter
--- OUTSIDE RECORDS SUMMARY | 2025-02-11 17:38 | XMS_ITS | Encounter Summary ---
Author Organization [employer] Address [address] [facility] [address] [place] [address] Care Team Providers Care Data Warehouse Developer Name Role Phone Shawna Styles MD Primary Care Provide r Reason for Visit * Reason Comments Med Refill Encounter Details Date Type Department Care Team ([facility] st Contact Info) Description 08/01/2023 Refill [facility] MEDICINE [address] [place], [place] [phone] Shawna Styles MD [address] [place], [place] [phone] Benign hypertension Social History Tobacco Use Types [...] as of this encounter Plan of Treatment Not on file documented as of this encounter Visit Diagnoses Diagnosis Benign hypertension Essential hypertension, benign documented in this encounter Additional Health Concerns Assessment Noted Time PHQ-9 Depression Total Score: 0 07/26/19 24 11:48 AM EDT documented as of this encounter Care Teams Data Warehouse Developer Relationship Specialty Start Date End Date Shawna Styles MD [address] [place] [phone] PCP - General Internal Medicine 04/12/22 documented as of this encounter
--- OUTSIDE RECORDS SUMMARY | 2025-02-11 17:38 | XMS_ITS | Encounter Summary ---
Author Organization [employer] Address [address] [facility] [address] [place] [address] Care Team Providers Care Knitter Mechanic Name Role Phone Shawna Styles MD Primary Care Provide r Encounter Details Date Type Department Care Team ([facility] st Contact Info) Description 11/22/2022 Orders Only [facility] MED [facility] PEDS [address] [place], [place] [phone] Chelle Cruz LPN Social History Tobacco Use [...] Specific Antigen 1.25 <0.05 - 4.0 ng/mL [facility] Comment:PSA methodology: Abb karrie Alirbandtty i ChemiluminescentMicroparticle Immunoassay (CMIA) 10/24/2023 9:20 AM EDT 10/24/2023 11:03 AM EDT us Generic External Data Provider LAB BLOOD ORDERAB LES Final Result [facility] [address] [place] [phone] * TSH (05/31/2023 12:10 PM EDT) Thyroid Stimulating Hormone 1.38 0.32 - 4.0 uIU/mL [facility] Comment:TSH 3rd Generation ( [facility]) 05/31/2023 12:1 0 PM EDT 05/31/2023 12:10 PM EDT us Generic External Data Provider LAB BLOOD ORDERAB LES Final Result [facility] [address], [place] [phone] * (ABNORMAL) CBC auto differential (05/31/2023 12:10 PM EDT) White Blood Count 7.4 4.8 - 10.8 X10*3/uL [facility] Red Blood Count 4.27(L) 4.60 - 5.80 X10*6/uL [facility] Hemoglobin 13.9(L) 14.0 - 18.0 g/dl [facility] Hematocrit 41.1(L) 42.0 - 52.0 % [facility] Mean Corpuscular Volume 96.3 80.0 - 98.0 fL [facility] Mean Corpuscular Hemoglobin 32.6 27.0 - 33.0 pg [facility] Mean Corpuscular HGB Conc 33.8 31.0 - 36.0 g/dl [facility] Red Cell Distribution Width 13.1 11.0 - 16.0 % [facility] Platelet Count 124(L) 160 - 400 X10*3/uL [facility] Mean Platelet Volume 12.1 9.4 - 12.4 fL [facility] Neutrophils Percent Auto 60.2 45 - 73 % [facility] Imm Gran Pct Auto 0.8(H) 0.0 - 0.4 % [facility] Lymphocytes Percent Auto 22.0 20 - 40 % [facility] Monocytes Percent Auto 13.6(H) 2 - 11 % [facility] Eosinophils Percent Auto 2.7 0 - 4 % [facility] Basophils Percent Auto 0.7 0 - 2 % [facility] NRBC Pct Auto 0.0 0.0 - 0.2 /100WBC [facility] Neutrophils Absolute Auto 4.4 2.0 - 8.3 x10*3/uL [facility] Imm Gran Abs Auto 0.06(H) 0.00 - 0.03 X10*3/uL [facility] Lymphocytes Absolute Auto 1.6 1.2 - 4.9 X10*3/uL [facility] Monocytes Absolute Auto 1.0 0.1 - 1.2 X10*3/uL [facility] Eosinophils Absolute Auto 0.2 0.0 - 0.4 X10*3/uL [facility] Basophils Absolute Auto 0.1 0.0 - 0.2 X10*3/uL [facility] NRBC Abs Auto 0.000 0.0 - 0.012 X10*3/uL [facility] 05/31/2023 12:1 0 PM EDT 05/31/2023 12:10 PM EDT us Generic External Data Provider LAB BLOOD ORDERAB LES Final Result Performing Organization Address City/State/[facility] Co de Phone Number [facility] [address] [place] [phone] documented in this encounter Visit Diagnoses Not on filedocumented in this encounter Additional Health Concerns Assessment Noted Time PHQ-9 Depression Total Score: 0 06/30/19 10:15 AM EDT documented as of this encounter Care Teams Knitter Mechanic Relationship Specialty Start Date End Date Shawna Styles MD [address] [place] [phone] PCP - General Internal Medicine 04/12/22 documented as of this encounter
--- OUTSIDE RECORDS SUMMARY | 2025-02-11 17:38 | XMS_ITS | Clinical Summary ---
Author Organization [employer] Address [address] [facility] [address] [place] [address] Care Team Providers Care Cost Accounting Manager Name Role Phone Shawna Styles MD Primary Care Provide r Allergies No known active allergies Medications Lancets miscIndications: Prediabetes Use to test blood sugar 2 times daily 100 each 2 04/17/19 24 Active Alcohol Swabs 70 % padsIndications: Prediabetes Use to test blood sugar 2 times daily 100 each 04/17/19 24 Active Blood Glucose Monitoring Suppl (FreeStyle [place] Lite) w/Device kitIndications:P rediabetes Use to test blood sugar 2 times daily 1 kit 04/17/19 24 Active terazosin (Hytrin) 10 MG capsule Take 1 capsule by mouth at bedtime. 08/01/19 24 Active Multiple Vitamin (multivitamin) tablet Take 1 tablet by mouth Once per day. OTC Active metoprolol tartrate (Lopressor) 25 MG tabletIndication s:Paroxysmal atrial fibrillation (CMS/HCC) (HCC) Take 1 tablet (25 mg) by mouth 2 times daily. 60 tablet 11 12/19/19 24 Active Lancets miscIndications: Prediabetes 1 each Once per day. 100 each 2 08/07/19 25 Active albuterol 108 (90 Base) MCG/ACT inhalerIndicatio ns:Chronic bronchitis, unspecified chronic bronchitis type (CMS/HCC) (HCC) Inhale 2 puffs every 6 (six) hours if needed for wheezing. 18 g 11 08/07/19 25 026 Active Blood Glucose Monitoring [...] AND IN THE EVENING 180 tablet 3 5 11:39 AM EST 10/03/19 25 Active lidocaine (Lidoderm) 5 % patchIndications :Chronic midline low back pain without sciatica Apply 1 patch topically Once per day. Remove & discard patch within 12 hours or as directed by MD. 30 patch 3 11/09/19 25 Active Cartia XT 120 MG 24 hr capsuleIndicatio ns:Atrial fibrillation, unspecified type (CMS/HCC) (HCC) Take 1 capsule (120 mg) by mouth in the morning. 30 capsule 11 5 1:13 PM EST 12/06/19 25 Active furosemide (Lasix) 20 MG tabletIndication s:Benign hypertension TAKE 1 TABLET BY MOUTH EVERY MORNING 90 tablet 1 12/27/19 25 Active Anoro Ellipta 62.5-25 MCG/ACT aerosol powderIndication s:Chronic bronchitis, unspecified chronic bronchitis type (CMS/HCC) (HCC) INHALE 1 PUFF BY MOUTH EVERY DAY AT THE SAME TIME RINSE MOUTH AFTER USING 60 each 2 5 1:13 PM EST 01/21/20 25 Active omeprazole (PriLOSEC) [address] capsuleIndicatio ns:Gastroesophag eal reflux disease, unspecified whether esophagitis present TAKE 1 CAPSULE BY MOUTH EVERY DAY NEEDED HEARTBURN, FOR ABDOMINAL PAIN, (for stomach acid). DO NOT BREAK, CRUSH, DISSOLVE OR CHEW. 90 capsule 1 5 1:13 PM EST 12/11/20 25 Active omeprazole (PriLOSEC) [address] Gamble ns:Gastroesophag eal reflux disease, unspecified whether esophagitis present Take 1 capsule (20 mg) by mouth if needed each day (abdominla pain/heartbur n/GERD symptoms). Do not crush or chew. 90 capsule 1 08/07/19 25 025 Discontinued Anoro Ellipta 62.5-25 MCG/ACT aerosol powderIndication s:Chronic bronchitis, unspecified chronic bronchitis type (CMS/HCC) (HCC) INHALE 1 PUFF EVERY DAY 60 each 2 11:39 AM EST 10/29/19 025 Discontinued Active Problems Problem Noted Date Diagnosed Date Chronic midline low back pain without sciatica 0 11/08/2024 Assessment & Plan (11/08/2024 1:03 PM EDT): Lidocaine patch prescribed today He may take acetaminophen as needed Chronic bronchitis (CMS/HCC) 08/06/2024 Assessment & Plan (08/06/2024 1:33 PM [...] patient Primary hypertension 11/06/2023 Assessment & Plan (11/08/2024 1:02 PM EDT): Blood pressure is stable continue with low-sodium diet and same medication regimen Assessment & Plan (08/06/2024 1:32 PM EDT): [...] at home and bring log Atrial fibrillation (CMS/HCC) 10/19/2023 Assessment & Plan (11/08/2024 1:02 PM EDT): Amiodarone was decrease by bilingual sales assistant to 100mg daily, advised to continue with his Eliquis and follow cardiology recommendation do not miss appointment with them Assessment & Plan (05/09/2024 10:45 AM EDT): [...] atorvastatin 20mg daily Arthritis of knee 06/13/2017 Assessment & Plan (11/08/2024 1:03 PM EDT): RMV documentation will be filled out BPH associated with nocturia 06/13/2017 Tubular adenoma [...] Encounters Date Type Department Care Team Description 02/11/2025 Orders Only [facility] External Provider, [facility] 01/23/2025 Refill [facility] [address] [place] [address] Shawna Styles MD Gastroesophageal reflux disease, unspecified whether esophagitis present 01/18/2025 Refill [facility] [address] [place] [address] Shawna Styles MD Chronic bronchitis, unspecified chronic bronchitis type ([facility]/HCC) ([facility]) 01/03/2025 Telephone [facility] [address] [place] [address] Shawna Styles MD 12/26/2024 Refill [facility] [address] [place] [address] Shawna Styles MD Benign hypertension 12/05/2024 Refill [facility] [address] [place] [address] Vonda Nguyen RN Atrial fibrillation, unspecified type ([facility]) ([facility]) 12/05/2024 Telephone [facility] [address] [place] [address] Shawna Styles MD Error (VOID this visit) from Last 3 Months Immunizations Immunization Administration Dates Next Due Influenza High-dose Quadriva lent Preservative Free 11/05/2021 Influenza injectable quadriv alent preservative free 04/01/2019,01/18/2018 Influenza, High Dose Seasona l, Preservative Free 11/08/2024,02/01/2024,11/14/2016 Influenza, IIV3, injectable 11/17/2010 Influenza, Split (incl. [...] Sign Reading Time Taken Comments Blood Pressure 102/72 11/08/2024 9:51 AM EDT Pulse 65 11/08/2024 9:51 AM EDT Temperature 36.6 C (97.8 F) 11/08/2024 9:51 AM EDT Respiratory Rate 16 11/08/2024 9:51 AM EDT Oxygen Saturation 99% 11/08/2024 9:51 AM EDT Inhaled Oxygen Concentration - - Weight 70.8 kg (156 lb) 11/08/2024 9:51 AM EDT Height 162.6 cm (5' 4 ) 11/08/2024 9:51 AM EDT Body Mass Index 26.78 11/08/2024 9:51 AM EDT Plan of Treatment Health Maintenance Due Date Last Done Comments Alcohol/Substance Use Screening 1954 RSV Patients and Patients Aged 60 years or older (1 - 1-dose 75+ series) 2017 COVID-19 Vaccine ( season) 2024 02/04/2021, 05/12/2020, 04/14/2020 Diabetes: Hemoglobin A1C 01/31/2025 024, 01/26/2023, 06/29/2022, Additional history exists SDOH Screening 04/30/2025 04/30/2024 Depression Screening 08/06/2025 08/06/2024, 08/07/19 25 Tobacco Screening 11/08/2025 11/08/2024 Lipid Panel 10/23/2028 10/24/2023, 07/01/2020 DTaP/Tdap/Td Vaccines (4 - Td or Tdap) 10/03/2034 10/03/2024, 11/30/2021, 06/18/2010, Additional history exists Pneumococcal Vaccine: 50+ Years Completed 01/08/2019, 12/04/2008 Zoster Vaccines Completed 04/20/2022, 05/2022, 03/25/2009 Influenza Vaccine Completed 11/08/2024, , 11/05/2021, Additional history exists HIB Vaccines Aged Out [...] Procedure Name Priority Date/Time Associated Diagnosis Comments CT LUMBAR SPINE WO CONTRAST Routine 02/11/2025 1:[address] CERVICAL SPINE WO CONTRAST Routine 02/11/2025 1:[address] HEAD WO CONTRAST Routine 02/11/2025 1 :27 PM EST POCT GLYCATED HEMOGLOBIN, TOTAL Routine 02/01/2024 9:10 AM EST Prediabetes LIPID PANEL, STANDARD Routine 10/24/2023 9:20 AM EDT Prediabetes from Last 3 Months or Most Recently Relevant to Health Maintenance Results * CT Lumbar Spine w/o Contrast (02/11/2025 1:27 PM EST) Anatomical Region Laterality Modality Spine, L-spine Computed Tomogra phy 02/11/2025 1:27 PM EST Narrative 02/11/2025 2:27 PM EST [place] [address] CT Scan Report Signed Patient: Grzegorz Arenas MR#: [id number] 6 : 1940 Acct:[id number] Age/Sex: 84 / M ADM Date: 02/11/25 Loc: HO.ED Attending Dr: Ordering Physician: Caleb Harris DO Date of Service: 02/11/25 Procedure(s): CT lumbar spine wo IV con Accession Number(s): [id number] cc: Shawna Styles MD; Caleb Harris DO Report Number: [id number]: Total DLP = 0.00 mGy-cm Reason for Exam: low back pain after fall EXAMINATION: CT LUMBAR SPINE WITHOUT CONTRAST CLINICAL INFORMATION: Low back pain after fall. COMPARISON: None available. TECHNIQUE: 2 mm thin axial and reformatted 2 mm thin sagittal and coronal images of lumbar spine were obtained without contrast. DLP [address] examination was performed using dose optimization techniques as appropriate, variously including the following: *Automated exposure control *Adjustment of mA and/or kV according to patient size (this includes techniques or standardized protocols for targeted exams where dose is matched to indication/reason for exam; i.e. extremities or head) *Use of iterative reconstruction technique FINDINGS: On sagittal reconstructed images is maintained lumbar lordosis. There is grade 1 anterolisthesis L5 over S1. Rest of the vertebral alignment is normal. The vertebral heights and disc heights are maintained normal. Mild disc desiccation changes are visualized at the L3-4 disc level. At L1-2, L2-3 disc levels there is no significant disc bulge, herniation or spinal canal stenosis. The neural foramina are patent bilaterally. At L3-4 disc level there is diffuse disc bulge with mild to moderate AP canal stenosis. The neural foramina are bilaterally narrowed. At L4-5 disc level there is mild diffuse bulge with facet degenerative hypertrophy resulting in circumferential moderate canal stenosis. The neural foramina are mildly narrowed bilaterally. At L5-S1 disc level is anterolisthesis with thick capacious thecal sac and a diffuse pseudodisc bulge the neural foramina patent bilaterally. There is bilateral L5 laminectomy noted. The prevertebral and paravertebral soft tissues are normal. No lytic or sclerotic process seen. CT/CT lumbar spine wo IV con IMPRESSION: Grade 1 anterolisthesis and L5 over S1 with diffuse disc bulge but no spinal canal stenosis seen. Circumferential moderate canal stenosis L4-5 and abyb-[id number] canal stenosis at L3-4 secondary to underlying disc bulge. Electronically signed by: Espinoza Irving MD 02/11/2025 02:24 PM [facility] Dictated By: Espinoza Irving MD Signed By: <Electronically signed by Espinoza Irving MD in OV> 02/11/25 1424 DD/ 1327 TD/TT: 02/11/25 1356 [employer] Inspector: DHAREMSH Procedure Note Donotuseinterpreter, Image - 02/11/[address] [address] [address] Scan Report Signed Patient: Nixon Arenas#: [id number] 6 : 1940cct:[id number] Age/Sex: 84 / MADM Date: 02/11/25 Loc: HO.ED Attending Dr: Ordering Physician: Caleb Harris DO Date of Service: 02/11/25 Procedure(s): CT lumbar spine wo IV con Accession Number(s): [id number] cc: Shawna Styles MD; Caleb Harris DO Report Number: [id number]: Total DLP = 0.00 mGy-cm Reason for Exam: low back pain after fall EXAMINATION: CT LUMBAR SPINE WITHOUT CONTRAST CLINICAL INFORMATION: Low back pain after fall. COMPARISON: None available. TECHNIQUE: 2 mm thin axial and reformatted 2 mm thin sagittal and coronal images of lumbar spine were obtained without contrast. DLP [address] examination was performed using dose optimization techniques as appropriate, variously including the following: *Automated exposure control *Adjustment of mA and/or kV according to patient size (this includes techniques or standardized protocols for targeted exams where dose is matched to indication/reason for exam; i.e. extremities or head) *Use of iterative reconstruction technique FINDINGS: On sagittal reconstructed images is maintained lumbar lordosis. There is grade 1 anterolisthesis L5 over S1. Rest of the vertebral alignment is normal. The vertebral heights and disc heights are maintained normal. Mild disc desiccation changes are visualized at the L3-4 disc level. At L1-2, L2-3 disc levels there is no significant disc bulge, herniation or spinal canal stenosis. The neural foramina are patent bilaterally. At L3-4 disc level there is diffuse disc bulge with mild to moderate AP canal stenosis. The neural foramina are bilaterally narrowed. At L4-5 disc level there is mild diffuse bulge with facet degenerative hypertrophy resulting in circumferential moderate canal stenosis. The neural foramina are mildly narrowed bilaterally. At L5-S1 disc level is anterolisthesis with thick capacious thecal sac and a diffuse pseudodisc bulge the neural foramina patent bilaterally. There is bilateral L5 laminectomy noted. The prevertebral and paravertebral soft tissues are normal. No lytic or sclerotic process seen. CT/CT lumbar spine wo IV con IMPRESSION: Grade 1 anterolisthesis and L5 over S1 with diffuse disc bulge but no spinal canal stenosis seen. Circumferential moderate canal stenosis L4-5 and [id number] canal stenosis at L3-4 secondary to underlying disc bulge. Electronically signed by: Espinoza Irving MD 02/11/2025 02:24 PM EST RP Dictated By: Espinoza Irving MD Signed By: <Electronically signed by Espinoza Irving MD in OV> 02/11/25 1424 DD/ 1327 TD/TT: 02/11/25 1356 [employer] Inspector: DHARMESH [facility] External Provider IMG CT PROCEDURES Final Result * CT Cervical Spine w/o Contrast (02/11/2025 1:27 PM EST) Anatomical Region Laterality Modality Spine, C-spine Computed Tomogra phy 02/11/2025 1:27 PM EST Narrative 02/11/2025 2:19 PM EST [place] [address] CT Scan Report Signed Patient: Grzegorz Arenas MR#: [id number] 6 : 1940 Acct:[id number] Age/Sex: 84 / M ADM Date: 02/11/25 Loc: HO.ED Attending Dr: Ordering Physician: Caleb Harris DO Date of Service: 02/11/25 Procedure(s): CT cervical spine wo IV con Accession Number(s): [id number] cc: Shawna Styles MD; Caleb aHrris DO Report Number: [id number]: Total DLP = 0.00 mGy-cm Reason for Exam: fall,injury EXAMINATION: CT CERVICAL SPINE WITHOUT CONTRAST CLINICAL INFORMATION: Fall, injury COMPARISON: None available. TECHNIQUE: Spiral CT imaging of the cervical spine performed in axial plane without contrast. Multiplanar reformatted images were constructed from the axial data set. This CT examination was performed using dose optimization techniques as appropriate, variously including the following: *Automated exposure control *Adjustment of mA and/or kV according to patient size (this includes techniques or standardized protocols for targeted exams where dose is matched to indication/reason for exam; i.e. extremities or head) *Use of iterative reconstruction technique FINDINGS: CORONAL ALIGNMENT: -Normal. SAGITTAL ALIGNMENT: -Normal lordosis. -2 mm degenerative retrolisthesis of C3 on C4. Alignment is otherwise normal. There is no traumatic subluxation is evident. C1-C2 AND CRANIOCERVICAL JUNCTION: -Intact and normally aligned. There are mild to moderate degenerative changes in the anterior atlantoaxial joint. VERTEBRAL BODIES AND FACETS: -There is no fracture, compression deformity, or suspicious bone lesion. There is no evidence of traumatic malalignment. -There is normal facet alignment bilaterally. There are multilevel bilateral hypertrophic degenerative facet changes, mild in severity. DISCS: -Multilevel severe disc degeneration present with mild sclerotic and irregular endplate changes, with relative sparing of C2-3. CENTRAL CANAL: -No evidence of high-grade central canal narrowing or large disc herniation allowing for modality limitations. PREVERTEBRAL AND PARAVERTEBRAL SOFT TISSUES: -There is no prevertebral soft tissue swelling or edema. No abnormal fluid collection. -Mild right carotid bulb calcification. -Normal thyroid without definite lesion. LUNG APICES: -No pneumothorax. Clear bilaterally. CT/CT cervical spine wo IV con IMPRESSION: 1. No CT evidence of acute cervical spine fracture or injury. 2. Moderate degenerative spondylosis present. Electronically signed by: Teofilo Brice MD 02/11/2025 02:17 PM [facility] Dictated By: Teofilo Brice MD Signed By: <Electronically signed by Teofilo Brice MD in OV> 02/11/25 1417 DD/ 1327 TD/TT: 02/11/25 1356 [employer] Inspector: Procedure Note Donotuseinterpreter, Image - 02/11/[address] [address] [address] Scan Report Signed Patient: Nixon Arenas#: [id number] 6 : [birth year]Acct:[id number] Age/Sex: 84 / MADM Date: 02/11/25 Loc: HO.ED Attending Dr: Ordering Physician: Caleb Harris DO Date of Service: 02/11/25 Procedure(s): CT cervical spine wo IV con Accession Number(s): [id number] cc: Shawna Styles MD; Caleb Harris DO Report Number: [id number]: Total DLP = 0.00 mGy-cm Reason for Exam: fall,injury EXAMINATION: CT CERVICAL SPINE WITHOUT CONTRAST CLINICAL INFORMATION: Fall, injury COMPARISON: None available. TECHNIQUE: Spiral CT imaging of the cervical spine performed in axial plane without contrast. Multiplanar reformatted images were constructed from the axial data set. This CT examination was performed using dose optimization techniques as appropriate, variously including the following: *Automated exposure control *Adjustment of mA and/or kV according to patient size (this includes techniques or standardized protocols for targeted exams where dose is matched to indication/reason for exam; i.e. extremities or head) *Use of iterative reconstruction technique FINDINGS: CORONAL ALIGNMENT: -Normal. SAGITTAL ALIGNMENT: -Normal lordosis. -2 mm degenerative retrolisthesis of C3 on C4. Alignment is otherwise normal. There is no traumatic subluxation is evident. C1-C2 AND CRANIOCERVICAL JUNCTION: -Intact and normally aligned. There are mild to moderate degenerative changes in the anterior atlantoaxial joint. VERTEBRAL BODIES AND FACETS: -There is no fracture, compression deformity, or suspicious bone lesion. There is no evidence of traumatic malalignment. -There is normal facet alignment bilaterally. There are multilevel bilateral hypertrophic degenerative facet changes, mild in severity. DISCS: -Multilevel severe disc degeneration present with mild sclerotic and irregular endplate changes, with relative sparing of C2-3. CENTRAL CANAL: -No evidence of high-grade central canal narrowing or large disc herniation allowing for modality limitations. PREVERTEBRAL AND PARAVERTEBRAL SOFT TISSUES: -There is no prevertebral soft tissue swelling or edema. No abnormal fluid collection. -Mild right carotid bulb calcification. -Normal thyroid without definite lesion. LUNG APICES: -No pneumothorax. Clear bilaterally. CT/CT cervical spine wo IV con IMPRESSION: 1. No CT evidence of acute cervical spine fracture or injury. 2. Moderate degenerative spondylosis present. Electronically signed by: Teofilo Brice MD 02/11/2025 02:17 PM EST RP Dictated By: Teofilo Brice MD Signed By: <Electronically signed by Teofilo Brice MD in OV> 02/11/25 1417 DD/ 1327 TD/TT: 02/11/25 1356 [employer] Inspector: [facility] External Provider IMG CT PROCEDURES Final Result * CT Head w/o Contrast (02/11/2025 1:27 PM EST) Anatomical Region Laterality Modality Head, Neck Computed Tomogra phy 02/11/2025 1:27 PM EST Narrative 02/11/2025 2:13 PM EST [place] [address] CT Scan Report Signed Patient: Grzegorz Arenas MR#: [id number] 6 : 1940 Acct:[id number] Age/Sex: 84 / M ADM Date: 02/11/25 Loc: HO.ED Attending Dr: Ordering Physician: Caleb Harris DO Date of Service: 02/11/25 Procedure(s): CT head/brain wo IV con Accession Number(s): [id number] cc: Shawna Styles MD; Caleb Harris DO Report Number: [id number]: Total DLP = 1531.00 mGy-cm Reason for Exam: fall, injury EXAMINATION: CT HEAD WITHOUT CONTRAST CLINICAL INFORMATION: Fall, injury. COMPARISON: None available. TECHNIQUE: Contiguous axial imaging was performed from the skull base to vertex without intravenous administration of contrast. This CT examination was performed using dose optimization techniques as appropriate, variously including the following: *Automated exposure control *Adjustment of mA and/or kV according to patient size (this includes techniques or standardized protocols for targeted exams where dose is matched to indication/reason for exam; i.e. extremities or head) *Use of iterative reconstruction technique FINDINGS: There is no evidence of intracranial hemorrhage or extra-axial fluid collection. There is no mass effect, or edema. No CT evidence of acute territorial infarct. Ventricles, sulci, and cisterns are normal in size and configuration for patient age. No hydrocephalus. No midline shift. Negative hyperdense MCA sign. Negative insular ribbon sign. Patchy periventricular and deep white matter hypoattenuation is consistent with mild small vessel ischemic changes. Partial empty sella present. 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 Mild atheromatous calcification of the bilateral carotid siphons and V4 segments vertebral arteries bilaterally. Globes and orbital contents image normally. No extracranial soft tissue abnormalities. The paranasal sinuses, mastoid air cells, and tympanic cavities are normally aerated. No suspicious bony abnormalities. There are no acute fractures evident. CT/CT head/brain wo IV con IMPRESSION: No acute intracranial abnormality. No fracture evident. Electronically signed by: Teofilo Brice MD 02/11/2025 02:10 PM [facility] Dictated By: Teofilo Brice MD Signed By: <Electronically signed by Teofilo Brice MD in OV> 02/11/25 1410 DD/ 1327 TD/TT: 02/11/25 1356 [employer] Inspector: Procedure Note Donotuseinterpreter, Image - 02/11/[address] [place] [address] [address] Scan Report Signed Patient: Nixon Arenas#: [id number] 6 : 1940cct:[id number] Age/Sex: 84 / MADM Date: 02/11/25 Loc: HO.ED Attending Dr: Ordering Physician: Caleb Harris DO Date of Service: 02/11/25 Procedure(s): CT head/brain wo IV con Accession Number(s): [id number] cc: Shawna Styles MD; Caleb Harris DO Report Number: [id number]: Total DLP = 1531.00 mGy-cm Reason for Exam: fall, injury EXAMINATION: CT HEAD WITHOUT CONTRAST CLINICAL INFORMATION: Fall, injury. COMPARISON: None available. TECHNIQUE: Contiguous axial imaging was performed from the skull base to vertex without intravenous administration of contrast. This CT examination was performed using dose optimization techniques as appropriate, variously including the following: *Automated exposure control *Adjustment of mA and/or kV according to patient size (this includes techniques or standardized protocols for targeted exams where dose is matched to indication/reason for exam; i.e. extremities or head) *Use of iterative reconstruction technique FINDINGS: There is no evidence of intracranial hemorrhage or extra-axial fluid collection. There is no mass effect, or edema. No CT evidence of acute territorial infarct. Ventricles, sulci, and cisterns are normal in size and configuration for patient age. No hydrocephalus. No midline shift. Negative hyperdense MCA sign. Negative insular ribbon sign. Patchy periventricular and deep white matter hypoattenuation is consistent with mild small vessel ischemic changes. Partial empty sella present. 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 Mild atheromatous calcification of the bilateral carotid siphons and V4 segments vertebral arteries bilaterally. Globes and orbital contents image normally. No extracranial soft tissue abnormalities. The paranasal sinuses, mastoid air cells, and tympanic cavities are normally aerated. No suspicious bony abnormalities. There are no acute fractures evident. CT/CT head/brain wo IV con IMPRESSION: No acute intracranial abnormality. No fracture evident. Electronically signed by: Teofilo Brice MD 02/11/2025 02:10 PM EST Dictated By: Teofilo Brice MD Signed By: <Electronically signed by Teofilo Brice MD in OV> 02/11/25 1410 DD/ 1327 TD/TT: 02/11/25 1356 [employer] Inspector: [facility] External Provider IMG CT PROCEDURES Final Result * POCT HGB A1C (02/01/2024 9:10 AM EST) Hemoglobin A1C 5.9 4.0 - 6.0 % QC Media Lot # [id number] Lot# Expiration Date [id number] Blood 02/01/2024 9:10 AM EST us Shawna Zamarripa MD POINT OF CARE TEST EN TER/EDIT ORDERABLES Final Result * Lipid Panel, Standard (10/24/2023 9:20 AM EDT) Triglycerides 53 <150 mg/dL [facility] [facility] Comment:Desirable Triglyceri de: less [...] 190 mg/dL HDL Cholesterol 70 >40 mg/dL [facility] Comment:Desirable HDL: great er than 40 mg/dL Note: This HDL assay may give artificially low results in patients with liver disease. Blood Venous blood specimen / Unknown 10/24/2023 9:20 AM EDT 10/24/2023 11:03 AM EDT us Shawna Zamarripa MD LAB BLOOD ORDERABLES Final Result [facility] [address] [place] [phone] from Last 3 Months or Most Recently Relevant to Health Maintenance Insurance [facility] MEDICARE ADVANTAGE HMO Care Teams Cost Accounting Manager Relationship Specialty Start Date End Date Shawna Styles MD [address] [place] [phone] PCP - General Internal Medicine 04/12/22
--- OUTSIDE RECORDS SUMMARY | 2025-02-11 17:38 | XMS_ITS | Encounter Summary ---
Author Organization [facility] Address [address] [facility] 7t [place] [address] Care Team Providers Care Stack Matcher Name Role Phone Shawna Styles MD Primary Care Provide r Reason for Visit * Reason Comments Med Refill Encounter Details Date Type Department Care Team ([facility] st Contact Info) Description 10/02/2023 Refill [facility] MEDICINE [address] [place], [place] [phone] Shawna Styles MD [address] [place], [place] [phone] Benign hypertension Social History Tobacco Use Types [...] documented as of this encounter Care Teams Stack Matcher Relationship Specialty Start Date End Date Shawna Styles MD [address] [place] [address] PCP - General Internal Medicine 04/12/22 documented as of this encounter
--- OUTSIDE RECORDS SUMMARY | 2025-02-11 17:38 | XMS_ITS | Encounter Summary ---
Author Organization [employer] Address [address] [facility] 7 [place] [address] Care Team Providers Care Home Health Occupational Therapist Name Role Phone Shawna Styles MD Primary Care Provide r Reason for Visit * Reason Onset Date Comments Hospital Follow-up 10/09/2023 Encounter Details Date Type Department Care Team ([facility] st Contact Info) Description 10/09/2023 Telephone [facility] MEDICINE [address] [place] [address] Shawna Styles MD [address] [place], [place] [phone] Hospital Follow-up Social History Tobacco Use Types [...] Tc from pt requesting a HDF appt. [facility]: [facility] Date of admission: 10/05 Discharge date: 10/07 Diagnosed: Mild Heart attack documented in this encounter Plan of Treatment Not on file documented as of this encounter Visit Diagnoses Not on filedocumented in this encounter Additional Health Concerns Assessment Noted Time PHQ-9 Depression Total Score: 0 07/26/19 24 11:48 AM EDT documented as of this encounter Care Teams Home Health Occupational Therapist Relationship Specialty Start Date End Date Shawna Styles MD [address] [place] [address] PCP - General Internal Medicine 04/12/22 documented as of this encounter
--- OUTSIDE RECORDS SUMMARY | 2025-02-11 17:38 | XMS_ITS | Encounter Summary ---
Author Organization [employer] Address [address] [facility] 7 [place] [address] Care Team Providers Care Power Station Operator Name Role Phone Mckenzie Dawkins Primary Care Provider Shawna Nix MD Primary Care Provide r Reason for Visit * Reason Comments Med Refill Encounter Details Date Type Department Care Team (Late st Contact Info) Description 03/08/2022 Refill [facility] MEDICINE [address] [place] [address] Dwayne Chong MD [address] [place] [address] Benign hypertension Social History Tobacco Use Types [...] benign documented in this encounter Care Teams Power Station Operator Relationship Specialty Start Date End Date Mckenzie Dawkins FNP PCP - General Family Medicine 01/21/22 04/11/22 Shawna Styles MD [address] [place] [phone] PCP - General Internal Medicine 04/12/22 documented as of this encounter
--- OUTSIDE RECORDS SUMMARY | 2025-02-11 17:38 | XMS_ITS | Encounter Summary ---
Demographics Address [address] [place] [address] Mobile Phone Work Phone Home Phone Email Address m Preferred Language es Marital Status Protestant Affiliation Unknown Race Other Race Ethnic Group Unknown Author Organization [employer] Address [address] [facility] 7t [place] [address] Care Team Providers Care Division Human Resources Manager Name Role Phone Shawna Styles MD Primary Care Provide r Encounter Details Date Type Department Care Team ([facility] Contact Info) Description 02/11/2025 Orders Only [facility] External Provider, [facility] Social History Tobacco Use Types Packs/Day Years [...] t he electric, gas, oil or water [employer] threatened to shut off services in your [...] CONTRAST Routine 02/11/2025 1 :27 PM EST documented in this encounter Results * CT Lumbar Spine w/o Contrast (02/11/2025 1:27 PM EST) Anatomical Region Laterality Modality Spine, L-spine Computed Tomogra phy 02/11/2025 1:27 PM EST Narrative 02/11/2025 2:27 PM EST [place] [address] CT Scan Report Signed Patient: Grzegorz Arenas MR#: [id number] 6 : 1940 Acct:[id number] Age/Sex: 84 / M ADM Date: 02/11/25 Loc: HO.ED Attending Dr: Ordering Physician: Caleb Harris DO Date of Service: 02/11/25 Procedure(s): CT lumbar spine wo IV con Accession Number(s): [id number] cc: Shawna Styles MD; Caleb Harris DO Report Number: [id number]: Total DLP = 0.00 mGy-cm Reason for [...] seen. Circumferential moderate canal stenosis L4-5 and fiwk-wa-hftxxcqn canal stenosis at L3-4 secondary to underlying disc bulge. Electronically signed by: Espinoza Irving MD 02/11/2025 02:24 PM [facility] Dictated By: Espinoza Irving MD Signed By: <Electronically signed by Espinoza Irving MD in OV> 02/11/25 1424 DD/ 1327 TD/TT: 02/11/25 1356 Dispatcher Chief Coal Slurry: [facility] Procedure Note Donotuseinterpreter, Image - 02/11/[address] [address] [address] Scan Report Signed Patient: Nixon Arenas#: [id number] 6 : 3Acct:[id number] Age/Sex: 84 / MADM Date: 02/11/25 Loc: HO.ED Attending Dr: Ordering Physician: Caleb Harris DO Date of Service: 02/11/25 Procedure(s): CT lumbar spine wo IV con Accession Number(s): [id number] cc: Shawna Styles MD; Caleb Harris DO Report Number: [id number]: Total DLP = 0.00 mGy-cm Reason for [...] seen. Circumferential moderate canal stenosis L4-5 and vhch-cl-difvenlu canal stenosis at L3-4 secondary to underlying disc bulge. Electronically signed by: Espinoza Irving MD 02/11/2025 02:24 PM EST RP Dictated By: Espinoza Irving MD Signed By: <Electronically signed by Espinoza Irving MD in OV> 02/11/25 1424 DD/ 1327 TD/TT: 02/11/25 1356 Dispatcher Chief Coal Slurry: [facility] External Provider IMG CT PROCEDURES Final Result * CT Cervical Spine w/o Contrast (02/11/2025 1:27 PM EST) Anatomical Region Laterality Modality Spine, C-spine Computed Tomogra phy 02/11/2025 1:27 PM EST Narrative 02/11/2025 2:19 PM EST [place] [address] CT Scan Report Signed Patient: Grzegorz Arenas MR#: [id number] 6 : 1940 Acct:[id number] Age/Sex: 84 / M ADM Date: 02/11/25 Loc: HO.ED Attending Dr: Ordering Physician: Caleb Harris DO Date of Service: 02/11/25 Procedure(s): CT cervical spine wo IV con Accession Number(s): [id number] cc: Shawna Styles MD; Caleb Harris DO Report Number: [id number]: Total DLP = 0.00 mGy-cm Reason for [...] by: Teofilo Brice MD 02/11/2025 02:17 PM [facility] Dictated By: Teofilo Brice MD Signed By: <Electronically signed by Teofilo Brice MD in OV> 02/11/25 1417 DD/ 1327 TD/TT: 02/11/25 1356 Dispatcher Chief Coal Slurry: Procedure Note Donotuseinterpreter, Image - 02/11/[address] [address] [address] Scan Report Signed Patient: Nixon Arenas#: [id number] 6 : 1940cct:[id number] Age/Sex: 84 / MADM Date: 02/11/25 Loc: HO.ED Attending Dr: Ordering Physician: Caleb Harris DO Date of Service: 02/11/25 Procedure(s): CT cervical spine wo IV con Accession Number(s): [id number] cc: Shawna Styles MD; Caleb Harris DO Report Number: [id number]: Total DLP = 0.00 mGy-cm Reason for [...] Teofilo Brice MD 02/11/2025 02:17 PM EST Dictated By: Teofilo Brice MD Signed By: <Electronically signed by Teofilo Brice MD in OV> 02/11/25 1417 DD/ 1327 TD/TT: 02/11/25 1356 Dispatcher Chief Coal Slurry: [facility] External Provider IMG CT PROCEDURES Final Result * CT Head w/o Contrast (02/11/2025 1:27 PM EST) Anatomical Region Laterality Modality Head, Neck Computed Tomogra phy 02/11/2025 1:27 PM EST Narrative 02/11/2025 2:13 PM EST [address] [address] [address] Scan Report Signed Patient: Grzegorz Arenas MR#: [id number] 6 : 1940 Acct:[id number] Age/Sex: 84 / M ADM Date: 02/11/25 Loc: HO.ED Attending Dr: Ordering Physician: Caleb Harris DO Date of Service: 02/11/25 Procedure(s): CT head/brain wo IV con Accession Number(s): [id number] cc: Shawna Styles MD; Caleb Harris DO Report Number: [id number]: Total DLP = 1531.00 mGy-cm Reason for [...] by: Teofilo Brice MD 02/11/2025 02:10 PM [facility] Dictated By: Teofilo Brice MD Signed By: <Electronically signed by Teofilo Brice MD in OV> 02/11/25 1410 DD/ 1327 TD/TT: 02/11/25 1356 Dispatcher Chief Coal Slurry: Procedure Note Donotuseinterpreter, Image - 02/11/[address] [place] [address] [address] Scan Report Signed Patient: Nixon Arenas#: [id number] 6 : 1940cct:[id number] Age/Sex: 84 / MADM Date: 02/11/25 Loc: HO.ED Attending Dr: Ordering Physician: Caleb Harris DO Date of Service: 02/11/25 Procedure(s): CT head/brain wo IV con Accession Number(s): [id number] cc: Shawna Styles MD; Caleb Harris DO Report Number: [id number]: Total DLP = 1531.00 mGy-cm Reason for [...] by: Teofilo Brice MD 02/11/2025 02:10 PM [facility] Dictated By: Teofilo Brice MD Signed By: <Electronically signed by Teofilo Brice MD in OV> 02/11/25 1410 DD/ 1327 TD/TT: 02/11/25 1356 Dispatcher Chief Coal Slurry: [facility] External Provider IMG CT PROCEDURES Final Result documented in this encounter Visit Diagnoses Not on filedocumented in this encounter Additional Health Concerns Assessment Noted Time PHQ-9 Depression Total Score: 4 08/07/19 25 10:13 AM EDT documented as of this encounter Care Teams Division Human Resources Manager Relationship Specialty Start Date End Date Shawna Styles MD [address] [place] [address] PCP - General Internal Medicine 04/12/22 documented as of this encounter
--- OUTSIDE RECORDS SUMMARY | 2025-02-11 17:38 | XMS_ITS | Encounter Summary ---
Author Organization [employer] Address [address] [facility] 7 [place] [address] Care Team Providers Care Delivery Route Driver Name Role Phone Shawna Styles MD Primary Care Provide r Reason for Visit * Reason Onset Date Comments Error 05/18/2023 Encounter Details Date Type Department Care Team ([facility] st Contact Info) Description 05/18/2023 Telephone [facility] MEDICINE [address] [place] [phone] Shawna Styles MD [address] [place] [address] Error Social History Tobacco Use Types Packs/Day [...] documented as of this encounter Care Teams Delivery Route Driver Relationship Specialty Start Date End Date Shawna Styles MD [address] [place] [address] PCP - General Internal Medicine 04/12/22 documented as of this encounter
--- OUTSIDE RECORDS SUMMARY | 2025-02-11 17:38 | XMS_ITS | Encounter Summary ---
Author Organization [employer] Address [address] [facility] 7t [place] [address] Care Team Providers Care Personal Support Worker Name Role Phone Shawna Styles MD Primary Care Provide r Encounter Details Date Type Department Care Team ([facility] Contact Info) Description 01/03/[address] [facility] MEDICINE [address] [place], [place] [phone] Shawna Styles MD [address] [place], [place] [phone] Social History Tobacco Use Types Packs/Day Years [...] documented as of this encounter Care Teams Personal Support Worker Relationship Specialty Start Date End Date Shawna Styles MD [address] [place] [address] PCP - General Internal Medicine 04/12/22 documented as of this encounter
--- OUTSIDE RECORDS SUMMARY | 2025-02-11 17:38 | XMS_ITS | Clinical Summary ---
Author Organization [facility] Address [address] [place] [address] Phone Care Team Providers Care Awake Overnight Counselor Name Role Phone Shawna Styles MD Primary [...] bed and take medications as prescribe Immunizations Immunization Administration Dates Next Due Influenza trivalent, 0.5mL ( Fluad) 65yo and older 12/26/2023(Deferred: Patient Refused) Surgical History Surgery Date Site/Laterality Comments HIP SURGERY Left LUMBAR SPINE SURGERY Medical History Medical History Date Comments Paroxysmal atrial fibrillation (CMS/HCC V24, CMS /HCC V28) Hypertension Hypercholesteremia GERD (gastroesophageal reflux disease) [...] Safety Answer Date Record ed Physical Abuse Unrecognized value 12/24/2023 Verbal Abuse Unrecognized value 12/24/2023 Sex and Gender Information Value Date Recorded Sex Assigned at Male 12/24/2023 10:24 PM EST Legal Sex Male 4:38 AM EST Gender Identity Male 12/24/2023 10:24 PM EST Sexual Orientation Straight 12/24/2023 10 :24 PM EST Last Filed Vital Signs Vital Sign Reading [...] Patients (1 - 1-dose 75+ series) 2017 Falls Risk Assessment 11/23/2023 Medicare Annual Wellness Visit 11/23/2023 Social Influencers of Health Screening 11/23/2023 Depression Screening 02/14/2024 COVID-19 Vaccine ( - season) 2024 02/04/2021, 05/12/2020, 04/14/2020 Influenza Vaccine (#1) 2024 , 11/05/2021, 04/01/2019, Additional history exists Hypertension/CHF/CAD Annual BMP Blood Test 03/08/2025 03/08/2024, [...] mmol/L LAB CHEMISTRY METHOD 03/08/2024 10:57 AM [facility] Potassium 4.9 3.5 - 5.5 mmol/L LAB CHEMISTRY METHOD 03/08/2024 10:57 AM [facility] Chloride 107 96 - 110 mmol/L LAB CHEMISTRY METHOD 03/08/2024 10:57 AM [facility] CO2 29 21 - 32 mmol/L LAB CHEMISTRY METHOD 03/08/2024 10:57 AM [facility] Anion Gap 4 3 - 11 LAB CHEMISTRY METHOD 03/08/2024 10:57 AM [facility] Glucose 154(H) 70 - 100 mg/dL LAB CHEMISTRY METHOD 03/08/2024 10:57 AM [facility] BUN 11 5 - 25 mg/dL LAB CHEMISTRY METHOD 03/08/2024 10:57 AM [facility] Creatinine 1.07 0.70 - 1.30 mg/dL LAB CHEMISTRY METHOD 03/08/2024 10:57 AM [facility] eGFR 70 >=60 mL/min/1. 73m2 LAB CHEMISTRY METHOD 03/08/2024 10:57 AM [facility] Comment:Calculation based on the Chronic Kidney Disease Epidemiology Collaboration (CKD-EPI) equation refit without adjustment for race. BUN/Creatinine Ratio 10.3 LAB CHEMISTRY METHOD 03/08/2024 10:57 AM [facility] Calcium 8.8 8.5 - 10.5 mg/dL LAB CHEMISTRY METHOD 03/08/2024 10:57 AM [facility] AST (SGOT) 22 10 - 42 unit/L LAB CHEMISTRY METHOD 03/08/2024 10:57 AM [facility] ALT (SGPT) 35 10 - 60 unit/L LAB CHEMISTRY METHOD 03/08/2024 10:57 AM [facility] Alkaline Phosphatase 79 42 - 121 unit/L LAB CHEMISTRY METHOD 03/08/2024 10:57 AM EST [facility] Total Protein 6.4 6.0 - 8.0 g/dL LAB CHEMISTRY METHOD 03/08/2024 10:57 AM [facility] Albumin 3.3 3.2 - 5.0 g/dL LAB CHEMISTRY METHOD 03/08/2024 10:57 AM [facility] Total Bilirubin 0.5 0.0 - 1.4 mg/dL LAB CHEMISTRY METHOD 03/08/2024 10:57 AM EST [facility] Blood Venous blood specimen / Unknown Venipuncture / Unknown 03/08/2024 10:14 AM EST 03/08/2024 10:22 AM EST us Isaías Boateng MD LAB BLOOD ORDERABLES Final Result [facility] [address] [place] [address], from Last 3 Months or Most Recently Relevant to Health Maintenance Insurance [employer] MEDICARE Advance Directives Documents on File Type Date Recorded Patient Buzzle Buffer Expl anation Advance Directives and Living Will [...] currently active code status orders. Care Teams Awake Overnight Counselor Relationship Specialty Start Date End Date Shawna Styles MD [address] [place] [phone] PCP - General Internal Medicine 12/23/23
--- OUTSIDE RECORDS SUMMARY | 2025-02-11 17:38 | XMS_ITS | Encounter Summary ---
Author Organization [employer] Address [address] [place] [address] [place] [address] Care Team Providers Care Brake Tester Name Role Phone Shawna Styles MD Primary Care Provide r Reason for Visit * Reason Comments Med Refill Encounter Details Date Type Department Care Team ([facility] st Contact Info) Description 05/04/2022 Refill [facility] MEDICINE [address] [place] [address] Dwayne Chong MD [address] [place] [address] [phone] Benign hypertension Social History Tobacco Use Types [...] benign documented in this encounter Care Teams Brake Tester Relationship Specialty Start Date End Date Shawna Styles MD [address] [place] [address] PCP - General Internal Medicine 04/12/22 documented as of this encounter
--- NOTE | 2025-02-11 18:25 | MHC.EDTECH ---
ambulation trial completed with excellence tolerance and success. pt ambulated with use of personal cane on right side. complaints of soreness to lower back were made, however pt was negative for limping. RN aware
[2025-02-11] MEDS: Lidocaine 4 % Patch ADH..PATCH 1 PATCH TRANSDERMA (18:32)
[2025-02-11 18:40] VITALS: BP 121/68; PULSE 58; RESP 12; TEMP 36.8; O2SAT 96
== END 2025-02-11 18:40 | disposition home or self-care (01) ==
PROVIDERS: Emergency Provider Student in an Organized Health Care Education/Training Program; PCP Internal Medicine
DX: G89.11 Acute pain due to trauma (principal); M54.50 Low back pain, unspecified; Z91.81 History of falling; I48.0 Paroxysmal atrial fibrillation; I10 Essential (primary) hypertension; Z79.01 Long term (current) use of anticoagulants; Z79.02 Long term (current) use of antithrombotics/antiplatelets; Z79.899 Other long term (current) drug therapy; Z87.891 Personal history of nicotine dependence
CPT/HCPCS: 70450; 72125; 72131; 73502; 99283; 99284

== ENCOUNTER → 2025-02-11 13:01 | Outpatient (BNV) | payer MEDICARE, MEDICAID, SELFPAY | PROVIDERS: Emergency Provider Student in an Organized Health Care Education/Training Program; PCP Internal Medicine; Visit Provider Radiology Diagnostic Radiology | DX: M47.812 Spondylosis without myelopathy or radiculopathy, cervical region (principal); M54.50 Low back pain, unspecified; M48.061 Spinal stenosis, lumbar region without neurogenic claudication; Z04.3 Encounter for examination and observation following other accident; R10.21 Pelvic and perineal pain right side | CPT/HCPCS: 70450; 72125; 72131; 73502 ==